=== PATIENT | female | born 1955 | race Caucasian/White ===

== ENCOUNTER 2020-07-22 13:29 | Inpatient (IN) | payer MEDICARE, OTHER ==
[2020-07-22] MEDS ORDERED: DEXTROSE 5% IN WATER 100 ML with AMIODARONE 150 MG IV ONE (13:40)
[2020-07-22] MEDS ORDERED: AMIODARONE 360 MG in DEXTROSE 5% IN WATER 200 ML IV ONE ×2 (14:00)
[2020-07-22] MEDS: HEPARIN SOD,PORK IN 0.45% NACL 25,000 UNIT in 0.45% NACL 1 250ML.BAG IV SCH (14:08)
[2020-07-22] MEDS: SODIUM CHLORIDE 0.9% 1,000 ML IV ONE ×2 (14:19→18:30)
--- NOTE | 2020-07-22 14:22 | ED ---
General Adult HPI - General Chief complaint: Arrhythmia/Palpitations Stated complaint: V-tac Time Seen by Provider: 07/22/20 13:40 Source: patient, EMS, RN notes reviewed, old records reviewed Mode of arrival: EMS Limitations: no limitations - History of Present Illness Initial comments: This is a 65-year-old female who presents to the emergency department from [facility]. Patient arrived to [facility] morning after she was spray some chest discomfort. Patient states on arrival she was chest pain-free however shortly thereafter the physician there reported the patient went into V. tach. Patient was given adenosine. The physician then called me and I recommended amiodarone if the patient was truly V. tach and she gave a bolus 150 and put the patient on a drip and started the patient on heparin. At that point time the patient transferred to our facility and she remained chest pain-free however on arrival to our facility the patient converted back into a V. tach but remained asymptomatic. - Related Data Home Medications Medication Instructions Recorded Confirmed FLUoxetine HCL [PROzac] 20 mg PO DAILY 02/26/14 07/18/16 Folic Acid 1 mg PO DAILY 02/26/14 07/18/16 Montelukast [Singulair] 10 mg PO HS 02/26/14 07/18/16 Potassium Chloride [Klor-Con 10] 10 meq PO TID 02/26/14 07/18/16 Budesonide [Pulmicort] 1 mg INHALATION RT-DAILY 05/26/16 07/18/16 Aspirin EC [Ecotrin Low Dose] 81 mg PO DAILY 07/02/16 07/18/16 Nitroglycerin Sl Tabs [Nitrostat] 0.4 mg PO Q5M PRN 07/02/16 07/18/16 Atorvastatin [Lipitor] 10 mg PO DAILY 07/18/16 07/18/16 Fluticasone/Vilanterol [Breo 1 puff INHALATION RT-DAILY 07/18/16 07/18/16 Ellipta 100-25 Mcg Inhaler] Magnesium Hydroxide [Milk of 30 ml PO DAILY PRN 07/18/16 07/18/16 Magnesia] bisacodyL [Dulcolax] 10 mg PO Q72H PRN 07/18/16 07/18/16 Previous Rx's Medication Instructions Recorded guaiFENesin SYRUP 100MG/5ML 200 mg PO Q6H PRN #14 cup 06/26/16 [Robitussin] Furosemide [Lasix] 40 mg PO BID@0900,1600 tab 07/08/16 Enoxaparin [Lovenox] 30 mg SQ DAILY 14 Days syringe 07/20/16 HYDROcodone/APAP 7.5-325MG [[place] 1 each PO Q6HR PRN #90 tab 07/20/16 7.5-325] Melatonin 3 mg PO HS tablet 07/20/16 Pantoprazole [Protonix] 40 mg PO AC-BRKFST tablet. 07/20/16 Sennosides-Docusate Sodium 2 each PO HS PRN #0 tab 07/20/16 [Senokot-S] ALPRAZolam [Xanax] 0.25 mg PO TID PRN #20 tab 07/22/16 Formoterol Fumarate [Perforomist] 20 mcg INHALATION RT-BID nebu 07/22/16 Ipratropium-Albuterol Nebulize 3 ml INHALATION RT-QID ampul.neb 07/22/16 [Duoneb 0.5 mg-3 mg/3 ml Soln] Allergies Allergy/AdvReac Type Severity Reaction Status Date / Time No Known Allergies Allergy Verified 07/02/16 15:46 Review of Systems ROS Statement: Those systems with pertinent positive or pertinent negative responses have been documented in the HPI. ROS Other: All systems not noted in ROS Statement are negative. Past Medical History Past Medical History: Coronary Artery Disease (CAD), Heart Failure, COPD, Hyperlipidemia, Hypertension, Respiratory Disorder Additional Past Medical History / Comment(s): Pt had recent admit to [facility] 05/26/16 with possible syncopal episode. Other HX: Chronic respiratory failure- uses 4-5L liters NC as needed, chronic CHF, cardiomyopathy, past vitamin D deficiency but ok now. recent right ankle fracture History of Any Multi-Drug Resistant Organisms: None Reported Past Surgical History: AICD, Breast Surgery, Heart Catheterization, Hysterectomy, Orthopedic Surgery Additional Past Surgical History / Comment(s): 2004 AICD, 2013 cardiac cath - treated medically, Benign R breast biopsy, colonoscopy-normal, broken R. ankle Past Anesthesia/Blood Transfusion Reactions: No Reported Reaction Type of Cardiac Device: AICD Device Placement Date:: unknown Past Psychological History: No Psychological Hx Reported Smoking Status: Former smoker Past Alcohol Use History: None Reported Past Drug Use History: None Reported - Past Family History Mother Additional Family Medical History / Comment(s): heart problems. Mother at the age of 65 or 67 of DVT "that traveled." Father Family Medical History: Myocardial Infarction ([place]) Additional Family Medical History / Comment(s): heart problems. Father of a [place] at the age of 65 yrs. General Exam - General Exam Comments Initial Comments: GENERAL: Patient is well-developed and well-nourished. Patient is nontoxic and well- hydrated and is in no acute distress. ENT: Neck is soft and supple. No significant lymphadenopathy is noted. Oropharynx is clear. Moist mucous membranes. Neck has full range of motion without eliciting any pain. EYES: The sclera were anicteric and conjunctiva were pink and moist. Extraocular movements were intact and pupils were equal round and reactive to light. Eyelid s were unremarkable. PULMONARY: Unlabored respirations. Good breath sounds bilaterally. No audible rales rhonchi or wheezing was noted. CARDIOVASCULAR: Patient was tachycardic at 180 bpm ABDOMEN: Soft and nontender with normal bowel sounds. SKIN: Skin is clear with no lesions or rashes and otherwise unremarkable. NEUROLOGIC: Patient is alert and oriented x3. Cranial nerves II through XII are grossly intact. Motor and sensory are also intact. Normal speech, volume and content. Symmetrical smile. MUSCULOSKELETAL: Normal extremities with adequate strength and full range of motion. LYMPHATICS: No significant lymphadenopathy is noted PSYCHIATRIC: Normal psychiatric evaluation. Limitations: no limitations Course Vital Signs 07/22/20 07/22/20 13:39 14:33 Temperature 97.4 F L Pulse Rate 70 71 Respiratory 18 16 Rate Blood Pressure 65/40 95/65 O2 Sat by Pulse 100 98 Oximetry Medical Decision Making - Medical Decision Making Initial EKG shows V. tach at 180 beats a minute QRS is 174 Q-T intervals 296 QTC is 512. A repeat EKG was done after the patient was given another bolus of 150 amiodarone and converted to a normal sinus rhythm. Second EKG showed normal sinus rhythm at 77 bpm LA interval 186 QRS is 120 QT interval 350 QTC is 396. Patient's EKG shows minimal ST segment elevation in V1 and V2. A third EKG was done shortly thereafter and it showed normal sinus rhythm at 70 bpm LA interval 170 [place] is 102 QT interval 44 QTC is 436. Patient's EKG again shows some ST segment elevation in leads V2. At this point time Dr. Hu was consulted he came down and saw the patient wanted the patient continued on amiodarone drip and heparin and did not want anything to increase the patient's blood pressure aside from fluids Dr. Hu did not want the patient placed on any pressors Patient's blood pressure was responding to fluid and was systolic about 100 consistently. Patient's glucose was 637 acetone was negative. Patient's troponin was mildly elevated 0.063. I spoke with because she agreed to admit the patient admitted the patient wrote admitting orders. - Lab Data Result diagrams: 07/22/20 14:07/22/20 14: Lab Results 07/22/20 07/22/20 07/22/20 Range/Units 14:01 14:01 14:01 WBC 9.1 (3.8-10.6) k/uL RBC 4.45 (3.80-5.40) m/uL Hgb 13.6 (11.4-16.0) gm/dL Hct 44.5 (34.0-46.0) % MCV 100.1 H (80.0-100.0) fL MCH 30.7 (25.0-35.0) pg MCHC 30.6 L (31.0-37.0) g/dL RDW 13.1 (11.5-15.5) % Plt Count 144 L (150-450) k/uL Neutrophils % 79 % Lymphocytes % 15 % Monocytes % 4 % Eosinophils % 2 % Basophils % 0 % Neutrophils # 7.2 (1.3-7.7) k/uL Lymphocytes # 1.4 (1.0-4.8) k/uL Monocytes # 0.4 (0-1.0) k/uL Eosinophils # 0.1 (0-0.7) k/uL Basophils # 0.0 (0-0.2) k/uL Sodium 121 L (137-145) mmol/L Potassium 3.7 (3.5-5.1) mmol/L Chloride 87 L (98-107) mmol/L Carbon Dioxide 26 (22-30) mmol/L Anion Gap 8 mmol/L BUN 15 (7-17) mg/dL Creatinine 1.09 H (0.52-1.04) mg/dL Est GFR (CKD-EPI)AfAm 61 (>60 ml/min/1.73 sqM) Est GFR (CKD-EPI)NonAf 53 (>60 ml/min/1.73 sqM) Glucose 637 H* (74-99) mg/dL Calcium 7.6 L (8.4-10.2) mg/dL Magnesium 1.9 (1.6-2.3) mg/dL Total Bilirubin 1.2 (0.2-1.3) mg/dL AST 50 H (14-36) U/L ALT 36 H (4-34) U/L Alkaline Phosphatase 102 (38-126) U/L Troponin I 0.063 H* (0.000-0.034) ng/mL Total Protein 5.7 L (6.3-8.2) g/dL Albumin 3.0 L (3.5-5.0) g/dL Acetone, Qual (Negative) 07/22/20 Range/Units 14:01 WBC (3.8-10.6) k/uL RBC (3.80-5.40) m/uL Hgb (11.4-16.0) gm/dL Hct (34.0-46.0) % MCV (80.0-100.0) fL MCH (25.0-35.0) pg MCHC (31.0-37.0) g/dL RDW (11.5-15.5) % Plt Count (150-450) k/uL Neutrophils % % Lymphocytes % % Monocytes % % Eosinophils % % Basophils % % Neutrophils # (1.3-7.7) k/uL Lymphocytes # (1.0-4.8) k/uL Monocytes # (0-1.0) k/uL Eosinophils # (0-0.7) k/uL Basophils # (0-0.2) k/uL Sodium (137-145) mmol/L Potassium (3.5-5.1) mmol/L Chloride (98-107) mmol/L Carbon Dioxide (22-30) mmol/L Anion Gap mmol/L BUN (7-17) mg/dL Creatinine (0.52-1.04) mg/dL Est GFR (CKD-EPI)AfAm (>60 ml/min/1.73 sqM) Est GFR (CKD-EPI)NonAf (>60 ml/min/1.73 sqM) Glucose (74-99) mg/dL Calcium (8.4-10.2) mg/dL Magnesium (1.6-2.3) mg/dL Total Bilirubin (0.2-1.3) mg/dL AST (14-36) U/L ALT (4-34) U/L Alkaline Phosphatase (38-126) U/L Troponin I (0.000-0.034) ng/mL Total Protein (6.3-8.2) g/dL Albumin (3.5-5.0) g/dL Acetone, Qual Negative (Negative) Critical Care Time Critical Care Time: Yes Total Critical Care Time: 40 Disposition Clinical Impression: Ventricular tachycardia, Hyponatremia, Hyperglycemia, Elevated troponin Disposition: ADMITTED IP TO THIS [facility] Referrals: Enzo Paula MD [STAFF PHYSICIAN] - 1-2 days Time of Disposition: 14:50
[2020-07-22 14:24] LABS: Basophils % (A) 0 %; Eosinophils # (A) 0.1 k/uL (0-0.7); Eosinophils % (A) 2 %; HCT 44.5 % (34.0-46.0); HGB 13.6 gm/dL (11.4-16.0); Lymphocytes # (A) 1.4 k/uL (1.0-4.8); Lymphocytes % (A) 15 %; MCH 30.7 pg (25.0-35.0); MCHC 30.6 g/dL (31.0-37.0); MCV 100.1 fL (80.0-100.0); Mean Platelet Volume 7.5; Monocytes # (A) 0.4 k/uL (0-1.0); Monocytes % (A) 4 %; Neutrophils # (A) 7.2 k/uL (1.3-7.7); Neutrophils % (A) 79 %; Platelet Count 144 k/uL (150-450); RBC 4.45 m/uL (3.80-5.40); RDW 13.1 % (11.5-15.5); WBC 9.1 k/uL (3.8-10.6)
[2020-07-22 14:25] LABS: Calcium 7.6 mg/dL (8.4-10.2); Magnesium 1.9 mg/dL (1.6-2.3); Potassium 3.7 mmol/L (3.5-5.1); Total Bilirubin 1.2 mg/dL (0.2-1.3); Total Protein 5.7 g/dL (6.3-8.2)
[2020-07-22 14:30] LABS: INR 1.3 (<1.2); Prothrombin Time 12.8 sec (9.0-12.0)
--- NOTE | 2020-07-22 14:35 | P.EPCON ---
Electrophysiology Consult - EP Consult Electrophysiology Consult: This is Dr. Hu dictating a consult on this patient The patient was interviewed and examined IMPRESSION / ASSESSMENT: Scar related ventricular tachycardia, left bundle branch block like, upright in the inferior leads upright in the high lateral leads QRS pattern in V1 and V2 consistent with anterior wall of the RVOT away from the septum Known cardiac myopathy Status post ICD implant Status post lead fracture and implantation of a new ICD lead in 2014 by me Symptomatic VT this time with hypotension Nonischemic cardiomyopathy with abnormal ECG at baseline with ST elevation in V1 and V2 PLAN: IV amiodarone. Hold Coreg and NICOLE inhibitor as for now. Her blood pressure is low line avoid norepinephrine or dopamine infusion. Patient is asymptomatic with a low blood pressure in sinus rhythm TSH level HPI Patient was transferred from [facility] with dizziness and weakness. She had a mild discomfort in her blood pressure was low when she arrived and she was in a wide complex tachycardia as she arrived in the ER. Prior to that she had had wide complex tachycardia that was treated with IV amiodarone She converted with IV amiodarone In sinus rhythm, blood pressures 80s but she is completely symptomatic and is in no chest discomfort She has a past history of cardiac myopathy and a [employer] ICD ROS: No fever chills or rigors, no cough, phlegm or expectoration, no nausea, vomiting or diarrhea, no hematuria, dysuria, no musculoskeletal complaints, no strokes or seizures, no skin lesions. EXAMINATION: 116/57 mmHg afebrile 97.7F pulse rate in the 70s Breath sounds are clear no rhonchi no crackles Heart sounds S1 and S2 are normal no murmurs or gallops or rub Abdomen soft nontender Resting comfortably in bed no respiratory distress no chest pain REVIEW OF LABS, ECG & MEDICAL DATA Sodium 139 potassium 3.7 chloride 98 BUN 17 creatinine 1.3 AST 51 ALT 37 Magnesium 1.4 Troponin 0.0 to Hemoglobin 12.6 Current catheterization was performed in 2013 for chest pain and ST elevation in V2 and V1 Left main was normal at that time mild disease in the LAD normal RCA and left circumflex At that time ejection fraction was 30 heparin 35% and right ventricle was of normal size History of lead fracture in 2014 and implantation of new ICD lead at that time Original ICD implanted in 2004. History of ventricular tachycardia
[2020-07-22 14:59] LABS: Partial Thromboplastin Time 88.2 sec (22.0-30.0)
--- NOTE | 2020-07-22 15:15 | XR ---
EXAMINATION TYPE: XR chest 2V DATE OF EXAM: 07/22/2020 COMPARISON: 07/18/2016 INDICATION: Chest pain, heart palpitations TECHNIQUE: Frontal and lateral views of the chest are obtained. FINDINGS: The heart size is borderline in size. The pulmonary vasculature is normal. The lungs are clear. Pacemaker overlies left chest IMPRESSION: 1. Borderline cardiac size, stable from comparison
[2020-07-22 15:17] LABS: Amorphous Sediment,Urine Rare /hpf; Appearance,Urine Cloudy (Clear); Bacteria,Urine Rare /hpf; Bilirubin,Urine Negative (Negative); Blood,Urine Small (Negative); Color,Urine Yellow; Glucose,Urine (UA) Negative (Negative); Ketones,Urine Negative (Negative); Leukocyte Esterase,Urine Large (Negative); Mucus,Urine Rare /hpf; Nitrite,Urine Negative (Negative); PH, Urine 6.5 (5.0-8.0); Protein,Urine Trace (Negative); RBC,Urine 18 /hpf (0-5); Squamous Epithelial Cell,Urine 14 /hpf (0-4); WBC,Urine 44 /hpf (0-5)
[2020-07-22 15:19] LABS: Specific Gravity,Urine >1.050 (1.001-1.035)
[2020-07-22 15:31] LABS: Glucose,Whole Blood 107 mg/dL (75-99)
[2020-07-22] MEDS: MAGNESIUM SULFATE-D5W PMX 1 GM in DEXTROSE/WATER 1 100ML.BAG IVPB SCH ×2 (15:31→16:42)
[2020-07-22] MEDS ORDERED: NITROGLYCERIN SL TABS 0.4 MG TAB SUBLINGUAL PRN (15:31)
[2020-07-22] MEDS: SODIUM CHLORIDE 0.9% 1,000 ML IV SCH (15:40)
[2020-07-22] MEDS: SODIUM CHLORIDE 0.9% 250 ML IV SCH ×5 (16:21→19:54)
[2020-07-22] MEDS ORDERED: SODIUM CHLORIDE 0.9% 250 ML IV SCH (16:30)
[2020-07-22] MEDS ORDERED: carvediloL 3.125 MG TAB PO SCH (17:30)
[2020-07-22 18:28] LABS: Glucose,Whole Blood 122 mg/dL (75-99)
[2020-07-22] MEDS: IPRATROPIUM-ALBUTEROL 3 ML NEB INHALATION SCH ×2 (18:52→19:14)
[2020-07-22] MEDS: INSULIN ASPART (NovoLOG) 100 UNIT/ML VIAL SQ SCH ×2 (19:06→21:03)
[2020-07-22] MEDS: BUDESONIDE 0.5 MG/2 ML NEBU INHALATION SCH (19:36)
--- NOTE | 2020-07-22 19:38 | P.HPIM ---
History of Present Illness H&P Date: 07/22/20 Chief Complaint: Chest pain History of presenting complaint: This is a pleasant 65-year-old patient, follows with Dr. Ramirez. Chronic stable medical conditions include congestive heart failure, COPD, hypertension, hyperlipidemia, chronic hypoxic respiratory failure on home oxygen 2 L AICD. Patient lives alone. Patient woke up this morning with pressure across the chest. Broke out in sweat short of breath and dizzy. Called her b operator. Chest pain was difficult 45 minutes. Taken down to local [facility]. Patient has been subsided. Initial troponin was 0.02. Subsequently the patient developed medical tachycardia and before any truck and could be administered AICD went off. Subsequently patient was transferred down here to [facility] in [place] on ER. She had a episode of ventricular tachycardia here for about 5-7 minutes. One 50 mg of IV amiodarone was given. Patient went back into sinus rhythm. Patient seen by Dr. Samuel Hu mangle tender soil conservation teacher in the ER. Blood pressure running on the low side. About 80 systolic. On IV heparin. Patient at baseline does use a walker. Review of systems: GEN.: Tired EYES: None HEENT: None NECK: None RESPIRATORY: As above CARDIOVASCULAR: As above GASTROINTESTINAL: None GENITOURINARY: None MUSCULOSKELETAL: Joint pains LYMPHATICS: None HEMATOLOGICAL: None PSYCHIATRY: Slightly anxious NEUROLOGICAL: Uses a walker Past medical history to include: Coronary artery disease, CHF, COPD, hyperlipidemia, hypertension, home oxygen, cardiomyopathy, AICD. Social history: Lives alone. Has a private duty [employer]. Comes 3 times a week. Patient smoked for about 37 years, 1 pack a day stopped about 20 years ago. No alcohol. Physical examination: VITAL SIGNS: 97.4, 67, 20, 82/50, 97% on 2 L GENERAL: BMI 35.9, sitting up, a bit tired. EYES: Pupils equal. Conjunctiva normal. HEENT: External appearance of nose and ears normal, oral cavity grossly normal. NECK: JVD not raised; masses not palpable. HEART: First and second heart sounds are normal; no edema. LUNGS: Respiratory rate increased; decreased breath sounds. ABDOMEN: Soft, nontender, liver spleen not palpable, no masses palpable. PSYCH: Alert and oriented x3; mood and affect. Anxiousl. MUSCULAR skeletal: Evidence of OA NEUROLOGICAL: Cranial nerves grossly intact; no facial asymmetry, power and sensation grossly intact. LYMPHATICS: No lymph nodes palpable in the axilla and neck INVESTIGATIONS, reviewed in the clinical context: White count 9.1 hemoglobin 13.6 platelets 144 sodium 121 potassium 3.7 bun 15 creatinine 1.09 glucose 637 AST 50 ALT 36 troponin 0.063 TSH 1.6 UA positive for leukoesterase, WBC Serum acetone negative EKG tracing personally reviewed by me-ST segment changes on the EKG sinus rhythm Chest x-ray film personally reviewed by me-cardiomegaly. No obvious venous prominence Previous testing: Troponin 0.02 at [facility] Computed tomography scan of the chest negative for PE ProBNP 670 Assessment: -Possible acute non- ST elevation myocardial infarction, POA -2 episodes of sustained ventricular tachycardia-with AICD going off. -Coronary artery disease -Nonketotic hyperosmolar hyperglycemia -Obesity BMI 35.9 -COPD in an ex-smoker -Hyperlipidemia -Chronic hypoxic respiratory failure on home oxygen 2 L -AICD -Chronic gait dysfunction uses a walker -Hypotension likely from acute AR -Severe hyponatremia. -Acute UTI with cystitis Plan: We'll saw the patient on normal saline 100 mL an hour. Had to be careful given history of cardiomyopathy. Patient also IV heparin. Add bronchodilators and intravenous steroids. Check serum osmolality. Restrict water intake to 1500 mL a day. Follow Accu-Cheks closely. Home medications to continue. Increase Lipitor to 40 mg daily at bedtime. Dose of Coreg will be cut back to 1.563 mg twice a day to be held for systolic blood pressure less than 90. Care was discussed with the patient. Questions were answered. Start the patient on IV ceftriaxone. On IV amiodarone. Past Medical History Past Medical History: Coronary Artery Disease (CAD), Heart Failure, COPD, Hyperlipidemia, Hypertension, Respiratory Disorder Additional Past Medical History / Comment(s): Pt had recent admit to [facility] 05/26/16 with possible syncopal episode. Other HX: Chronic respiratory failure- uses 4-5L liters NC as needed, chronic CHF, cardiomyopathy, past vitamin D deficiency but ok now. recent right ankle fracture History of Any Multi-Drug Resistant Organisms: None Reported Past Surgical History: AICD, Breast Surgery, Heart Catheterization, Hysterectomy, Orthopedic Surgery Additional Past Surgical History / Comment(s): 2004 AICD, 2013 cardiac cath - treated medically, Benign R breast biopsy, colonoscopy-normal, broken R. ankle Past Anesthesia/Blood Transfusion Reactions: No Reported Reaction Type of Cardiac Device: AICD Device Placement Date:: unknown Past Psychological History: No Psychological Hx Reported Additional Psychological History / Comment(s): Pt resides alone. She has home O2 and a nebulizer. Pt has a private duty [employer]ER that comes to help the pt three times a week. She does not drive. Her sister or a friend takes her to [facility]. Smoking Status: Former smoker Past Alcohol Use History: None Reported Additional Past Alcohol Use History / Comment(s): started smoking at age 18. stopped smoking jun 22, 2016 Past Drug Use History: None Reported - Past Family History Mother Additional Family Medical History / Comment(s): heart problems. Mother at the age of 65 or 67 of DVT "that traveled." Father Family Medical History: Myocardial Infarction ([place]) Additional Family Medical History / Comment(s): heart problems. Father of a [place] at the age of 65 yrs. Medications and Allergies Home Medications Medication Instructions Recorded Confirmed Type FLUoxetine HCL [PROzac] 20 mg PO DAILY 02/26/14 07/22/20 History Folic Acid 1 mg PO DAILY 02/26/14 07/22/20 History Montelukast [Singulair] 10 mg PO HS 02/26/14 07/22/20 History Potassium Chloride [Klor-Con 10] 10 meq PO TID 02/26/14 07/22/20 History Aspirin EC [Ecotrin Low Dose] 81 mg PO DAILY 07/02/16 07/22/20 History Nitroglycerin Sl Tabs [Nitrostat] 0.4 mg PO Q5M PRN 07/02/16 07/22/20 History Atorvastatin [Lipitor] 10 mg PO DAILY 07/18/16 07/22/20 History Fluticasone/Vilanterol [Breo 1 puff INHALATION RT-DAILY 07/18/16 07/22/20 Histo ry Ellipta 100-25 Mcg Inhaler] Furosemide [Lasix] 20 mg PO DAILY 07/22/20 07/22/20 History Omeprazole 20 mg PO HS 07/22/20 07/22/20 History carvediloL [Coreg] 3.125 mg PO BID 07/22/20 07/22/20 History lisinopriL [Zestril] 2.5 mg PO DAILY 07/22/20 07/22/20 History Allergies Allergy/AdvReac Type Severity Reaction Status Date / Time No Known Allergies Allergy Verified 07/22/20 14:58 Physical Exam Vitals: Vital Signs Temp Pulse Pulse Resp BP BP Pulse Ox 07/22/20 19:22 97 07/22/20 19:14 69 07/22/20 18:39 77 75/49 07/22/20 16:53 62 16 89/55 98 07/22/20 16:45 63 16 79/54 96 07/22/20 16:30 65 18 85/60 98 07/22/20 16:15 98.1 F 63 62 18 80/50 70/46 100 07/22/20 16:13 62 18 80/50 07/22/20 16:00 63 20 76/54 98 07/22/20 15:45 65 16 84/54 97 07/22/20 15:41 65 18 94/62 97 07/22/20 15:30 64 15 87/65 98 07/22/20 15:15 67 20 82/50 97 07/22/20 15:00 65 20 92/45 97 07/22/20 14:33 71 16 95/65 98 07/22/20 13:39 97.4 F L 70 18 65/40 100 Intake and Output 07/22/20 07/22/20 07/22/20 06:59 14:59 22:59 Intake Total 16.167 Balance 16.167 Intake: Intake, IV Titration 16.167 Amount Heparin Sod,Pork in 0.45% 16.167 NaCl 25,000 unit In 0.45 % NaCl 1 250ml.bag @ 11. 603 UNITS/KG/HR 10 mls/hr IV .Q24H [facility] Rx#: [id number] Other: Weight 86.183 kg 86.183 kg Results CBC & Chem 7: 07/22/20 14:01 07/22/20 14:01 Labs: Abnormal Lab Results - Last 24 Hours (Table) 07/22/20 07/22/20 07/22/20 Range/Units 14:01 14:01 14:01 MCV 100.1 H (80.0-100.0) fL MCHC 30.6 L (31.0-37.0) g/dL Plt Count 144 L (150-450) k/uL PT 12.8 H (9.0-12.0) sec INR 1.3 H (<1.2) APTT 88.2 H (22.0-30.0) sec Sodium 121 L (137-145) mmol/L Chloride 87 L (98-107) mmol/L Creatinine 1.09 H (0.52-1.04) mg/dL Glucose 637 H* (74-99) mg/dL POC Glucose (mg/dL) (75-99) mg/dL Calcium 7.6 L (8.4-10.2) mg/dL AST 50 H (14-36) U/L ALT 36 H (4-34) U/L Troponin I (0.000-0.034) ng/mL Total Protein 5.7 L (6.3-8.2) g/dL Albumin 3.0 L (3.5-5.0) g/dL Urine Appearance (Clear) Ur Specific [place] (1.001-1.035) Urine Protein (Negative) Urine Blood (Negative) Ur Leukocyte Esterase (Negative) Urine RBC (0-5) /hpf Urine WBC (0-5) /hpf Ur Squamous Epith Cells (0-4) /hpf Amorphous Sediment (None) /hpf Urine Bacteria (None) /hpf Urine Mucus (None) /hpf 07/22/20 07/22/20 07/22/20 Range/Units 14:01 14:27 15:29 MCV (80.0-100.0) fL MCHC (31.0-37.0) g/dL Plt Count (150-450) k/uL PT (9.0-12.0) sec INR (<1.2) APTT (22.0-30.0) sec Sodium (137-145) mmol/L Chloride (98-107) mmol/L Creatinine (0.52-1.04) mg/dL Glucose (74-99) mg/dL POC Glucose (mg/dL) 107 H (75-99) mg/dL Calcium (8.4-10.2) mg/dL AST (14-36) U/L ALT (4-34) U/L Troponin I 0.063 H* (0.000-0.034) ng/mL Total Protein (6.3-8.2) g/dL Albumin (3.5-5.0) g/dL Urine Appearance Cloudy H (Clear) Ur Specific [place] >1.050 H (1.001-1.035) Urine Protein Trace H (Negative) Urine Blood Small H (Negative) Ur Leukocyte Esterase Large H (Negative) Urine RBC 18 H (0-5) /hpf Urine WBC 44 H (0-5) /hpf Ur Squamous Epith Cells 14 H (0-4) /hpf Amorphous Sediment Rare H (None) /hpf Urine Bacteria Rare H (None) /hpf Urine Mucus Rare H (None) /hpf 07/22/20 Range/Units 18:27 MCV (80.0-100.0) fL MCHC (31.0-37.0) g/dL Plt Count (150-450) k/uL PT (9.0-12.0) sec INR (<1.2) APTT (22.0-30.0) sec Sodium (137-145) mmol/L Chloride (98-107) mmol/L Creatinine (0.52-1.04) mg/dL Glucose (74-99) mg/dL POC Glucose (mg/dL) 122 H (75-99) mg/dL Calcium (8.4-10.2) mg/dL AST (14-36) U/L ALT (4-34) U/L Troponin I (0.000-0.034) ng/mL Total Protein (6.3-8.2) g/dL Albumin (3.5-5.0) g/dL Urine Appearance (Clear) Ur Specific [place] (1.001-1.035) Urine Protein (Negative) Urine Blood (Negative) Ur Leukocyte Esterase (Negative) Urine RBC (0-5) /hpf Urine WBC (0-5) /hpf Ur Squamous Epith Cells (0-4) /hpf Amorphous Sediment (None) /hpf Urine Bacteria (None) /hpf Urine Mucus (None) /hpf Thrombosis Risk Factor Assmnt - Choose All That Apply Each Factor Represents 1 point: Obesity (BMI >25) Each Risk Factor Represents 2 Points: Age 61-74 years Thrombosis Risk Factor Assessment Total Risk Factor Score: 3 Thrombosis Risk Factor Assessment Level: Moderate Risk
[2020-07-22 20:48] LABS: Glucose,Whole Blood 119 mg/dL (75-99)
[2020-07-22] MEDS: PANTOPRAZOLE 40 MG TABLET PO SCH (21:03)
[2020-07-22] MEDS: MONTELUKAST 10 MG TAB PO SCH (21:03)
[2020-07-22] MEDS: ATORVASTATIN 40 MG TAB PO SCH (21:03)
[2020-07-22] MEDS: AMIODARONE 360 MG in DEXTROSE 5% IN WATER 200 ML IV ONE ×2 (21:41)
[2020-07-23] MEDS: AMIODARONE 360 MG in DEXTROSE 5% IN WATER 200 ML IV ONE ×2 (01:21)
[2020-07-23] MEDS: SODIUM CHLORIDE 0.9% 250 ML IV SCH ×2 (04:07→04:08)
[2020-07-23 06:02] LABS: Calcium 8.2 mg/dL (8.4-10.2)
[2020-07-23] MEDS: SODIUM CHLORIDE 0.9% 1,000 ML IV SCH (06:18)
[2020-07-23 06:23] LABS: Glucose,Whole Blood 126 mg/dL (75-99)
[2020-07-23] MEDS: INSULIN ASPART (NovoLOG) 100 UNIT/ML VIAL SQ SCH ×4 (06:32→21:21)
[2020-07-23] MEDS ORDERED: AMIODARONE 360 MG in DEXTROSE 5% IN WATER 200 ML IV ONE ×2 (07:30)
[2020-07-23] MEDS: IPRATROPIUM-ALBUTEROL 3 ML NEB INHALATION SCH ×4 (07:43→20:35)
[2020-07-23] MEDS: BUDESONIDE 0.5 MG/2 ML NEBU INHALATION SCH ×2 (07:44→20:35)
[2020-07-23] MEDS: ASPIRIN 81 MG PO SCH (08:16)
[2020-07-23] MEDS: FLUoxetine HCL 20 MG CAP PO SCH (08:17)
[2020-07-23] MEDS: FOLIC ACID 1 MG TAB PO SCH (08:17)
[2020-07-23 11:47] LABS: Glucose,Whole Blood 117 mg/dL (75-99)
--- NOTE | 2020-07-23 12:38 | P.PN ---
Subjective Patient was resting comfortably in bed. She denies any symptoms such as chest discomfort dizziness lightheadedness or any undue shortness of breath. There is no orthopnea I interrogated and reprogrammed her ICD Blood pressure 85/57 mmHg afebrile 98.1F, pulse rate in the 60s and 70s Breath sounds are clear no rhonchi no crackles Heart sounds S1-S2 are soft no murmurs or gallops no rub No JVD No lower symmetry edema Impression Severe cardio myopathy with congestive heart failure status post ICD in the past She is a dual-chamber Medtronic ICD She's had a RV lead fracture and implanted a new RV lead 5 years back She presented with sustained ventricular tachycardia that made her feel funny dizzy and lightheaded but no true loss of consciousness She terminated with IV amiodarone She had antitachycardia pacing performed by the ICD successfully on multiple occasions Currently she is on IV amiodarone I will switch to by mouth amiodarone tomorrow Currently lisinopril and beta blockers are on hold on account for low blood pressure White count 9.1 thousand, hemoglobin 13.6, sodium 134 potassium 4.0 BUN 17 creatinine 1.2 TSH 1.66 Borderline troponins protocol multiple ICD therapies and recurrent ventricular tachycardia Plan Tomorrow we should switch amiodarone 400 mg by mouth twice a day for 2 weeks, then 200 mg by mouth twice a day for 2 weeks and then subsequently 200 mg by mouth daily I would stop carvedilol then switched to metoprolol 12.5 mg twice daily tomorrow Objective - Vital Signs Vital signs: Vital Signs Temp 98.1 F 07/23/20 11:53 Pulse 70 07/23/20 11:53 Resp 20 07/23/20 11:53 BP 85/57 07/23/20 11:53 Pulse Ox 98 07/23/20 11:53 Intake & Output 07/22/20 07/23/20 07/23/20 19:59 06:59 18:59 Intake Total 128.081 Output Total Balance 128.081 Weight Intake: Intake, IV Titration 8.081 Amount Amiodarone 360 mg In Dextrose 5% in Water 200 ml @ 1 MG/MIN 33.333 mls/ hr IV .Q6H [facility] Rx#: [id number] Heparin Sod,Pork in 0.45% 8.081 NaCl 25,000 unit In 0.45 % NaCl 1 250ml.bag @ 11. 603 UNITS/KG/HR 10 mls/hr IV .Q24H [facility] Rx#: [id number] Oral 120 Output: Urine Other: Voiding Method Indwelling Catheter - Labs CBC & Chem 7: 07/22/20 14:07/23/20 05:36 Labs: Abnormal Lab Results - Last 24 Hours (Table) 07/22/20 07/22/20 07/22/20 Range/Units 14:01 14: 14:01 MCV 100.1 H (80.0-100.0) fL MCHC 30.6 L (31.0-37.0) g/dL Plt Count 144 L (150-450) k/uL PT 12.8 H (9.0-12.0) sec INR 1.3 H (<1.2) APTT 88.2 H (22.0-30.0) sec Sodium 121 L (137-145) mmol/L Chloride 87 L (98-107) mmol/L Creatinine 1.09 H (0.52-1.04) mg/dL Glucose 637 H* (74-99) mg/dL POC Glucose (mg/dL) (75-99) mg/dL Calcium 7.6 L (8.4-10.2) mg/dL AST 50 H (14-36) U/L ALT 36 H (4-34) U/L Troponin I (0.000-0.034) ng/mL Total Protein 5.7 L (6.3-8.2) g/dL Albumin 3.0 L (3.5-5.0) g/dL Urine Appearance (Clear) Ur Specific [place] (1.001-1.035) Urine Protein (Negative) Urine Blood (Negative) Ur Leukocyte Esterase (Negative) Urine RBC (0-5) /hpf Urine WBC (0-5) /hpf Ur Squamous Epith Cells (0-4) /hpf Amorphous Sediment (None) /hpf Urine Bacteria (None) /hpf Urine Mucus (None) /hpf 07/22/20 07/22/20 07/22/20 Range/Units 14:01 14:27 15:29 MCV (80.0-100.0) fL MCHC (31.0-37.0) g/dL Plt Count (150-450) k/uL PT (9.0-12.0) sec INR (<1.2) APTT (22.0-30.0) sec Sodium (137-145) mmol/L Chloride (98-107) mmol/L Creatinine (0.52-1.04) mg/dL Glucose (74-99) mg/dL POC Glucose (mg/dL) 107 H (75-99) mg/dL Calcium (8.4-10.2) mg/dL AST (14-36) U/L ALT (4-34) U/L Troponin I 0.063 H* (0.000-0.034) ng/mL Total Protein (6.3-8.2) g/dL Albumin (3.5-5.0) g/dL Urine Appearance Cloudy H (Clear) Ur Specific [place] >1.050 H (1.001-1.035) Urine Protein Trace H (Negative) Urine Blood Small H (Negative) Ur Leukocyte Esterase Large H (Negative) Urine RBC 18 H (0-5) /hpf Urine WBC 44 H (0-5) /hpf Ur Squamous Epith Cells 14 H (0-4) /hpf Amorphous Sediment Rare H (None) /hpf Urine Bacteria Rare H (None) /hpf Urine Mucus Rare H (None) /hpf 07/22/20 07/22/20 07/22/20 Range/Units 18:27 20:45 21:53 MCV (80.0-100.0) fL MCHC (31.0-37.0) g/dL Plt Count (150-450) k/uL PT (9.0-12.0) sec INR (<1.2) APTT (22.0-30.0) sec Sodium (137-145) mmol/L Chloride (98-107) mmol/L Creatinine (0.52-1.04) mg/dL Glucose (74-99) mg/dL POC Glucose (mg/dL) 122 H 119 H (75-99) mg/dL Calcium (8.4-10.2) mg/dL AST (14-36) U/L ALT (4-34) U/L Troponin I 0.069 H* (0.000-0.034) ng/mL Total Protein (6.3-8.2) g/dL Albumin (3.5-5.0) g/dL Urine Appearance (Clear) Ur Specific [place] (1.001-1.035) Urine Protein (Negative) Urine Blood (Negative) Ur Leukocyte Esterase (Negative) Urine RBC (0-5) /hpf Urine WBC (0-5) /hpf Ur Squamous Epith Cells (0-4) /hpf Amorphous Sediment (None) /hpf Urine Bacteria (None) /hpf Urine Mucus (None) /hpf 07/22/20 07/23/20 07/23/20 Range/Units 21:53 05:36 05:36 MCV (80.0-100.0) fL MCHC (31.0-37.0) g/dL Plt Count (150-450) k/uL PT (9.0-12.0) sec INR (<1.2) APTT 67.3 H 46.2 H (22.0-30.0) sec Sodium 134 L (137-145) mmol/L Chloride (98-107) mmol/L Creatinine 1.20 H (0.52-1.04) mg/dL Glucose 124 H (74-99) mg/dL POC Glucose (mg/dL) (75-99) mg/dL Calcium 8.2 L (8.4-10.2) mg/dL AST (14-36) U/L ALT (4-34) U/L Troponin I (0.000-0.034) ng/mL Total Protein (6.3-8.2) g/dL Albumin (3.5-5.0) g/dL Urine Appearance (Clear) Ur Specific [place] (1.001-1.035) Urine Protein (Negative) Urine Blood (Negative) Ur Leukocyte Esterase (Negative) Urine RBC (0-5) /hpf Urine WBC (0-5) /hpf Ur Squamous Epith Cells (0-4) /hpf Amorphous Sediment (None) /hpf Urine Bacteria (None) /hpf Urine Mucus (None) /hpf 07/23/20 07/23/20 Range/Units 06:20 11:45 MCV (80.0-100.0) fL MCHC (31.0-37.0) g/dL Plt Count (150-450) k/uL PT (9.0-12.0) sec INR (<1.2) APTT (22.0-30.0) sec Sodium (137-145) mmol/L Chloride (98-107) mmol/L Creatinine (0.52-1.04) mg/dL Glucose (74-99) mg/dL POC Glucose (mg/dL) 126 H 117 H (75-99) mg/dL Calcium (8.4-10.2) mg/dL AST (14-36) U/L ALT (4-34) U/L Troponin I (0.000-0.034) ng/mL Total Protein (6.3-8.2) g/dL Albumin (3.5-5.0) g/dL Urine Appearance (Clear) Ur Specific [place] (1.001-1.035) Urine Protein (Negative) Urine Blood (Negative) Ur Leukocyte Esterase (Negative) Urine RBC (0-5) /hpf Urine WBC (0-5) /hpf Ur Squamous Epith Cells (0-4) /hpf Amorphous Sediment (None) /hpf Urine Bacteria (None) /hpf Urine Mucus (None) /hpf Microbiology - Last 24 Hours (Table) 07/22/20 14:27 Urine Culture - Preliminary Urine,Voided
[2020-07-23 12:39] LABS: Hemoglobin A1C 5.5 % (4.0-6.0)
--- NOTE | 2020-07-23 13:22 | P.EPPROC ---
- EP Procedure Note Electrophysiology Procedure Note: Medtronic dual-chamber ICD protector XT aVR, D314V Serial number [id number] R waves greater than 20 mV, RV pacing impedance 608 ohms, stable RV defib 59 ohms Pacing threshold 0.75 V at 0.4 ms Multiple episodes of ventricular tachycardia treated with antitachycardia pacing The device was then reprogrammed as she is on amiodarone VT detection zone 167 beats a minute VT detection intervals increased to 40 beats a minute First cardioversion and defibrillation both at maximum output Appropriate antitachycardia pacing conversion defibrillations Antitachycardia pacing pulses of 15 each with each burst Plan Continue IV amiodarone per day and switch to by mouth amiodarone tomorrow Stop carvedilol and switch to metoprolol tomorrow since her blood pressure is low
--- NOTE | 2020-07-23 15:24 | P.PN ---
Progress Note - Text Progress Note Date: 07/23/20 Chief Complaint: Chest pain History of presenting complaint: This is a pleasant 65-year-old patient, follows with Dr. Ramirez. Chronic stable medical conditions include congestive heart failure, COPD, hypertension, hyperlipidemia, chronic hypoxic respiratory failure on home oxygen 2 L AICD. Patient lives alone. Patient woke up this morning with pressure across the chest. Broke out in sweat short of breath and dizzy. Called her partition setter. Chest pain was difficult 45 minutes. Taken down to local [facility]. Patient has been subsided. Initial troponin was 0.02. Subsequently the patient developed medical tachycardia and before any truck and could be administered AICD went off. Subsequently patient was transferred down here to [place] in [place] on ER. She had a episode of ventricular tachycardia here for about 5-7 minutes. One 50 mg of IV amiodarone was given. Patient went back into sinus rhythm. Patient seen by Dr. Samuel Hu power operator authorization manager in the ER. Blood pressure running on the low side. About 80 systolic. On IV heparin. Patient at baseline does use a walker. Admitted with-acute [place], hypertension, nonketotic hyperosmolar hyperglycemia, UTI. Started on IV fluids, IV heparin. IV amiodarone. IV ceftriaxone. Today-laying in bed. Slightly short of breath. No fevers a bit better. Did tolerate some diet. Remains on IV heparin and IV amiodarone. No chest pain. AICD was reprogrammed with Dr. Samuel Hu today. Review of systems: Was done for constitutional, cardiovascular, GI, pulmonary. relevant finding as above Active Medications Albuterol/Ipratropium (Ipratropium-Albuterol 3 Ml Neb) 3 ml INHALATION RT-QID [facility] Last Admin: 07/23/20 11:18 Dose: 3 ml Documented by: Aspirin (Aspirin 81 Mg) 81 mg PO DAILY [facility] Last Admin: 07/23/20 08:16 Dose: 81 mg Documented by: Atorvastatin Calcium (Atorvastatin 40 Mg Tab) 40 mg PO HS [facility] Last Admin: 07/22/20 21:03 Dose: 40 mg Documented by: Budesonide (Budesonide 0.5 Mg/2 Ml Nebu) 0.5 mg INHALATION RT-BID [facility] Last Admin: 07/23/20 07:44 Dose: 0.5 mg Documented by: Carvedilol (Carvedilol 1.563 Mg Tab) 1.563 mg PO BID-W/MEALS [facility] Last Admin: 07/23/20 06:32 Dose: Not Given Documented by: Fluoxetine HCl (Fluoxetine Hcl 20 Mg Cap) 20 mg PO DAILY [facility] Last Admin: 07/23/20 08:17 Dose: 20 mg Documented by: Folic Acid (Folic Acid 1 Mg Tab) 1 mg PO DAILY [facility] Last Admin: 07/23/20 08:17 Dose: 1 mg Documented by: Heparin Sodium/Sodium Chloride (25,000 unit/ Sodium Chloride) 250 mls @ 10 mls/hr IV .Q24H [facility]; Protocol Last Titration: 07/23/20 07:33 Dose: 7.603 units/kg/hr, 6.552 mls/hr Documented by: Ceftriaxone Sodium 1 gm/ (Sodium Chloride) 50 mls @ 100 mls/hr IVPB Q24HR [facility] Last Admin: 07/23/20 08:17 Dose: 100 mls/hr Documented by: Amiodarone HCl 360 mg/ (Dextrose/Water) 200 mls @ 33.333 mls/hr IV .Q6H [facility]; Protocol Insulin Aspart (Insulin Aspart (Novolog) 100 Unit/Ml Vial) 0 unit SQ ACHS [facility]; Protocol Last Admin: 07/23/20 13:59 Dose: Not Given Documented by: Montelukast Sodium (Montelukast 10 Mg Tab) 10 mg PO [facility] Last Admin: 07/22/20 21:03 Dose: 10 mg Documented by: Nitroglycerin (Nitroglycerin Sl Tabs 0.4 Mg Tab) 0.4 mg SUBLINGUAL Q5M PRN PRN Reason: Chest Pain Pantoprazole Sodium (Pantoprazole 40 Mg Tablet) 40 mg PO [facility] Last Admin: 07/22/20 21:03 Dose: 40 mg Documented by: Physical examination: VITAL SIGNS: 98.1, 70, 20, 85/57, 98% on 3 L GENERAL: Laying in bed, tired EYES: Pupils equal. Conjunctiva normal. NECK: JVD not raised; masses not palpable. HEART: First and second heart sounds are normal; no edema. LUNGS: Respiratory rate increased; decreased breath sounds. ABDOMEN: Soft, nontender, liver spleen not palpable, no masses palpable. PSYCH: Alert and oriented x3; mood and affect. Anxiousl. INVESTIGATIONS, reviewed in the clinical context: Potassium 4 creatinine 1.2 glucose 126 Admission testing White count 9.1 hemoglobin 13.6 platelets 144 sodium 121 potassium 3.7 bun 15 creatinine 1.09 glucose 637 AST 50 ALT 36 troponin 0.063 TSH 1.6 UA positive for leukoesterase, WBC Serum acetone negative EKG tracing personally reviewed by me-ST segment changes on the EKG sinus rhythm Chest x-ray film personally reviewed by me-cardiomegaly. No obvious venous prominence Previous testing: Troponin 0.02 at [facility] Computed tomography scan of the chest negative for PE ProBNP 670 Assessment: -Possible acute non- ST elevation myocardial infarction, POA -2 episodes of sustained ventricular tachycardia-with AICD going off.-On IV amiodarone -Coronary artery disease -Nonketotic hyperosmolar hyperglycemia-corrected -Obesity BMI 35.9 -COPD in an ex-smoker -Hyperlipidemia -Chronic hypoxic respiratory failure on home oxygen 2 L -AICD -Chronic gait dysfunction uses a walker -Hypotension likely from acute [place]-slow to respond -Severe hyponatremia.-Improved -Acute UTI with cystitis -IV heparin monitoring Plan: Patient continued to on IV amiodarone, DuoNeb, IV heparin, IV ceftriaxone. Urine culture pending. AICD was reprogrammed by Dr. Samuel Hu today. Pending 2-D echocardiogram
[2020-07-23] MEDS: AMIODARONE 360 MG in DEXTROSE 5% IN WATER 200 ML IV SCH ×4 (15:30→21:21)
[2020-07-23] MEDS: HEPARIN SOD,PORK IN 0.45% NACL 25,000 UNIT in 0.45% NACL 1 250ML.BAG IV SCH (15:44)
[2020-07-23 16:49] LABS: Glucose,Whole Blood 100 mg/dL (75-99)
[2020-07-23 20:46] LABS: Glucose,Whole Blood 114 mg/dL (75-99)
[2020-07-23] MEDS: MONTELUKAST 10 MG TAB PO SCH (21:21)
[2020-07-23] MEDS: ATORVASTATIN 40 MG TAB PO SCH (21:21)
[2020-07-23] MEDS: PANTOPRAZOLE 40 MG TABLET PO SCH (21:21)
[2020-07-24] MEDS: AMIODARONE 360 MG in DEXTROSE 5% IN WATER 200 ML IV SCH ×4 (03:25→18:37)
[2020-07-24 06:12] LABS: Glucose,Whole Blood 103 mg/dL (75-99)
[2020-07-24] MEDS: INSULIN ASPART (NovoLOG) 100 UNIT/ML VIAL SQ SCH ×3 (06:37→21:26)
[2020-07-24] MEDS: IPRATROPIUM-ALBUTEROL 3 ML NEB INHALATION SCH ×4 (07:49→20:10)
[2020-07-24] MEDS: BUDESONIDE 0.5 MG/2 ML NEBU INHALATION SCH ×2 (07:49→20:10)
[2020-07-24] MEDS: FOLIC ACID 1 MG TAB PO SCH (09:08)
[2020-07-24] MEDS: ASPIRIN 81 MG PO SCH (09:08)
[2020-07-24] MEDS: FLUoxetine HCL 20 MG CAP PO SCH (09:08)
[2020-07-24] MEDS: AMIODARONE 200 MG TAB PO SCH ×2 (09:12→21:25)
[2020-07-24 11:53] LABS: Glucose,Whole Blood 122 mg/dL (75-99)
--- NOTE | 2020-07-24 11:55 | P.PN ---
Subjective Progress Note Date: 07/24/20 HISTORY OF PRESENT ILLNESS: Patient examined this morning bedside. She denies chest pain or pressure. Denies shortness of breath. She had her device reprogrammed yesterday by Dr. Hu. No further episodes of Vtach. PHYSICAL EXAM: VITAL SIGNS: Reviewed. GENERAL: Well-developed in no acute distress. NECK: Supple. No JVD or thyromegaly LUNGS: Respirations even and unlabored. Lungs essentially clear to auscultation bilaterally. HEART: Regular rate and rhythm. S1 and S2 heard. EXTREMITIES: Normal range of motion. No clubbing or cyanosis. Peripheral pulses intact. No lower extremity edema ASSESSMENT: Symptomatic ventricular tachycardia, s/p reprogramming of ICD Nonischemic cardiomyopathy, EF 30-35%, with previous ICD PLAN: Discontinue IV heparin Discontinue IV amio Begin amio PO 400mg PO BID Discontinue Coreg. Begin Metoprolol 12.5mg BID Monitor blood pressure and heart rate Nurse practitioner note has been reviewed by physician. Signing provider agrees with the documented findings, assessment, and plan of care. Objective - Vital Signs Vital signs: Vital Signs Temp 98.7 F 07/23/20 20:00 Pulse 80 07/24/20 11:08 Resp 18 07/24/20 08:00 BP 91/59 07/24/20 08:00 Pulse Ox 95 07/24/20 08:00 Intake & Output 07/23/20 07/24/20 07/24/20 18:59 06:59 18:59 Intake Total 1081.698 394.998 240 Output Total 1750 Balance 1081.698 -1355.002 240 Weight 92 kg Intake: Intake, IV Titration 61.698 394.998 Amount Amiodarone 360 mg In 394.998 Dextrose 5% in Water 200 ml @ 1 MG/MIN 33.333 mls/ hr IV .Q6H [facility] Rx#: [id number] Heparin Sod,Pork in 0.45% 61.698 NaCl 25,000 unit In 0.45 % NaCl 1 250ml.bag @ 11. 603 UNITS/KG/HR 10 mls/hr IV .Q24H [facility] Rx#: [id number] Oral 1020 240 Output: Urine 1750 Other: Voiding Method Indwelling Catheter Indwelling Catheter Indwelling Catheter # Voids 1 1 # Bowel Movements 1 - Labs CBC & Chem 7: 10/31/20 14:01 07/23/20 05:36 Labs: Abnormal Lab Results - Last 24 Hours (Table) 07/23/20 07/23/20 07/23/20 Range/Units 11:45 16:47 20:34 APTT (22.0-30.0) sec POC Glucose (mg/dL) 117 H 100 H 114 H (75-99) mg/dL 07/24/20 07/24/20 Range/Units 06:01 07:19 APTT 36.7 H (22.0-30.0) sec POC Glucose (mg/dL) 103 H (75-99) mg/dL Microbiology - Last 24 Hours (Table) 07/22/20 14:27 Urine Culture - Preliminary Urine,Voided Gram Neg Bacilli
[2020-07-24] MEDS ORDERED: HEPARIN SODIUM,PORCINE 5,000 UNIT/ML 1 ML VIAL SQ SCH (16:00)
[2020-07-24 17:00] LABS: Glucose,Whole Blood 112 mg/dL (75-99)
--- NOTE | 2020-07-24 19:14 | P.PN ---
Progress Note - Text Progress Note Date: 07/24/20 Chief Complaint: Chest pain History of presenting complaint: This is a pleasant 65-year-old patient, follows with Dr. Ramirez. Chronic stable medical conditions include congestive heart failure, COPD, hypertension, hyperlipidemia, chronic hypoxic respiratory failure on home oxygen 2 L AICD. Patient lives alone. Patient woke up this morning with pressure across the chest. Broke out in sweat short of breath and dizzy. Called her burner operator. Chest pain was difficult 45 minutes. Taken down to local [facility]. Patient has been subsided. Initial troponin was 0.02. Subsequently the patient developed medical tachycardia and before any truck and could be administered AICD went off. Subsequently patient was transferred down here to [place] in [place] on ER. She had a episode of ventricular tachycardia here for about 5-7 minutes. One 50 mg of IV amiodarone was given. Patient went back into sinus rhythm. Patient seen by Dr. Samuel Hu insurance professional radon inspector in the ER. Blood pressure running on the low side. About 80 systolic. On IV heparin. Patient at baseline does use a walker. Admitted with-acute [place], hypertension, nonketotic hyperosmolar hyperglycemia, UTI. Started on IV fluids, IV heparin. IV amiodarone. IV ceftriaxone. AICD reprogrammed by Dr. Hu Today-laying in bed. Tolerating diet. A bit tired. Breathing stable. Review of systems: Was done for constitutional, cardiovascular, GI, pulmonary. relevant finding as above Active Medications Albuterol/Ipratropium (Ipratropium-Albuterol 3 Ml Neb) 3 ml INHALATION RT-QID [facility] Last Admin: 07/24/20 15:23 Dose: 3 ml Documented by: Amiodarone HCl (Amiodarone 200 Mg Tab) 400 mg PO BID [facility] Last Admin: 07/24/20 09:12 Dose: 400 mg Documented by: Aspirin (Aspirin 81 Mg) 81 mg PO DAILY [facility] Last Admin: 07/24/20 09:08 Dose: 81 mg Documented by: Atorvastatin Calcium (Atorvastatin 40 Mg Tab) 40 mg PO HS [facility] Last Admin: 07/23/20 21:21 Dose: 40 mg Documented by: Budesonide (Budesonide 0.5 Mg/2 Ml Nebu) 0.5 mg INHALATION RT-BID [facility] Last Admin: 07/24/20 07:49 Dose: 0.5 mg Documented by: Fluoxetine HCl (Fluoxetine Hcl 20 Mg Cap) 20 mg PO DAILY [facility] Last Admin: 07/24/20 09:08 Dose: 20 mg Documented by: Folic Acid (Folic Acid 1 Mg Tab) 1 mg PO DAILY [facility] Last Admin: 07/24/20 09:08 Dose: 1 mg Documented by: Heparin Sodium (Porcine) (Heparin Sodium,Porcine 5,000 Unit/Ml 1 Ml Vial) 5,000 unit SQ Q12HR [facility] Ceftriaxone Sodium 1 gm/ (Sodium Chloride) 50 mls @ 100 mls/hr IVPB Q24HR [facility] Last Admin: 07/24/20 09:08 Dose: 100 mls/hr Documented by: Insulin Aspart (Insulin Aspart (Novolog) 100 Unit/Ml Vial) 0 unit SQ ACHS [facility]; Protocol Last Admin: 07/24/20 16:59 Dose: Not Given Documented by: Metoprolol Tartrate (Metoprolol Tartrate 12.5 Mg Tab) 12.5 mg PO BID [facility] Montelukast Sodium (Montelukast 10 Mg Tab) 10 mg PO [facility] Last Admin: 07/23/20 21:21 Dose: 10 mg Documented by: Nitroglycerin (Nitroglycerin Sl Tabs 0.4 Mg Tab) 0.4 mg SUBLINGUAL Q5M PRN PRN Reason: Chest Pain Pantoprazole Sodium (Pantoprazole 40 Mg Tablet) 40 mg PO [facility] Last Admin: 07/23/20 21:21 Dose: 40 mg Documented by: Physical examination: VITAL SIGNS: Afebrile, 75, 18, 91/59, 95% to 3 L GENERAL: Laying in bed, awake EYES: Pupils equal. Conjunctiva normal. NECK: JVD not raised; masses not palpable. HEART: First and second heart sounds are normal; no edema. LUNGS: Respiratory rate increased; decreased breath sounds. ABDOMEN: Soft, nontender, liver spleen not palpable, no masses palpable. PSYCH: Alert and oriented x3; mood and affect. Normal INVESTIGATIONS, reviewed in the clinical context: Potassium 4 creatinine 1.2 glucose 126 Admission testing White count 9.1 hemoglobin 13.6 platelets 144 sodium 121 potassium 3.7 bun 15 creatinine 1.09 glucose 637 AST 50 ALT 36 troponin 0.063 TSH 1.6 UA positive for leukoesterase, WBC Serum acetone negative EKG tracing personally reviewed by me-ST segment changes on the EKG sinus rhythm Chest x-ray film personally reviewed by me-cardiomegaly. No obvious venous prominence Previous testing: Troponin 0.02 at [facility] Computed tomography scan of the chest negative for PE ProBNP 670 Assessment: -Possible acute non- ST elevation myocardial infarction, POA -2 episodes of sustained ventricular tachycardia-with AICD going off.-On IV amiodarone -Coronary artery disease -Nonketotic hyperosmolar hyperglycemia-corrected -Obesity BMI 35.9 -COPD in an ex-smoker -Hyperlipidemia -Chronic hypoxic respiratory failure on home oxygen 2 L -AICD-reprogrammed -Chronic gait dysfunction uses a walker -Hypotension likely from acute [place]-slow to respond -Severe hyponatremia.-Improved -Acute UTI with cystitis, from gram-negative orgasm -IV heparin monitoring-discontinued Plan: IV heparin IV amiodarone discontinued. Started on oral amiodarone. Coreg was discontinued started on metoprolol. Discussed with patient. Encouraged to sit up in a chair.
[2020-07-24 20:52] LABS: Glucose,Whole Blood 101 mg/dL (75-99)
[2020-07-24] MEDS: ATORVASTATIN 40 MG TAB PO SCH (21:25)
[2020-07-24] MEDS: METOPROLOL TARTRATE 12.5 MG TAB PO SCH (21:25)
[2020-07-24] MEDS: HEPARIN SODIUM,PORCINE 5,000 UNIT/ML 1 ML VIAL SQ SCH (21:26)
[2020-07-24] MEDS: MONTELUKAST 10 MG TAB PO SCH (21:26)
[2020-07-24] MEDS: PANTOPRAZOLE 40 MG TABLET PO SCH (21:26)
[2020-07-25 06:05] LABS: Glucose,Whole Blood 90 mg/dL (75-99)
[2020-07-25] MEDS: INSULIN ASPART (NovoLOG) 100 UNIT/ML VIAL SQ SCH ×4 (06:30→22:06)
[2020-07-25] MEDS: IPRATROPIUM-ALBUTEROL 3 ML NEB INHALATION SCH ×4 (08:09→20:23)
[2020-07-25] MEDS: BUDESONIDE 0.5 MG/2 ML NEBU INHALATION SCH ×2 (08:09→20:24)
[2020-07-25] MEDS: HEPARIN SODIUM,PORCINE 5,000 UNIT/ML 1 ML VIAL SQ SCH ×2 (08:37→21:47)
[2020-07-25] MEDS: METOPROLOL TARTRATE 12.5 MG TAB PO SCH ×2 (08:38→21:46)
[2020-07-25] MEDS: ASPIRIN 81 MG PO SCH (08:38)
[2020-07-25] MEDS: AMIODARONE 200 MG TAB PO SCH ×2 (08:39→21:46)
[2020-07-25] MEDS: FLUoxetine HCL 20 MG CAP PO SCH (08:39)
[2020-07-25] MEDS: FOLIC ACID 1 MG TAB PO SCH (08:39)
[2020-07-25] MEDS: SODIUM CHLORIDE 0.9% 250 ML IV SCH ×2 (09:28→09:29)
[2020-07-25 09:50] LABS: Magnesium 1.5 mg/dL (1.6-2.3)
--- NOTE | 2020-07-25 10:15 | P.PN ---
Subjective Progress Note Date: 07/25/20 's is a 65-year-old female who has a history of nonischemic cardiomyopathy with prior Medtronic AICD, COPD, nicotine dependence,history of lead fracture with implantation of new ICD in 2015 who was initially transferred here from [facility] after presenting with symptoms of dizziness and w eakness. Patient was found on ICD interrogation to have runs of ventricular tachycardiawith appropriate antitachycardia pacing conversion defibrillation. She had been seen in consultation by Dr. Hu, her device was reprogrammed, and she was initiated on IV amiodarone, subsequently switched over to by mouth amiodarone which she is on at this time. The patient was seen and examined this morning, has a harsh nonproductive wheezy cough.she is currently in a normal sinus rhythm this morning, on review of her rhythm strips in the past 24 hours, patient did have a run of 16 nonsustained ventricular tachycardia around 11:30 PM last night.she denies any palpitations, breathing is similar to her usual, no chest discomfort, no dizziness or lightheadedness. Her blood pressure this morning 104/56 with a heart rate in the 70s, 95% on 2 L of oxygen. Magnesium level this morning 1.5. Objective - Vital Signs Vital signs: Vital Signs Temp 98.3 F 07/25/20 04:00 Pulse 76 07/25/20 08:26 Resp 18 07/25/20 04:00 BP 104/56 07/25/20 04:00 Pulse Ox 95 07/25/20 04:00 Intake & Output 07/24/20 07/25/20 07/25/20 18:59 06:59 18:59 Intake Total 562 200 120 Output Total 600 1500 Balance -38 -1300 120 Weight 71.5 kg Intake: Intake, IV Titration 0 Amount cefTRIAXone 1 gm In 0 Sodium Chloride 0.9% 50 ml @ 100 mls/hr IVPB Q24HR [facility] Rx#:[id number] Oral 562 200 120 Output: Urine 600 1500 Other: Voiding Method Indwelling Catheter Indwelling Catheter - Exam PHYSICAL EXAMINATION: GENERAL:65-year-old female in no acute distress at the time of my examination HEENT: Head is atraumatic, normocephalic. Pupils equal, round. Sclera anicteric. Conjunctiva are clear. Mucous membranes of the mouth are moist. Neck is supple. There is no elevated jugular venous pressure.No carotid bruit is heard. HEART EXAMINATION: [Heart S1, S2 normal. No murmur or gallop heard.] CHEST EXAMINATION:[ Lungs reveal scattered coarse wheezing throughout with decreased air exchange] ABDOMEN: [ Soft, nontender. Bowel sounds are heard. No organomegaly noted]. EXTREMITIES:[ 2+ peripheral pulses with no evidence of peripheral edema chronic bilateral venous stasis. NEUROLOGIC [patient is awake, alert and oriented 3 . - Labs CBC & Chem 7: 07/22/20 14:01 07/25/20 08:54 Labs: Abnormal Lab Results - Last 24 Hours (Table) 07/24/20 07/24/20 07/24/20 Range/Units 11:50 16:55 20:38 POC Glucose (mg/dL) 122 H 112 H 101 H (75-99) mg/dL Magnesium (1.6-2.3) mg/dL 07/25/20 Range/Units 08:54 POC Glucose (mg/dL) (75-99) mg/dL Magnesium 1.5 L (1.6-2.3) mg/dL Microbiology - Last 24 Hours (Table) 07/22/20 14:27 Urine Culture - Final Urine,Voided Escherichia coli Assessment and Plan Plan: Assessment and plan #1 sustained ventricular tachycardia, status post anterior tachycardia pacing, patient did have reprogramming of her device #2nonischemic cardiomyopathy with prior AICD implantation #3 hypertension #4 COPD #5 nicotine dependence #6 hypomagnesemia Plan We will continue the amiodarone as directed by Dr. Hu, replace the magnesium today. Continue to monitor for subsequent runs of ventricular tachycardia. DNP note has been reviewed, I agree with a documented findings and plan of care. Patient was seen and examined.
[2020-07-25] MEDS: MAGNESIUM SULFATE-D5W PMX 1 GM in DEXTROSE/WATER 1 100ML.BAG IVPB SCH ×2 (11:37→14:03)
[2020-07-25 11:52] LABS: Glucose,Whole Blood 87 mg/dL (75-99)
--- NOTE | 2020-07-25 13:55 | CDI ---
Documentation Clarification Form Date: 07/25/2020 01:39:51 PM From: Estefania Doan RN CCDS Admit Date: 07/22/2020 03:01:00 PM Patient Name: Gladys Powell Visit Number: [id number] Discharge Date: ATTENTION: The Clinical Documentation Specialists (CDI) and [facility] Coding Staff appreciate your assistance in clarifying documentation. Please respond to the clarification below the line at the bottom and electronically sign. The CDI & [facility] Coding staff will review the response and follow-up if needed. Please note: Queries are made part of the Legal Health Record. If you have any questions, please contact the author of this message via ITS. Dr. Jonel Saldaña The patient presented to ED from [facility] for V-tach and chest pain. History/Risk Factors: 65-year-old female presents to the ED with medical history of chronic respiratory failure, COPD, HTN and nonischemic cardiomyopathy with prior AICD implantation. Patient admitted with Acute [place] Tobacco use: former Home oxygen: 2L Clinical Indicators: 07/22 Vital signs: B/P 65/40; HR 70; Temp 97.4 F Oral; RR 18; SpO2 100% Non- Rebreather 15L 07/22 ED Lung/Breathing assessment: Unlabored respirations. Good breath sounds bilaterally. 07/22 H&P Lung assessment: Respiratory rate increased, decreased breath sounds. No audible rales, rhonchi or wheezing was noted. Treatment: Breathing tx: 07/12 Duoneb; Pulmicort; Singulair 07/22 - 15L nonrebreather In your professional opinion, can you please clarify if these findings signify one of the following conditions? Acute Respiratory Failure Acute on Chronic Respiratory Failure Chronic Respiratory Failure Acute Respiratory Distress Acute Respiratory Insufficiency Other Diagnosis, please specify Unable to determine Specificity: If known, further specify (if known): With hypercapnia? (pCO2 >50 and pH <7.35) With hypoxia? (pO2 <60 mm Hg or SpO2 <91% on room air) (Last Query Form Revision: May 2019) See discharge summary. No change documentation change required MTDD
[2020-07-25 16:44] LABS: Glucose,Whole Blood 89 mg/dL (75-99)
[2020-07-25 20:30] LABS: Glucose,Whole Blood 104 mg/dL (75-99)
[2020-07-25] MEDS: ATORVASTATIN 40 MG TAB PO SCH (21:46)
[2020-07-25] MEDS: PANTOPRAZOLE 40 MG TABLET PO SCH (21:46)
[2020-07-25] MEDS: MONTELUKAST 10 MG TAB PO SCH (21:47)
[2020-07-25 22:50] LABS: Calcium 9.4 mg/dL (8.4-10.2); Magnesium 2.1 mg/dL (1.6-2.3)
--- NOTE | 2020-07-25 23:43 | P.PN ---
Progress Note - Text Progress Note Date: 07/25/20 Chief Complaint: Chest pain History of presenting complaint: This is a pleasant 65-year-old patient, follows with Dr. Ramirez. Chronic stable medical conditions include congestive heart failure, COPD, hypertension, hyperlipidemia, chronic hypoxic respiratory failure on home oxygen 2 L AICD. Patient lives alone. Patient woke up this morning with pressure across the chest. Broke out in sweat short of breath and dizzy. Called her spanisher. Chest pain was difficult 45 minutes. Taken down to local [facility]. Patient has been subsided. Initial troponin was 0.02. Subsequently the patient developed medical tachycardia and before any truck and could be administered AICD went off. Subsequently patient was transferred down here to [place] in [place] on ER. She had a episode of ventricular tachycardia here for about 5-7 minutes. One 50 mg of IV amiodarone was given. Patient went back into sinus rhythm. Patient seen by Dr. Samuel Hu bulk mail clerk consumer sales representative in the ER. Blood pressure running on the low side. About 80 systolic. On IV heparin. Patient at baseline does use a walker. Admitted with-acute [place], hypertension, nonketotic hyperosmolar hyperglycemia, UTI. Started on IV fluids, IV heparin. IV amiodarone. IV ceftriaxone. AICD reprogrammed by Dr. Hu Today-had a 16 beat run of nonsustained V. tach last night. Magnesia being supplemented. Baseline mild shortness of breath. No chest pain. Review of systems: Was done for constitutional, cardiovascular, GI, pulmonary. relevant finding as above Active Medications Albuterol/Ipratropium (Ipratropium-Albuterol 3 Ml Neb) 3 ml INHALATION RT-QID [facility] Last Admin: 07/25/20 20:23 Dose: 3 ml Documented by: Amiodarone HCl (Amiodarone 200 Mg Tab) 400 mg PO BID [facility] Last Admin: 07/25/20 21:46 Dose: 400 mg Documented by: Aspirin (Aspirin 81 Mg) 81 mg PO DAILY [facility] Last Admin: 07/25/20 08:38 Dose: 81 mg Documented by: Atorvastatin Calcium (Atorvastatin 40 Mg Tab) 40 mg PO HS [facility] Last Admin: 07/25/20 21:46 Dose: 40 mg Documented by: Budesonide (Budesonide 0.5 Mg/2 Ml Nebu) 0.5 mg INHALATION RT-BID [facility] Last Admin: 07/25/20 20:24 Dose: 0.5 mg Documented by: Fluoxetine HCl (Fluoxetine Hcl 20 Mg Cap) 20 mg PO DAILY [facility] Last Admin: 07/25/20 08:39 Dose: 20 mg Documented by: Folic Acid (Folic Acid 1 Mg Tab) 1 mg PO DAILY [facility] Last Admin: 07/25/20 08:39 Dose: 1 mg Documented by: Heparin Sodium (Porcine) (Heparin Sodium,Porcine 5,000 Unit/Ml 1 Ml Vial) 5,000 unit SQ Q12HR [facility] Last Admin: 07/25/20 21:47 Dose: 5,000 unit Documented by: Ceftriaxone Sodium 1 gm/ (Sodium Chloride) 50 mls @ 100 mls/hr IVPB Q24HR [facility] Last Admin: 07/25/20 08:38 Dose: 100 mls/hr Documented by: Insulin Aspart (Insulin Aspart (Novolog) 100 Unit/Ml Vial) 0 unit SQ ACHS [facility]; Protocol Last Admin: 07/25/20 22:06 Dose: Not Given Documented by: Metoprolol Tartrate (Metoprolol Tartrate 12.5 Mg Tab) 12.5 mg PO BID [facility] Last Admin: 07/25/20 21:46 Dose: 12.5 mg Documented by: Montelukast Sodium (Montelukast 10 Mg Tab) [address] [facility] Last Admin: 07/25/20 21:47 Dose: 10 mg Documented by: Nitroglycerin (Nitroglycerin Sl Tabs 0.4 Mg Tab) 0.4 mg SUBLINGUAL Q5M PRN PRN Reason: Chest Pain Pantoprazole Sodium (Pantoprazole 40 Mg Tablet) [address] [facility] Last Admin: 07/25/20 21:46 Dose: 40 mg Documented by: Physical examination: VITAL SIGNS: 98.2, 16, 17, 105/74, 95% on 3 L GENERAL: Laying in bed, awake EYES: Pupils equal. Conjunctiva normal. NECK: JVD not raised; masses not palpable. HEART: First and second heart sounds are normal; no edema. LUNGS: Respiratory rate increased; decreased breath sounds. ABDOMEN: Soft, nontender, liver spleen not palpable, no masses palpable. PSYCH: Alert and oriented x3; mood and affect. Normal INVESTIGATIONS, reviewed in the clinical context: Potassium 4 creatinine 1.06 Admission testing White count 9.1 hemoglobin 13.6 platelets 144 sodium 121 potassium 3.7 bun 15 creatinine 1.09 glucose 637 AST 50 ALT 36 troponin 0.063 TSH 1.6 UA positive for leukoesterase, WBC Serum acetone negative EKG tracing personally reviewed by me-ST segment changes on the EKG sinus rhythm Chest x-ray film personally reviewed by me-cardiomegaly. No obvious venous prominence Previous testing: Troponin 0.02 at [facility] Computed tomography scan of the chest negative for PE ProBNP 670 Assessment: -Possible acute non- ST elevation myocardial infarction, POA -2 episodes of sustained ventricular tachycardia-with AICD going off.-On IV amiodarone -Coronary artery disease -Nonketotic hyperosmolar hyperglycemia-corrected -Obesity BMI 35.9 -COPD in an ex-smoker -Hyperlipidemia -Chronic hypoxic respiratory failure on home oxygen 2 L -AICD-reprogrammed -Chronic gait dysfunction uses a walker -Hypotension likely from acute [place]-slow to respond -Severe hyponatremia.-Improved -Acute UTI with cystitis, from gram-negative orgasm -IV heparin monitoring-discontinued -16 beat run of nonsustained V. tach today. Plan: On oral amiodarone and beta matilda. Magnesia being supplemented. Encouraged to be up in a chair. Hopefully discharge tomorrow.
[2020-07-26 06:13] LABS: Glucose,Whole Blood 96 mg/dL (75-99)
[2020-07-26] MEDS: INSULIN ASPART (NovoLOG) 100 UNIT/ML VIAL SQ SCH ×4 (06:40→20:56)
[2020-07-26] MEDS: BUDESONIDE 0.5 MG/2 ML NEBU INHALATION SCH ×2 (08:07→22:28)
[2020-07-26] MEDS: IPRATROPIUM-ALBUTEROL 3 ML NEB INHALATION SCH ×4 (08:07→22:29)
[2020-07-26] MEDS: ASPIRIN 81 MG PO SCH (10:27)
[2020-07-26] MEDS: AMIODARONE 200 MG TAB PO SCH ×2 (10:27→20:14)
[2020-07-26] MEDS: HEPARIN SODIUM,PORCINE 5,000 UNIT/ML 1 ML VIAL SQ SCH ×2 (10:31→20:16)
[2020-07-26] MEDS: FLUoxetine HCL 20 MG CAP PO SCH (10:31)
[2020-07-26] MEDS: FOLIC ACID 1 MG TAB PO SCH (10:31)
[2020-07-26] MEDS: METOPROLOL TARTRATE 12.5 MG TAB PO SCH ×2 (10:31→20:16)
[2020-07-26 11:41] LABS: Glucose,Whole Blood 100 mg/dL (75-99)
--- NOTE | 2020-07-26 11:47 | P.PN ---
Subjective Progress Note Date: 07/26/20 's is a 65-year-old female who has a history of nonischemic cardiomyopathy with prior [employer]tronic AICD, COPD, nicotine dependence,history of lead fracture with implantation of new ICD in 2015 who was initially transferred here from [facility] after presenting with symptoms of dizziness and w eakness. Patient was found on ICD interrogation to have runs of ventricular tachycardiawith appropriate antitachycardia pacing conversion defibrillation. She had been seen in consultation by Dr. Hu, her device was reprogrammed, and she was initiated on IV amiodarone, subsequently switched over to by mouth amiodarone which she is on at this time. The patient was seen and examined this morning, has a harsh nonproductive wheezy cough.she is currently in a normal sinus rhythm this morning, on review of her rhythm strips in the past 24 hours, patient did have a run of 16 nonsustained ventricular tachycardia around 11:30 PM last night.she denies any palpitations, breathing is similar to her usual, no chest discomfort, no dizziness or lightheadedness. Her blood pressure this morning 104/56 with a heart rate in the 70s, 95% on 2 L of oxygen. Magnesium level this morning 1.5. 07/26/2020 Patient was seen and examined this morning, overall she does state that she's feeling better today, she continues to have frequent long runs of nonsustained ventricular tachycardia in spite of being on amiodarone. Her potassium level today is 4 magnesium is 2.1. We will add mexiletine current medication regime today. Blood pressure 122/60 with a heart rate of 60. Objective - Vital Signs Vital signs: Vital Signs Temp 98.6 F 07/26/20 07:54 Pulse 72 07/26/20 11:33 Resp 22 07/26/20 08:28 BP 123/60 07/26/20 10:13 Pulse Ox 95 07/26/20 07:54 Intake & Output 07/25/20 07/26/20 07/26/20 18:59 06:59 18:59 Intake Total 540 240 Balance 540 240 Weight 91.9 kg Intake: Oral 540 240 Other: Voiding Method Indwelling Catheter Toilet Toilet # Voids 1 1 2 # Bowel Movements 1 - Exam PHYSICAL EXAMINATION: GENERAL:65-year-old female in no acute distress at the time of my examination HEENT: Head is atraumatic, normocephalic. Pupils equal, round. Sclera anicteric. Conjunctiva are clear. Mucous membranes of the mouth are moist. Neck is supple. There is no elevated jugular venous pressure.No carotid bruit is heard. HEART EXAMINATION: [Heart S1, S2 normal. No murmur or gallop heard.] CHEST EXAMINATION:[ Lungs reveal scattered coarse wheezing throughout with decreased air exchange] ABDOMEN: [ Soft, nontender. Bowel sounds are heard. No organomegaly noted]. EXTREMITIES:[ 2+ peripheral pulses with no evidence of peripheral edema chronic bilateral venous stasis. NEUROLOGIC [patient is awake, alert and oriented 3 . - Labs CBC & Chem 7: 07/22/20 14:01 07/25/20 21:57 Labs: Abnormal Lab Results - Last 24 Hours (Table) 07/25/20 07/25/20 07/26/20 Range/Units 20:29 21:57 11:38 Sodium 134 L (137-145) mmol/L Creatinine 1.06 H (0.52-1.04) mg/dL Glucose 117 H (74-99) mg/dL POC Glucose (mg/dL) 104 H 100 H (75-99) mg/dL Assessment and Plan Plan: Assessment and plan #1 sustained ventricular tachycardia, status post anterior tachycardia pacing, patient did have reprogramming of her device #2nonischemic cardiomyopathy with prior AICD implantation #3 hypertension #4 COPD #5 nicotine dependence #6 hypomagnesemia Plan We will continue the amiodarone , start the patient on mexiletine today. Continue to monitor. DNP note has been reviewed, I agree with a documented findings and plan of care. Patient was seen and examined.
[2020-07-26] MEDS: MEXILETINE 150 MG CAP PO SCH ×2 (12:32→20:16)
[2020-07-26 16:40] LABS: Glucose,Whole Blood 113 mg/dL (75-99)
[2020-07-26] MEDS: PANTOPRAZOLE 40 MG TABLET PO SCH (20:14)
[2020-07-26] MEDS: ATORVASTATIN 40 MG TAB PO SCH (20:16)
[2020-07-26] MEDS: MONTELUKAST 10 MG TAB PO SCH (20:16)
[2020-07-26 20:24] LABS: Glucose,Whole Blood 134 mg/dL (75-99)
[2020-07-26 20:29] VITALS: RESP 18
--- NOTE | 2020-07-26 23:00 | P.PN ---
Progress Note - Text Progress Note Date: 07/26/20 Chief Complaint: Chest pain History of presenting complaint: This is a pleasant 65-year-old patient, follows with Dr. Ramirez. Chronic stable medical conditions include congestive heart failure, COPD, hypertension, hyperlipidemia, chronic hypoxic respiratory failure on home oxygen 2 L AICD. Patient lives alone. Patient woke up this morning with pressure across the chest. Broke out in sweat short of breath and dizzy. Called her tool and die maker apprentice. Chest pain was difficult 45 minutes. Taken down to local [facility]. Patient has been subsided. Initial troponin was 0.02. Subsequently the patient developed medical tachycardia and before any truck and could be administered AICD went off. Subsequently patient was transferred down here to [facility] in [place] on ER. She had a episode of ventricular tachycardia here for about 5-7 minutes. One 50 mg of IV amiodarone was given. Patient went back into sinus rhythm. Patient seen by Dr. Samuel Hu turfgrass technician reinforcing iron and rebar workers in the ER. Blood pressure running on the low side. About 80 systolic. On IV heparin. Patient at baseline does use a walker. Admitted with-acute [place], hypertension, nonketotic hyperosmolar hyperglycemia, UTI. Started on IV fluids, IV heparin. IV amiodarone. IV ceftriaxone. AICD reprogrammed by Dr. Hu. Had a 16 beat run of nonsustained V. tach. Mexiletine added. Today-breathing stable. No chest pain. Mexiletine added by cardiology. Eating well. Review of systems: Was done for constitutional, cardiovascular, GI, pulmonary. relevant finding as above Active Medications Albuterol/Ipratropium (Ipratropium-Albuterol 3 Ml Neb) 3 ml INHALATION RT-QID [facility] Last Admin: 07/26/20 22:29 Dose: Not Given Documented by: Amiodarone HCl (Amiodarone 200 Mg Tab) 400 mg PO BID [facility] Last Admin: 07/26/20 20:14 Dose: 400 mg Documented by: Aspirin (Aspirin 81 Mg) 81 mg PO DAILY [facility] Last Admin: 07/26/20 10:27 Dose: 81 mg Documented by: Atorvastatin Calcium (Atorvastatin 40 Mg Tab) 40 mg PO HS [facility] Last Admin: 07/26/20 20:16 Dose: 40 mg Documented by: Budesonide (Budesonide 0.5 Mg/2 Ml Nebu) 0.5 mg INHALATION RT-BID [facility] Last Admin: 07/26/20 22:28 Dose: Not Given Documented by: Fluoxetine HCl (Fluoxetine Hcl 20 Mg Cap) 20 mg PO DAILY [facility] Last Admin: 07/26/20 10:31 Dose: 20 mg Documented by: Folic Acid (Folic Acid 1 Mg Tab) 1 mg PO DAILY [facility] Last Admin: 07/26/20 10:31 Dose: 1 mg Documented by: Heparin Sodium (Porcine) (Heparin Sodium,Porcine 5,000 Unit/Ml 1 Ml Vial) 5,000 unit SQ Q12HR [facility] Last Admin: 07/26/20 20:16 Dose: 5,000 unit Documented by: Ceftriaxone Sodium 1 gm/ (Sodium Chloride) 50 mls @ 100 mls/hr IVPB Q24HR [facility] Last Admin: 07/26/20 10:32 Dose: 100 mls/hr Documented by: Insulin Aspart (Insulin Aspart (Novolog) 100 Unit/Ml Vial) 0 unit SQ ACHS [facility]; Protocol Last Admin: 07/26/20 20:56 Dose: 1 unit Documented by: Metoprolol Tartrate (Metoprolol Tartrate 12.5 Mg Tab) 12.5 mg PO BID [facility] Last Admin: 07/26/20 20:16 Dose: 12.5 mg Documented by: Mexiletine HCl (Mexiletine 150 Mg Cap) 150 mg PO Q8H [facility] Last Admin: 07/26/20 20:16 Dose: 150 mg Documented by: Montelukast Sodium (Montelukast 10 Mg Tab) 10 mg PO [facility] Last Admin: 07/26/20 20:16 Dose: 10 mg Documented by: Nitroglycerin (Nitroglycerin Sl Tabs 0.4 Mg Tab) 0.4 mg SUBLINGUAL Q5M PRN PRN Reason: Chest Pain Pantoprazole Sodium (Pantoprazole 40 Mg Tablet) 40 mg PO [facility] Last Admin: 07/26/20 20:14 Dose: 40 mg Documented by: Physical examination: VITAL SIGNS: 98.1, 70, 19, 125-76, 93% on 2 L GENERAL: Sitting up, eating EYES: Pupils equal. Conjunctiva normal. NECK: JVD not raised; masses not palpable. HEART: First and second heart sounds are normal; no edema. LUNGS: Respiratory rate increased; decreased breath sounds. ABDOMEN: Soft, nontender, liver spleen not palpable, no masses palpable. PSYCH: Alert and oriented x3; mood and affect. Normal INVESTIGATIONS, reviewed in the clinical context: Potassium 4 creatinine 1.06 Admission testing White count 9.1 hemoglobin 13.6 platelets 144 sodium 121 potassium 3.7 bun 15 creatinine 1.09 glucose 637 AST 50 ALT 36 troponin 0.063 TSH 1.6 UA positive for leukoesterase, WBC Serum acetone negative EKG tracing personally reviewed by me-ST segment changes on the EKG sinus rhythm Chest x-ray film personally reviewed by me-cardiomegaly. No obvious venous prominence Previous testing: Troponin 0.02 at [facility] Computed tomography scan of the chest negative for PE ProBNP 670 Assessment: -Possible acute non- ST elevation myocardial infarction, POA -2 episodes of sustained ventricular tachycardia-with AICD going off.- amioda kendra -Coronary artery disease -Nonketotic hyperosmolar hyperglycemia-corrected -Obesity BMI 35.9 -COPD in an ex-smoker -Hyperlipidemia -Chronic hypoxic respiratory failure on home oxygen 2 L -AICD-reprogrammed -Chronic gait dysfunction uses a walker -Hypotension likely from acute [place]-slow to respond -Severe hyponatremia.-Improved -Acute UTI with cystitis, from gram-negative orgasm -IV heparin monitoring-discontinued -16 beat run of nonsustained V. tach today. Plan: Mexiletine was added by: Cardiology. Other medications to continue. Watch for another 24 hours. Check labs in the morning.
[2020-07-27] MEDS: MEXILETINE 150 MG CAP PO SCH ×2 (04:01→11:35)
[2020-07-27 06:26] LABS: Glucose,Whole Blood 101 mg/dL (75-99)
[2020-07-27] MEDS: INSULIN ASPART (NovoLOG) 100 UNIT/ML VIAL SQ SCH ×2 (06:43→11:35)
[2020-07-27] MEDS: IPRATROPIUM-ALBUTEROL 3 ML NEB INHALATION SCH ×2 (09:11→12:45)
[2020-07-27] MEDS: BUDESONIDE 0.5 MG/2 ML NEBU INHALATION SCH (09:11)
[2020-07-27 09:16] LABS: Calcium 9.1 mg/dL (8.4-10.2); Potassium 4.3 mmol/L (3.5-5.1)
[2020-07-27] MEDS: ASPIRIN 81 MG PO SCH (09:31)
[2020-07-27] MEDS: HEPARIN SODIUM,PORCINE 5,000 UNIT/ML 1 ML VIAL SQ SCH (09:31)
[2020-07-27] MEDS: FOLIC ACID 1 MG TAB PO SCH (09:32)
[2020-07-27] MEDS: METOPROLOL TARTRATE 12.5 MG TAB PO SCH (09:32)
[2020-07-27] MEDS: FLUoxetine HCL 20 MG CAP PO SCH (09:32)
[2020-07-27] MEDS: AMIODARONE 200 MG TAB PO SCH (09:32)
[2020-07-27 11:30] LABS: Glucose,Whole Blood 110 mg/dL (75-99)
--- NOTE | 2020-07-27 11:42 | P.PN ---
Subjective Progress Note Date: 07/27/20 's is a 65-year-old female who has a history of nonischemic cardiomyopathy with prior [employer] AICD, COPD, nicotine dependence,history of lead fracture with implantation of new ICD in 2015 who was initially transferred here from [facility] after presenting with symptoms of dizziness and w eakness. Patient was found on ICD interrogation to have runs of ventricular tachycardiawith appropriate antitachycardia pacing conversion defibrillation. She had been seen in consultation by Dr. Hu, her device was reprogrammed, and she was initiated on IV amiodarone, subsequently switched over to by mouth amiodarone which she is on at this time. The patient was seen and examined this morning, has a harsh nonproductive wheezy cough.she is currently in a normal sinus rhythm this morning, on review of her rhythm strips in the past 24 hours, patient did have a run of 16 nonsustained ventricular tachycardia around 11:30 PM last night.she denies any palpitations, breathing is similar to her usual, no chest discomfort, no dizziness or lightheadedness. Her blood pressure this morning 104/56 with a heart rate in the 70s, 95% on 2 L of oxygen. Magnesium level this morning 1.5. 07/26/2020 Patient was seen and examined this morning, overall she does state that she's feeling better today, she continues to have frequent long runs of nonsustained ventricular tachycardia in spite of being on amiodarone. Her potassium level today is 4 magnesium is 2.1. We will add mexiletine current medication regime today. Blood pressure 122/60 with a heart rate of 60. 07/27/2020 Patient was seen and examined this morning, feeling better today overall. We started the patient on mexiletine yesterday, it does appear that she is having less runs of ventricular tachycardia. Blood pressure 110/70 with a heart rate in the 60s, 96% on 4 L of oxygen. Sodium 136, potassium 4.3, BUN 14, creatinine 1.0. Objective - Vital Signs Vital signs: Vital Signs Temp 97.9 F 07/27/20 08:00 Pulse 66 07/27/20 09:30 Resp 18 07/27/20 08:00 BP 110/75 07/27/20 08:00 Pulse Ox 96 07/27/20 08:00 Intake & Output 07/26/20 07/27/20 07/27/20 18:59 06:59 18:59 Intake Total 720 360 Balance 720 360 Intake: Oral 720 360 Other: Voiding Method Toilet # Voids 2 1 - Exam PHYSICAL EXAMINATION: GENERAL:65-year-old female in no acute distress at the time of my examination HEENT: Head is atraumatic, normocephalic. Pupils equal, round. Sclera an icteric. Conjunctiva are clear. Mucous membranes of the mouth are moist. Neck is supple. There is no elevated jugular venous pressure.No carotid bruit is heard. HEART EXAMINATION: [Heart S1, S2 normal. No murmur or gallop heard.] CHEST EXAMINATION:[ Lungs reveal scattered coarse wheezing throughout with decreased air exchange] ABDOMEN: [ Soft, nontender. Bowel sounds are heard. No organomegaly noted]. EXTREMITIES:[ 2+ peripheral pulses with no evidence of peripheral edema chronic bilateral venous stasis. NEUROLOGIC [patient is awake, alert and oriented 3 . - Labs CBC & Chem 7: 07/22/20 14:01 07/27/20 07:39 Labs: Abnormal Lab Results - Last 24 Hours (Table) 07/26/20 07/26/20 07/26/20 Range/Units 11:38 16:38 20:21 Sodium (137-145) mmol/L Creatinine (0.52-1.04) mg/dL Glucose (74-99) mg/dL POC Glucose (mg/dL) 100 H 113 H 134 H (75-99) mg/dL 07/27/20 07/27/20 07/27/20 Range/Units 06:25 07:39 11:29 Sodium 136 L (137-145) mmol/L Creatinine 1.09 H (0.52-1.04) mg/dL Glucose 101 H (74-99) mg/dL POC Glucose (mg/dL) 101 H 110 H (75-99) mg/dL Assessment and Plan Plan: Assessment and plan #1 sustained ventricular tachycardia, status post anterior tachycardia pacing, patient did have reprogramming of her device #2nonischemic cardiomyopathy with prior AICD implantation #3 hypertension #4 COPD #5 nicotine dependence #6 hypomagnesemia Plan From cardiology's perspective, patient may be able to be discharged home today. She's been advised to follow-up with her bruise trimmer within one week on discharge. DNP note has been reviewed, I agree with a documented findings and plan of care. Patient was seen and examined.
[2020-07-27 12:33] VITALS: BP 102/56; TEMP 97.8
[2020-07-27 12:55] VITALS: PULSE 66
--- NOTE | 2020-07-28 00:24 | P.DS ---
Providers Date of admission: 07/22/20 15:01 Expected date of discharge: 07/27/20 Attending physician: Jonel Saldaña Consults: 07/22/20 15:01 Consult Physician Urgent Consulting Provider: Samuel Hu Consult Reason/Comments: Ventricular tachycardia Do you want consulting provider notified?: Already Contacted Primary care physician: [facility] Course: Chief Complaint: Chest pain History of presenting complaint: This is a pleasant 65-year-old patient, follows with Dr. Ramirez. Chronic stable medical conditions include congestive heart failure, COPD, hypertension, hyperlipidemia, chronic hypoxic respiratory failure on home oxygen 2 L AICD. Patient lives alone. Patient woke up this morning with pressure across the chest. Broke out in sweat short of breath and dizzy. Called her administration vice president. Chest pain was difficult 45 minutes. Taken down to local [facility]. Patient has been subsided. Initial troponin was 0.02. Subsequently the patient developed medical tachycardia and before any truck and could be administered AICD went off. Subsequently patient was transferred down here to [facility] in [place] on ER. She had a episode of ventricular tachycardia here for about 5-7 minutes. One 50 mg of IV amiodarone was given. Patient went back into sinus rhythm. Patient seen by Dr. Samuel Hu chain link fence installer mill controller in the ER. Blood pressure running on the low side. About 80 systolic. On IV heparin. Patient at baseline does use a walker. Admitted with-acute CA, hypertension, nonketotic hyperosmolar hyperglycemia, UTI . Started on IV fluids, IV heparin. IV amiodarone. IV ceftriaxone. AICD reprogrammed by Dr. Hu. Had a 16 beat run of nonsustained V. tach. Mexiletine added. Today-stable. No chest pain. Breathing doing well. Cleared by currently to go home. Discussed with the patient. Consultation: Cardiology associates Physical examination: VITAL SIGNS: 97.8, 55, 18, 102/56, 96% on 4 L GENERAL: Sitting up, comfortable EYES: Pupils equal. Conjunctiva normal. NECK: JVD not raised; masses not palpable. HEART: First and second heart sounds are normal; no edema. LUNGS: Respiratory rate increased; decreased breath sounds. ABDOMEN: Soft, nontender, liver spleen not palpable, no masses palpable. PSYCH: Alert and oriented x3; mood and affect. Normal INVESTIGATIONS, reviewed in the clinical context: Potassium 4.3 creatinine 1.09 Admission testing White count 9.1 hemoglobin 13.6 platelets 144 sodium 121 potassium 3.7 bun 15 creatinine 1.09 glucose 637 AST 50 ALT 36 troponin 0.063 TSH 1.6 UA positive for leukoesterase, WBC Serum acetone negative EKG tracing personally reviewed by me-ST segment changes on the EKG sinus rhythm Chest x-ray film personally reviewed by me-cardiomegaly. No obvious venous prominence Previous testing: Troponin 0.02 at [facility] Computed tomography scan of the chest negative for PE ProBNP 670 Assessment: -Possible acute non- ST elevation myocardial infarction, POA -2 episodes of sustained ventricular tachycardia-with AICD going off.- amiodarone and mexiletine added -Coronary artery disease -Nonketotic hyperosmolar hyperglycemia-corrected -Obesity BMI 35.9 -COPD in an ex-smoker -Hyperlipidemia -Chronic hypoxic respiratory failure on home oxygen 2 L -AICD-reprogrammed -Chronic gait dysfunction uses a walker -Hypotension likely from acute CA-slow to respond -Severe hyponatremia.-Improved -Acute UTI with cystitis, from E. coli. Completed course of antibiotic -IV heparin monitoring-discontinued Disposition: Home Patient Condition at Discharge: Stable Plan - Discharge Summary Discharge Rx Participant: No New Discharge Prescriptions: New Amiodarone [Cordarone] 400 mg PO DIRECTED #30 tab Ipratropium-Albuterol Nebulize [Duoneb 0.5 mg-3 mg/3 ml Soln] 3 ml INHALATION TID #90 ml Atorvastatin [Lipitor] 40 mg PO HS #30 tab Metoprolol Tartrate [Lopressor] 12.5 mg PO BID #60 tab Mexiletine [Mexitil] 150 mg PO Q8H #90 cap Continue Folic Acid 1 mg PO DAILY FLUoxetine HCL [PROzac] 20 mg PO DAILY Montelukast [Singulair] 10 mg PO HS Nitroglycerin Sl Tabs [Nitrostat] 0.4 mg PO Q5M PRN PRN Reason: Chest Pain Aspirin EC [Ecotrin Low Dose] 81 mg PO DAILY Fluticasone/Vilanterol [Breo Ellipta 100-25 Mcg Inhaler] 1 puff INHALATION RT-DAILY Omeprazole 20 mg PO HS Discontinued Potassium Chloride [Klor-Con 10] 10 meq PO TID Atorvastatin [Lipitor] 10 mg PO DAILY carvediloL [Coreg] 3.125 mg PO BID Furosemide [Lasix] 20 mg PO DAILY lisinopriL [Zestril] 2.5 mg PO DAILY Discharge Medication List FLUoxetine HCL [PROzac] 20 mg PO DAILY 02/26/14 [History] Folic Acid 1 mg PO DAILY 02/26/14 [History] Montelukast [Singulair] 10 mg PO HS 02/26/14 [History] Aspirin EC [Ecotrin Low Dose] 81 mg PO DAILY 07/02/16 [History] Nitroglycerin Sl Tabs [Nitrostat] 0.4 mg PO Q5M PRN 07/02/16 [History] Fluticasone/Vilanterol [Breo Ellipta 100-25 Mcg Inhaler] 1 puff INHALATION RT- DAILY 07/18/16 [History] Omeprazole 20 mg PO HS 07/22/20 [History] Amiodarone [Cordarone] 400 mg PO DIRECTED #30 tab 07/27/20 [Rx] Atorvastatin [Lipitor] 40 mg PO HS #30 tab 07/27/20 [Rx] Ipratropium-Albuterol Nebulize [Duoneb 0.5 mg-3 mg/3 ml Soln] 3 ml INHALATION TID #90 ml 07/27/20 [Rx] Metoprolol Tartrate [Lopressor] 12.5 mg PO BID #60 tab 07/27/20 [Rx] Mexiletine [Mexitil] 150 mg PO Q8H #90 cap 07/27/20 [Rx] Follow up Appointment(s)/Referral(s): cardiology, [Other] - 1 Week Simone Ramirez MD [Primary Care Provider] - 08/02/20 1:00 pm (This appointment will be with Joanne Hoffman NP.) Sushant Guerrero MD [STAFF PHYSICIAN] - 08/03/20 2:00 pm Activity/Diet/Wound Care/Special Instructions: cbc/bmp - 7 days Discharge Disposition: HOME SELF-CARE
== END 2020-07-27 14:53 | disposition home or self-care (01) | DRG 281 ==
LOC: EC 13:29 → 3SCARD 15:01 → 2SICU 16:12 → 3SCARD 16:13
PROVIDERS: ADMIT Hospitalist; ATTEND Hospitalist
PROC: 4B02XTZ Measurement of Cardiac Defibrillator, External Approach (ICD-10-PCS; principal; 2020-07-23)
DX: I21.4 Non-ST elevation (NSTEMI) myocardial infarction (principal); E87.1 Hypo-osmolality and hyponatremia; I42.8 Other cardiomyopathies; I47.2 Ventricular tachycardia; J96.11 Chronic respiratory failure with hypoxia; N30.00 Acute cystitis without hematuria; I47.1 Supraventricular tachycardia; E66.9 Obesity, unspecified; E78.5 Hyperlipidemia, unspecified; E83.42 Hypomagnesemia; F17.210 Nicotine dependence, cigarettes, uncomplicated; I11.0 Hypertensive heart disease with heart failure; I25.10 Atherosclerotic heart disease of native coronary artery without angina pectoris; I50.9 Heart failure, unspecified; Z82.49 Family history of ischemic heart disease and other diseases of the circulatory system; J44.9 Chronic obstructive pulmonary disease, unspecified; B96.20 Unspecified Escherichia coli [E. coli] as the cause of diseases classified elsewhere; Z68.35 Body mass index [BMI] 35.0-35.9, adult; Z79.51 Long term (current) use of inhaled steroids; Z79.82 Long term (current) use of aspirin; Z79.899 Other long term (current) drug therapy; I95.9 Hypotension, unspecified; Z90.710 Acquired absence of both cervix and uterus; Z45.02 Encounter for adjustment and management of automatic implantable cardiac defibrillator; Z66 Do not resuscitate; Z99.81 Dependence on supplemental oxygen; Z60.2 Problems related to living alone; Z83.2 Family history of diseases of the blood and blood-forming organs and certain disorders involving the immune mechanism; R26.9 Unspecified abnormalities of gait and mobility
CPT/HCPCS: 36415; 51701; 71046; 80048; 80053; 81001; 82009; 83036; 83735; 83930; 84132; 84443; 84484; 85025; 85610; 85730; 87077; 87086; 87186; 93005; 94640; 94760; 96365; 96366; 99291

== ENCOUNTER 2020-09-20 10:48 | Inpatient (IN) | payer MEDICARE, OTHER ==
--- NOTE | 2020-09-20 11:09 | ED ---
General Adult HPI - General Chief complaint: Chest Pain Stated complaint: CHEST PAIN Time Seen by Provider: 09/20/20 10:52 Source: patient, EMS Mode of arrival: EMS Limitations: no limitations - History of Present Illness Initial comments: Dictation was produced using [employer] dictation software. please excuse any grammatical, word or spelling errors. This patient was cared for during a federal and state declared state of emergency secondary to Covid 19 Chief Complaint: 65-year-old female transferred from [facility] emergency room for unstable angina History of Present Illness: Is 65-year-old female she presents to the emergency department from home. Patient is asked medical history of cardiac disease. She has a history of defibrillator. Patient had chest pain upon waking up this morning. She states it was sharp pressure-like sensation to her left anterior chest. She do not feel an associated nausea, vomiting or diaphoresis. Patient did report that her symptoms radiate down her left upper extremity. According to transfer documentation she allegedly had a short run of ventricular tachycardia. Patient states she doesn't have any chest pain at this time. The ROS documented in this emergency department record has been reviewed and confirmed by me. Those systems with pertinent positive or negative responses have been documented in the HPI. All other systems are other negative and/or noncontributory. PHYSICAL EXAM: General Impression: Alert and oriented x3, not in acute distress HEENT: Normocephalic atraumatic, extra-ocular movements intact, pupils equal and reactive to light bilaterally, mucous membranes moist. Cardiovascular: Heart regular rate and rhythm Chest: Able to complete full sentences, no retractions, no tachypnea Abdomen: abdomen soft, non-tender, non-distended, no organomegaly Musculoskeletal: Pulses present and equal in all extremities, no peripheral edema Motor: no focal deficits noted Neurological: CN II-XII grossly intact, no focal motor or sensory deficits noted Skin: Intact with no visualized rashes Psych: Normal affect and mood ED course: 65-year-old female transferred from [facility] for chest pain and short run of ventricular tachycardia. Transfer documentation was reviewed. Patient's troponin is 0.013. Patient be admitted to observation. Case discussed with Dr. Tapia is willing to accept patient care. EKG interpretation: Ventricular rate 63, normal sinus rhythm,. 170, QRS 114, QTc 466. No HI prolongation, no QTC prolongation, no ST or T-wave changes noted. EKG compared to 07/22/2020 showing no changes. Overall, this EKG is unremarkable - Related Data Home Medications Medication Instructions Recorded Confirmed FLUoxetine HCL [PROzac] 20 mg PO DAILY 02/26/14 07/22/20 Folic Acid 1 mg PO DAILY 02/26/14 07/22/20 Montelukast [Singulair] 10 mg PO HS 02/26/14 07/22/20 Aspirin EC [Ecotrin Low Dose] 81 mg PO DAILY 07/02/16 07/22/20 Nitroglycerin Sl Tabs [Nitrostat] 0.4 mg PO Q5M PRN 07/02/16 07/22/20 Fluticasone/Vilanterol [Breo 1 puff INHALATION RT-DAILY 07/18/16 07/22/20 Ellipta 100-25 Mcg Inhaler] Omeprazole 20 mg PO HS 07/22/20 07/22/20 Previous Rx's Medication Instructions Recorded Amiodarone [Cordarone] 400 mg PO DIRECTED #30 tab 07/27/20 Atorvastatin [Lipitor] 40 mg PO HS #30 tab 07/27/20 Ipratropium-Albuterol Nebulize 3 ml INHALATION TID #90 ml 07/27/20 [Duoneb 0.5 mg-3 mg/3 ml Soln] Metoprolol Tartrate [Lopressor] 12.5 mg PO BID #60 tab 07/27/20 Mexiletine [Mexitil] 150 mg PO Q8H #90 cap 07/27/20 Allergies Allergy/AdvReac Type Severity Reaction Status Date / Time No Known Allergies Allergy Verified 07/22/20 14:58 Review of Systems ROS Statement: Those systems with pertinent positive or pertinent negative responses have been documented in the HPI. ROS Other: All systems not noted in ROS Statement are negative. Past Medical History Past Medical History: Coronary Artery Disease (CAD), Heart Failure, COPD, Hyperlipidemia, Hypertension, Respiratory Disorder Additional Past Medical History / Comment(s): Pt had recent admit to [facility] 05/26/16 with possible syncopal episode. Other HX: Chronic respiratory failure- uses 4-5L liters NC as needed, chronic CHF, cardiomyopathy, past vitamin D deficiency but ok now. recent right ankle fracture History of Any Multi-Drug Resistant Organisms: None Reported Past Surgical History: AICD, Breast Surgery, Heart Catheterization, Hysterectomy, Orthopedic Surgery Additional Past Surgical History / Comment(s): 2005 AICD, 2014 cardiac cath - treated medically, Benign R breast biopsy, colonoscopy-normal, broken R. ankle Past Anesthesia/Blood Transfusion Reactions: No Reported Reaction Type of Cardiac Device: AICD Device Placement Date:: unknown Past Psychological History: No Psychological Hx Reported Smoking Status: Former smoker Past Alcohol Use History: None Reported Past Drug Use History: None Reported - Past Family History Mother Additional Family Medical History / Comment(s): heart problems. Mother at the age of 65 or 67 of DVT "that traveled." Father Family Medical History: Myocardial Infarction (AK) Additional Family Medical History / Comment(s): heart problems. Father of a AK at the age of 65 yrs. 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
[2020-09-20] MEDS ORDERED: NITROGLYCERIN SL TABS 0.4 MG TAB SUBLINGUAL PRN (11:11)
[2020-09-20] MEDS ORDERED: MELATONIN 3 MG TABLET PO PRN (14:36)
[2020-09-20] MEDS ORDERED: ALPRAZolam 0.25 MG TAB PO PRN (14:37)
[2020-09-20] MEDS ORDERED: HYDROcodone/APAP 5-325MG 1 EACH TAB PO PRN (14:37)
[2020-09-20] MEDS ORDERED: ACETAMINOPHEN TAB 500 MG TAB PO PRN (14:37)
[2020-09-20] MEDS ORDERED: PANTOPRAZOLE 40 MG TABLET PO SCH (15:00)
--- NOTE | 2020-09-20 15:32 | HP ---
HISTORY AND PHYSICAL DATE OF SERVICE: 09/20/2020 CHIEF COMPLAINT: Chest pain. HISTORY OF PRESENT ILLNESS: This 65-year-old woman with a past medical history of CAD, COPD, hypertension, hyperlipidemia, history of AICD, breast surgery, history of cardiac catheterization, being followed by Dr. Shashank Hector in the outpatient setting, was complaining of chest pain felt across the chest which was mild to moderate in intensity; chest pressure-like sensation without any radiation, without any associated nausea, vomiting or diaphoresis. The patient went to [facility] and subsequently was referred to [facility] and was admitted for further evaluation and treatment. The initial EKG showed some possible incomplete right bundle branch block and heart rate of 62, ST-T changes also. There is no history of any fever, rigor or chills. No history of headache, loss of consciousness, seizures. PAST MEDICAL HISTORY: CAD, COPD, hypertension, hyperlipidemia, history of syncope, history of COPD with chronic respiratory failure, history of CHF, AICD. HOME MEDICATIONS: Omeprazole, Nitrostat, Singulair, Mexitil, Lopressor, melatonin, DuoNeb, folic acid, Prozac, Monodox, Lipitor, Ecotrin, Cordarone. ALLERGIES: NONE. FAMILY HISTORY: History of myocardial infarction in the family. SOCIAL HISTORY: Previous history of smoking. No history of alcohol intake. REVIEW OF SYSTEMS: ENT: No diminished hearing. No diminished vision. CARDIOVASCULAR SYSTEM: As mentioned earlier. RESPIRATORY SYSTEM: As mentioned earlier. GI: No nausea, vomiting. : No dysuria or retention. NERVOUS SYSTEM: No numbness, weakness. ALLERGY/IMMUNOLOGY: No asthma, hayfever. MUSCULOSKELETAL: As mentioned earlier. HEMATOLOGY/ONCOLOGY: No history of anemia. ENDOCRINE: No history of diabetes, hypothyroidism. CONSTITUTIONAL: As mentioned earlier. DERMATOLOGY: Negative. RHEUMATOLOGY: Negative. PSYCHIATRY: As mentioned earlier. PHYSICAL EXAMINATION: Patient alert and oriented x3. Pulse 65, blood pressure 136/62, respiration 18, temperature 96.7, pulse ox 98% on 2 L. HEENT: Conjunctivae normal. NECK: No jugular venous distention. CARDIOVASCULAR SYSTEM: S1, S2 muffled. RESPIRATORY SYSTEM: Breath sounds diminished at the bases. A few scattered rhonchi. ABDOMEN: Soft, obese, non-tender. No mass palpable. LEGS: No edema. No swelling. NERVOUS SYSTEM: Higher functions as mentioned earlier. Moves all 4 limbs. No focal motor or sensory deficit. LYMPHATICS: No lymph node palpable in neck, axillae or groin. SKIN: No ulcer, rash, bleeding. JOINTS: No active deforming arthropathy. LABS: Labs are awaited. ASSESSMENT: 1. Chest pain, possible unstable angina. 2. Diffuse ST-T changes in the EKG. 3. History of coronary artery disease. 4. History of congestive heart failure; ejection fraction unknown. 5. History of chronic obstructive pulmonary disease. 6. Hypertension. 7. Hyperlipidemia. 8. History of chronic respiratory failure, on 4 to 5 liters. 9. History of cardiomyopathy. 10.History of vitamin D deficiency. 11.History of automated implantable cardioverter defibrillator. 12.History of cardiac catheterization. 13.Remote history of nicotine dependence. 14.Obesity with body mass index of 34.8. 15.Chronic hypoxic respiratory failure, on home oxygen at 2 liters. RECOMMENDATIONS AND DISCUSSION: In this 65-year-old woman who presented with multiple complex medical issues, we will monitor the patient closely. Acute coronary syndrome protocol. Will rule out myocardial infarction. Cardiology consultation. Possible stress test. The prognosis is extremely guarded because of multiple complex medical issues. Further recommendations to follow. A copy of this dictation is being forwarded to Dr. Shashank Hector, who is the primary physician. MMODL / IJN: [id number] /
[2020-09-20] MEDS: SODIUM CHLORIDE 0.9% 1,000 ML IV SCH (15:44)
[2020-09-20] MEDS: METOPROLOL TARTRATE 12.5 MG TAB PO SCH (17:53)
[2020-09-20] MEDS: MEXILETINE 150 MG CAP PO SCH ×2 (18:39→23:18)
[2020-09-20] MEDS: ATORVASTATIN 40 MG TAB PO SCH (20:20)
[2020-09-20] MEDS: PANTOPRAZOLE 40 MG TABLET PO SCH (20:20)
[2020-09-20] MEDS: MONTELUKAST 10 MG TAB PO SCH (20:20)
[2020-09-20] MEDS: IPRATROPIUM-ALBUTEROL 3 ML NEB INHALATION SCH (21:25)
[2020-09-21] MEDS: METOPROLOL TARTRATE 12.5 MG TAB PO SCH ×2 (06:13→16:34)
[2020-09-21] MEDS: SODIUM CHLORIDE 0.9% 1,000 ML IV SCH (06:13)
[2020-09-21 08:03] LABS: Basophils % (A) 1 %; Eosinophils # (A) 0.2 k/uL (0-0.7); Eosinophils % (A) 4 %; HCT 38.5 % (34.0-46.0); HGB 12.5 gm/dL (11.4-16.0); Lymphocytes # (A) 1.4 k/uL (1.0-4.8); Lymphocytes % (A) 30 %; MCH 32.3 pg (25.0-35.0); MCHC 32.4 g/dL (31.0-37.0); MCV 99.7 fL (80.0-100.0); Mean Platelet Volume 7.5; Monocytes # (A) 0.3 k/uL (0-1.0); Monocytes % (A) 6 %; Neutrophils # (A) 2.7 k/uL (1.3-7.7); Neutrophils % (A) 59 %; Platelet Count 100 k/uL (150-450); RBC 3.86 m/uL (3.80-5.40); RDW 13.5 % (11.5-15.5); WBC 4.6 k/uL (3.8-10.6)
[2020-09-21] MEDS: FLUoxetine HCL 20 MG CAP PO SCH (08:19)
[2020-09-21] MEDS: ASPIRIN 81 MG PO SCH (08:19)
[2020-09-21] MEDS: FOLIC ACID 1 MG TAB PO SCH (08:19)
[2020-09-21] MEDS: MEXILETINE 150 MG CAP PO SCH ×3 (08:19→22:53)
[2020-09-21] MEDS: AMIODARONE 200 MG TAB PO SCH (08:19)
[2020-09-21] MEDS: IPRATROPIUM-ALBUTEROL 3 ML NEB INHALATION SCH ×3 (08:20→22:23)
[2020-09-21 08:26] LABS: Calcium 8.4 mg/dL (8.4-10.2); Magnesium 1.4 mg/dL (1.6-2.3)
[2020-09-21] MEDS ORDERED: ASPIRIN 325 MG TAB PO SCH (09:00)
--- NOTE | 2020-09-21 09:10 | P.CRDCN ---
History of Present Illness Consult date: 09/21/20 Chief complaint: Chest pain History of present illness: This is a pleasant 65-year-old female patient who sees Dr. 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 The patient somewhat is a poor historian. She stated that she was at home sitting in the hair recliner when she started experiencing discomfort over the left side of the chest. She describes the discomfort as a dull with some radiation to the left arm. No associated symptoms of sweating or shortness of breath or dizziness or lightheadedness or any feeling of heart racing or fluttering or syncope. She presented to the hospital with the EKG showed sinus rhythm without any significant ST or T-wave abnormalities. The d-dimer came in to be elevated and the patient currently is in process of having a computed tomography scan of the chest to rule out a PE. The rest of her blood work overall came in to be unremarkable. The chest x-ray showed no acute abnormalities. Past Medical History Past Medical History: Coronary Artery Disease (CAD), Heart Failure, COPD, Hyperlipidemia, Hypertension, Respiratory Disorder Additional Past Medical History / Comment(s): Pt had recent admit to [facility] 05/26/16 with possible syncopal episode. Other HX: Chronic respiratory failure- uses 4-5L liters NC as needed, chronic CHF, cardiomyopathy, past vitamin D deficiency but ok now. recent right ankle fracture History of Any Multi-Drug Resistant Organisms: None Reported Past Surgical History: AICD, Breast Surgery, Heart Catheterization, Hysterectomy, Orthopedic Surgery Additional Past Surgical History / Comment(s): 2004 AICD, 2013 cardiac cath - treated medically, Benign R breast biopsy, colonoscopy-normal, broken R. ankle Past Anesthesia/Blood Transfusion Reactions: No Reported Reaction Type of Cardiac Device: AICD Device Placement Date:: unknown Past Psychological History: No Psychological Hx Reported Smoking Status: Former smoker Past Alcohol Use History: None Reported Past Drug Use History: None Reported - Past Family History Mother Additional Family Medical History / Comment(s): heart problems. Mother at the age of 65 or 67 of DVT "that traveled." Father Family Medical History: Myocardial Infarction (NC) Additional Family Medical History / Comment(s): heart problems. Father of a NC at the age of 65 yrs. Medications and Allergies Home Medications Medication Instructions Recorded Confirmed Type FLUoxetine HCL [PROzac] 20 mg PO DAILY 02/26/14 09/20/20 History Folic Acid 1 mg PO DAILY 02/26/14 09/20/20 History Montelukast [Singulair] 10 mg PO HS 02/26/14 09/20/20 History Aspirin EC [Ecotrin Low Dose] 81 mg PO DAILY 07/02/16 09/20/20 History Nitroglycerin Sl Tabs [Nitrostat] 0.4 mg PO Q5M PRN 07/02/16 09/20/20 History Omeprazole 20 mg PO HS 07/22/20 09/20/20 History Atorvastatin [Lipitor] 40 mg PO HS #30 tab 07/27/20 09/20/20 Rx Ipratropium-Albuterol Nebulize 3 ml INHALATION TID #90 ml 07/27/20 09/20/20 Rx [Duoneb 0.5 mg-3 mg/3 ml Soln] Mexiletine [Mexitil] 150 mg PO Q8H #90 cap 07/27/20 09/20/20 Rx Amiodarone [Cordarone] 400 mg PO DAILY 09/20/20 09/20/20 History Doxycycline Monohydrate [Monodox] 100 mg PO BID 09/20/20 09/20/20 History Melatonin 3 mg PO HS PRN 09/20/20 09/20/20 History Metoprolol Tartrate [Lopressor] 12.5 mg PO AC-BID 09/20/20 09/20/20 History Allergies Allergy/AdvReac Type Severity Reaction Status Date / Time No Known Allergies Allergy Verified 09/20/20 12:04 Physical Exam Vitals: Vital Signs Temp Pulse Pulse Resp BP BP Pulse Ox 09/21/20 08:33 60 09/21/20 08:21 60 09/21/20 03:00 97.8 F 60 19 114/63 95 09/21/20 00:54 98.4 F 61 18 90/49 96 09/20/20 21:36 90 18 09/20/20 21:25 88 18 09/20/20 20:23 98.7 F 56 L 17 96/57 99 09/20/20 17:00 97.9 F 60 16 104/57 99 09/20/20 11:32 96.7 F L 65 18 136/62 98 09/20/20 11:05 64 09/20/20 11:00 98.3 F 63 16 119/56 100 Intake and Output 09/20/20 09/21/20 09/21/20 22:59 06:59 14:59 Intake Total 390 600 Balance 390 600 Intake: Intake, IV Titration 150 600 Amount Sodium Chloride 0.9% 1, 150 600 000 ml @ 75 mls/hr IV . [id number] GERALD Rx#:[id number] Oral 240 Other: # Voids 1 1 Weight 88.6 kg - Constitutional General appearance: no acute distress - Respiratory Respiratory: bilateral: CTA - Cardiovascular Rhythm: regular Heart sounds: normal: S1, S2 Results 09/21/20 07:44 09/21/20 07:44 Cardiac Enzymes 09/20/20 09/20/20 Range/Units 14:13 17:15 Troponin I 0.051 H* 0.043 H* (0.000-0.034) ng/mL Lipids 09/21/20 Range/Units 07:44 Triglycerides 65 (<150) mg/dL Cholesterol 113 (<200) mg/dL HDL Cholesterol 48 (40-60) mg/dL CBC 09/21/20 Range/Units 07:44 WBC 4.6 (3.8-10.6) k/uL RBC 3.86 (3.80-5.40) m/uL Hgb 12.5 (11.4-16.0) gm/dL Hct 38.5 (34.0-46.0) % Plt Count 100 L (150-450) k/uL Comprehensive Metabolic Panel 09/21/20 Range/Units 07:44 Sodium 138 (137-145) mmol/L Potassium 4.0 (3.5-5.1) mmol/L Chloride 104 (98-107) mmol/L Carbon Dioxide 33 H (22-30) mmol/L BUN 18 H (7-17) mg/dL Creatinine 1.15 H (0.52-1.04) mg/dL Glucose 91 (74-99) mg/dL Calcium 8.4 (8.4-10.2) mg/dL Current Medications Generic Name Dose Route Start Last Admin Trade Name Freq PRN Reason Stop Dose Admin Acetaminophen 500 mg 09/20/20 14:37 Acetaminophen Tab 500 Mg Tab PO Q6HR PRN Fever and/ or Pain Hydrocodone Bitart/Acetaminophen 1 each 09/20/20 14:37 Hydrocodone/Apap 5-325mg 1 Each Tab PO Q6HR PRN Pain Albuterol/Ipratropium 3 ml 09/20/20 20:00 09/21/20 08:20 Ipratropium-Albuterol 3 Ml Neb INHALATION 3 ml RT-TID GERALD Administration Alprazolam 0.25 mg 09/20/20 14:37 Alprazolam 0.25 Mg Tab PO TID PRN Anxiety Amiodarone HCl 400 mg 09/21/20 09:00 09/21/20 08:19 Amiodarone 200 Mg Tab PO 400 mg DAILY GERALD Administration Aspirin 81 mg 09/21/20 09:00 09/21/20 08:19 Aspirin 81 Mg PO 81 mg DAILY GERALD Administration Atorvastatin Calcium 40 mg 09/20/20 21:00 09/20/20 20:20 Atorvastatin 40 Mg Tab PO 40 mg HS GERALD Administration Fluoxetine HCl 20 mg 09/21/20 09:00 09/21/20 08:19 Fluoxetine Hcl 20 Mg Cap PO 20 mg DAILY GERALD Administration Folic Acid 1 mg 09/21/20 09:00 09/21/20 08:19 Folic Acid 1 Mg Tab PO 1 mg DAILY GERALD Administration Sodium Chloride 1,000 mls @ 75 mls/hr 09/20/20 15:45 09/21/20 06:13 Saline 0.9% IV 75 mls/hr .[id number] GERALD Administration Melatonin 3 mg 09/20/20 14:36 Melatonin 3 Mg Tablet PO HS PRN Insomnia Metoprolol Tartrate 12.5 mg 09/20/20 17:30 09/21/20 06:13 Metoprolol Tartrate 12.5 Mg Tab PO 12.5 mg AC-BID GERALD Administration Mexiletine HCl 150 mg 09/20/20 16:00 09/21/20 08:19 Mexiletine 150 Mg Cap PO 150 mg Q8HR GERALD Administration Montelukast Sodium 10 mg 09/20/20 21:00 09/20/20 20:20 Montelukast 10 Mg Tab PO 10 mg HS GERALD Administration Nitroglycerin 0.4 mg 09/20/20 11:11 Nitroglycerin Sl Tabs 0.4 Mg Tab SUBLINGUAL Q5M PRN Chest Pain Pantoprazole Sodium 40 mg 09/20/20 21:00 09/20/20 20:20 Pantoprazole 40 Mg Tablet PO 40 mg HS GERALD Administration Intake and Output 09/20/20 09/21/20 09/21/20 22:59 06:59 14:59 Intake Total 390 600 Balance 390 600 Intake: Intake, IV Titration 150 600 Amount Sodium Chloride 0.9% 1, 150 600 000 ml @ 75 mls/hr IV . [id number] GERALD Rx#:[id number] Oral 240 Other: # Voids 1 1 Weight 88.6 kg 09/21/20 07:44 09/21/20 07:44 Assessment and Plan Assessment: Assessment #1 atypical chest discomfort #2 abnormal d-dimer #3 history of nonischemic cardiomyopathy #4 [id number] coronary artery disease #5 multiple comorbid conditions Plan #1 rule out a PE. She is in process of getting a computed tomography scan #2 rule out progression in the severity of CAD #3 obtain an echocardiogram was Doppler #4 follow-up with the patient
--- NOTE | 2020-09-21 12:41 | CT ---
EXAMINATION TYPE: CT angio chest DATE OF EXAM: 09/21/2020 COMPARISON: Outside radiograph 09/20/2020 HISTORY: 65-year-old female elevated d-dimer, shortness of breath, rule out PE. TECHNIQUE: Contiguous axial scanning of the chest performed with IV Contrast, patient injected with 8 0 mL of Isovue 370. Delayed images through the kidneys were obtained. Coronal/sagittal reconstruction s performed. CT DLP: 454.5 mGycm Automated exposure control for dose reduction was used. FINDINGS: Left anterior chest wall ICD generator with 2 right ventricular leads. Heart is enlarged without pericardial effusion. Aorta normal caliber with conventional arch vessel branching anatomy. Satisfactory opacification of the pulmonary arterial system with breathing motion in the lower lungs. No definite pulmonary embolus. Some calcified mediastinal lymph nodes compatible with prior granulomatous disease. There is generalized hazy densities throughout the lungs and greater degree of patchy atelectasis at the bilateral lung bases. Mild diffuse bronchial wall thickening is present. Mild emphysema in the up per lungs. Numerous calcified granulomas in the spleen. Cholecystectomy clips. Bones: Multiple endplate deformities mid and lower thoracic spine. There is also T3 vertebral nely jessica collapse demonstrated. These were present back on the 07/22/2020 CT. IMPRESSION: 1. NO EVIDENCE FOR PULMONARY EMBOLUS. 2. CARDIOMEGALY. 3. GENERALIZED HAZY DENSITIES THROUGHOUT THE LUNGS AND PROMINENT STRANDY ATELECTASIS AT THE LUNG BASE S. CONSIDER GENERALIZED ATELECTATIC CHANGE DUE TO LARGE PATIENT BODY HABITUS. 4. THERE IS SUPERIMPOSED COPD WITH MILD EMPHYSEMA. PRIOR GRANULOMATOUS DISEASE. 5. MULTIPLE ENDPLATE DEFORMITIES THROUGHOUT THE THORACIC SPINE, UNCHANGED FROM 07/22/2020.
[2020-09-21] MEDS ORDERED: Magnesium Replacement Protocol 1 EACH MISC MISCELLANE PRN (13:19)
[2020-09-21] MEDS: MAGNESIUM SULFATE-D5W PMX 1 GM in DEXTROSE/WATER 1 100ML.BAG IVPB SCH ×3 (14:40→16:36)
--- NOTE | 2020-09-21 16:14 | XR ---
EXAMINATION TYPE: XR chest 1V portable DATE OF EXAM: 09/21/2020 Comparison: 07/22/2020 Clinical History: 65-year-old female CHF Findings: Left anterior chest wall ICD generator with 2 right ventricular leads. Heart mildly enlarged. Bands o f atelectasis at the left base. Mild interstitial prominence but no lorraine consolidation or pleural ef fusion. Impression: Mild cardiomegaly. Interstitial prominence may in part be chronic. Correlate to exclude mild pulmonar y vascular congestion. Left basilar atelectasis. No lorraine consolidation or pleural effusion.
--- NOTE | 2020-09-21 16:56 | PN ---
PROGRESS NOTE DATE OF SERVICE: 09/21/2020 This 65-year-old woman who was admitted with chest pain had diffuse ST-T changes in the EKG. The troponin was found to be indeterminate, around 0.043. The creatinine was found to be 1.15 and the patient has been transferred to [facility]. The D-dimer is 0.[address] angio of the chest showed no evidence of any pulmonary embolism; cardiomegaly and generalized hazy densities throughout the lungs with atelectasis, superimposed COPD. Endplate deformity is also noted. The CT angio was personally reviewed by me, and I concur with the radiology report as well. I would also recommend a BNP estimation as well and a follow-up chest x-ray. Past medical history reviewed. REVIEW OF SYSTEMS: CARDIOVASCULAR SYSTEM: No angina, palpitations. RESPIRATORY SYSTEM: As mentioned earlier. GI: As mentioned earlier. : No dysuria or retention. NERVOUS SYSTEM: No numbness, weakness. CURRENT MEDICATIONS: Reviewed. They include Tylenol, [place], DuoNeb, Cordarone, aspirin, Lipitor, Prozac, magnesium, Lopressor, Singulair, Nitrostat, Protonix. PHYSICAL EXAMINATION: Patient is alert, oriented x3. Pulse 58, blood pressure 102/50, respiration 18, temperature 97.7, pulse ox 94% on 3 L. HEENT: Conjunctivae normal. NECK: No jugular venous distention. CARDIOVASCULAR SYSTEM: S1, S2 muffled. RESPIRATORY SYSTEM: Breath sounds diminished at the bases. A few scattered rhonchi. ABDOMEN: Soft, non-tender. LEGS: No edema. No swelling. NERVOUS SYSTEM: No focal deficit. LABS: WBC 4.6 and platelets 100. Sodium 13, potassium 4. Troponin 0.043. ASSESSMENT: 1. Chest pain, possible unstable angina. 2. Rule out acute nml-UZ-zbzoego-elevation myocardial infarction with troponin 0.043. 3. Diffuse ST-T changes in the EKG. 4. D-dimer 0.67 without any evidence of acute pulmonary embolism. 5. Acute bilateral interstitial lesions. Rule out pneumonia or CHF. 6. Increased creatinine with acute renal failure. 7. Thrombocytopenia. 8. Hypomagnesemia. 9. History of coronary artery disease. 10.History of congestive heart failure; ejection fraction unknown. 11.History of hypertension. 12.History of chronic obstructive pulmonary disease. 13.Hyperlipidemia. 14.History of chronic hypoxic respiratory failure, on 4 to 5 L oxygen. 15.History of cardiomyopathy. 16.History of vitamin D deficiency. 17.History of automated implantable cardioverter defibrillator. 18.History of cardiac catheterization. 19.Remote history of nicotine dependence. 20.Obesity with body mass index of 34.8. 21.FULL CODE. RECOMMENDATIONS AND DISCUSSION: In this 65-year-old woman who presented with multiple complex medical issues, we will monitor the patient closely, continue the current medications, continue symptomatic treatment. I would order a BNP. A 2D echo was done in 2016, which is the last 2D echo available in the chart. It showed global hypokinesia, ejection fraction about 30% to 35%. I would recommend a repeat 2D echo and monitor fluid/electrolyte balance closely. Chest x-ray. Guarded prognosis because of multiple complex medical issues. Further recommendations to follow. RAFAT / MALLORY: [id number] / MTDD
--- NOTE | 2020-09-21 18:02 | ECHOF ---
Referral Reason:chest pain MEASUREMENTS -------- HEIGHT: 157.5 cm WEIGHT: 88.5 kg BP: 114/63 IVSd: 1.4 cm (0.6 - 1.1) LVIDd: 4.5 cm (3.9 - 5.3) LVPWd: 1.4 cm (0.6 - 1.1) IVSs: 1.9 cm LVIDs: 3.1 cm LVPWs: 1.8 cm LA Diam: 4.2 cm (2.7 - 3.8) RVIDd: 2.9 cm (< 3.3) LAESV Index (A-L): 33.81 ml/m Ao Diam: 3.3 cm (2.0 - 3.7) AV Cusp: 1.8 cm (1.5 - 2.6) EPSS: 1.2 cm MV E Mendel: 1.12 m/s MV DecT: 121 ms MV A Mendel: 1.06 m/s MV E/A Ratio: 1.06 RAP: 5.00 mmHg RVSP: 49.07 mmHg MV EF SLOPE: 43.26 mm/s (70 - 150) MV EXCURSION: 9.41 mm (> 18.000) FINDINGS -------- Paced rhythm. This was a technically difficult study with suboptimal views. The left ventricular size is normal. There is moderate concentric left ventricular hypertrophy. O verall left ventricular systolic function is moderate-severely impaired with, an EF between 30 - 35 % . Apical anterior LV wall motion is hypokinetic. Apical lateral LV wall motion is hypokinetic. Apical inferior LV wall motion is akinetic. Apical septum LV wall motion is hypokinetic. The right ventricle is normal in size. LA is moderately dilated 34-39 ml/m2 The right atrium is normal in size. Lumason used Aortic valve is trileaflet and is mildly thickened. The mitral valve leaflets are mildly thickened. Mild mitral annular calcification present. Mild m itral regurgitation is present. Mild tricuspid regurgitation present. There is moderate pulmonary hypertension. The right ventric ular systolic pressure, as measured by Doppler, is 49.07mmHg. Moderate pulmonic regurgitation. The aortic root size is normal. IVC Not well visulized. There is no pericardial effusion. CONCLUSIONS -------- 1. The left ventricular size is normal. 2. There is moderate concentric left ventricular hypertrophy. 3. Overall left ventricular systolic function is moderate-severely impaired with, an EF between 30 - 35 %. 4. Apical anterior LV wall motion is hypokinetic. 5. Apical lateral LV wall motion is hypokinetic. 6. Apical inferior LV wall motion is akinetic. 7. Apical septum LV wall motion is hypokinetic. 8. LA is moderately dilated 34-39 ml/m2 9. Lumason used 10. Aortic valve is trileaflet and is mildly thickened. 11. The mitral valve leaflets are mildly thickened. 12. Mild mitral annular calcification present. 13. Mild mitral regurgitation is present. 14. Mild tricuspid regurgitation present. 15. There is moderate pulmonary hypertension. 16. The right ventricular systolic pressure, as measured by Doppler, is 49.07mmHg. 17. Moderate pulmonic regurgitation. 18. There is no pericardial effusion. [employer]: Bindu Jean RDCS
[2020-09-21] MEDS: PANTOPRAZOLE 40 MG TABLET PO SCH (19:58)
[2020-09-21] MEDS: ATORVASTATIN 40 MG TAB PO SCH (19:59)
[2020-09-21] MEDS: MONTELUKAST 10 MG TAB PO SCH (19:59)
[2020-09-22] MEDS: SODIUM CHLORIDE 0.9% 1,000 ML IV SCH ×3 (00:36→23:12)
[2020-09-22 01:03] LABS: Magnesium 2.4 mg/dL (1.6-2.3); Potassium 4.2 mmol/L (3.5-5.1)
[2020-09-22] MEDS: METOPROLOL TARTRATE 12.5 MG TAB PO SCH ×2 (06:29→17:39)
[2020-09-22] MEDS: IPRATROPIUM-ALBUTEROL 3 ML NEB INHALATION SCH ×3 (08:08→20:29)
[2020-09-22 08:16] LABS: Calcium 8.2 mg/dL (8.4-10.2); Magnesium 2.2 mg/dL (1.6-2.3); Potassium 4.2 mmol/L (3.5-5.1)
--- NOTE | 2020-09-22 08:30 | P.PN ---
Subjective Progress Note Date: 09/22/20 Principal diagnosis: Chest discomfort This is a pleasant 65-year-old female patient who sees Dr. 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 The patient somewhat is a poor historian. She stated that she was at home sitting in the hair recliner when she started experiencing discomfort over the left side of the chest. She describes the discomfort as a dull with some radiation to the left arm. No associated symptoms of sweating or shortness of breath or dizziness or lightheadedness or any feeling of heart racing or fluttering or syncope. She presented to the hospital with the EKG showed sinus rhythm without any significant ST or T-wave abnormalities. The d-dimer came in to be elevated and subsequently the patient underwent a CTA of the chest which came in to be unremarkable for PE. The patient was [place] this [place] she is chest pain-free. She is feeling overall better. He echo revealed severe cardiomyopathy with EF around 35% with evidence of wall motion abnormalities concerning for severe underlying coronary artery disease. Also I am going to a small dose of lisinopril to the current medical regimen giving her cardiomyopathy. I advised monitor the patient for additional 24 hours. Objective - Vital Signs Vital signs: Vital Signs Temp 98.2 F 09/22/20 03:00 Pulse 60 09/22/20 08:20 Resp 17 09/22/20 03:00 BP 102/64 09/22/20 03:00 Pulse Ox 98 09/22/20 03:00 Intake & Output 09/21/20 09/22/20 09/22/20 18:59 06:59 18:59 Intake Total 720 825 Balance 720 825 Weight 91.9 kg Intake: Intake, IV Titration 825 Amount Magnesium Sulfate-D5w Pmx 300 1 gm In Dextrose/Water 1 100ml.bag @ 100 mls/hr IVPB Q1H GERALD Rx#: [id number] Sodium Chloride 0.9% 1, 525 000 ml @ 75 mls/hr IV . [id number] GERALD Rx#:[id number] Oral 720 Other: # Voids 2 2 # Bowel Movements 1 - Constitutional General appearance: Present: no acute distress - Respiratory Respiratory: bilateral: CTA - Cardiovascular Rhythm: regular Heart sounds: normal: S1, S2 - Labs CBC & Chem 7: 09/21/20 07:44 09/22/20 07:38 Labs: Abnormal Lab Results - Last 24 Hours (Table) 09/22/20 09/22/20 Range/Units 00:43 07:38 BUN 19 H (7-17) mg/dL Creatinine 1.28 H (0.52-1.04) mg/dL Calcium 8.2 L (8.4-10.2) mg/dL Magnesium 2.4 H (1.6-2.3) mg/dL Assessment and Plan Assessment: Assessment #1 atypical chest discomfort #2 abnormal d-dimer #3 history of nonischemic cardiomyopathy #4 [id number] coronary artery disease Plan #1 PE was ruled out #2 rule out severe underlying coronary artery disease #3 add small dose of lisinopril to the current medical regimen #4 follow-up with the patient
[2020-09-22] MEDS: FLUoxetine HCL 20 MG CAP PO SCH (09:46)
[2020-09-22] MEDS: AMIODARONE 200 MG TAB PO SCH (09:47)
[2020-09-22] MEDS: MEXILETINE 150 MG CAP PO SCH ×3 (09:47→23:10)
[2020-09-22] MEDS: ASPIRIN 81 MG PO SCH (09:47)
[2020-09-22] MEDS ORDERED: ALPRAZolam 0.25 MG TAB PO PRN (12:44)
[2020-09-22] MEDS ORDERED: ALPRAZolam 0.5 MG TAB PO PRN (12:44)
[2020-09-22] MEDS ORDERED: SODIUM CHLORIDE 0.9% 1,000 ML in EMPTY BAG 1 BAG IV ONE (12:44)
[2020-09-22] MEDS ORDERED: HEPARIN SOD,PORK IN 0.45% NACL 25,000 UNIT in 0.45% NACL 1 250ML.BAG IV SCH (13:00)
[2020-09-22] MEDS: FOLIC ACID 1 MG TAB PO SCH (13:23)
--- NOTE | 2020-09-22 18:27 | PN ---
PROGRESS NOTE DATE OF SERVICE: 09/22/2020 This 61-year-old woman who was admitted with chest pain, also had elevated troponin. The Covid-19 was negative. Creatinine is 1.28. The patient underwent a CT angio yesterday which showed no evidence of pulmonary embolism. Generalized hazy densities throughout the lungs were noted. Superimposed COPD was noted with some endplate deformities. A chest x-ray done today, which I reviewed personally, showed some bilateral increased lung markings. Dr. Wilkerson has seen the patient today recommended lisinopril to the current regimen and continued followup also. Patient has history of nonischemic cardiomyopathy. PAST MEDICAL HISTORY: Reviewed. REVIEW OF SYSTEMS: CARDIOVASCULAR SYSTEM: No angina. Respiration as mentioned earlier. GI mentioned earlier. : No dysuria. NERVOUS SYSTEM: No focal deficits. CURRENT MEDICATIONS: Reviewed and include Tylenol. [place]. DuoNeb. Xanax. Cordarone. Lipitor, Prozac, folic acid, heparin. Doses are reviewed. PHYSICAL EXAMINATION: Alert and oriented times three. Pulse 67, blood pressure 113/60, respiration 19, temp 98.4, pulse ox 94% on 6 L. HEENT: Conjunctivae normal. NECK: No JVD. CARDIOVASCULAR: S1, S2 muffled. RESPIRATION: Breath sounds diminished in the bases. A few scattered rhonchi and crackles. ABDOMEN: Soft. Nontender. LEGS: No edema. No swelling. Nervous system: Higher functions as mentioned earlier. Moves all 4 limbs. No focal deficits. LYMPHATICS: No lymph nodes palpable in the neck, axilla or groin. SKIN: No ulcer. No rash and no bleeding. JOINTS: No active deforming arthropathy. LABS: CT scan reviewed. Chest x-ray reviewed. Other labs are: Creatinine as mentioned earlier 1.28. ASSESSMENT: 1. Chest pain, possible acute ylc-ZS-mpjegin-elevation myocardial infarction with troponin 0.043. 2. Diffuse STT changes in the EKG. 3. D-dimer 0.67 without any evidence of acute pulmonary embolism. 4. Bilateral interstitial lesions. 5. Increased creatinine with acute renal failure. 6. Thrombocytopenia. 7. Hypomagnesemia. 8. History of coronary artery disease. 9. History of congestive heart failure, ejection fraction unknown. 10.Hypertension. 11.History of chronic obstructive pulmonary disease. 12.Hyperlipidemia. 13.History of chronic hypoxic respiratory failure on 4 to 5 L of oxygen. 14.History of cardiomyopathy. 15.History of vitamin D deficiency. 16.History of AICD. 17.History of cardiac catheterization. 18.Remote history of nicotine dependence. 19.Obesity with body mass index of 34.8. 20.FULL CODE. RECOMMENDATIONS AND DISCUSSION: Recommend to continue current management and continue with symptomatic treatment. Continue with medical treatment. Repeat troponins are negative. Covid 19 was negative also. I would recommend closely follow with Cardiology. The patient is on IV heparin. Chest x-ray was reviewed. The BNP was elevated up to 2330. Guarded prognosis because of multiple complex medical issues. Further recommendations to follow. MMODL / IJN: [id number] /
[2020-09-22] MEDS: MONTELUKAST 10 MG TAB PO SCH (20:01)
[2020-09-22] MEDS: ATORVASTATIN 40 MG TAB PO SCH (20:01)
[2020-09-22] MEDS: PANTOPRAZOLE 40 MG TABLET PO SCH (20:01)
[2020-09-23] MEDS ORDERED: ASPIRIN 325 MG TAB PO STA (04:00)
[2020-09-23] MEDS ORDERED: ATORVASTATIN 80 MG TAB PO STA (04:01)
[2020-09-23] MEDS: ASPIRIN 81 MG PO SCH (05:39)
[2020-09-23] MEDS: METOPROLOL TARTRATE 12.5 MG TAB PO SCH ×2 (05:39→17:00)
[2020-09-23] MEDS: FLUoxetine HCL 20 MG CAP PO SCH (05:39)
[2020-09-23] MEDS: AMIODARONE 200 MG TAB PO SCH (05:39)
[2020-09-23] MEDS: FOLIC ACID 1 MG TAB PO SCH (05:39)
[2020-09-23] MEDS: IPRATROPIUM-ALBUTEROL 3 ML NEB INHALATION SCH ×4 (07:52→20:11)
[2020-09-23] MEDS: MEXILETINE 150 MG CAP PO SCH ×3 (08:35→23:04)
--- NOTE | 2020-09-23 09:48 | P.PN ---
Subjective Progress Note Date: 09/23/20 Principal diagnosis: Chest discomfort This is a pleasant 65-year-old female patient who sees Dr. 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 The patient somewhat is a poor historian. She stated that she was at home sitting in the hair recliner when she started experiencing discomfort over the left side of the chest. She describes the discomfort as a dull with some radiation to the left arm. No associated symptoms of sweating or shortness of breath or dizziness or lightheadedness or any feeling of heart racing or fluttering or syncope. She presented to the hospital with the EKG showed sinus rhythm without any significant ST or T-wave abnormalities. The d-dimer came in to be elevated and subsequently the patient underwent a CTA of the chest which came in to be unremarkable for PE. The patient was seen today September 232020. She remains asymptomatic. Yesterday she did have an episode of wide complex rhythm to me it is consistent was ventricular tachycardia. I am going to interrogate the AICD. Electrolytes are within normal limits. She is on maximize medical treatment including mexiletine. Also she is on amiodarone. We will interrogate the device and possibly consult Dr. Hu if the interrogation revealed ventricular tachycardia. Patient also possibly to undergo coronary angiogram to rule out s evere underlying coronary artery disease. In 2013 she underwent a heart cath and that revealed idhz-sp-fthsavsg CAD. Objective - Vital Signs Vital signs: Vital Signs Temp 98.2 F 09/23/20 08:33 Pulse 70 09/23/20 08:33 Resp 18 09/23/20 08:33 BP 112/80 09/23/20 08:33 Pulse Ox 97 09/23/20 08:33 Intake & Output 09/22/20 09/23/20 09/23/20 18:59 06:59 18:59 Intake Total 465 Output Total 500 Balance -35 Weight 89.5 kg Intake: Intake, IV Titration 225 Amount Sodium Chloride 0.9% 1, 225 000 ml @ 75 mls/hr IV . [id number] [facility] Rx#:[id number] Oral 240 Output: Urine 500 Other: Voiding Method Toilet Toilet # Voids 1 1 - Constitutional General appearance: Present: no acute distress - Respiratory Respiratory: bilateral: diminished - Cardiovascular Rhythm: regular Heart sounds: normal: S1, S2 - Labs CBC & Chem 7: 09/21/20 07:44 09/22/20 07:38 Labs: Abnormal Lab Results - Last 24 Hours (Table) 09/22/20 Range/Units 18:55 APTT 54.6 H (22.0-30.0) sec Assessment and Plan Assessment: Assessment #1 atypical chest discomfort #2 wide-complex rhythm likely represent V. tach #3 history of nonischemic cardiomyopathy #4 fatm-eu-xedfgufx coronary artery disease Plan #1 electrolytes are within normal limits #2 interrogated the ICD #3 severe CAD to be ruled out #4 continue the current medical regimen #5 follow-up with the patient
[2020-09-23] MEDS ORDERED: IV FLUID CONTINUATION 800 ML IV ONE (10:30)
[2020-09-23 10:35] LABS: Basophils % (A) 1 %; Eosinophils # (A) 0.1 k/uL (0-0.7); Eosinophils % (A) 3 %; HCT 37.8 % (34.0-46.0); HGB 12.4 gm/dL (11.4-16.0); Lymphocytes # (A) 1.1 k/uL (1.0-4.8); Lymphocytes % (A) 23 %; MCH 32.9 pg (25.0-35.0); MCHC 32.7 g/dL (31.0-37.0); MCV 100.4 fL (80.0-100.0); Mean Platelet Volume 7.8; Monocytes # (A) 0.3 k/uL (0-1.0); Monocytes % (A) 7 %; Neutrophils # (A) 3.1 k/uL (1.3-7.7); Neutrophils % (A) 66 %; RBC 3.77 m/uL (3.80-5.40); RDW 13.4 % (11.5-15.5); WBC 4.8 k/uL (3.8-10.6)
[2020-09-23] MEDS ORDERED: LIDOCAINE 1% INJ 10MG/ML (20 ML MDV) ONE (10:39)
[2020-09-23] MEDS ORDERED: VERAPAMIL 2.5 MG/ML 2 ML AMP ONE (10:39)
[2020-09-23 10:42] LABS: Calcium 8.4 mg/dL (8.4-10.2); Potassium 4.2 mmol/L (3.5-5.1)
[2020-09-23] MEDS ORDERED: MIDAZOLAM 2 MG/2 ML VIAL IV ONE (10:58)
[2020-09-23 10:59] LABS: Platelet Count 93 k/uL (150-450)
[2020-09-23] MEDS ORDERED: LIDOCAINE 1% INJ 10MG/ML (20 ML MDV) SQ ONE (10:59)
[2020-09-23] MEDS ORDERED: HEPARIN SODIUM 1,000 UN/ML (10ML VL) ONE (11:01)
[2020-09-23] MEDS ORDERED: VERAPAMIL SYRINGE (5 MG/10 ML) INTRAARTER ONE (11:05)
[2020-09-23] MEDS ORDERED: IOPAMIDOL-370 125ML BTL INJ ONE (11:19)
[2020-09-23] MEDS ORDERED: RX INFO: IV CONTRAST WAS GIVEN 1 EACH MISC MISCELLANE PRN (11:25)
[2020-09-23] MEDS ORDERED: SODIUM CHLORIDE 0.9% 1,000 ML IV SCH (11:30)
[2020-09-23] MEDS: SODIUM CHLORIDE 0.9% 1,000 ML IV SCH (12:45)
[2020-09-23] MEDS ORDERED: IPRATROPIUM-ALBUTEROL 3 ML NEB INHALATION PRN (13:20)
[2020-09-23] MEDS: methylPREDNISolone SOD SUCCI 125 MG/2 ML VIAL IV SCH ×3 (13:45→23:04)
--- NOTE | 2020-09-23 14:28 | PN ---
PROGRESS NOTE DATE OF SERVICE: 09/23/2020. HISTORY OF PRESENT ILLNESS: This 65-year-old woman was admitted with multiple medical issues, including chest pain, elevated troponin, had features of acute gna-VP-ogpahlt-elevation myocardial infarction. The patient also had suspected run of wide-complex QRS tachycardia. Last night the patient underwent a cardiac catheterization. Initial reports shows normal coronary arteries. Detailed report is pending at this time. Patient still has some significant shortness of breath and cough and sputum also. PAST MEDICAL HISTORY: Reviewed. REVIEW OF SYSTEMS: CARDIOVASCULAR SYSTEM: As mentioned earlier. RESPIRATORY: As mentioned earlier. GI no nausea or vomiting. no dysuria. NERVOUS SYSTEM: No numbness or weakness. CURRENT MEDICATIONS: Reviewed and include: 1. Tylenol. 2. [place]. 3. DuoNeb. 4. Xanax. 5. Lipitor. 6. Lopressor. 7. Doses reviewed. PHYSICAL EXAM: Patient is alert, oriented x3. The pulse is 63. Blood pressure is 89/50, respiration 16, temperature is normal. Pulse ox 98% on 3 L. HEENT: Conjunctivae normal. NECK: No JVD RESPIRATORY SYSTEM: Breath sounds diminished at the bases. A few scattered rhonchi and crackles. Expiratory wheezing also present. ABDOMEN: Soft. Nontender. LEGS: No edema. NERVOUS SYSTEM: Higher functions as mentioned earlier. Moves all four limbs. LYMPHATICS: No lymph nodes palpable in neck, axilla and groin. SIGN: No ulcer, rash or bleeding. JOINTS: No active deforming arthropathy. LABS: WBC 4.8, hemoglobin 12.4. The chest x-ray which was reviewed personally by me showed cardiomegaly and interstitial prominence, mild pulmonary vascular congestion. CT scan of the chest was also personally reviewed by me. ASSESSMENT: 1. Chest pain, possible acute ydu-FS-hhmcoks-elevation myocardial infarction with troponin 0.043 status post cardiac catheterization with normal coronary arteries. 2. Diffuse ST-T changes in the EKG. 3. D-dimer 0.67 without any evidence of acute pulmonary embolism. 4. Bilateral interstitial lesions. 5. Chronic obstructive pulmonary disease acute exacerbation with acute purulent tracheobronchitis. 6. Increased creatinine with acute renal failure. 7. Thrombocytopenia. 8. Hypomagnesemia. 9. History of coronary artery disease. 10.History of congestive heart failure, ejection fraction unknown. 11.Hypertension. 12.History of chronic obstructive pulmonary disease. 13.Hyperlipidemia. 14.History of chronic hypoxic respiratory failure on 4 to 5 L oxygen. 15.History of cardiomyopathy. 16.History of vitamin D deficiency. 17.History of AICD. 18.History of cardiac catheterization. 19.Remote history of nicotine dependence. 20.Obesity with body mass index of 34.8. 21.FULL CODE. RECOMMENDATIONS AND DISCUSSION: I recommend to continue current medications, management and symptomatic treatment. Otherwise, I would also recommend intensive bronchodilator treatment as well as a course of steroids and empiric antibiotics also. Otherwise, guarded prognosis because of multiple complex medical issues. See orders for details. Further recommendations to follow. MMODL / IJN: [id number] /
[2020-09-23 16:42] LABS: Glucose,Whole Blood 99 mg/dL (75-99)
[2020-09-23] MEDS: INSULIN ASPART (NovoLOG) 100 UNIT/ML VIAL SQ SCH ×2 (17:01→21:11)
--- NOTE | 2020-09-23 17:22 | CC ---
CARDIAC CATHETERIZATION REPORT DATE OF SERVICE: 09/23/2020 PERFORMING PHYSICIAN: Alexi Wilkerson MD. PROCEDURE PERFORMED: Selective right and left coronary angiogram. INDICATION: This is a 65-year-old female patient who sees Dr. Guerrero in the office on a regular basis with coronary artery disease and nonischemic cardiomyopathy and status post AICD, who presented to the hospital with chest discomfort and abnormal cardiac enzymes. Initially the patient was treated medically, but she did have an episode of wide- complex tachycardia concerning for ventricular tachycardia. APPROACH: Right radial artery. COMPLICATION: None. LEVEL OF SEDATION: Moderate with sedation length of 22 minutes. PROCEDURE DESCRIPTION: After obtaining informed consent, the patient was brought to the cardiac laboratory coordinator. The right radial artery was cannulated using micropuncture technique and a micropuncture wire passed easily. Then I placed a 6-Turkmen sheath at the right radial artery. After that I gave the patient 2 mg of verapamil IA. Selective right and left coronary angiogram performed using JR3.5 and JL3.5 catheters. Left heart catheterization was not performed. The procedure was completed without any complication. SELECTIVE CORONARY ANGIOGRAM: 1. The right coronary artery is a large caliber vessel. It is a dominant vessel. The ostial right has disease that appeared to be in the range of 40-50 percent only. The mid and distal right appeared to be angiographically normal. The right distally bifurcates into PDA and PLV branches and both appeared to be angiographically normal. 2. The left main has mild disease only. It bifurcates into LCX and LAD. 3. The LCX is a large caliber vessel, it is a nondominant vessel and appeared to be angiographically normal. 4. The LAD is a large caliber vessel. The mid LAD has mild disease only by the bifurcation of the first diagonal branch which appeared to be angiographically normal. CONCLUSION: Mild to moderate nonobstructive coronary artery disease as described above. POSTPROCEDURE MANAGEMENT: Medical treatment and follow up with the patient. MMODL / IJN: [id number] /
[2020-09-23 20:25] LABS: Glucose,Whole Blood 179 mg/dL (75-99)
[2020-09-23] MEDS: MONTELUKAST 10 MG TAB PO SCH (21:11)
[2020-09-23] MEDS: ATORVASTATIN 40 MG TAB PO SCH (21:11)
[2020-09-23] MEDS: PANTOPRAZOLE 40 MG TABLET PO SCH (21:11)
[2020-09-24 06:10] LABS: Glucose,Whole Blood 156 mg/dL (75-99)
[2020-09-24] MEDS: methylPREDNISolone SOD SUCCI 125 MG/2 ML VIAL IV SCH ×4 (06:37→22:48)
[2020-09-24] MEDS: METOPROLOL TARTRATE 12.5 MG TAB PO SCH ×2 (06:37→17:15)
[2020-09-24] MEDS: INSULIN ASPART (NovoLOG) 100 UNIT/ML VIAL SQ SCH ×4 (06:38→21:36)
[2020-09-24] MEDS: IPRATROPIUM-ALBUTEROL 3 ML NEB INHALATION SCH ×4 (08:18→20:38)
[2020-09-24] MEDS: MEXILETINE 150 MG CAP PO SCH ×3 (08:58→22:48)
[2020-09-24] MEDS: ASPIRIN 81 MG PO SCH (08:58)
[2020-09-24] MEDS: AMIODARONE 200 MG TAB PO SCH (08:58)
[2020-09-24] MEDS: FLUoxetine HCL 20 MG CAP PO SCH (08:58)
[2020-09-24] MEDS: FOLIC ACID 1 MG TAB PO SCH (08:58)
[2020-09-24] MEDS: SODIUM CHLORIDE 0.9% 1,000 ML IV SCH ×2 (09:03→12:26)
--- NOTE | 2020-09-24 10:05 | P.PN ---
Subjective Progress Note Date: 09/24/20 Principal diagnosis: Chest discomfort This is a pleasant 65-year-old female patient who sees Dr. 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 The patient somewhat is a poor historian. She stated that she was at home sitting in the hair recliner when she started experiencing discomfort over the left side of the chest. She describes the discomfort as a dull with some radiation to the left arm. No associated symptoms of sweating or shortness of breath or dizziness or lightheadedness or any feeling of heart racing or fluttering or syncope. She presented to the hospital with the EKG showed sinus rhythm without any significant ST or T-wave abnormalities. The d-dimer came in to be elevated and subsequently the patient underwent a CTA of the chest which came in to be unremarkable for PE. Subsequently the patient underwent a heart catheterization which revealed mild to moderate nonobstructive coronary artery disease. She was seen today 09/24/2020. Yesterday she did have an episode of wide complex rhythm initially we thought is ventricular tachycardia but the AICD interrogation did not reveal any evidence of VT or V. fib. She did not have any more episode of wide complex tachycardia and she has been maintaining normal sinus mechanism beach she is on amiodarone as well as mexiletine. She does have bilateral expiratory wheezing and she does have COPD. Currently she has been treated for COPD using Solo Medrol and that has been managed by the primary care team. Objective - Vital Signs Vital signs: Vital Signs Temp 98.1 F 09/24/20 09:00 Pulse 76 09/24/20 09:00 Resp 19 09/24/20 09:00 BP 124/64 09/24/20 09:00 Pulse Ox 93 L 09/24/20 09:00 Intake & Output 09/23/20 09/24/20 09/24/20 18:59 06:59 18:59 Intake Total 435 240 Output Total 280 Balance 435 -280 240 Weight 93.1 kg Intake: IV 195 Heparin Sod,Pork in 0.45% 20 NaCl 25,000 unit In 0.45 % NaCl 1 250ml.bag @ 10. 881 UNITS/KG/HR 10 mls/hr IV .Q24H [facility] Rx#: [id number] Sodium Chloride 0.9% 1, 75 000 ml @ 75 mls/hr IV . [id number] [facility] Rx#:[id number] cefTRIAXone 1 gm In 50 Sodium Chloride 0.9% 50 ml @ 100 mls/hr IVPB Q24HR [facility] Rx#:[id number] Oral 240 240 Output: Urine 280 Other: Voiding Method Toilet Toilet # Voids 1 1 - Constitutional General appearance: Present: no acute distress - Respiratory Respiratory: bilateral: wheezing - Cardiovascular Rhythm: regular Heart sounds: normal: S1, S2 - Labs CBC & Chem 7: 09/23/20 09:32 09/23/20 09:32 Labs: Abnormal Lab Results - Last 24 Hours (Table) 09/23/20 09/23/20 09/23/20 Range/Units 09:32 09:32 09:32 RBC 3.77 L (3.80-5.40) m/uL MCV 100.4 H (80.0-100.0) fL Plt Count 93 L (150-450) k/uL APTT 92.4 H (22.0-30.0) sec Creatinine 1.06 H (0.52-1.04) mg/dL Glucose 100 H (74-99) mg/dL POC Glucose (mg/dL) (75-99) mg/dL 09/23/20 09/24/20 Range/Units 20:24 06:08 RBC (3.80-5.40) m/uL MCV (80.0-100.0) fL Plt Count (150-450) k/uL APTT (22.0-30.0) sec Creatinine (0.52-1.04) mg/dL Glucose (74-99) mg/dL POC Glucose (mg/dL) 179 H 156 H (75-99) mg/dL Assessment and Plan Assessment: Assessment #1 atypical chest discomfort #2 wide-complex rhythm which has improved #3 history of nonischemic cardiomyopathy #4 mnun-um-whgsulxj coronary artery disease Plan #1 continue the current medical regimen #2 possible discharge in the next 24 hours
[2020-09-24 11:15] LABS: Glucose,Whole Blood 148 mg/dL (75-99)
[2020-09-24 16:56] LABS: Glucose,Whole Blood 166 mg/dL (75-99)
--- NOTE | 2020-09-24 17:49 | PN ---
PROGRESS NOTE DATE OF SERVICE: 09/24/2020 This 65-year-old woman with a past medical history of multiple medical problems was admitted with chest pain but the cardiac catheterization was normal. The patient also had COPD acute exacerbation treated with steroids as well as antibiotics. No chest pain. No palpitations. No fever. PHYSICAL EXAMINATION: Alert and oriented x3. Pulse 79, blood pressure 147/62, respiration 18, temperature 98.2, pulse ox 94% on 3 L. HEENT: Conjunctivae normal. Oral mucosa moist. NECK: No jugular venous distention. No lymph node enlargement. CARDIOVASCULAR: S1, S2, muffled. No S3, no S4, RESPIRATORY: Diminished breath sounds at the bases. Bilateral scattered rhonchi and crackles. ABDOMEN: Soft, nontender. NERVOUS SYSTEM: No focal motor or sensory deficits. LABS: Glucose noted. ASSESSMENT: 1. Chest pain, possible acute vwe-DM-jkgfqka-elevation myocardial infarction with troponin 0.43, status post cardiac catheterization with normal coronary arteries. 2. Chronic obstructive pulmonary disease acute exacerbation with acute purulent tracheobronchitis. 3. Diffuse ST-T changes in the EKG. 4. D-dimer 0.67 without any evidence of acute pulmonary embolism. 5. Bilateral interstitial lesions. 6. Increased creatinine with acute renal failure, prerenal factors as mentioned earlier. 7. Thrombocytopenia. 8. Hypomagnesemia. 9. History of coronary artery disease. 10.History of congestive heart failure, ejection fraction unknown. 11.Hypertension. 12.History of chronic obstructive pulmonary disease. 13.Hyperlipidemia. 14.History of chronic hypoxic respiratory failure, 4-5 L nasal cannula. 15.History of cardiomyopathy. 16.History of vitamin D deficiency. 17.History AICD. 18.History of cardiac catheterization. 19.History of remote nicotine dependence. 20.Obesity with body mass index of 34.6. 21.FULL CODE. RECOMMENDATIONS AND DISCUSSION: Recommend to continue current management, continue symptomatic treatment, continue the antibiotics, continue steroids, continue the rest of medications. Prognosis guarded because of multiple complex medical issues. Increase ambulation. Further recommendations to follow. MMODL / IJN: [id number] /
[2020-09-24 21:05] LABS: Glucose,Whole Blood 187 mg/dL (75-99)
[2020-09-24] MEDS: MONTELUKAST 10 MG TAB PO SCH (21:35)
[2020-09-24] MEDS: ATORVASTATIN 40 MG TAB PO SCH (21:36)
[2020-09-24] MEDS: PANTOPRAZOLE 40 MG TABLET PO SCH (21:36)
[2020-09-25 06:11] LABS: Glucose,Whole Blood 141 mg/dL (75-99)
[2020-09-25] MEDS: INSULIN ASPART (NovoLOG) 100 UNIT/ML VIAL SQ SCH ×4 (06:12→21:10)
[2020-09-25] MEDS: methylPREDNISolone SOD SUCCI 125 MG/2 ML VIAL IV SCH ×2 (06:37→12:28)
[2020-09-25] MEDS: METOPROLOL TARTRATE 12.5 MG TAB PO SCH ×2 (06:37→17:44)
[2020-09-25] MEDS: IPRATROPIUM-ALBUTEROL 3 ML NEB INHALATION SCH ×4 (07:32→19:50)
[2020-09-25] MEDS: AMIODARONE 200 MG TAB PO SCH (09:10)
[2020-09-25] MEDS: ASPIRIN 81 MG PO SCH (09:10)
[2020-09-25] MEDS: FLUoxetine HCL 20 MG CAP PO SCH (09:11)
[2020-09-25] MEDS: MEXILETINE 150 MG CAP PO SCH ×3 (09:11→23:09)
[2020-09-25] MEDS: FOLIC ACID 1 MG TAB PO SCH (09:11)
[2020-09-25 11:59] LABS: Glucose,Whole Blood 135 mg/dL (75-99)
[2020-09-25] MEDS: SODIUM CHLORIDE 0.9% 1,000 ML IV SCH (12:16)
--- NOTE | 2020-09-25 13:53 | P.PN ---
Subjective This is a pleasant 65-year-old female patient who sees Dr. 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 The patient somewhat is a poor historian. She stated that she was at home sitting in the hair recliner when she started experiencing discomfort over the left side of the chest. She describes the discomfort as a dull with some radiation to the left arm. No associated symptoms of sweating or shortness of breath or dizziness or lightheadedness or any feeling of heart racing or fluttering or syncope. She presented to the hospital with the EKG showed sinus rhythm without any significant ST or T-wave abnormalities. The d-dimer came in to be elevated and subsequently the patient underwent a CTA of the chest which came in to be unremarkable for PE. Subsequently the patient underwent a heart catheterization which revealed mild to moderate nonobstructive coronary artery disease. She is seen and examined sitting up in the recliner in no acute distress. She denies chest pain, worsening shortness of breath, dizziness or palpitations. Blood pressure 137/56 heart rate 78 afebrile maintaining oxygen saturation on nasal cannula. Currently maintained on amiodarone 400 mg daily, aspirin 81 mg daily, atorvastatin 40 mg daily, metoprolol 12.5 mg twice a day and mexiletine 150 mg 3 times a day GENERAL: Well-appearing, well-nourished and in no acute distress. Morbidly obese. NECK: Supple without JVD or thyromegaly. LUNGS: Breath sounds clear to auscultation bilaterally. Respiration equal and unlabored. No wheezes, rales or rhonchi. Diminished bilaterally. HEART: Regular rate and rhythm without murmurs, rubs or gallops. S1 and S2 heard. EXTREMITIES: Normal range of motion, no edema. No clubbing or cyanosis. Peripheral pulses intact. Right lower extremity dusky with non-healing ulcer to lateral aspect. ASSESSMENT Chest pain, atypical. Chronic systolic heart failure, clinically euvolemic Nonischemic cardiomyopathy status post AICD Nonobstructive coronary artery disease Acute exacerbation of COPD on home oxygen Hypertension Dyslipidemia Obesity, BMI 36 PLAN Stable from a cardiac perspective. Follow up with Dr. Guerrero upon discharge. Consider decreasing amiodarone to 200 mg daily, this can be addressed in the office. Nurse Practitioner note has been reviewed, I agree with a documented findings and plan of care. Patient was seen and examined. Objective - Vital Signs Vital signs: Vital Signs Temp 98.4 F 09/25/20 12:00 Pulse 78 09/25/20 12:00 Resp 16 09/25/20 12:00 BP 137/56 09/25/20 12:00 Pulse Ox 93 L 09/25/20 12:00 Intake & Output 09/24/20 09/25/20 09/25/20 18:59 06:59 18:59 Intake Total 1010 390 Balance 1010 390 Weight 90.3 kg Intake: IV 150 Sodium Chloride 0.9% 1, 150 000 ml @ 75 mls/hr IV . [id number] [facility] Rx#:[id number] Intake, IV Titration 50 Amount cefTRIAXone 1 gm In 50 Sodium Chloride 0.9% 50 ml @ 100 mls/hr IVPB Q24HR [facility] Rx#:[id number] Oral 960 240 Other: Voiding Method Toilet Toilet Toilet # Voids 4 1 1 # Bowel Movements 1 1 - Labs CBC & Chem 7: 09/23/20 09:32 09/23/20 09:32 Labs: Abnormal Lab Results - Last 24 Hours (Table) 09/24/20 09/24/20 09/25/20 Range/Units 16:54 21:02 06:08 POC Glucose (mg/dL) 166 H 187 H 141 H (75-99) mg/dL 09/25/20 Range/Units 11:58 POC Glucose (mg/dL) 135 H (75-99) mg/dL
--- NOTE | 2020-09-25 15:43 | PN ---
PROGRESS NOTE DATE OF SERVICE: 09/25/2020 This 65-year-old woman who was admitted with multiple medical problems and chest pain also had COPD acute exacerbation. The patient is receiving IV steroids as well as empiric antibiotics. No chest pain or palpitation. No fever. PHYSICAL EXAMINATION: On exam, alert and oriented x3. Pulse 78, blood pressure 137/56, respiration 16, temperature 98.4, pulse ox 93% on 3 L. HEENT: Conjunctivae normal. NECK: No jugular venous distention. CARDIOVASCULAR: S1, S2 muffled. RESPIRATORY: Breath sounds diminished at the bases. A few scattered rhonchi and crackles. ABDOMEN: Soft. NERVOUS SYSTEM: No focal deficits. LABS: Creatinine 1.06. ASSESSMENT: 1. Chest pain possible acute tzx-OU-aryjybw-elevation myocardial infarction with troponin 0.43, status post cardiac catheterization and normal coronary arteries. 2. Chronic obstructive pulmonary disease acute exacerbation with acute purulent tracheobronchitis. 3. Diffuse ST-T changes on the EKG. 4. D-dimer 0.67 without any evidence of acute pulmonary embolism. 5. Bilateral interstitial lesions. 6. Increased creatinine with acute renal failure, prerenal factors as mentioned earlier. 7. Thrombocytopenia. 8. Hypomagnesemia. 9. History of coronary artery disease. 10.History of congestive heart failure, ejection fraction unknown. 11.Hypertension. 12.History of chronic obstructive pulmonary disease. 13.Hyperlipidemia. 14.History of chronic hypoxic respiratory failure 4 to 5 L nasal cannula. 15.History of cardiomyopathy. 16.History of vitamin D deficiency. 17.History AICD. 18.History of cardiac catheterization. 19.History of remote nicotine dependence. 20.Obesity with body mass index of 34.6 .. 21.FULL CODE. RECOMMENDATIONS AND DISCUSSION: Recommend to continue current medications, continue symptomatic treatment. Otherwise continue with steroids. We will taper the steroids further and continue with empiric antibiotics. Guarded prognosis because of multiple complex medical issues. Further recommendations to follow. Will increase ambulation. MMODL / IJN: [id number] /
[2020-09-25] MEDS: methylPREDNISolone SOD SUCCI 40 MG/ML 1 ML VIAL IV SCH ×2 (16:12→23:08)
[2020-09-25 16:56] LABS: Glucose,Whole Blood 158 mg/dL (75-99)
[2020-09-25 20:39] LABS: Glucose,Whole Blood 127 mg/dL (75-99)
[2020-09-25] MEDS: MONTELUKAST 10 MG TAB PO SCH (21:11)
[2020-09-25] MEDS: ATORVASTATIN 40 MG TAB PO SCH (21:11)
[2020-09-25] MEDS: PANTOPRAZOLE 40 MG TABLET PO SCH (21:11)
[2020-09-26 06:01] LABS: Glucose,Whole Blood 135 mg/dL (75-99)
[2020-09-26] MEDS: METOPROLOL TARTRATE 12.5 MG TAB PO SCH ×2 (06:25→09:27)
[2020-09-26] MEDS: INSULIN ASPART (NovoLOG) 100 UNIT/ML VIAL SQ SCH ×2 (06:25→12:58)
[2020-09-26] MEDS: IPRATROPIUM-ALBUTEROL 3 ML NEB INHALATION SCH ×3 (07:46→15:20)
[2020-09-26] MEDS: methylPREDNISolone SOD SUCCI 40 MG/ML 1 ML VIAL IV SCH (09:26)
[2020-09-26] MEDS: ASPIRIN 81 MG PO SCH (09:26)
[2020-09-26] MEDS: MEXILETINE 150 MG CAP PO SCH (09:27)
[2020-09-26] MEDS: FOLIC ACID 1 MG TAB PO SCH (09:27)
[2020-09-26] MEDS: AMIODARONE 200 MG TAB PO SCH (09:27)
--- NOTE | 2020-09-26 09:27 | PN ---
PROGRESS NOTE Mrs. Powell is a 65-year-old female with known history of severe nonischemic cardiomyopathy who was admitted to the hospital on the 20 of September with dyspnea and chest discomfort. She had an episode of wide-complex tachycardia but no evidence of ventricular tachycardia with the interrogation of the device, underwent cardiac catheterization, was found to have mild to moderate disease with no progression of disease. She is doing well this morning. Her breathing is stable. She denies any dizziness or palpitation. She denies any nausea. She continues to be on amiodarone 400 mg daily, aspirin once a day, Lipitor 40 mg daily, metoprolol tartrate 12.5 mg twice a day, mexiletine 150 mg q.8 hours. PHYSICAL EXAMINATION: Blood pressure 142/70 with the heart rate in the 70s. LUNGS: Decreased air exchange. No wheezes. HEART: Regular rate and rhythm. S1, S2. No S3. No rub. ABDOMEN: Soft, obese, nontender. EXTREMITIES: 1+ edema. IMPRESSION: 1. Symptoms of progressive dyspnea with a possible exacerbation of chronic obstructive pulmonary disease. 2. Nonischemic cardiomyopathy with no significant evidence of congestive heart failure at this time. 3. Status post ICD implant. 4. Mild to moderate coronary artery disease with no progression. 5. History of morbid obesity. 6. Hypertension. 7. Hyperlipidemia. RECOMMENDATION: I will increase the dose of her beta matilda to 25 mg twice a day. Otherwise from the cardiac standpoint, she should be able to be discharged home today and followed as an outpatient with Dr. Guerrero. MMLIZZETH / MALLORY: [id number] /
[2020-09-26] MEDS: FLUoxetine HCL 20 MG CAP PO SCH (09:28)
[2020-09-26 09:58] VITALS: BP 128/60; RESP 18; TEMP 98.2
[2020-09-26 11:11] VITALS: PULSE 80
[2020-09-26 12:05] LABS: Glucose,Whole Blood 137 mg/dL (75-99)
[2020-09-26] MEDS ORDERED: METOPROLOL TARTRATE 25 MG TAB PO SCH (17:30)
--- NOTE | 2020-09-27 14:06 | P.DS ---
Providers Date of admission: 09/23/20 08:33 Expected date of discharge: 09/26/20 Attending physician: Abhay Tapia Consults: 09/20/20 11:11 Consult Physician Urgent Consulting Provider: Sushant Guerrero Consult Reason/Comments: chest pain Do you want consulting provider notified?: Yes Primary care physician: Shashank [place] [facility] Course: Final diagnosis Chest pain possible acute non-ST segment elevation myocardial infarction with troponin 0.43, status post cardiac catheterization and normal coronary arteries Chronic obstructive pulmonary disease acute exacerbation with acute purulent tracheobronchitis Diffuse ST changes on the EKG D-dimer 0.67 without any evidence of pulmonary embolism Bilateral interstitial lesions Increased creatinine with acute renal failure, prerenal factors Thrombocytopenia Hypomagnesemia History of coronary artery disease history of congestive heart failure, ejection fraction unknown Hypertension History of chronic obstructive pulmonary disease Hyperlipidemia history of chronic hypoxic respiratory failure 4-5 L nasal cannula History of cardiomyopathy History of vitamin D deficiency History of AICD History of cardiac catheterization History of remote nicotine dependence Obesity with body mass index of 34.6 Full code Discharge disposition Patient is being discharged in a stable condition with guarded prognosis to home. She will continue with home care in the outpatient setting. Patient will follow-up with Dr. Christy in the outpatient setting upon discharge. Patient is to continue with oral antibiotics in the form of Ceftin 500 mg twice daily for the next 5 days to complete the course. She will continue with the prednisone taper as well. Patient also instructed to follow-up with cardiology Dr. Guerrero in the outpatient setting. Total time taken is greater than 35 minutes. Hospital course This is a 65-year-old female who was recently admitted with chest pain also chronic obstructive pulmonary disease acute exacerbation and was being closely monitored. Patient was seen and evaluated by cardiology. Patient underwent cardiac catheterization showing mild to moderate nonobstructive coronary artery disease. She will follow up with cardiology in the outpatient setting. Patient will continue on oral antibiotics in the form of Ceftin 500 mg twice daily for the next 5 days along with a prednisone taper. Continue with home care in the outpatient setting and will be following up with Dr. Christy upon discharge. Currently no reports of chest pain, worsening shortness of breath, or palpitations. She continues to have a cough which is chronic she states. Patient is afebrile. No reports of nausea or vomiting and patient is tolerating diet. Patient will be discharged home today. Guarded prognosis. On exam vital signs are stable. Temp is 98.2F, pulse is 80, respirations are 18, blood pressure is 120/60, oxygen saturation is 93% on 3 L via nasal cannula. She does use oxygen in the outpatient setting. Cardio S1, S2 are muffled. Respiratory system shows diminished breath sounds at the bases with mild expiratory wheezing and rhonchi noted. Abdomen is soft and nontender. Nervous system shows no focal deficits. Please refer to medication reconciliation sheet for a list of medications. Patient Condition at Discharge: Fair Plan - Discharge Summary Discharge Rx Participant: No New Discharge Prescriptions: New Cefuroxime Axetil [Ceftin] 500 mg PO BID 5 Days #10 tab Ipratropium-Albuterol Nebulize [Duoneb 0.5 mg-3 mg/3 ml Soln] 3 ml INHALATION RT-QID 30 Days #120 ml Ipratropium-Albuterol Nebulize [Duoneb 0.5 mg-3 mg/3 ml Soln] 3 ml INHALATION RT-QID PRN ml PRN Reason: Shortness Of Breath Or Wheezing Metoprolol Tartrate [Lopressor] 25 mg PO AC-BID 30 Days #60 tab predniSONE 10 mg PO DIRECTED #30 tab Budesonide/Formoterol Fumarate [Symbicort 160-4.5 Mcg Inhaler] 1 puff IH BID 30 Days #1 hfa.aer.ad Continue Folic Acid 1 mg PO DAILY FLUoxetine HCL [PROzac] 20 mg PO DAILY Montelukast [Singulair] 10 mg PO HS Nitroglycerin Sl Tabs [Nitrostat] 0.4 mg PO Q5M PRN PRN Reason: Chest Pain Aspirin EC [Ecotrin Low Dose] 81 mg PO DAILY Omeprazole 20 mg PO HS Atorvastatin [Lipitor] 40 mg PO HS #30 tab Mexiletine [Mexitil] 150 mg PO Q8H #90 cap Melatonin 3 mg PO HS PRN PRN Reason: Insomnia Amiodarone [Cordarone] 400 mg PO DAILY Discontinued Ipratropium-Albuterol Nebulize [Duoneb 0.5 mg-3 mg/3 ml Soln] 3 ml INHALATION TID #90 ml Metoprolol Tartrate [Lopressor] 12.5 mg PO AC-BID Doxycycline Monohydrate [Monodox] 100 mg PO BID Discharge Medication List FLUoxetine HCL [PROzac] 20 mg PO DAILY 02/26/14 [History] Folic Acid 1 mg PO DAILY 02/26/14 [History] Montelukast [Singulair] 10 mg PO HS 02/26/14 [History] Aspirin EC [Ecotrin Low Dose] 81 mg PO DAILY 07/02/16 [History] Nitroglycerin Sl Tabs [Nitrostat] 0.4 mg PO Q5M PRN 07/02/16 [History] Omeprazole 20 mg PO HS 07/22/20 [History] Atorvastatin [Lipitor] 40 mg PO HS #30 tab 07/27/20 [Rx] Mexiletine [Mexitil] 150 mg PO Q8H #90 cap 07/27/20 [Rx] Amiodarone [Cordarone] 400 mg PO DAILY 09/20/20 [History] Melatonin 3 mg PO HS PRN 09/20/20 [History] Budesonide/Formoterol Fumarate [Symbicort 160-4.5 Mcg Inhaler] 1 puff IH BID 30 Days #1 hfa.aer.ad 09/26/20 [Rx] Cefuroxime Axetil [Ceftin] 500 mg PO BID 5 Days #10 tab 09/26/20 [Rx] Ipratropium-Albuterol Nebulize [Duoneb 0.5 mg-3 mg/3 ml Soln] 3 ml INHALATION RT-QID 30 Days #120 ml 09/26/20 [Rx] Ipratropium-Albuterol Nebulize [Duoneb 0.5 mg-3 mg/3 ml Soln] 3 ml INHALATION RT-QID PRN ml 09/26/20 [Rx] Metoprolol Tartrate [Lopressor] 25 mg PO AC-BID 30 Days #60 tab 09/26/20 [Rx] predniSONE 10 mg PO DIRECTED #30 tab 09/26/20 [Rx] Follow up Appointment(s)/Referral(s): [facility] [NON-STAFF] - 1 Week Caitlin Christy CRNP [Family Provider] - 09/29/20 8:30 am ([place] office.) Sushant Guerrero MD [STAFF PHYSICIAN] - 10/03/20 3:00 pm () Patient Instructions/Handouts: Heart Attack (DC), COPD (Chronic Obstructive Pulmonary Disease) (DC) Activity/Diet/Wound Care/Special Instructions: Activity Limited until follow-up Continue current diet Continue prednisone taper Continue with antibiotics until finished Follow-up with cardiology in the outpatient setting Follow-up with primary care provider upon discharge Discharge Disposition: HOME SELF-CARE
== END 2020-09-26 15:52 | disposition home health service (06) | DRG 281 ==
LOC: EC 10:48 → 1SOBS 11:11 → 3SCARD 16:02 → OBSVTOIN 09-23 08:33 → UNDODISIN 09-26 15:32
PROVIDERS: ADMIT Hospitalist; ATTEND Hospitalist
PROC: 4A023N7 Measurement of Cardiac Sampling and Pressure, Left Heart, Percutaneous Approach (ICD-10-PCS; principal; 2020-09-23 10:27)
PROC: B2111ZZ Fluoroscopy of Multiple Coronary Arteries using Low Osmolar Contrast (ICD-10-PCS; principal; 2020-09-23 10:27)
DX: I21.4 Non-ST elevation (NSTEMI) myocardial infarction (principal); I42.8 Other cardiomyopathies; J44.1 Chronic obstructive pulmonary disease with (acute) exacerbation; N17.9 Acute kidney failure, unspecified; I50.22 Chronic systolic (congestive) heart failure; J96.11 Chronic respiratory failure with hypoxia; J44.0 Chronic obstructive pulmonary disease with (acute) lower respiratory infection; D69.6 Thrombocytopenia, unspecified; J20.9 Acute bronchitis, unspecified; E66.01 Morbid (severe) obesity due to excess calories; E78.5 Hyperlipidemia, unspecified; E83.42 Hypomagnesemia; I11.0 Hypertensive heart disease with heart failure; Z20.822 Contact with and (suspected) exposure to COVID-19; I49.8 Other specified cardiac arrhythmias; I25.10 Atherosclerotic heart disease of native coronary artery without angina pectoris; E55.9 Vitamin D deficiency, unspecified; Z68.36 Body mass index [BMI] 36.0-36.9, adult; Z79.899 Other long term (current) drug therapy; Z79.82 Long term (current) use of aspirin; Z86.79 Personal history of other diseases of the circulatory system; Z82.49 Family history of ischemic heart disease and other diseases of the circulatory system; Z99.81 Dependence on supplemental oxygen; Z95.810 Presence of automatic (implantable) cardiac defibrillator; Z90.710 Acquired absence of both cervix and uterus; Z87.891 Personal history of nicotine dependence
CPT/HCPCS: 71045; 71275; 80048; 80061; 83735; 83880; 84132; 84484; 85025; 85379; 85730; 93005; 93306; 93458; 94640; 99285

== ENCOUNTER 2021-03-16 10:37 | Inpatient (IN) | payer MEDICARE, OTHER ==
[2021-03-16] MEDS ORDERED: SODIUM CHLORIDE 0.9% 1,000 ML IV STA (11:00)
--- NOTE | 2021-03-16 11:05 | ED ---
General Adult HPI - General Chief complaint: Chest Pain Stated complaint: Chest Pain Time Seen by Provider: 03/16/21 10:37 Source: patient, EMS, RN notes reviewed, old records reviewed Mode of arrival: EMS Limitations: no limitations - History of Present Illness Initial comments: This is a 66-year-old female comes to us from [facility] because she had chest pain in the middle the night and she came to the emergency department and they noted her to have a wide complex sinus tachycardia they try to convert or 3 times and placed on amiodarone and she continued to have a wide complex tachycardia. Patient states she is completely asymptomatic at this point she has no chest pain no palpitations feeling and denies any shortness of breath. Patient is a no code but she did allow them to cardiovert her on 3 different attempts but she now refuses. Patient states she is completely asymptomatic at this time. - Related Data Home Medications Medication Instructions Recorded Confirmed FLUoxetine HCL [PROzac] 20 mg PO DAILY 02/26/14 03/16/21 Folic Acid 1 mg PO DAILY 02/26/14 03/16/21 Montelukast [Singulair] 10 mg PO HS 02/26/14 03/16/21 Aspirin EC [Ecotrin Low Dose] 81 mg PO DAILY 07/02/16 03/16/21 Omeprazole 20 mg PO HS 07/22/20 03/16/21 Budesonide/Formoterol Fumarate 2 puff INHALATION RT-BID 03/16/21 03/16/21 [Symbicort 160-4.5 Mcg Inhaler] Carvedilol [Coreg] 3.125 mg PO BID 03/16/21 03/16/21 Furosemide [Lasix] 20 mg PO DAILY 03/16/21 03/16/21 Potassium Chloride ER [K-Dur 10] 10 meq PO TID 03/16/21 03/16/21 lisinopriL [Zestril] 2.5 mg PO DAILY 03/16/21 03/16/21 Previous Rx's Medication Instructions Recorded Atorvastatin [Lipitor] 40 mg PO HS #30 tab 07/27/20 Ipratropium-Albuterol Nebulize 3 ml INHALATION RT-QID PRN ml 09/26/20 [Duoneb 0.5 mg-3 mg/3 ml Soln] Allergies Allergy/AdvReac Type Severity Reaction Status Date / Time No Known Allergies Allergy Verified 03/16/21 11:11 Review of Systems ROS Statement: Those systems with pertinent positive or pertinent negative responses have been documented in the HPI. ROS Other: All systems not noted in ROS Statement are negative. Past Medical History Past Medical History: Coronary Artery Disease (CAD), Heart Failure, COPD, Hyperlipidemia, Hypertension, Respiratory Disorder Additional Past Medical History / Comment(s): Pt had recent admit to [facility] 05/26/16 with possible syncopal episode. Other HX: Chronic respiratory failure- uses 4-5L liters NC as needed, chronic CHF, cardiomyopathy, past vitamin D deficiency but ok now. recent right ankle fracture History of Any Multi-Drug Resistant Organisms: None Reported Past Surgical History: AICD, Breast Surgery, Heart Catheterization, Hysterectomy, Orthopedic Surgery Additional Past Surgical History / Comment(s): 2004 AICD, 2013 cardiac cath - treated medically, Benign R breast biopsy, colonoscopy-normal, broken R. ankle Past Anesthesia/Blood Transfusion Reactions: No Reported Reaction Type of Cardiac Device: AICD Device Placement Date:: unknown Past Psychological History: No Psychological Hx Reported Smoking Status: Former smoker Past Alcohol Use History: None Reported Past Drug Use History: None Reported - Past Family History Mother Additional Family Medical History / Comment(s): heart problems. Mother at the age of 65 or 67 of DVT "that traveled." Father Family Medical History: Myocardial Infarction ([place]) Additional Family Medical History / Comment(s): heart problems. Father of a AR at the age of 65 yrs. General Exam - General Exam Comments Initial Comments: GENERAL: Patient is well-developed and well-nourished. Patient is nontoxic and well- hydrated and is in mild distress. ENT: Neck is soft and supple. No significant lymphadenopathy is noted. Oropharynx is clear. Moist mucous membranes. Neck has full range of motion without eliciting any pain. EYES: The sclera were anicteric and conjunctiva were pink and moist. Extraocular movements were intact and pupils were equal round and reactive to light. Eyelids were unremarkable. PULMONARY: Unlabored respirations. Good breath sounds bilaterally. No audible rales rhonchi or wheezing was noted. CARDIOVASCULAR: Patient is tachycardic at about 140 beats a minute ABDOMEN: Soft and nontender with normal bowel sounds. SKIN: Skin is clear with no lesions or rashes and otherwise unremarkable. NEUROLOGIC: Patient is alert and oriented x3. Cranial nerves II through XII are grossly intact. Motor and sensory are also intact. Normal speech, volume and content. Symmetrical smile. MUSCULOSKELETAL: Normal extremities with adequate strength and full range of motion. No lower extremity swelling or edema. No calf tenderness. LYMPHATICS: No significant lymphadenopathy is noted PSYCHIATRIC: Normal psychiatric evaluation. Limitations: no limitations Course Vital Signs 03/16/21 03/16/21 03/16/21 10:38 10:51 11:02 Temperature 98.4 F Pulse Rate 138 H 134 H 135 H Respiratory 16 16 16 Rate Blood Pressure 107/58 73/53 107/76 O2 Sat by Pulse 92 L 100 100 Oximetry 03/16/21 03/16/21 03/16/21 11:25 11:43 11:58 Temperature Pulse Rate 138 H 140 H 138 H Respiratory 18 18 18 Rate Blood Pressure 95/53 69/55 76/42 O2 Sat by Pulse 100 100 100 Oximetry 03/16/21 03/16/21 13:00 13:27 Temperature Pulse Rate 137 H Respiratory 16 18 Rate Blood Pressure 90/63 100/64 O2 Sat by Pulse 100 100 Oximetry Procedures - Procedural Sedation Procedural Sedation Start Time: 13:49 Procedural Sedation Stop Time: 14:10 ASA Class: II Mallampati Airway Score: 2 Preparation: conveyor monitor applied, pulse oximeter, supplemental O2 applied IV Propofol Dose (mgs): 75 Complications: none Patient Tolerated Procedure: well Medical Decision Making - Medical Decision Making EKG shows a wide QRS tachycardia at 137 bpm QRS is 190 QT intervals 412 QTC is 622. I spoke with Dr. Louie came down and wanted to cardiovert the patient she initially did not want to but eventually agreed with the car to ordered her with 100 J of synchronized cardioversion. Patient converted to a normal sinus rhythm. EKG was done shows normal sinus rhythm at 71 bpm SC interval is 176 QRS is 112 QTC intervals 426 QTC is 462. EKG shows no ST segment elevation or depression. Patient got a liter and half of fluids for her low blood pressure and was on amiodarone drip couple times she was in the emergency department. I spoke with Dr. Saldaña agreed to admit the patient admitted the patient I spoke to the critical care doctor and he agreed to accept the patient in the ICU - Lab Data Result diagrams: 03/16/21 13:11 Lab Results 03/16/21 Range/Units 13:11 Potassium 4.4 (3.5-5.1) mmol/L Magnesium 2.2 (1.6-2.3) mg/dL Critical Care Time Critical Care Time: Yes Total Critical Care Time: 35 Disposition Clinical Impression: Ventricular tachycardia Disposition: ADMITTED IP TO THIS HOSP Referrals: Simone Ramirez MD [Primary Care Provider] - 1-2 days Time of Disposition: 13:57
[2021-03-16] MEDS ORDERED: AMIODARONE 360 MG in DEXTROSE 5% IN WATER 200 ML IV ONE ×2 (11:15)
[2021-03-16] MEDS ORDERED: SODIUM CHLORIDE 0.9% 500 ML 500 ML IV ONE (11:43)
[2021-03-16] MEDS ORDERED: DEXTROSE 5% IN WATER 100 ML with AMIODARONE 150 MG IV ONE ×4 (13:00)
[2021-03-16 13:31] LABS: Magnesium 2.2 mg/dL (1.6-2.3); Potassium 4.4 mmol/L (3.5-5.1)
[2021-03-16] MEDS ORDERED: PROPOFOL 10 MG/ML 20 ML VIAL IV ONE ×2 (13:33→14:04)
[2021-03-16] MEDS ORDERED: NALOXONE 0.4 MG/ML 1 ML VIAL IV PRN (13:59)
[2021-03-16] MEDS ORDERED: SODIUM CHLORIDE 0.9% 1,000 ML IV ONE ×2 (14:13→22:20)
[2021-03-16] MEDS: SODIUM CHLORIDE 0.9% 1,000 ML IV SCH (15:21)
[2021-03-16 15:48] LABS: Glucose,Whole Blood 103 mg/dL (75-99)
[2021-03-16] MEDS ORDERED: IPRATROPIUM-ALBUTEROL 3 ML NEB INHALATION PRN (16:39)
--- NOTE | 2021-03-16 16:40 | P.HPIM ---
History of Present Illness H&P Date: 03/16/21 Chief Complaint: Chest pain History of presenting complaint: This is a pleasant 66-year-old patient, follows with Dr. Ramirez. [employer] Dr. Noemi Elliott. Chronic stable medical conditions include congestive heart failure, COPD, hypertension, hyperlipidemia, chronic hypoxic respiratory failure on home oxygen 2 L AICD. Patient lives alone. Has home health. Does have a walker. Today started off with left-sided chest pressure. Going on the left arm. No dizziness nor lightheadedness. No perspiration. Presented to [facility]. Patient is found to be in V. tach. Patient was cardioverted 3. Then transferred down here. Patient went back into V. tach care. Was cardioverted again. Received bolus of amiodarone at [place] and also in our ER. Currently at 1 mg an hour. In the ICU. In sinus rhythm. Currently no chest pain or shortness of breath Review of systems: GEN.: Tired EYES: None HEENT: None NECK: None RESPIRATORY: None CARDIOVASCULAR: As above GASTROINTESTINAL: None GENITOURINARY: None MUSCULOSKELETAL: Joint pains LYMPHATICS: None HEMATOLOGICAL: None PSYCHIATRY: Slightly anxious NEUROLOGICAL: Uses a walker Past medical history to include: Coronary artery disease, CHF, COPD, hyperlipidemia, hypertension, home oxygen, cardiomyopathy, AICD. Social history: Lives alone. 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 Comes 3 times a week. Patient smoked for about 37 years, 1 pack a day stopped about 20 years ago. No alcohol. Physical examination: VITAL SIGNS: Afebrile, 68, 18, 100/50, 98% on 2 L GENERAL: BMI 37.7, laying in bed, awake EYES: Pupils equal. Conjunctiva normal. HEENT: External appearance of nose and ears normal, oral cavity grossly normal. NECK: JVD not raised; masses not palpable. HEART: First and second heart sounds are normal; no edema. LUNGS: Respiratory rate increased; decreased breath sounds. ABDOMEN: Soft, nontender, liver spleen not palpable, no masses palpable. PSYCH: Alert and oriented x3; mood and affect. Anxiousl. MUSCULAR skeletal: Evidence of OA NEUROLOGICAL: Cranial nerves grossly intact; no facial asymmetry, power and sensation grossly intact. LYMPHATICS: No lymph nodes palpable in the axilla and neck INVESTIGATIONS, reviewed in the clinical context: Potassium 4.4 Telemetry tracing personally reviewed by me: Sinus rhythm Troponin I 0.066 Coronavirus [PCR] not detected Assessment and plan: -Possible acute non- ST elevation myocardial infarction, POA - 4 episodes of sustained ventricular tachycardia-with AICD DC cardioverted 3 today. Currently on IV amiodarone following bolus -Coronary artery disease On Coreg, Lipitor, aspirin -Obesity BMI 37.7 -COPD in an ex-smoker Continue DuoNeb, Symbicort -Hyperlipidemia Lipitor -Chronic hypoxic respiratory failure on home oxygen 2 L, from underlying COPD Supplemental oxygen -AICD -Chronic gait dysfunction uses a walker Patient be admitted to the ICU. IV amiodarone drip. Cardiology consulted. Also Dr. Samuel Hu from electrophysiology. Home medications resumed. Care was discussed with the patient. Questions answered.Given the complexity and severity of patient's condition expect the patient to be in the hospital at least for 2 overnights Past Medical History Past Medical History: Coronary Artery Disease (CAD), Heart Failure, COPD, Hyperlipidemia, Hypertension, Respiratory Disorder Additional Past Medical History / Comment(s): Pt had recent admit to [facility] 05/26/16 with possible syncopal episode. Other HX: Chronic respiratory failure- uses 4-5L liters NC as needed, chronic CHF, cardiomyopathy, past vitamin D deficiency but ok now. recent right ankle fracture History of Any Multi-Drug Resistant Organisms: None Reported Past Surgical History: AICD, Breast Surgery, Heart Catheterization, Hyste rectomy, Orthopedic Surgery Additional Past Surgical History / Comment(s): 2004 AICD, 2013 cardiac cath - treated medically, Benign R breast biopsy, colonoscopy-normal, broken R. ankle Past Anesthesia/Blood Transfusion Reactions: No Reported Reaction Type of Cardiac Device: AICD Device Placement Date:: unknown Past Psychological History: No Psychological Hx Reported Smoking Status: Former smoker Past Alcohol Use History: None Reported Past Drug Use History: None Reported - Past Family History Mother Additional Family Medical History / Comment(s): heart problems. Mother at the age of 65 or 67 of DVT "that traveled." Father Family Medical History: Myocardial Infarction ([place]) Additional Family Medical History / Comment(s): heart problems. Father of a IN at the age of 65 yrs. Medications and Allergies Home Medications Medication Instructions Recorded Confirmed Type FLUoxetine HCL [PROzac] 20 mg PO DAILY 02/26/14 03/16/21 History Folic Acid 1 mg PO DAILY 02/26/14 03/16/21 History Montelukast [Singulair] 10 mg PO HS 02/26/14 03/16/21 History Aspirin EC [Ecotrin Low Dose] 81 mg PO DAILY 07/02/16 03/16/21 History Omeprazole 20 mg PO HS 07/22/20 03/16/21 History Atorvastatin [Lipitor] 40 mg PO HS #30 tab 07/27/20 03/16/21 Rx Ipratropium-Albuterol Nebulize 3 ml INHALATION RT-QID PRN ml 09/26/20 03/16/21 Rx [Duoneb 0.5 mg-3 mg/3 ml Soln] Budesonide/Formoterol Fumarate 2 puff INHALATION RT-BID 03/16/21 03/16/21 History [Symbicort 160-4.5 Mcg Inhaler] Carvedilol [Coreg] 3.125 mg PO BID 03/16/21 03/16/21 History Furosemide [Lasix] 20 mg PO DAILY 03/16/21 03/16/21 History Potassium Chloride ER [K-Dur 10] 10 meq PO TID 03/16/21 03/16/21 History lisinopriL [Zestril] 2.5 mg PO DAILY 03/16/21 03/16/21 History Allergies Allergy/AdvReac Type Severity Reaction Status Date / Time No Known Allergies Allergy Verified 03/16/21 11:11 Physical Exam Vitals: Vital Signs Temp Pulse Resp BP Pulse Ox 03/16/21 15:40 68 18 100/50 98 03/16/21 15:00 68 18 96/46 97 03/16/21 14:28 64 18 90/42 95 03/16/21 13:55 67 18 70/43 100 03/16/21 13:54 140 H 16 95/63 97 03/16/21 13:50 140 H 18 108/79 100 03/16/21 13:27 18 100/64 100 03/16/21 13:00 137 H 16 90/63 100 03/16/21 11:58 138 H 18 76/42 100 03/16/21 11:43 140 H 18 69/55 100 03/16/21 11:25 138 H 18 95/53 100 03/16/21 11:02 135 H 16 107/76 100 03/16/21 10:51 134 H 16 73/53 100 03/16/21 10:38 98.4 F 138 H 16 107/58 92 L Intake and Output 03/16/21 03/16/21 03/16/21 06:59 14:59 22:59 Intake Total 10 Balance 10 Intake: Intake, IV Titration 10 Amount Amiodarone 360 mg In 10 Dextrose 5% in Water 200 ml @ 1 MG/MIN 33.333 mls/ hr IV .Q6H ONE Rx#: [id number] Other: Weight 87.543 kg Results CBC & Chem 7: 03/16/21 13:11 Labs: Abnormal Lab Results - Last 24 Hours (Table) 03/16/21 03/16/21 Range/Units 13:32 15:46 POC Glucose (mg/dL) 103 H (75-99) mg/dL Troponin I 0.066 H* (0.000-0.034) ng/mL
--- NOTE | 2021-03-16 17:25 | CONS ---
CONSULTATION HISTORY: Mrs. Gladys Powell is a patient with a nonischemic cardiomyopathy, ventricular tachycardia with ICD, sees Dr. Guerrero in the outpatient setting. This lady was transferred from [facility] because of wide QRS tachycardia. Apparently, she received 3 shocks at [place] did not convert to sinus rhythm and came in. She did not wish to have any cardioversion according to emergency room physician Dr. Calderon. However, I went in and spoke to her and explained to her that wide QRS tachycardia is significant and she is symptomatic with hypotension. I therefore gave her IV amiodarone additional bolus of 150 mg and after obtaining a consent from her, requested Dr. Calderon to perform electrical cardioversion under ultra short-acting intravenous anesthetic agent. With 75 mg of propofol, she was sedated and received 1 single 100 joule shock with anterior and posterior patches and she converted to sinus rhythm, remained hemodynamically stable. This lady on reviewing the history appears to have nonischemic cardiomyopathy with ICD and had a similar episode of wide QRS tachycardia sometime in late June of 2020, and also hospitalizations subsequently. She also had a cardiac cath around July also and at that time, she was found to have mild nonobstructive coronary artery disease. She was seen by Dr. uH at that time. She has had symptomatic VT requiring amiodarone and she converted with amiodarone itself. The patient is a very poor historian, gives me a very limited history. However, following the cardioversion she is in sinus rhythm and seems to be doing much better. Coronary angiography was performed actually in September of this year by Dr. Wilkerson, which revealed a dominant right coronary artery with a 40% to narrowing and also a large circumflex and LAD without significant disease. PAST MEDICAL HISTORY: 1. Nonischemic cardiomyopathy. 2. Previous episodes of wide QRS tachycardia requiring IV amiodarone. 3. Status post ICD. 4. History of bronchial asthma and COPD. She is status post breast surgery and has had hysterectomy and orthopedic surgery. MEDICATIONS: Medications at home include atorvastatin 40 mg daily. She takes albuterol inhaler, potassium supplements, Lasix 20 mg daily, carvedilol 3.125 mg b.i.d., lisinopril 2.5 mg daily. She takes aspirin 81 mg daily, Prozac 20 mg daily. PHYSICAL EXAMINATION: On examination, blood pressure was 90/60, pulse rate was about 140 beats per minute, wide QRS tachycardia. EKG suggests wide QRS tachycardia, possibly ventricular tachycardia. HEENT: Limited exam is unremarkable. Neck: Supple there is JVD of 1 cm. Heart exam reveals S1, S2 with tachycardia. distant heart sounds. No significant murmurs. Lungs reveal diminished air entry. Abdomen is distended, nontender. Lower extremities reveal diminished pulses. Central nervous system grossly no focal deficits. IMPRESSION: 1. Wide QRS tachycardia in a patient known to have this condition. 2. Nonischemic cardiomyopathy. 3. Status post ICD. 4. Bronchial asthma/COPD. RECOMMENDATIONS: I recommended electrical cardioversion that was performed. Her magnesium was low. This has been supplemented. We will follow her closely. She is currently on amiodarone IV bolus and drip, which we will continue with and then place her on oral amiodarone and continue to monitor her closely. Prognosis remains guarded. MMODL / IJN: [id number] /
[2021-03-16] MEDS: carvediloL 3.125 MG TAB PO SCH (18:11)
[2021-03-16] MEDS: ENOXAPARIN 40 MG/0.4 ML SYRINGE SQ SCH (18:11)
[2021-03-16] MEDS: PANTOPRAZOLE 40 MG TABLET PO SCH (20:07)
[2021-03-16] MEDS: MONTELUKAST 10 MG TAB PO SCH (20:07)
[2021-03-16] MEDS: SYMBICORT 160-4.5 MCG INHALER INHALATION SCH (20:08)
[2021-03-16] MEDS ORDERED: MONTELUKAST 10 MG TAB PO SCH (21:00)
[2021-03-16] MEDS: AMIODARONE 450 MG in DEXTROSE 5% IN WATER 250 ML IV SCH ×2 (21:31)
[2021-03-17 06:15] LABS: Calcium 8.5 mg/dL (8.4-10.2); Magnesium 1.8 mg/dL (1.6-2.3); Potassium 4.3 mmol/L (3.5-5.1)
[2021-03-17] MEDS ORDERED: Magnesium Replacement Protocol 1 EACH MISC MISCELLANE PRN (07:04)
[2021-03-17] MEDS: SYMBICORT 160-4.5 MCG INHALER INHALATION SCH ×2 (08:03→19:57)
[2021-03-17 08:04] LABS: Basophils # (A) 0.1 k/uL (0-0.2); Basophils % (A) 1 %; Eosinophils # (A) 0.1 k/uL (0-0.7); Eosinophils % (A) 3 %; HCT 35.2 % (34.0-46.0); Lymphocytes # (A) 1.4 k/uL (1.0-4.8); Lymphocytes % (A) 32 %; MCH 30.6 pg (25.0-35.0); MCHC 31.1 g/dL (31.0-37.0); MCV 98.2 fL (80.0-100.0); Mean Platelet Volume 8.3; Monocytes # (A) 0.3 k/uL (0-1.0); Monocytes % (A) 7 %; Neutrophils # (A) 2.5 k/uL (1.3-7.7); Neutrophils % (A) 56 %; Platelet Count 101 k/uL (150-450); RBC 3.59 m/uL (3.80-5.40); RDW 13.8 % (11.5-15.5); WBC 4.4 k/uL (3.8-10.6)
[2021-03-17] MEDS: carvediloL 3.125 MG TAB PO SCH ×2 (08:08→17:51)
[2021-03-17] MEDS: MAGNESIUM SULFATE-D5W PMX 1 GM in DEXTROSE/WATER 1 100ML.BAG IVPB SCH ×2 (08:26→09:40)
[2021-03-17] MEDS: ENOXAPARIN 40 MG/0.4 ML SYRINGE SQ SCH (08:26)
[2021-03-17] MEDS: ATORVASTATIN 40 MG TAB PO SCH (08:27)
[2021-03-17] MEDS: FOLIC ACID 1 MG TAB PO SCH (08:27)
[2021-03-17] MEDS: FLUoxetine HCL 20 MG CAP PO SCH (08:27)
[2021-03-17] MEDS: ASPIRIN 81 MG PO SCH (08:27)
[2021-03-17] MEDS ORDERED: FUROSEMIDE 10 MG/ML 2 ML VIAL IV ONE (08:51)
[2021-03-17] MEDS ORDERED: ASPIRIN 81 MG PO SCH (09:00)
--- NOTE | 2021-03-17 09:23 | XR ---
EXAMINATION TYPE: XR chest 1V portable DATE OF EXAM: 03/17/2021 HISTORY: Shortness of breath. COMPARISON: 09/21/2020 TECHNIQUE: Single view of the chest is submitted. FINDINGS: Demonstrated are scattered senescent parenchymal change. There is no evidence for focal infiltrate. The heart is stable. IACD is in place. Hilar and mediastinal structures are within normal limits. Degenerative changes are seen of the dorsal spine. IMPRESSION: 1. Chronic changes without evidence for acute pulmonary disease.
[2021-03-17] MEDS: AMIODARONE 200 MG TAB PO SCH ×3 (12:03→23:01)
[2021-03-17] MEDS: AMIODARONE 450 MG in DEXTROSE 5% IN WATER 250 ML IV SCH ×2 (12:13)
[2021-03-17] MEDS: SODIUM CHLORIDE 0.9% 1,000 ML IV SCH (12:30)
--- NOTE | 2021-03-17 12:58 | P.CNPUL ---
History of Present Illness Consult date: 03/17/21 Requesting physician: Jonel Saldaña Reason for consult: other (Ventricular tachycardia, IC management) Chief complaint: Cardiac arrhythmia and chest pain History of present illness: This is a 66-year-old female with history of nonischemic cardiomyopathy, previous ventricular tachycardia, history of ICD placement, normally sees Dr. Elliott in [place]. Patient presented [facility] in [place] complaining of tachycardia, and heaviness in the chest. Patient was found to have wide complex QRS tachycardia, she received 3 shocks at [facility] but did not convert to sinus rhythm. Patient continued to have wide complex tachycardia until she arrived to our emergency room, and she was seen by cardiology on consultation. Patient was initially reluctant to undergo cardioversion but since she was hypotensive and symptomatic with her tachycardia, patient was given IV amiodarone, a bolus was given and a drip was started. She underwent cardioversion with 75 mg of propofol given for sedation. And she received 1 single 100 J shock. Patient went into sinus rhythm, and she remains in sinus rhythm. Admitted to the ICU, and I was asked to see her on consultation. Patient is also known to have history of mild nonobstructive coronary artery disease, was seen by Dr. Mcknight in the past, and she had symptomatic ventricular tachycardia requiring amiodarone. At any rate considering the patient was admitted to the ICU, I was asked to see her on consultation. During my evaluation, patient was asymptomatic. She had no shortness of breath no cough no wheezing no chest pain. She was on amiodarone drip, and she was relatively asymptomatic Review of Systems Constitutional: Denies fever chills weight loss. HEENT: Negative. Cardiac: As noted in HPI. Pulmonary: No cough no wheezing no shortness of breath. GI: Negative. Genitourinary: Negative. Musculoskeletal: Negative. Hematologic: Negative. Endocrine: Negative. Neurologic: Negative. Psychiatric: Negative. Skin: Negative. Past Medical History Past Medical History: Coronary Artery Disease (CAD), Heart Failure, COPD, Hyperlipidemia, Hypertension, Respiratory Disorder Additional Past Medical History / Comment(s): Pt had recent admit to [facility] 05/26/16 with possible syncopal episode. Other HX: Chronic respiratory failure- uses 4-5L liters NC as needed, chronic CHF, cardiomyopathy, past vitamin D deficiency but ok now. recent right ankle fracture History of Any Multi-Drug Resistant Organisms: None Reported Past Surgical History: AICD, Breast Surgery, Heart Catheterization, Hy sterectomy, Orthopedic Surgery Additional Past Surgical History / Comment(s): 2004 AICD, 2013 cardiac cath - treated medically, Benign R breast biopsy, colonoscopy-normal, broken R. ankle Past Anesthesia/Blood Transfusion Reactions: No Reported Reaction Type of Cardiac Device: AICD Device Placement Date:: unknown Past Psychological History: No Psychological Hx Reported Smoking Status: Former smoker Past Alcohol Use History: None Reported Past Drug Use History: None Reported - Past Family History Mother Additional Family Medical History / Comment(s): heart problems. Mother at the age of 65 or 67 of DVT "that traveled." Father Family Medical History: Myocardial Infarction (AL) Additional Family Medical History / Comment(s): heart problems. Father of a AL at the age of 65 yrs. Medications and Allergies Home Medications Medication Instructions Recorded Confirmed Type FLUoxetine HCL [PROzac] 20 mg PO DAILY 02/26/14 03/16/21 History Folic Acid 1 mg PO DAILY 02/26/14 03/16/21 History Montelukast [Singulair] 10 mg PO HS 02/26/14 03/16/21 History Aspirin EC [Ecotrin Low Dose] 81 mg PO DAILY 07/02/16 03/16/21 History Omeprazole 20 mg PO HS 07/22/20 03/16/21 History Atorvastatin [Lipitor] 40 mg PO HS #30 tab 07/27/20 03/16/21 Rx Ipratropium-Albuterol Nebulize 3 ml INHALATION RT-QID PRN ml 09/26/20 03/16/21 Rx [Duoneb 0.5 mg-3 mg/3 ml Soln] Budesonide/Formoterol Fumarate 2 puff INHALATION RT-BID 03/16/21 03/16/21 History [Symbicort 160-4.5 Mcg Inhaler] Carvedilol [Coreg] 3.125 mg PO BID 03/16/21 03/16/21 History Furosemide [Lasix] 20 mg PO DAILY 03/16/21 03/16/21 History Potassium Chloride ER [K-Dur 10] 10 meq PO TID 03/16/21 03/16/21 History lisinopriL [Zestril] 2.5 mg PO DAILY 03/16/21 03/16/21 History Allergies Allergy/AdvReac Type Severity Reaction Status Date / Time No Known Allergies Allergy Verified 03/16/21 11:11 Physical Exam Vitals: Vital Signs Temp Pulse Resp BP Pulse Ox 03/17/21 12:00 97.7 F 62 18 107/49 97 03/17/21 11:00 60 18 87/69 96 03/17/21 10:00 61 21 90/54 95 03/17/21 09:00 63 19 94/31 95 03/17/21 08:00 97.7 F 62 18 97/85 95 03/17/21 07:00 60 17 97/37 96 03/17/21 06:00 61 18 95/45 98 03/17/21 05:00 59 L 15 90/38 98 03/17/21 04:00 98.0 F 60 17 85/41 96 03/17/21 03:00 61 17 92/45 94 L 03/17/21 02:00 61 16 93/32 96 03/17/21 01:00 63 20 85/40 97 03/17/21 00:00 98.1 F 64 16 89/39 97 03/16/21 23:00 62 17 87/42 97 03/16/21 22:00 64 20 85/66 94 L 03/16/21 21:00 58 L 14 92/56 98 03/16/21 20:00 97.7 F 57 L 18 83/43 97 03/16/21 19:00 59 L 19 81/42 98 03/16/21 18:00 61 17 113/55 99 03/16/21 17:28 98.0 F 64 20 103/50 99 03/16/21 16:00 17 03/16/21 15:40 68 18 100/50 98 03/16/21 15:00 64 18 123/56 97 03/16/21 14:28 64 18 90/42 95 03/16/21 14:00 67 69/37 98 03/16/21 13:55 67 18 70/43 100 03/16/21 13:54 140 H 16 95/63 97 03/16/21 13:50 140 H 18 108/79 100 03/16/21 13:27 18 100/64 100 03/16/21 13:00 140 H 16 113/79 99 Intake and Output 03/16/21 03/17/21 03/17/21 22:59 06:59 14:59 Intake Total 267 1288 601.005 Output Total 240 224 755 Balance 27 1064 -153.995 Intake: IV 217 1288 156 0.9 135 160 140 Amiodarone 360 mg In 66 Dextrose 5% in Water 200 ml @ 1 MG/MIN 33.333 mls/ hr IV .Q6H ONE Rx#: [id number] Amiodarone 450 mg In 16 128 16 Dextrose 5% in Water 250 ml @ 0.5 MG/MIN 16.667 mls/hr IV .Q15H [facility] Rx#: [id number] Sodium Chloride 0.9% 1, 1000 000 ml @ 999 mls/hr IV . Q1H1M [facility] Rx#:[id number] Intake, IV Titration 445.005 Amount Amiodarone 450 mg In 245.005 Dextrose 5% in Water 250 ml @ 0.5 MG/MIN 16.667 mls/hr IV .Q15H [facility] Rx#: [id number] Magnesium Sulfate-D5w Pmx 200 1 gm In Dextrose/Water 1 100ml.bag @ 100 mls/hr IVPB Q1H [facility] Rx#: [id number] Oral 50 Output: Urine 240 224 755 Other: Voiding Method Indwelling Catheter Indwelling Catheter Indwelling Catheter Weight 87.543 kg 88.5 kg Physical Exam: Revealed a 66-year-old female in no distress. Head: Atraumatic, normocephalic. HEENT:[Neck is supple.] [No neck masses.] [No thyromegaly.] [No JVD.] PERRLA, EOMI, nonicteric, moist mucous membranes. Chest: [Symmetrical chest expansion, diminished breath sound bilaterally no crackles or rhonchi or wheezes. Cardiac Exam: [Normal S1 and S2, no S3 gallop, no murmur.] Abdomen: [Soft, nontender, no megaly, no rebound, no guarding, normal bowel sounds.] Extremities: [No clubbing, no edema, no cyanosis.] Good pulses bilaterally Neurological Exam: [No focal neurologic deficit.] Alert oriented 3. Psychiatric: Normal mood, affect and normal mental status examination. Skin: No rashes. Musculoskeletal: No deformities and no limitation in range of motion Results - Laboratory Findings CBC and BMP: 03/17/21 05:28 03/17/21 05:28 Abnormal lab findings: Abnormal Labs 03/16/21 03/16/21 03/17/21 13:32 15:46 05:28 RBC Hgb Plt Count Chloride 110 H BUN 24 H Creatinine 1.27 H POC Glucose (mg/dL) 103 H Troponin I 0.066 H* 03/17/21 05:28 RBC 3.59 L Hgb 11.0 L Plt Count 101 L Chloride BUN Creatinine POC Glucose (mg/dL) Troponin I - Diagnostic Findings Chest x-ray: image reviewed (Chest x-ray showed no evidence of acute pulmonary process.) Assessment and Plan Assessment: Impression: Recurrent and sustained ventricular tachycardia with previous history of AICD placement. Nonischemic cardiomyopathy and minimal coronary obstructive lung disease. History of COPD presently inactive, patient is ex-smoker. History of ICD placement. Benign essential hypertension. Dyslipidemia. Recommendation: Agree with the present treatment plan. Continue amiodarone. Resume home meds and bronchodilators. Patient is on DuoNeb, which is also on Symbicort. And she is also on Singulair Consider transfer out of the ICU today or in the next 24 hours once cleared by cardiology to go to monitor bed on the cardiology floor. We will continue to follow while in the ICU Continue GI and DVT prophylaxis. Time with Patient: Greater than 30
--- NOTE | 2021-03-17 19:40 | PN ---
PROGRESS NOTE DATE OF SERVICE: 03/17/2021. HISTORY: Mrs. Powell is in sinus rhythm resting comfortably. She underwent elective cardioversion yesterday in the ER. I am recommending that we resume most of her medications including beta blockers. Device was interrogated. I have advised antitachycardia therapy to be given up to a heart rate of 140, as opposed to 180 that was scheduled, that was a program. These are each adjustments that were made. We will increase activity and hopefully move her to telemetry. We will obtain a CBC, BMP in the morning increase activity. PHYSICAL EXAM: Vitals are stable. No JVD. S1-S2 are normally. Short systolic murmur noted. Heart sounds are distant. Lungs revealed decent air entry. Abdomen is soft. Lower extremities reveal diminished pulses. Central nervous system grossly no focal deficits. MMODL / IJN: [id number] /
--- NOTE | 2021-03-17 20:00 | P.PN ---
Progress Note - Text Progress Note Date: 03/17/21 Chief Complaint: Chest pain History of presenting complaint: This is a pleasant 66-year-old patient, follows with Dr. Ramirez. [employer] Dr. Noemi Elliott. Chronic stable medical conditions include congestive heart failure, COPD, hypertension, hyperlipidemia, chronic hypoxic respiratory failure on home oxygen 2 L AICD. Patient lives alone. Has home health. Does have a walker. Today started off with left-sided chest pressure. Going on the left arm. No dizziness nor lightheadedness. No perspiration. Presented to [facility]. Patient is found to be in V. tach. Patient was cardioverted 3. Then transferred down here. Patient went back into V. tach care. Was cardioverted again. Received bolus of amiodarone at [facility] and also in our ER. Sinus rhythm Today: ICU : Patient is remained in sinus rhythm. Will be completing IV amiodarone loading. No chest pain or breathing stable. Oral intake fair. AICD interrogated Review of systems: Was done for constitutional, cardiovascular, GI, pulmonary. relevant finding as above Active Medications Albuterol/Ipratropium (Ipratropium-Albuterol 3 Ml Neb) 3 ml INHALATION RT-QID PRN PRN Reason: Shortness Of Breath Or Wheezing Amiodarone HCl (Amiodarone 200 Mg Tab) 200 mg PO TID [facility] Last Admin: 03/17/21 15:53 Dose: Not Given Documented by: Aspirin (Aspirin 81 Mg) 81 mg PO DAILY [facility] Last Admin: 03/17/21 08:27 Dose: 81 mg Documented by: Atorvastatin Calcium (Atorvastatin 40 Mg Tab) 40 mg PO DAILY [facility] Last Admin: 03/17/21 08:27 Dose: 40 mg Documented by: Budesonide/Formoterol Fumarate (Symbicort 160-4.5 Mcg Inhaler) 2 puff INHALATION RT-BID [facility] Last Admin: 03/17/21 08:03 Dose: 2 puff Documented by: Carvedilol (Carvedilol 3.125 Mg Tab) 3.125 mg PO BID-W/MEALS [facility] Last Admin: 03/17/21 17:51 Dose: Not Given Documented by: Enoxaparin Sodium (Enoxaparin 40 Mg/0.4 Ml Syringe) 40 mg SQ DAILY [facility] Last Admin: 06/26/21 08:26 Dose: 40 mg Documented by: Fluoxetine HCl (Fluoxetine Hcl 20 Mg Cap) 20 mg PO DAILY [facility] Last Admin: 03/17/21 08:27 Dose: 20 mg Documented by: Folic Acid (Folic Acid 1 Mg Tab) 1 mg PO DAILY [facility] Last Admin: 03/17/21 08:27 Dose: 1 mg Documented by: Sodium Chloride (Saline 0.9%) 1,000 mls @ 50 mls/hr IV .Q20H [facility] Last Admin: 03/17/21 12:30 Dose: Not Given Documented by: Lisinopril (Lisinopril 2.5 Mg Tab) 2.5 mg PO DAILY [facility] Last Admin: 03/17/21 09:39 Dose: Not Given Documented by: Miscellaneous Information (Magnesium Replacement Protocol 1 Each Misc) 1 each MISCELLANE DAILY PRN; Protocol PRN Reason: Per Protocol Montelukast Sodium (Montelukast 10 Mg Tab) 10 mg PO HS [facility] Last Admin: 03/16/21 20:07 Dose: 10 mg Documented by: Naloxone HCl (Naloxone 0.4 Mg/Ml 1 Ml Vial) 0.2 mg IV Q2M PRN PRN Reason: Opioid Reversal Pantoprazole Sodium (Pantoprazole 40 Mg Tablet) 40 mg PO HS [facility] Last Admin: 03/16/21 20:07 Dose: 40 mg Documented by: Past medical history to include: Coronary artery disease, CHF, COPD, hyperlipidemia, hypertension, home oxygen, cardiomyopathy, AICD. Social history: Lives alone. 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 Comes 3 times a week. Patient smoked for about 37 years, 1 pack a day stopped about 20 years ago. No alcohol. Physical examination: VITAL SIGNS: 97.9, 63, 18, 10 3 x 50, 86% on 2 L GENERAL: Laying in bed, awake EYES: Pupils equal. Conjunctiva normal. NECK: JVD not raised; masses not palpable. HEART: First and second heart sounds are normal; no edema. LUNGS: Respiratory rate increased; decreased breath sounds. ABDOMEN: Soft, nontender, liver spleen not palpable, no masses palpable. PSYCH: Alert and oriented x3; mood and affect. Anxiousl. MUSCULAR skeletal: Evidence of OA INVESTIGATIONS, reviewed in the clinical context: March 17: WBC 4.4 hemoglobin 11 platelets 101 potassium 4.3 creatinine 1.27 Potassium 4.4 Telemetry tracing personally reviewed by me: Sinus rhythm Troponin I 0.066 Coronavirus [PCR] not detected Assessment and plan: -Possible acute non- ST elevation myocardial infarction, POA On aspirin, Lipitor, Coreg - 4 episodes of sustained ventricular tachycardia-with AICD DC cardioverted 3 t. Currently on IV amiodarone . On Coreg. AICD interrogated -Coronary artery disease On Coreg, Lipitor, aspirin -Obesity BMI 37.7 -COPD in an ex-smoker Continue DuoNeb, Symbicort -Hyperlipidemia Lipitor -Chronic hypoxic respiratory failure on home oxygen 2 L, from underlying COPD Supplemental oxygen -AICD -Chronic gait dysfunction uses a walker We will be later changed from IV amiodarone to by mouth. Did see 20 mg of IV Lasix earlier. AICD interrogated.
[2021-03-17] MEDS: PANTOPRAZOLE 40 MG TABLET PO SCH (20:40)
[2021-03-17] MEDS: MONTELUKAST 10 MG TAB PO SCH (20:40)
[2021-03-18 04:09] LABS: Calcium 8.8 mg/dL (8.4-10.2); Magnesium 1.8 mg/dL (1.6-2.3); Potassium 4.1 mmol/L (3.5-5.1)
[2021-03-18 04:41] LABS: Basophils % (A) 1 %; Eosinophils # (A) 0.1 k/uL (0-0.7); Eosinophils % (A) 2 %; HCT 33.8 % (34.0-46.0); HGB 10.9 gm/dL (11.4-16.0); Lymphocytes # (A) 1.3 k/uL (1.0-4.8); Lymphocytes % (A) 28 %; MCH 31.4 pg (25.0-35.0); MCHC 32.2 g/dL (31.0-37.0); MCV 97.7 fL (80.0-100.0); Mean Platelet Volume 7.7; Monocytes # (A) 0.3 k/uL (0-1.0); Monocytes % (A) 7 %; Neutrophils % (A) 62 %; RBC 3.46 m/uL (3.80-5.40); RDW 13.6 % (11.5-15.5); WBC 4.8 k/uL (3.8-10.6)
[2021-03-18 05:21] LABS: Platelet Count 91 k/uL (150-450)
[2021-03-18] MEDS: SODIUM CHLORIDE 0.9% 1,000 ML IV SCH (05:31)
[2021-03-18] MEDS: MAGNESIUM SULFATE-D5W PMX 1 GM in DEXTROSE/WATER 1 100ML.BAG IVPB SCH ×2 (05:31→06:38)
[2021-03-18] MEDS: carvediloL 3.125 MG TAB PO SCH (07:21)
[2021-03-18] MEDS: ASPIRIN 81 MG PO SCH (07:51)
[2021-03-18] MEDS: ATORVASTATIN 40 MG TAB PO SCH (07:51)
[2021-03-18] MEDS: FLUoxetine HCL 20 MG CAP PO SCH (07:52)
[2021-03-18] MEDS: AMIODARONE 200 MG TAB PO SCH ×3 (07:52→22:07)
[2021-03-18] MEDS: FOLIC ACID 1 MG TAB PO SCH (07:52)
[2021-03-18] MEDS: SYMBICORT 160-4.5 MCG INHALER INHALATION SCH ×2 (07:57→21:02)
--- NOTE | 2021-03-18 08:22 | XR ---
EXAMINATION TYPE: XR chest 1V portable DATE OF EXAM: 03/18/2021 HISTORY: Shortness of breath. COMPARISON: 03/17/2021 TECHNIQUE: Single view of the chest is submitted. FINDINGS: Demonstrated are scattered senescent parenchymal change. There is no evidence for focal infiltrate. The heart is stable. Hilar and mediastinal structures are within normal limits. Degenerative changes are seen of the dorsal spine. IMPRESSION: 1. Chronic changes without evidence for acute pulmonary disease.
[2021-03-18] MEDS: METOPROLOL TARTRATE 25 MG TAB PO SCH ×3 (08:55→22:06)
[2021-03-18] MEDS: FUROSEMIDE 40 MG TAB PO SCH (08:55)
[2021-03-18] MEDS: ENOXAPARIN 40 MG/0.4 ML SYRINGE SQ SCH (08:56)
--- NOTE | 2021-03-18 11:44 | PN ---
PROGRESS NOTE Mrs. Gladys Powell had short runs of nonsustained wide QRS tachycardia. She is now in sinus rhythm, doing well. I have reviewed her medications and reviewed her rhythm strips. I am recommending that we discontinue Coreg, place her on 25 mg t.i.d. of Lopressor, continue amiodarone. We will increase activity and hopefully move her to telemetry. EXAMINATION: Vitals are stable no JVD S1-S2 heard normally. Distant heart sounds. No significant murmurs. Lungs reveal diminished air entry. Abdomen is soft. Lower extremities reveal diminished pulses. Central nervous system, grossly no focal deficits. MMODL / IJN: [id number] /
--- NOTE | 2021-03-18 13:19 | P.PN ---
Subjective Progress Note Date: 03/18/21 Principal diagnosis: Ventricular tachycardia This is a 66-year-old female with history of nonischemic cardiomyopathy, previous ventricular tachycardia, history of ICD placement, normally sees Dr. Elliott in [place]. Patient presented [facility] in [place] complaining of tachycardia, and heaviness in the chest. Patient was found to have wide complex QRS tachycardia, she received 3 shocks at [facility] but did not convert to sinus rhythm. Patient continued to have wide complex tachycardia until she arrived to our emergency room, and she was seen by cardiology on consultation. Patient was initially reluctant to undergo cardioversion but since she was hypotensive and symptomatic with her tachycardia, patient was given IV amiodarone, a bolus was given and a drip was started. She underwent cardioversion with 75 mg of propofol given for sedation. And she received 1 single 100 J shock. Patient went into sinus rhythm, and she remains in sinus rhythm. Admitted to the ICU, and I was asked to see her on consultation. Patient is also known to have history of mild nonobstructive coronary artery disease, was seen by Dr. Mcknight in the past, and she had symptomatic ventricular tachycardia requiring amiodarone. At any rate considering the patient was admitted to the ICU, I was asked to see her on consultation. During my evaluation, patient was asymptomatic. She had no shortness of breath no cough no wheezing no chest pain. She was on amiodarone drip, and she was relatively asymptomatic Patient was reevaluated today on 03/18/2021, patient had been minutes of ventricular tachycardia yesterday with a rate in the 130 range. She had short runs of nonsustained wide QRS tachycardia, converted to sinus rhythm on her own. Patient was seen by cardiology, placed on Lopressor, kept her on amiodarone, and advised increase activity. During my evaluation, patient seems to be in no distress, she is in sinus rhythm, relatively asymptomatic. She is now on Lasix orally she is also on metoprolol 25 3 times a day. And her potassium and magnesium were addressed accordingly. CBC today is relatively normal electrocerebral normal renal profile showed slight worsening of his creatinine 1.30 was 1.27 yesterday. Chest x-ray this morning showed no evidence of active disease no evidence of pulmonary edema. Objective - Vital Signs Vital signs: Vital Signs Temp 98.3 F 03/18/21 12:00 Pulse 59 L 03/18/21 12:00 Resp 16 03/18/21 12:00 BP 110/46 03/18/21 12:00 Pulse Ox 97 03/18/21 12:00 Intake & Output 03/17/21 03/18/21 03/18/21 18:59 06:59 18:59 Intake Total 721.005 469.0 202 Output Total 7411 478 2264 Balance -678.995 -209.0 -1182 Weight 89.4 kg Intake: IV 276 469.0 202 0.9 260 202 102 Amiodarone 450 mg In 16 167.0 Dextrose 5% in Water 250 ml @ 0.5 MG/MIN 16.667 mls/hr IV .Q15H [facility] Rx#: [id number] Magnesium Sulfate-D5w Pmx 100 100 1 gm In Dextrose/Water 1 100ml.bag @ 100 mls/hr IVPB Q1H [facility] Rx#: [id number] Intake, IV Titration 445.005 Amount Amiodarone 450 mg In 245.005 Dextrose 5% in Water 250 ml @ 0.5 MG/MIN 16.667 mls/hr IV .Q15H [facility] Rx#: [id number] Magnesium Sulfate-D5w Pmx 200 1 gm In Dextrose/Water 1 100ml.bag @ 100 mls/hr IVPB Q1H [facility] Rx#: [id number] Output: Urine 4971 481 2391 Other: Voiding Method Indwelling Catheter Indwelling Catheter Indwelling Catheter - Exam Physical Exam: Revealed a 66-year-old female in no distress. On 2 L nasal cannula. Head: Atraumatic, normocephalic. HEENT:[Neck is supple.] [No neck masses.] [No thyromegaly.] [No JVD.] PERRLA, EOMI, nonicteric, moist mucous membranes. Chest: [Symmetrical chest expansion, diminished breath sound bilaterally no crackles or rhonchi or wheezes. Cardiac Exam: [Normal S1 and S2, no S3 gallop, no murmur.] Abdomen: [Soft, nontender, no megaly, no rebound, no guarding, normal bowel sounds.] Extremities: [No clubbing, no edema, no cyanosis.] Good pulses bilaterally Neurological Exam: [No focal neurologic deficit.] Alert oriented 3. Psychiatric: Normal mood, affect and normal mental status examination. Skin: No rashes. Musculoskeletal: No deformities and no limitation in range of motion - Labs CBC & Chem 7: 03/18/21 03:29 03/18/21 10:55 Labs: Abnormal Lab Results - Last 24 Hours (Table) 03/18/21 03/18/21 03/18/21 Range/Units 03:29 03:29 10:50 RBC 3.46 L (3.80-5.40) m/uL Hgb 10.9 L (11.4-16.0) gm/dL Hct 33.8 L (34.0-46.0) % Plt Count 91 L (150-450) k/uL Carbon Dioxide 31 H (22-30) mmol/L BUN 22 H (7-17) mg/dL Creatinine 1.30 H (0.52-1.04) mg/dL Glucose 103 H (74-99) mg/dL Magnesium 2.6 H (1.6-2.3) mg/dL Assessment and Plan Assessment: Impression: Recurrent and sustained ventricular tachycardia with previous history of AICD placement. Nonischemic cardiomyopathy and minimal coronary obstructive lung disease. History of COPD presently inactive, patient is ex-smoker. History of ICD placement. Benign essential hypertension. Dyslipidemia. Recommendation: Continue amiodarone. 200 mg by mouth 3 times a day. Continue metoprolol. 25 mg by mouth 3 times a day. Continue bronchodilators. Patient is on DuoNeb, which is also on Symbicort. And she is also on Singulair Continue to monitor in the ICU for the next 24 hours. Continue Lasix orally. We'll continue to follow. Continue GI and DVT prophylaxis. Time with Patient: Less than 30
--- NOTE | 2021-03-18 13:37 | P.PN ---
Progress Note - Text Progress Note Date: 03/18/21 Chief Complaint: Chest pain History of presenting complaint: This is a pleasant 66-year-old patient, follows with Dr. Ramirez. Tube Drawer Dr. Noemi Elliott. Chronic stable medical conditions include congestive heart failure, COPD, hypertension, hyperlipidemia, chronic hypoxic respiratory failure on home oxygen 2 L AICD. Patient lives alone. Has home health. Does have a walker. Today started off with left-sided chest pressure. Going on the left arm. No dizziness nor lightheadedness. No perspiration. Presented to [facility]. Patient is found to be in V. tach. Patient was cardioverted 3. Then transferred down here. Patient went back into V. tach care. Was cardioverted again. Received bolus of amiodarone at [place] and also in our ER. Sinus rhythm Today: ICU : Patient did have an episode of V. tach today. Dose beta matilda adjusted by cardiology. Patient asymptomatic. Breathing stable. Eating well. Sitting up in bed. Review of systems: Was done for constitutional, cardiovascular, GI, pulmonary. relevant finding as above Active Medications Albuterol/Ipratropium (Ipratropium-Albuterol 3 Ml Neb) 3 ml INHALATION RT-QID PRN PRN Reason: Shortness Of Breath Or Wheezing Amiodarone HCl (Amiodarone 200 Mg Tab) 200 mg PO TID [facility] Last Admin: 03/18/21 07:52 Dose: 200 mg Documented by: Aspirin (Aspirin 81 Mg) 81 mg PO DAILY [facility] Last Admin: 03/18/21 07:51 Dose: 81 mg Documented by: Atorvastatin Calcium (Atorvastatin 40 Mg Tab) 40 mg PO DAILY [facility] Last Admin: 03/18/21 07:51 Dose: 40 mg Documented by: Budesonide/Formoterol Fumarate (Symbicort 160-4.5 Mcg Inhaler) 2 puff INHALATION RT-BID [facility] Last Admin: 03/18/21 07:57 Dose: 2 puff Documented by: Enoxaparin Sodium (Enoxaparin 40 Mg/0.4 Ml Syringe) 40 mg SQ DAILY [facility] Last Admin: 03/18/21 08:56 Dose: 40 mg Documented by: Fluoxetine HCl (Fluoxetine Hcl 20 Mg Cap) 20 mg PO DAILY [facility] Last Admin: 03/18/21 07:52 Dose: 20 mg Documented by: Folic Acid (Folic Acid 1 Mg Tab) 1 mg PO DAILY [facility] Last Admin: 03/18/21 07:52 Dose: 1 mg Documented by: Furosemide (Furosemide 40 Mg Tab) 40 mg PO DAILY [facility] Last Admin: 03/18/21 08:55 Dose: 40 mg Documented by: Sodium Chloride (Saline 0.9%) 1,000 mls @ 50 mls/hr IV .Q20H [facility] Last Admin: 03/18/21 05:31 Dose: 50 mls/hr Documented by: Lisinopril (Lisinopril 2.5 Mg Tab) 2.5 mg PO DAILY [facility] Last Admin: 03/18/21 08:47 Dose: Not Given Documented by: Metoprolol Tartrate (Metoprolol Tartrate 25 Mg Tab) 25 mg PO TID [facility] Last Admin: 03/18/21 08:55 Dose: 25 mg Documented by: Miscellaneous Information (Magnesium Replacement Protocol 1 Each Misc) 1 each MISCELLANE DAILY PRN; Protocol PRN Reason: Per Protocol Montelukast Sodium (Montelukast 10 Mg Tab) 10 mg PO HS [facility] Last Admin: 03/17/21 20:40 Dose: 10 mg Documented by: Naloxone HCl (Naloxone 0.4 Mg/Ml 1 Ml Vial) 0.2 mg IV Q2M PRN PRN Reason: Opioid Reversal Pantoprazole Sodium (Pantoprazole 40 Mg Tablet) 40 mg PO HS [facility] Last Admin: 03/17/21 20:40 Dose: 40 mg Documented by: Past medical history to include: Coronary artery disease, CHF, COPD, hyperlipidemia, hypertension, home oxygen, cardiomyopathy, AICD. Social history: Lives alone. Has a private duty GATEKEEPER. Comes 3 times a week. Patient smoked for about 37 years, 1 pack a day stopped about 20 years ago. No alcohol. Physical examination: VITAL SIGNS: 98.3, 59, 16, 110/46, 87% on 2 L GENERAL: Sitting up in bed, eating EYES: Pupils equal. Conjunctiva normal. NECK: JVD not raised; masses not palpable. HEART: First and second heart sounds are normal; no edema. LUNGS: Respiratory rate normal; decreased breath sounds. ABDOMEN: Soft, nontender, liver spleen not palpable, no masses palpable. PSYCH: Alert and oriented x3; mood and affect. Anxiousl. MUSCULAR skeletal: Evidence of OA INVESTIGATIONS, reviewed in the clinical context: 127: WBC 4.8 and globin 10.9 potassium 4.1 creatinine 1.3 magnesium 2.6 March 17: WBC 4.4 hemoglobin 11 platelets 101 potassium 4.3 creatinine 1.27 Potassium 4.4 Telemetry tracing personally reviewed by me: Sinus rhythm Troponin I 0.066 Coronavirus [PCR] not detected Assessment and plan: -Possible acute non- ST elevation myocardial infarction, POA On aspirin, Lipitor, Coreg - 4 episodes of sustained ventricular tachycardia-with AICD DC cardioverted 3 t. Currently on IV amiodarone . Coreg changed to Lopressor 25 mg 3 times a day AICD interrogated -Coronary artery disease On Coreg-changed to Lopressor, Lipitor, aspirin -Obesity BMI 37.7 -COPD in an ex-smoker Continue DuoNeb, Symbicort -Hyperlipidemia Lipitor -Chronic hypoxic respiratory failure on home oxygen 2 L, from underlying COPD Supplemental oxygen -AICD -Chronic gait dysfunction uses a walker Patient was changed to Lopressor. Telemetry. Other medications to continue. Though clinically patient looks better.
[2021-03-18] MEDS: PANTOPRAZOLE 40 MG TABLET PO SCH (20:42)
[2021-03-18] MEDS: MONTELUKAST 10 MG TAB PO SCH (20:42)
[2021-03-19 04:25] LABS: Calcium 9.2 mg/dL (8.4-10.2); Magnesium 1.7 mg/dL (1.6-2.3); Potassium 3.5 mmol/L (3.5-5.1)
[2021-03-19] MEDS ORDERED: Potassium Replacement Protocol 1 EACH MISC MISCELLANE PRN ×2 (04:41→04:52)
[2021-03-19] MEDS: MAGNESIUM SULFATE-D5W PMX 1 GM in DEXTROSE/WATER 1 100ML.BAG IVPB SCH ×2 (04:55→05:43)
[2021-03-19 04:58] LABS: Basophils % (A) 1 %; Eosinophils # (A) 0.1 k/uL (0-0.7); Eosinophils % (A) 2 %; HCT 32.3 % (34.0-46.0); HGB 10.7 gm/dL (11.4-16.0); Lymphocytes # (A) 1.5 k/uL (1.0-4.8); Lymphocytes % (A) 28 %; MCH 31.4 pg (25.0-35.0); MCV 95.4 fL (80.0-100.0); Mean Platelet Volume 7.8; Monocytes # (A) 0.4 k/uL (0-1.0); Monocytes % (A) 7 %; Neutrophils # (A) 3.4 k/uL (1.3-7.7); Neutrophils % (A) 61 %; Platelet Count 103 k/uL (150-450); RBC 3.39 m/uL (3.80-5.40); RDW 13.6 % (11.5-15.5); WBC 5.5 k/uL (3.8-10.6)
[2021-03-19] MEDS ORDERED: POTASSIUM CHLORIDE 10 MEQ in WATER FOR INJECTION 1 100ML.BAG IVPB SCH (05:00)
[2021-03-19] MEDS: SODIUM CHLORIDE 0.9% 1,000 ML IV SCH (08:17)
[2021-03-19] MEDS: ASPIRIN 81 MG PO SCH (08:17)
[2021-03-19] MEDS: METOPROLOL TARTRATE 25 MG TAB PO SCH (08:17)
[2021-03-19] MEDS: FOLIC ACID 1 MG TAB PO SCH (08:18)
[2021-03-19] MEDS: ENOXAPARIN 40 MG/0.4 ML SYRINGE SQ SCH (08:18)
[2021-03-19] MEDS: FLUoxetine HCL 20 MG CAP PO SCH (08:18)
[2021-03-19] MEDS: AMIODARONE 200 MG TAB PO SCH ×3 (08:18→21:33)
[2021-03-19] MEDS: POTASSIUM CHLORIDE ER 20 MEQ TAB.ER PO SCH ×2 (08:18→10:54)
[2021-03-19] MEDS: FUROSEMIDE 40 MG TAB PO SCH (08:18)
[2021-03-19] MEDS: ATORVASTATIN 40 MG TAB PO SCH (08:18)
--- NOTE | 2021-03-19 10:24 | P.PN ---
Subjective Progress Note Date: 03/19/21 Principal diagnosis: Sustained V. tach This is a 66-year-old female with history of nonischemic cardiomyopathy, previous ventricular tachycardia, history of ICD placement, normally sees Dr. Elliott in [place]. Patient presented [facility] in [place] complaining of tachycardia, and heaviness in the chest. Patient was found to have wide complex QRS tachycardia, she received 3 shocks at [facility] but did not convert to sinus rhythm. Patient continued to have wide complex tachycardia until she arrived to our emergency room, and she was seen by cardiology on co nsultation. Patient was initially reluctant to undergo cardioversion but since she was hypotensive and symptomatic with her tachycardia, patient was given IV amiodarone, a bolus was given and a drip was started. She underwent cardioversion with 75 mg of propofol given for sedation. And she received 1 single 100 J shock. Patient went into sinus rhythm, and she remains in sinus rhythm. Admitted to the ICU, and I was asked to see her on consultation. Patient is also known to have history of mild nonobstructive coronary artery disease, was seen by Dr. Mcknight in the past, and she had symptomatic ventricular tachycardia requiring amiodarone. At any rate considering the patient was admitted to the ICU, I was asked to see her on consultation. During my evaluation, patient was asymptomatic. She had no shortness of breath no cough no wheezing no chest pain. She was on amiodarone drip, and she was relatively asymptomatic Patient was reevaluated today on 03/18/2021, patient had been minutes of ventricular tachycardia yesterday with a rate in the 130 range. She had short runs of nonsustained wide QRS tachycardia, converted to sinus rhythm on her own. Patient was seen by cardiology, placed on Lopressor, kept her on amiodarone, and advised increase activity. During my evaluation, patient seems to be in no distress, she is in sinus rhythm, relatively asymptomatic. She is now on Lasix orally she is also on metoprolol 25 3 times a day. And her potassium and magnesium were addressed accordingly. CBC today is relatively normal electrocerebral normal renal profile showed slight worsening of his creatinine 1.30 was 1.27 yesterday. Chest x-ray this morning showed no evidence of active disease no evidence of pulmonary edema. On 03/11/2001 patient seen in follow-up in the intensive care unit, she is resting comfortably in bed, currently on 4 L of oxygen, with a pulse ox of 92- 94%, vital signs are stable, she is on 0.9 normal seen. A 10 mL per hour, no other drips. Patient is currently in sinus bradycardia with a rate of 56 BPM, did have short little bursts of arrhythmia last night, possibly V. tach, currently in sinus mechanism. Amiodarone 200 mg 3 times a day has been ordered by cardiology, metoprolol 25 mg 3 times a day. Patient has an AICD in place, and were told by the nursing staff that necessary adjustments to the settings have been made. No cognitive shortness of breath, no complaint of chest pain. She is breathing quite comfortably, patient remains on oral Lasix 40 mg daily, last chest x-ray was done yesterday on 03/18/2021 showing chronic changes without evidence of acute pulmonary disease. Today's labs have been reviewed. Patient's last catheterization was done on 09/23/[address] Wilkerson showing mild to moderate nonobstructive coronary artery disease, and medical management was recommended Objective - Vital Signs Vital signs: Vital Signs Temp 98.0 F 03/19/21 08:00 Pulse 57 L 03/19/21 09:00 Resp 21 03/19/21 09:00 BP 100/40 03/19/21 09:00 Pulse Ox 92 L 03/19/21 09:00 Intake & Output 03/18/21 03/19/21 03/19/21 18:59 06:59 18:59 Intake Total 262 220 210 Output Total 2384 579 30 Balance -2 -359 180 Weight 87.7 kg Intake: IV 262 220 210 0.9 162 120 10 Magnesium Sulfate-D5w Pmx 100 1 gm In Dextrose/Water 1 100ml.bag @ 100 mls/hr IVPB Q1H [facility] Rx#: [id number] Magnesium replacement 100 100 Potassium Replacement 100 Output: Urine 2384 579 30 Other: Voiding Method Indwelling Catheter Indwelling Catheter Indwelling Catheter - Exam GENERAL EXAM: Alert, very pleasant, 58-year-old white female on 4 L of oxygen the pulse ox of 94% comfortable in no apparent distress. HEAD: Normocephalic/atraumatic. EYES: Normal reaction of pupils, equal size. Conjunctiva pink, sclera white. NOSE: Clear with pink turbinates. THROAT: No erythema or exudates. NECK: No masses, no JVD, no thyroid enlargement, no adenopathy. CHEST: No chest wall deformity. Symmetrical expansion. LUNGS: Equal air entry with no crackles, wheeze, rhonchi or dullness. CVS: Regular rate and rhythm, normal S1 and S2, no gallops, no murmurs, no rubs ABDOMEN: Soft, nontender. No hepatosplenomegaly, normal bowel sounds, no guarding or rigidity. EXTREMITIES: No clubbing, no edema, no cyanosis, 2+ pulses and upper and lower extremities. MUSCULOSKELETAL: Muscle strength and tone normal. SPINE: No scoliosis or deformity SKIN: No rashes CENTRAL NERVOUS SYSTEM: Alert and oriented -3. No focal deficits, tone is normal in all 4 extremities. PSYCHIATRIC: Alert and oriented -3. Appropriate affect. Intact judgment and insight. - Labs CBC & Chem 7: 03/19/21 03:49 03/19/21 03:49 Labs: Abnormal Lab Results - Last 24 Hours (Table) 03/18/21 03/19/21 03/19/21 Range/Units 10:50 03:49 03:49 RBC 3.39 L (3.80-5.40) m/uL Hgb 10.7 L (11.4-16.0) gm/dL Hct 32.3 L (34.0-46.0) % Plt Count 103 L (150-450) k/uL Carbon Dioxide 33 H (22-30) mmol/L BUN 22 H (7-17) mg/dL Creatinine 1.24 H (0.52-1.04) mg/dL Magnesium 2.6 H (1.6-2.3) mg/dL Assessment and Plan Plan: Assessment: #1. Recurrent and sustained ventricular tachycardia, with previous history of AICD placement. Currently on oral amiodarone 200 mg 3 times a day, metoprolol 25 mg 3 times a day. #2. History of nonischemic cardiomyopathy #3. History of COPD #4. Hypertension #5. Hyperlipidemia #6. Chronic hypoxic respiratory failure on home oxygen at 2 L #7. Chronic congestive heart failure with systolic dysfunction Plan: Continue current medical treatment Currently in sinus mechanism We'll defer to cardiology for antiarrhythmics Yesterday's chest x-ray showed no acute cardiopulmonary process Breathing comfortably, no complaints of chest pain We'll switch the Symbicort to Flovent 220 mics inhaler twice daily Continue DuoNeb GI and DVT prophylaxis We'll continue to follow I performed a history & physical examination of the patient and discussed their management with my nurse practitioner, Kirsten Cohen. I reviewed the nurse practitioner's note and agree with the documented findings and plan of care. Lung sounds are positive for diminished breath sounds. The findings and the i mpression was discussed with the patient. I attest to the documentation by the nurse practitioner. Time with Patient: Less than 30
--- NOTE | 2021-03-19 12:28 | P.PN ---
Subjective Progress Note Date: 03/19/21 HISTORY OF PRESENT ILLNESS: This is a 66-year-old female with a past medical history significant for nonischemic cardiomyopathy and previous AICD implantation. Patient also the office with Dr. Hu (She used to follow with Dr Guerrero). Patient is admitted to the hospital secondary to ventricular tachycardia requiring defibrillation. Patient is currently maintaining sinus mechanism. She remains on metoprolol and amiodarone. Potassium 3.7. Magnesium 1.7. Blood pressure 106/39. Echocardiogram completed in 2019 revealing ejection fraction 30-35%, mild mitral regurgitation, mild tricuspid regurgitation and moderate pulmonary hypertension Cardiac catheterization performed in September 2020 revealed mild to moderate nonobstructive coronary artery disease PHYSICAL EXAM: VITAL SIGNS: Reviewed. GENERAL: Well-developed in no acute distress. NECK: Supple. No JVD or thyromegaly LUNGS: Respirations even and unlabored. Lungs essentially clear to auscultation bilaterally. HEART: Regular rate and rhythm. S1 and S2 heard. EXTREMITIES: Normal range of motion. No clubbing or cyanosis. Peripheral pulses intact. No lower extremity edema ASSESSMENT: Sustained ventricular tachycardia, requiring defibrillation Nonischemic cardiomyopathy with previous AICD implantation Chronic systolic heart failure Hypertension Hyperlipidemia COPD PLAN: Continue telemetry monitoring Continue amiodarone 200 mg 3 times a day Discontinue metoprolol tartrate. Begin metoprolol succinate 50 mg daily Continue to monitor electrolytes and replace as needed Further recommendations pending patient's course Nurse practitioner note has been reviewed by physician. Signing provider agrees with the documented findings, assessment, and plan of care. Objective - Vital Signs Vital signs: Vital Signs Temp 98.0 F 03/19/21 08:00 Pulse 56 L 03/19/21 10:00 Resp 22 03/19/21 10:00 BP 106/39 03/19/21 10:00 Pulse Ox 92 L 03/19/21 09:00 Intake & Output 03/18/21 03/19/21 03/19/21 18:59 06:59 18:59 Intake Total 262 220 250 Output Total 3534 579 205 Balance -[id number] 45 Weight 87.7 kg Intake: IV 262 220 250 0.9 162 120 50 Magnesium Sulfate-D5w Pmx 100 1 gm In Dextrose/Water 1 100ml.bag @ 100 mls/hr IVPB Q1H [facility] Rx#: [id number] Magnesium replacement 100 100 Potassium Replacement 100 Output: Urine 5921 579 205 Other: Voiding Method Indwelling Catheter Indwelling Catheter Indwelling Catheter - Labs CBC & Chem 7: 03/19/21 03:49 03/19/21 03:49 Labs: Abnormal Lab Results - Last 24 Hours (Table) 03/19/21 03/19/21 03/19/21 Range/Units 03:49 03:49 10:46 RBC 3.39 L (3.80-5.40) m/uL Hgb 10.7 L (11.4-16.0) gm/dL Hct 32.3 L (34.0-46.0) % Plt Count 103 L (150-450) k/uL Carbon Dioxide 33 H (22-30) mmol/L BUN 22 H (7-17) mg/dL Creatinine 1.24 H (0.52-1.04) mg/dL Magnesium 2.4 H (1.6-2.3) mg/dL
--- NOTE | 2021-03-19 16:26 | P.PN ---
Subjective Progress Note Date: 03/19/21 This is a pleasant 66-year-old patient, follows with Dr. Ramirez. Sales Executive Dr. Noemi Elliott. Chronic stable medical conditions include congestive heart failure, COPD, hypertension, hyperlipidemia, chronic hypoxic respiratory failure on home oxygen 2 L AICD. Patient lives alone. Has home health. Does have a walker. Today started off with left-sided chest pressure. Going on the left arm. No dizziness nor lightheadedness. No perspiration. Presented to [facility]. Patient is found to be in V. tach. Patient was cardioverted 3. Then transferred down here. Patient went back into V. tach here. Was cardioverted again. Received bolus of amiodarone at [place] and also in our ER. Sinus rhythm Today: ICU : Patient did have an episode of V. tach today. Dose beta matilda adjusted by cardiology. Patient asymptomatic. Breathing stable. Eating well. Sitting up in bed. 03/19/2021 Patient is seen and evaluated in the ICU continues to be closely monitored. Patient is being closely followed by cardiology and continued on oral amiodarone, aspirin, Lipitor, subcutaneous Lovenox, by mouth Lasix, lisinopril, metoprolol succinate and adjustments have been made to metoprolol as she was p reviously on metoprolol tartrate. Patient's heart rate being maintained in the 50s to low 60s and blood pressures on the lower side in being closely monitored. Kidneys on 4 L of oxygen via nasal cannula and denies any shortness of breath. Patient states she does wear oxygen in the outpatient setting. Hemoglobin is stable at 10.7, white blood count is 5.5, sodium is 137, potassium is 3.5 and be ing replaced per protocol, creatinine is 1.24 and magnesium was replaced into 0.4 currently. Will have PT/OT evaluate the patient Review of systems: Constitutional: No reports of fatigue, fever, or chills Cardiovascular: No reports of chest pain or palpitations Respiratory: No reports of shortness of breath or cough GI: No reports of nausea, vomiting, or diarrhea : No reports of dysuria or retention Neurovascular: Reports generalized weakness All medications have been reviewed Active Medications Albuterol/Ipratropium (Ipratropium-Albuterol 3 Ml Neb) 3 ml INHALATION RT-QID PRN PRN Reason: Shortness Of Breath Or Wheezing Amiodarone HCl (Amiodarone 200 Mg Tab) 200 mg PO TID [facility] Last Admin: 03/19/21 08:18 Dose: 200 mg Documented by: Aspirin (Aspirin 81 Mg) 81 mg PO DAILY [facility] Last Admin: 03/19/21 08:17 Dose: 81 mg Documented by: Atorvastatin Calcium (Atorvastatin 40 Mg Tab) 40 mg PO DAILY [facility] Last Admin: 03/19/21 08:18 Dose: 40 mg Documented by: Enoxaparin Sodium (Enoxaparin 40 Mg/0.4 Ml Syringe) 40 mg SQ DAILY [facility] Last Admin: 03/19/21 08:18 Dose: 40 mg Documented by: Fluoxetine HCl (Fluoxetine Hcl 20 Mg Cap) 20 mg PO DAILY [facility] Last Admin: 03/19/21 08:18 Dose: 20 mg Documented by: Fluticasone Propionate (Fluticasone 220 Mcg Inhaler) 2 puff INHALATION RT-BID [facility] Folic Acid (Folic Acid 1 Mg Tab) 1 mg PO DAILY [facility] Last Admin: 03/19/21 08:18 Dose: 1 mg Documented by: Furosemide (Furosemide 40 Mg Tab) 40 mg PO DAILY [facility] Last Admin: 03/19/21 08:18 Dose: 40 mg Documented by: Sodium Chloride (Saline 0.9%) 1,000 mls @ 10 mls/hr IV .Q24H [facility] Last Admin: 03/19/21 08:17 Dose: Not Given Documented by: Lisinopril (Lisinopril 2.5 Mg Tab) 2.5 mg PO DAILY [facility] Last Admin: 03/19/21 08:17 Dose: 2.5 mg Documented by: Metoprolol Succinate (Metoprolol Succinate (Er) 50 Mg Tab.Er.24h) 50 mg PO DAILY [facility] Miscellaneous Information (Magnesium Replacement Protocol 1 Each Misc) 1 each MISCELLANE DAILY PRN; Protocol PRN Reason: Per Protocol Miscellaneous Information (Potassium Replacement Protocol 1 Each Misc) 1 each MISCELLANE DAILY PRN; Protocol PRN Reason: Per Protocol Montelukast Sodium (Montelukast 10 Mg Tab) 10 mg PO HS [facility] Last Admin: 03/18/21 20:42 Dose: 10 mg Documented by: Naloxone HCl (Naloxone 0.4 Mg/Ml 1 Ml Vial) 0.2 mg IV Q2M PRN PRN Reason: Opioid Reversal Pantoprazole Sodium (Pantoprazole 40 Mg Tablet) 40 mg PO [facility] Last Admin: 03/18/21 20:42 Dose: 40 mg Documented by: Objective - Vital Signs Vital signs: Vital Signs Temp 98.2 F 03/19/21 12:00 Pulse 54 L 03/19/21 13:00 Resp 18 03/19/21 13:00 BP 98/35 03/19/21 13:00 Pulse Ox 99 03/19/21 13:00 Intake & Output 03/18/21 03/19/21 03/19/21 18:59 06:59 18:59 Intake Total 262 220 510 Output Total 2384 579 380 Balance -2 -359 130 Weight 87.7 kg Intake: IV 262 220 270 0.9 162 120 70 Magnesium Sulfate-D5w Pmx 100 1 gm In Dextrose/Water 1 100ml.bag @ 100 mls/hr IVPB Q1H [facility] Rx#: [id number] Magnesium replacement 100 100 Potassium Replacement 100 Oral 240 Output: Urine 2384 579 380 Other: Voiding Method Indwelling Catheter Indwelling Catheter Indwelling Catheter - Exam Gen: This is a 66-year-old email awake, alert and oriented 3, well-developed, well-nourished, obese. Temp is 98.2F, pulse is 61, respirations are 20, blood pressure is 96/40, oxygen saturation is 92% on 4 L via nasal cannula. HEENT: Head is atraumatic, normocephalic. Pupils equal, round. Sclerae is anicteric. NECK: Supple. No JVD. No lymphadenopathy. No thyromegaly. LUNGS: Diminished breath sounds bilaterally with some scattered rhonchi noted. No intercostal retractions. HEART: S1, S2 are muffled ABDOMEN: Soft. Obese. Bowel sounds are present. No masses. No tenderness. EXTREMITIES: No pedal edema. No calf tenderness. NEUROLOGICAL: Patient is awake, alert and oriented x3. Cranial nerves 2 through 12 are grossly intact. - Labs CBC & Chem 7: 03/19/21 03:49 03/19/21 03:49 Labs: Abnormal Lab Results - Last 24 Hours (Table) 03/19/21 03/19/21 03/19/21 Range/Units 03:49 03:49 10:46 RBC 3.39 L (3.80-5.40) m/uL Hgb 10.7 L (11.4-16.0) gm/dL Hct 32.3 L (34.0-46.0) % Plt Count 103 L (150-450) k/uL Carbon Dioxide 33 H (22-30) mmol/L BUN 22 H (7-17) mg/dL Creatinine 1.24 H (0.52-1.04) mg/dL Magnesium 2.4 H (1.6-2.3) mg/dL Assessment and Plan Assessment: Possible acute non-ST elevation myocardial infarction, present on arrival Recurrent and sustained ventricular tachycardia with AICD Status post cardioversion 3 Coronary artery disease Obesity with a body mass index of 37.8 COPD Remote history of nicotine dependence Hyperlipidemia Chronic hypoxic respiratory failure on home oxygen 2 L secondary to underlying COPD AICD history Chronic gait dysfunction No code Recommendations and discussion: Recommend continue with current medications and current management. Continue to closely monitor and continue with telemetry with cardiology following closely. Patient continued on oral amiodarone along with metoprolol and will continue to monitor closely. Adjustments to pacemaker have been made per nursing staff. Due to multiple Complex medical issues, prognosis is guarded. Will repeat a.m. labs and continue to monitor closely.
[2021-03-19] MEDS: SYMBICORT 160-4.5 MCG INHALER INHALATION SCH (19:51)
[2021-03-19] MEDS: FLUTICASONE 220 MCG INHALER INHALATION SCH (21:12)
[2021-03-19] MEDS: MONTELUKAST 10 MG TAB PO SCH (21:32)
[2021-03-19] MEDS: PANTOPRAZOLE 40 MG TABLET PO SCH (21:33)
[2021-03-20 04:19] LABS: Calcium 9.6 mg/dL (8.4-10.2); Potassium 3.9 mmol/L (3.5-5.1); Total Bilirubin 0.8 mg/dL (0.2-1.3); Total Protein 5.2 g/dL (6.3-8.2)
[2021-03-20 05:11] LABS: Basophils % (A) 1 %; Eosinophils # (A) 0.1 k/uL (0-0.7); Eosinophils % (A) 2 %; HCT 35.5 % (34.0-46.0); HGB 11.5 gm/dL (11.4-16.0); Lymphocytes # (A) 1.7 k/uL (1.0-4.8); Lymphocytes % (A) 29 %; MCH 31.2 pg (25.0-35.0); MCHC 32.5 g/dL (31.0-37.0); MCV 95.9 fL (80.0-100.0); Mean Platelet Volume 7.9; Monocytes # (A) 0.4 k/uL (0-1.0); Monocytes % (A) 7 %; Neutrophils # (A) 3.6 k/uL (1.3-7.7); Neutrophils % (A) 60 %; Platelet Count 110 k/uL (150-450); RDW 13.5 % (11.5-15.5)
[2021-03-20] MEDS ORDERED: POTASSIUM CHLORIDE ER 20 MEQ TAB.ER PO STA (05:57)
[2021-03-20] MEDS: SODIUM CHLORIDE 0.9% 1,000 ML IV SCH (06:45)
--- NOTE | 2021-03-20 07:37 | XR ---
EXAMINATION TYPE: XR chest 1V DATE OF EXAM: 03/20/2021 HISTORY: Shortness of breath. COMPARISON: 03/18/2021 TECHNIQUE: Single view of the chest is submitted. FINDINGS: Demonstrated are scattered senescent parenchymal change. There is no evidence for focal infiltrate. The heart is stable. Hilar and mediastinal structures are within normal limits. Degenerative changes are seen of the dorsal spine. IMPRESSION: 1. Chronic changes without evidence for acute pulmonary disease.
--- NOTE | 2021-03-20 07:38 | P.PN ---
Subjective Progress Note Date: 03/20/21 Principal diagnosis: Sustained V. tach This is a 66-year-old female with history of nonischemic cardiomyopathy, previous ventricular tachycardia, history of ICD placement, normally sees Dr. Elliott in [place]. Patient presented [facility] in [place] complaining of tachycardia, and heaviness in the chest. Patient was found to have wide complex QRS tachycardia, she received 3 shocks at [facility] but did not convert to sinus rhythm. Patient continued to have wide complex tachycardia until she arrived to our emergency room, and she was seen by cardiology on co nsultation. Patient was initially reluctant to undergo cardioversion but since she was hypotensive and symptomatic with her tachycardia, patient was given IV amiodarone, a bolus was given and a drip was started. She underwent cardioversion with 75 mg of propofol given for sedation. And she received 1 single 100 J shock. Patient went into sinus rhythm, and she remains in sinus rhythm. Admitted to the ICU, and I was asked to see her on consultation. Patient is also known to have history of mild nonobstructive coronary artery disease, was seen by Dr. Mcknight in the past, and she had symptomatic ventricular tachycardia requiring amiodarone. At any rate considering the patient was admitted to the ICU, I was asked to see her on consultation. During my evaluation, patient was asymptomatic. She had no shortness of breath no cough no wheezing no chest pain. She was on amiodarone drip, and she was relatively asymptomatic Patient was reevaluated today on 03/18/2021, patient had been minutes of ventricular tachycardia yesterday with a rate in the 130 range. She had short runs of nonsustained wide QRS tachycardia, converted to sinus rhythm on her own. Patient was seen by cardiology, placed on Lopressor, kept her on amiodarone, and advised increase activity. During my evaluation, patient seems to be in no distress, she is in sinus rhythm, relatively asymptomatic. She is now on Lasix orally she is also on metoprolol 25 3 times a day. And her potassium and magnesium were addressed accordingly. CBC today is relatively normal electrocerebral normal renal profile showed slight worsening of his creatinine 1.30 was 1.27 yesterday. Chest x-ray this morning showed no evidence of active disease no evidence of pulmonary edema. On 03/19/2001 patient seen in follow-up in the intensive care unit, she is resting comfortably in bed, currently on 4 L of oxygen, with a pulse ox of 92- 94%, vital signs are stable, she is on 0.9 normal seen. A 10 mL per hour, no other drips. Patient is currently in sinus bradycardia with a rate of 56 BPM, did have short little bursts of arrhythmia last night, possibly V. tach, currently in sinus mechanism. Amiodarone 200 mg 3 times a day has been ordered by cardiology, metoprolol 25 mg 3 times a day. Patient has an AICD in place, and were told by the nursing staff that necessary adjustments to the settings have been made. No cognitive shortness of breath, no complaint of chest pain. She is breathing quite comfortably, patient remains on oral Lasix 40 mg daily, last chest x-ray was done yesterday on 03/18/2021 showing chronic changes without evidence of acute pulmonary disease. Today's labs have been reviewed. Patient's last catheterization was done on 09/23/[address] Wilkerson showing mild to moderate nonobstructive coronary artery disease, and medical management was recommended On 03/20/2021 patient seen in follow-up in the intensive care unit, she is awake and alert, oriented 3, in no acute distress, resting comfortably in bed, she is currently on 4 L of oxygen with a pulse ox of 97%, hemodynamically she is stable, she is in sinus mechanism, with a rate of 56 BPM, she's had no further episodes of V. tach overnight. Denies any difficulty breathing, no complaints of chest pain. This morning's chest x-ray has been taken and the report is pending. We're unable to look at the film at the moment due to Internet con nection issues. Patient has point tenderness and infusing and rated 10 ML per hour, today's labs have been reviewed, white blood cell count is 6.0, hemoglobin is 11.5, electrolytes are within normal limits except for CO2 which is at 33, BUN is 23, creatinine is 1.32. Patient is currently on Toprol-XL 50 mg daily, and amiodarone 200 mg 3 times daily. No nausea or vomiting, she is tolerating oral intake. Objective - Vital Signs Vital signs: Vital Signs Temp 97.8 F 03/20/21 00:00 Pulse 56 L 03/20/21 07:00 Resp 17 03/20/21 07:00 BP 105/50 03/20/21 07:00 Pulse Ox 97 03/20/21 07:00 Intake & Output 03/19/21 03/20/21 03/20/21 18:59 06:59 18:59 Intake Total 1160 120 10 Output Total 705 766 50 Balance 455 -646 -40 Intake: IV 320 120 10 0.9 120 120 10 Magnesium replacement 100 Potassium Replacement 100 Oral 840 Output: Urine 705 765 50 Urine/Stool Mix 1 Other: Voiding Method Indwelling Catheter Indwelling Catheter - Exam GENERAL EXAM: Alert, very pleasant, 58-year-old white female on 4 L of oxygen the pulse ox of 94% comfortable in no apparent distress. HEAD: Normocephalic/atraumatic. EYES: Normal reaction of pupils, equal size. Conjunctiva pink, sclera white. NOSE: Clear with pink turbinates. THROAT: No erythema or exudates. NECK: No masses, no JVD, no thyroid enlargement, no adenopathy. CHEST: No chest wall deformity. Symmetrical expansion. LUNGS: Equal air entry with no crackles, wheeze, rhonchi or dullness. CVS: Regular rate and rhythm, normal S1 and S2, no gallops, no murmurs, no rubs ABDOMEN: Soft, nontender. No hepatosplenomegaly, normal bowel sounds, no guarding or rigidity. EXTREMITIES: No clubbing, no edema, no cyanosis, 2+ pulses and upper and lower extremities. MUSCULOSKELETAL: Muscle strength and tone normal. SPINE: No scoliosis or deformity SKIN: No rashes CENTRAL NERVOUS SYSTEM: Alert and oriented -3. No focal deficits, tone is normal in all 4 extremities. PSYCHIATRIC: Alert and oriented -3. Appropriate affect. Intact judgment and insight. - Labs CBC & Chem 7: 03/20/21 03:25 03/20/21 03:25 Labs: Abnormal Lab Results - Last 24 Hours (Table) 03/19/21 03/20/21 03/20/21 Range/Units 10:46 03:25 03:25 RBC 3.70 L (3.80-5.40) m/uL Plt Count 110 L (150-450) k/uL Carbon Dioxide 33 H (22-30) mmol/L BUN 23 H (7-17) mg/dL Creatinine 1.32 H (0.52-1.04) mg/dL Glucose 100 H (74-99) mg/dL Magnesium 2.4 H (1.6-2.3) mg/dL Total Protein 5.2 L (6.3-8.2) g/dL Albumin 3.0 L (3.5-5.0) g/dL Assessment and Plan Plan: Assessment: #1. Recurrent and sustained ventricular tachycardia, with previous history of AICD placement. Currently on oral amiodarone 200 mg 3 times a day, Toprol-XL 50 mg daily #2. History of nonischemic cardiomyopathy #3. History of COPD #4. Hypertension #5. Hyperlipidemia #6. Chronic hypoxic respiratory failure on home oxygen at 2 L #7. Chronic congestive heart failure with systolic dysfunction Plan: No episodes of V. tach last night Remains in sinus mechanism Breathing comfortably, no complaints of chest pain Continue Flovent Continue DuoNeb GI and DVT prophylaxis Possible discharge home today pending clearance from cardiology and medicine I performed a history & physical examination of the patient and discussed their management with my nurse practitioner, Kirsten Cohen. I reviewed the nurse practitioner's note and agree with the documented findings and plan of care. Lung sounds are positive for diminished breath sounds. The findings and the impression was discussed with the patient. I attest to the documentation by the nurse practitioner. Time with Patient: Less than 30
[2021-03-20] MEDS: FLUTICASONE 220 MCG INHALER INHALATION SCH (08:09)
[2021-03-20] MEDS: ATORVASTATIN 40 MG TAB PO SCH (08:34)
[2021-03-20] MEDS: AMIODARONE 200 MG TAB PO SCH ×2 (08:35→16:16)
[2021-03-20] MEDS: FOLIC ACID 1 MG TAB PO SCH (08:35)
[2021-03-20] MEDS: ASPIRIN 81 MG PO SCH (08:35)
[2021-03-20] MEDS: FLUoxetine HCL 20 MG CAP PO SCH (08:35)
[2021-03-20] MEDS: ENOXAPARIN 40 MG/0.4 ML SYRINGE SQ SCH (08:35)
[2021-03-20] MEDS: FUROSEMIDE 40 MG TAB PO SCH (08:35)
[2021-03-20] MEDS ORDERED: METOPROLOL SUCCINATE (ER) 50 MG TAB.ER.24H PO SCH (09:00)
--- NOTE | 2021-03-20 12:18 | P.PN ---
Subjective Progress Note Date: 03/20/21 HISTORY OF PRESENT ILLNESS: This is a 66-year-old female with a past medical history significant for nonischemic cardiomyopathy and previous AICD implantation. Patient also the office with Dr. Hu (She used to follow with Dr Guerrero). Patient is admitted to the hospital secondary to ventricular tachycardia requiring defibrillation. Patient is currently maintaining sinus mechanism. She remains on metoprolol and amiodarone. Potassium 3.7. Magnesium 1.7. Blood pressure 106/39. Echocardiogram completed in 2019 revealing ejection fraction 30-35%, mild mitral regurgitation, mild tricuspid regurgitation and moderate pulmonary hypertension Cardiac catheterization performed in September 2020 revealed mild to moderate nonobstructive coronary artery disease 03/20/2021 Patient examined at the bedside. Patient denies chest pain or pressure. She denies shortness of breath. Patient remains in sinus mechanism. She is hoping to discharged home today. PHYSICAL EXAM: VITAL SIGNS: Reviewed. GENERAL: Well-developed in no acute distress. NECK: Supple. No JVD or thyromegaly LUNGS: Respirations even and unlabored. Lungs essentially clear to auscultation bilaterally. HEART: Regular rate and rhythm. S1 and S2 heard. EXTREMITIES: Normal range of motion. No clubbing or cyanosis. Peripheral pulses intact. No lower extremity edema ASSESSMENT: Sustained ventricular tachycardia, requiring defibrillation Nonischemic cardiomyopathy with previous AICD implantation Chronic systolic heart failure Hypertension Hyperlipidemia COPD PLAN: Continue current dose of metoprolol succinate Continue amiodarone. Patient to continue 200 mg 3 times a day for 2 weeks, then decrease to 200 mg twice a day 2 weeks, then decrease to 200 mg daily She may be discharged home today from a cardiac standpoint Nurse practitioner note has been reviewed by physician. Signing provider agrees with the documented findings, assessment, and plan of care. Objective - Vital Signs Vital signs: Vital Signs Temp 97.8 F 03/20/21 00:00 Pulse 56 L 03/20/21 11:00 Resp 20 03/20/21 11:00 BP 124/49 03/20/21 09:00 Pulse Ox 97 03/20/21 08:10 Intake & Output 03/19/21 03/20/21 03/20/21 18:59 06:59 18:59 Intake Total 1160 120 20 Output Total 705 766 170 Balance 455 646 -150 Intake: IV 320 120 20 0.9 120 120 20 Magnesium replacement 100 Potassium Replacement 100 Oral 840 Output: Urine 705 765 170 Urine/Stool Mix 1 Other: Voiding Method Indwelling Catheter Indwelling Catheter Indwelling Catheter - Labs CBC & Chem 7: 03/20/21 03:25 03/20/21 03:25 Labs: Abnormal Lab Results - Last 24 Hours (Table) 03/20/21 03/20/21 Range/Units 03:25 03:25 RBC 3.70 L (3.80-5.40) m/uL Plt Count 110 L (150-450) k/uL Carbon Dioxide 33 H (22-30) mmol/L BUN 23 H (7-17) mg/dL Creatinine 1.32 H (0.52-1.04) mg/dL Glucose 100 H (74-99) mg/dL Total Protein 5.2 L (6.3-8.2) g/dL Albumin 3.0 L (3.5-5.0) g/dL
[2021-03-20 12:47] VITALS: BP 97/46; TEMP 98.2
[2021-03-20 14:46] VITALS: PULSE 55; RESP 15
--- NOTE | 2021-03-21 13:41 | P.DS ---
Providers Date of admission: 03/16/21 14:01 Expected date of discharge: 03/20/21 Attending physician: Jonel Saldaña Consults: 03/16/21 13:59 Consult Physician Routine Consulting Provider: Enzo Paula Consult Reason/Comments: Critical care management Do you want consulting provider notified?: Yes 03/16/21 14:00 Consult Physician Stat Consulting Provider: Tobi Louie Consult Reason/Comments: Ventricular tachycardia Do you want consulting provider notified?: Already Contacted Primary care physician: Simone James [facility] Course: Final diagnosis Possible acute non-ST elevation myocardial infarction, present on arrival Recurrent and sustained ventricular tachycardia with AICD Status post cardioversion 3 Coronary artery disease Obesity with a body mass index of 37.8 COPD Remote history of nicotine dependence Hyperlipidemia Chronic hypoxic respiratory failure on home oxygen 2 L secondary to underlying COPD AICD history Chronic gait dysfunction No code Discharge disposition Patient is being discharged in a stable condition with guarded prognosis to home. Patient will follow-up with Dr. Ramirez in the outpatient setting upon discharge. Patient will continue with [facility] in the outpatient setting. Patient is to follow-up with cardiology Dr. Hu in the outpatient setting in 1 week. Total time taken is greater than 35 minutes. Hospital course This is a pleasant 66-year-old patient, follows with Dr. Ramirez. Water Treatment Operator Dr. Noemi Elliott. Chronic stable medical conditions include congestive heart failure, COPD, hypertension, hyperlipidemia, chronic hypoxic respiratory failure on home oxygen 2 L AICD. Patient lives alone. Has home health. Does have a walker. Today started off with left-sided chest pressure. Going on the left arm. No di zziness nor lightheadedness. No perspiration. Presented to [facility]. Patient is found to be in V. tach. Patient was cardioverted 3. Then transferred down here. Patient went back into V. tach here. Was cardioverted again. Received bolus of amiodarone at [place] and also in our ER. Sinus rhythm Today: ICU : Patient did have an episode of V. tach today. Dose beta matilda adjusted by cardiology. Patient asymptomatic. Breathing stable. Eating well. Sitting up in bed. 03/19/2021 Patient is seen and evaluated in the ICU continues to be closely monitored. Patient is being closely followed by cardiology and continued on oral amiodarone, aspirin, Lipitor, subcutaneous Lovenox, by mouth Lasix, lisinopril, metoprolol succinate and adjustments have been made to metoprolol as she was previously on metoprolol tartrate. Patient's heart rate being maintained in the 50s to low 60s and blood pressures on the lower side in being closely monitored. Kidneys on 4 L of oxygen via nasal cannula and denies any shortness of breath. Patient states she does wear oxygen in the outpatient setting. Hemoglobin is stable at 10.7, white blood count is 5.5, sodium is 137, potassium is 3.5 and being replaced per protocol, creatinine is 1.24 and magnesium was replaced into 0.4 currently. Will have PT/OT evaluate the patient 03/20/2021 Patient is seen in follow-up continues to be in the ICU and was awaiting downgrade with cardiology following closely. Medication adjustments have been made and continuing with medical management and will follow-up closely outpatient with cardiology as discussed. Patient also instructed to follow-up with primary care provider Dr. Ramirez upon discharge. Patient will continue with [facility] upon discharge. Currently no reports of chest pain, shortness of breath, or palpitations. Patient is afebrile. No reports of nausea or vomiting and patient is tolerating diet. Patient will be discharged home today. On exam vital signs are stable. Cardio S1, S2 are muffled. Respiratory system shows diminished breath sounds at the bases with no wheezing or rhonchi noted. Abdomen is soft and obese, and nontender. Nervous system shows no focal deficits. Please refer to medication reconciliation sheet for a list of medications. Patient Condition at Discharge: Stable Plan - Discharge Summary New Discharge Prescriptions: New Metoprolol Succinate (ER) [Toprol XL] 50 mg PO DAILY #90 tab.er.24h Amiodarone [Cordarone] 200 mg PO TID #200 tab Fluticasone Propionate 220 Mcg [Flovent 220 Mcg Inhaler (Mhu)] 2 puff INHALATION RT-BID 30 Days #1 puff Continue Folic Acid 1 mg PO DAILY FLUoxetine HCL [PROzac] 20 mg PO DAILY Montelukast [Singulair] 10 mg PO HS Aspirin EC [Ecotrin Low Dose] 81 mg PO DAILY Omeprazole 20 mg PO HS Atorvastatin [Lipitor] 40 mg PO HS #30 tab Ipratropium-Albuterol Nebulize [Duoneb 0.5 mg-3 mg/3 ml Soln] 3 ml INHALATION RT-QID PRN ml PRN Reason: Shortness Of Breath Or Wheezing lisinopriL [Zestril] 2.5 mg PO DAILY Budesonide/Formoterol Fumarate [Symbicort 160-4.5 Mcg Inhaler] 2 puff INHALATION RT-BID Potassium Chloride ER [K-Dur 10] 10 meq PO TID Changed Furosemide [Lasix] 40 mg PO DAILY #0 Discontinued Carvedilol [Coreg] 3.125 mg PO BID Discharge Medication List FLUoxetine HCL [PROzac] 20 mg PO DAILY 02/26/14 [History] Folic Acid 1 mg PO DAILY 02/26/14 [History] Montelukast [Singulair] 10 mg PO HS 02/26/14 [History] Aspirin EC [Ecotrin Low Dose] 81 mg PO DAILY 07/02/16 [History] Omeprazole 20 mg PO HS 07/22/20 [History] Atorvastatin [Lipitor] 40 mg PO HS #30 tab 07/27/20 [Rx] Ipratropium-Albuterol Nebulize [Duoneb 0.5 mg-3 mg/3 ml Soln] 3 ml INHALATION RT-QID PRN ml 09/26/20 [Rx] Budesonide/Formoterol Fumarate [Symbicort 160-4.5 Mcg Inhaler] 2 puff INHALATION RT-BID 03/16/21 [History] Potassium Chloride ER [K-Dur 10] 10 meq PO TID 03/16/21 [History] lisinopriL [Zestril] 2.5 mg PO DAILY 03/16/21 [History] Amiodarone [Cordarone] 200 mg PO TID #200 tab 03/20/21 [Rx] Fluticasone Propionate 220 Mcg [Flovent 220 Mcg Inhaler (Mhu)] 2 puff INHALATION RT-BID 30 Days #1 puff 03/20/21 [Rx] Furosemide [Lasix] 40 mg PO DAILY #0 03/20/21 [Rx] Metoprolol Succinate (ER) [Toprol XL] 50 mg PO DAILY #90 tab.er.24h 03/20/21 [Rx] Follow up Appointment(s)/Referral(s): Samuel Hu MD [STAFF PHYSICIAN] - 1 Week Simone Ramirez MD [Primary Care Provider] - 1-2 days [facility], [NON-STAFF] - 1-2 Days Ambulatory/Diagnostic Orders: Basic Metabolic Panel [LAB.AMB] Time Frame: 3 Days, Location: None Selected Patient Instructions/Handouts: Heart Failure (DC), Heart Healthy Diet (GEN) Activity/Diet/Wound Care/Special Instructions: Prescription for outpatient repeat labs sent to ICU printer Activity Limited until follow-up Follow up with primary care provider upon discharge follow up with cardiology outpatient follow up with repeat labs of BMP to monitor kidney functions and electrolytes when he follow-up with primary care provider Continue current diet continue current medications as prescribed Continue with amiodarone 200 mg 3 times a day for 2 weeks, then decrease to 200 mg twice a day for 2 weeks, then decrease to 200 mg daily and follow-up cardiology outpatient Continue with home care Discharge Disposition: HOME WITH HOME HEALTH SERVICES
== END 2021-03-20 17:30 | disposition home health service (06) | DRG 281 ==
LOC: EC 10:37 → 2SICU 14:01
PROVIDERS: ADMIT Hospitalist; ATTEND Hospitalist
PROC: 5A2204Z Restoration of Cardiac Rhythm, Single (ICD-10-PCS; principal; 2021-03-16)
PROC: 4B02XTZ Measurement of Cardiac Defibrillator, External Approach (ICD-10-PCS; 2021-03-17)
DX: I21.4 Non-ST elevation (NSTEMI) myocardial infarction (principal); I47.2 Ventricular tachycardia; J96.11 Chronic respiratory failure with hypoxia; I42.8 Other cardiomyopathies; I50.22 Chronic systolic (congestive) heart failure; I27.20 Pulmonary hypertension, unspecified; I95.9 Hypotension, unspecified; I11.0 Hypertensive heart disease with heart failure; J44.9 Chronic obstructive pulmonary disease, unspecified; Z66 Do not resuscitate; Z20.822 Contact with and (suspected) exposure to COVID-19; E55.9 Vitamin D deficiency, unspecified; E78.5 Hyperlipidemia, unspecified; R00.1 Bradycardia, unspecified; I08.1 Rheumatic disorders of both mitral and tricuspid valves; I25.10 Atherosclerotic heart disease of native coronary artery without angina pectoris; R26.9 Unspecified abnormalities of gait and mobility; E66.9 Obesity, unspecified; Z68.37 Body mass index [BMI] 37.0-37.9, adult; Z99.81 Dependence on supplemental oxygen; Z79.82 Long term (current) use of aspirin; Z79.51 Long term (current) use of inhaled steroids; Z79.899 Other long term (current) drug therapy; Z60.2 Problems related to living alone; Z95.810 Presence of automatic (implantable) cardiac defibrillator; Z87.891 Personal history of nicotine dependence; Z87.81 Personal history of (healed) traumatic fracture; Z90.710 Acquired absence of both cervix and uterus; Z87.42 Personal history of other diseases of the female genital tract; Z87.2 Personal history of diseases of the skin and subcutaneous tissue; Z98.890 Other specified postprocedural states; Z82.49 Family history of ischemic heart disease and other diseases of the circulatory system
CPT/HCPCS: 36415; 71045; 80048; 80053; 83735; 84132; 84484; 85025; 87635; 93005; 94640; 96361; 96365; 99152; 99291

== ENCOUNTER 2021-04-08 15:42 | Inpatient (IN) | payer MEDICARE, OTHER ==
[2021-04-08 16:32] LABS: Basophils % (A) 1 %; Eosinophils # (A) 0.2 k/uL (0-0.7); Eosinophils % (A) 3 %; HCT 35.9 % (34.0-46.0); HGB 12.3 gm/dL (11.4-16.0); Lymphocytes # (A) 1.4 k/uL (1.0-4.8); Lymphocytes % (A) 24 %; MCH 32.7 pg (25.0-35.0); MCHC 34.4 g/dL (31.0-37.0); Mean Platelet Volume 8.1; Monocytes # (A) 0.4 k/uL (0-1.0); Monocytes % (A) 7 %; Neutrophils # (A) 3.7 k/uL (1.3-7.7); Neutrophils % (A) 65 %; Platelet Count 104 k/uL (150-450); RBC 3.78 m/uL (3.80-5.40); RDW 13.5 % (11.5-15.5); WBC 5.8 k/uL (3.8-10.6)
[2021-04-08 16:48] LABS: INR 0.9 (<1.2); Prothrombin Time 10.1 sec (9.0-12.0)
[2021-04-08 17:03] LABS: Albumin 3.4 g/dL (3.5-5.0); Calcium 8.9 mg/dL (8.4-10.2); Potassium 4.1 mmol/L (3.5-5.1); Total Bilirubin 0.7 mg/dL (0.2-1.3); Total Protein 5.8 g/dL (6.3-8.2)
[2021-04-08] MEDS ORDERED: ACETAMINOPHEN TAB 325 MG TAB PO PRN (17:04)
[2021-04-08] MEDS ORDERED: NALOXONE 0.4 MG/ML 1 ML VIAL IV PRN (17:04)
[2021-04-08 17:08] LABS: Partial Thromboplastin Time 20.1 sec (22.0-30.0)
--- NOTE | 2021-04-08 17:31 | ED ---
General Adult HPI - General Chief complaint: Recheck/Abnormal Lab/Rx Stated complaint: chest pain Time Seen by Provider: 04/08/21 16:05 Source: patient, EMS, RN notes reviewed, old records reviewed Mode of arrival: EMS Limitations: no limitations - History of Present Illness Initial comments: 58-year-old female transferred from [facility] for evaluation of chest pain, possible internal defibrillator discharge. Patient had an episode of chest pain lasting a proximally 5 minutes, this was left-sided chest. No associated nausea or diaphoresis. She has a nonischemic cardiomyopathy. She was noted to have a magnesium of 1.2 was given IV replacement and was transferred to this institution for cardiology evaluation and pacemaker interrogation. - Related Data Home Medications Medication Instructions Recorded Confirmed FLUoxetine HCL [PROzac] 20 mg PO DAILY 02/26/14 03/16/21 Folic Acid 1 mg PO DAILY 02/26/14 03/16/21 Montelukast [Singulair] 10 mg PO HS 02/26/14 03/16/21 Aspirin EC [Ecotrin Low Dose] 81 mg PO DAILY 07/02/16 03/16/21 Omeprazole 20 mg PO HS 07/22/20 03/16/21 Budesonide/Formoterol Fumarate 2 puff INHALATION RT-BID 03/16/21 03/16/21 [Symbicort 160-4.5 Mcg Inhaler] Potassium Chloride ER [K-Dur 10] 10 meq PO TID 03/16/21 03/16/21 lisinopriL [Zestril] 2.5 mg PO DAILY 03/16/21 03/16/21 Previous Rx's Medication Instructions Recorded Atorvastatin [Lipitor] 40 mg PO HS #30 tab 07/27/20 Ipratropium-Albuterol Nebulize 3 ml INHALATION RT-QID PRN ml 09/26/20 [Duoneb 0.5 mg-3 mg/3 ml Soln] Amiodarone [Cordarone] 200 mg PO TID #200 tab 03/20/21 Fluticasone Propionate 220 Mcg 2 puff INHALATION RT-BID 30 Days 03/20/21 [Flovent 220 Mcg Inhaler (Mhu)] #1 puff Furosemide [Lasix] 40 mg PO DAILY #0 03/20/21 Metoprolol Succinate (ER) [Toprol 50 mg PO DAILY #90 tab.er.24h 03/20/21 XL] Allergies Allergy/AdvReac Type Severity Reaction Status Date / Time No Known Allergies Allergy Verified 04/08/21 15:51 Review of Systems ROS Statement: Those systems with pertinent positive or pertinent negative responses have been documented in the HPI. ROS Other: All systems not noted in ROS Statement are negative. Past Medical History Past Medical History: Coronary Artery Disease (CAD), Heart Failure, COPD, Hyperlipidemia, Hypertension, Respiratory Disorder Additional Past Medical History / Comment(s): Pt had recent admit to [facility] 05/26/16 with possible syncopal episode. Other HX: Chronic respiratory failure- uses 4-5L liters NC as needed, chronic CHF, cardiomyopathy, past vitamin D deficiency but ok now. recent right ankle fracture History of Any Multi-Drug Resistant Organisms: None Reported Past Surgical History: AICD, Breast Surgery, Heart Catheterization, Hysterectomy, Orthopedic Surgery Additional Past Surgical History / Comment(s): 2004 AICD, 2013 cardiac cath - treated medically, Benign R breast biopsy, colonoscopy-normal, broken R. ankle Past Anesthesia/Blood Transfusion Reactions: No Reported Reaction Type of Cardiac Device: AICD Device Placement Date:: unknown Past Psychological History: No Psychological Hx Reported Smoking Status: Former smoker Past Alcohol Use History: None Reported Past Drug Use History: None Reported - Past Family History Mother Additional Family Medical History / Comment(s): heart problems. Mother at the age of 65 or 67 of DVT "that traveled." Father Family Medical History: Myocardial Infarction ([place]) Additional Family Medical History / Comment(s): heart problems. Father of a [place] at the age of 65 yrs. General Exam Limitations: no limitations General appearance: alert, in no apparent distress Head exam: Present: atraumatic, normocephalic Eye exam: Present: normal appearance, PERRL ENT exam: Present: mucous membranes dry Neck exam: Present: normal inspection. Absent: tenderness, meningismus Respiratory exam: Present: normal lung sounds bilaterally, respiratory distress Cardiovascular Exam: Present: regular rate, normal rhythm GI/Abdominal exam: Present: soft. Absent: distended, tenderness, guarding Extremities exam: Present: normal capillary refill. Absent: pedal edema Neurological exam: Present: alert, oriented X3, CN II-XII intact. Absent: motor sensory deficit Psychiatric exam: Present: normal affect, normal mood Skin exam: Present: warm, dry, intact. Absent: cyanosis, diaphoretic Course Vital Signs 04/08/21 04/08/21 15:43 17:05 Temperature 98 F Pulse Rate 62 Respiratory 19 Rate Blood Pressure 85/43 95/59 O2 Sat by Pulse 100 Oximetry EKG Findings - EKG Comments: EKG Findings:: EKG: Sinus rhythm, nonspecific interventricular block, rate of 59 QRS duration 126, QTC 4:[address] segment elevation. Medical Decision Making - Medical Decision Making 58-year-old female with chest pain, transferred for cardiology evaluation and pacemaker interrogation. Pacemaker defibrillator interrogation is pending. Labs are repeated, results pending. She will be placed in observation on telemetry with cardiology on consultation. Her repeat magnesium is normal at 2.0. Case discussed with Dr. Saldaña who will admit. - Lab Data Result diagrams: 04/08/21 16:21 04/08/21 16:21 Lab Results 04/08/21 04/08/21 04/08/21 Range/Units 16:21 16:21 16:21 WBC 5.8 (3.8-10.6) k/uL RBC 3.78 L (3.80-5.40) m/uL Hgb 12.3 (11.4-16.0) gm/dL Hct 35.9 (34.0-46.0) % MCV 95.0 (80.0-100.0) fL MCH 32.7 (25.0-35.0) pg MCHC 34.4 (31.0-37.0) g/dL RDW 13.5 (11.5-15.5) % Plt Count 104 L (150-450) k/uL MPV 8.1 Neutrophils % 65 % Lymphocytes % 24 % Monocytes % 7 % Eosinophils % 3 % Basophils % 1 % Neutrophils # 3.7 (1.3-7.7) k/uL Lymphocytes # 1.4 (1.0-4.8) k/uL Monocytes # 0.4 (0-1.0) k/uL Eosinophils # 0.2 (0-0.7) k/uL Basophils # 0.0 (0-0.2) k/uL PT 10.1 (9.0-12.0) sec INR 0.9 (<1.2) APTT 20.1 L (22.0-30.0) sec Sodium 141 (137-145) mmol/L Potassium 4.1 (3.5-5.1) mmol/L Chloride 106 (98-107) mmol/L Carbon Dioxide 30 (22-30) mmol/L Anion Gap 5 mmol/L BUN 28 H (7-17) mg/dL Creatinine 1.57 H (0.52-1.04) mg/dL Est GFR (CKD-EPI)AfAm 39 (>60 ml/min/1.73 sqM) Est GFR (CKD-EPI)NonAf 34 (>60 ml/min/1.73 sqM) Glucose 138 H (74-99) mg/dL Calcium 8.9 (8.4-10.2) mg/dL Magnesium 2.0 (1.6-2.3) mg/dL Total Bilirubin 0.7 (0.2-1.3) mg/dL AST 32 (14-36) U/L ALT 24 (4-34) U/L Alkaline Phosphatase 74 (38-126) U/L Troponin I (0.000-0.034) ng/mL Total Protein 5.8 L (6.3-8.2) g/dL Albumin 3.4 L (3.5-5.0) g/dL 04/08/21 Range/Units 16:21 WBC (3.8-10.6) k/uL RBC (3.80-5.40) m/uL Hgb (11.4-16.0) gm/dL Hct (34.0-46.0) % MCV (80.0-100.0) fL MCH (25.0-35.0) pg MCHC (31.0-37.0) g/dL RDW (11.5-15.5) % Plt Count (150-450) k/uL MPV Neutrophils % % Lymphocytes % % Monocytes % % Eosinophils % % Basophils % % Neutrophils # (1.3-7.7) k/uL Lymphocytes # (1.0-4.8) k/uL Monocytes # (0-1.0) k/uL Eosinophils # (0-0.7) k/uL Basophils # (0-0.2) k/uL PT (9.0-12.0) sec INR (<1.2) APTT (22.0-30.0) sec Sodium (137-145) mmol/L Potassium (3.5-5.1) mmol/L Chloride (98-107) mmol/L Carbon Dioxide (22-30) mmol/L Anion Gap mmol/L BUN (7-17) mg/dL Creatinine (0.52-1.04) mg/dL Est GFR (CKD-EPI)AfAm (>60 ml/min/1.73 sqM) Est GFR (CKD-EPI)NonAf (>60 ml/min/1.73 sqM) Glucose (74-99) mg/dL Calcium (8.4-10.2) mg/dL Magnesium (1.6-2.3) mg/dL Total Bilirubin (0.2-1.3) mg/dL AST (14-36) U/L ALT (4-34) U/L Alkaline Phosphatase (38-126) U/L Troponin I <0.012 (0.000-0.034) ng/mL Total Protein (6.3-8.2) g/dL Albumin (3.5-5.0) g/dL Disposition Clinical Impression: NICM (nonischemic cardiomyopathy), AICD (automatic cardioverter/defibrillator) present, Chest pain Disposition: ADMITTED IP TO THIS [facility] Condition: Stable Is patient prescribed a controlled substance at d/c from ED?: No Referrals: Simone Ramirez MD [Primary Care Provider] - 1-2 days Decision to Admit Reason: Admit from EC Decision Date: 04/08/21 Decision Time: 17:31
[2021-04-08] MEDS ORDERED: MONTELUKAST 10 MG TAB PO SCH (21:00)
[2021-04-08] MEDS ORDERED: IPRATROPIUM-ALBUTEROL 3 ML NEB INHALATION PRN (21:11)
[2021-04-08] MEDS ORDERED: MAGNESIUM HYDROXIDE 2,400 MG/10 ML CUP PO PRN (21:12)
[2021-04-08] MEDS ORDERED: MELATONIN 3 MG TABLET PO PRN (21:12)
[2021-04-08] MEDS ORDERED: LACTULOSE 20 GM/30 ML CUP PO PRN (21:12)
[2021-04-08] MEDS ORDERED: CALCIUM CARBONATE 500 MG CHEWABLE PO PRN (21:12)
[2021-04-08] MEDS ORDERED: MAG HYDROX/AL HYDROX/SIMETH 30 ML CUP PO PRN (21:12)
[2021-04-08] MEDS ORDERED: LORazepam 0.5 MG TAB PO PRN (21:12)
[2021-04-08] MEDS ORDERED: ONDANSETRON 4 MG/2 ML VIAL IVP PRN (21:12)
[2021-04-08] MEDS ORDERED: PANTOPRAZOLE 40 MG TABLET PO SCH (21:15)
[2021-04-08] MEDS ORDERED: ATORVASTATIN 20 MG TAB PO SCH (21:15)
[2021-04-08] MEDS: POTASSIUM CHLORIDE ER 10 MEQ TAB.ER.PRT PO SCH (21:54)
[2021-04-08] MEDS: SYMBICORT 160-4.5 MCG INHALER INHALATION SCH (22:42)
[2021-04-09 07:44] LABS: Calcium 9.2 mg/dL (8.4-10.2); Potassium 4.6 mmol/L (3.5-5.1)
[2021-04-09] MEDS: SYMBICORT 160-4.5 MCG INHALER INHALATION SCH (08:17)
[2021-04-09] MEDS: POTASSIUM CHLORIDE ER 10 MEQ TAB.ER.PRT PO SCH (08:28)
[2021-04-09] MEDS ORDERED: METOPROLOL SUCCINATE (ER) 50 MG TAB.ER.24H PO SCH (09:00)
[2021-04-09] MEDS ORDERED: AMIODARONE 200 MG TAB PO SCH (09:00)
[2021-04-09] MEDS ORDERED: FOLIC ACID 1 MG TAB PO SCH (09:00)
[2021-04-09] MEDS ORDERED: ASPIRIN 81 MG PO SCH (09:00)
[2021-04-09] MEDS ORDERED: FLUoxetine HCL 20 MG CAP PO SCH (09:00)
--- NOTE | 2021-04-09 10:28 | P.CRDCN ---
History of Present Illness Consult date: 04/09/21 History of present illness: HISTORY OF PRESENT ILLNESS: This is a 66-year-old female with a past medical history significant for nonischemic cardiomyopathy, ventricular tachycardia, previous AICD implantation, and COPD. Patient follows in the office with Dr. Guerrero. We have been asked to see the patient in consultation for possible defibrillator discharge. Patient examined at the bedside. Patient states she was sleeping yesterday when she was awoken around 6 AM. She believes that she was shocked by her different relator. She states afterwards she felt a little bit lightheaded and had some mild chest pain. She went to [facility] and was transferred to [facility] for further evaluation. It is noted that the patient was admitted at the end of February 2021 after being evaluated at [facility] for wide QRS tachycardia. Patient was shocked 3 times at [facility]. Patient was transferred to [facility] for further evaluation. Patient was started on IV amiodarone and underwent cardioversion in the emergency room. EKG reveals sinus mechanism with no signs of acute ischemia Laboratory data: WBC 5.8. Hemoglobin 12.3. Platelet count 104. Sodium 142. Potassium 4.6. BUN 28. Creatinine 1.42. Magnesium 2.0. Troponin negative 3. Current home cardiac medications include lisinopril 2.5 mg daily, metoprolol succinate 50 mg daily, Lasix 40 mg daily, Lipitor 20mg daily, aspirin 81 mg daily, and amiodarone 200 mg daily Most recent echocardiogram obtained in August 2020 revealed ejection fraction 30-35%. Mild mitral regurgitation. Mild tricuspid regurgitation. Moderate pulmonary hypertension. Cardiac catheterization history: September [address] Wilkerson revealing [id number] nonobstructive coronary artery disease REVIEW OF SYSTEMS: At the time of my exam: CONSTITUTIONAL: Denies fever or chills. HEENT: Denies blurred vision, vision changes, or eye pain. Denies hemoptysis CARDIOVASCULAR: Denies chest pain. Denies orthopnea. Denies PND. Denies palpitations RESPIRATORY: Denies shortness of breath. GASTROINTESTINAL: Denies abdominal pain. Denies nausea or vomiting. HEMATOLOGIC: Denies bleeding disorders. GENITOURINARY: Denies any blood in urine. SKIN: Denies pruitis. Denies rash. PHYSICAL EXAM: VITAL SIGNS: Reviewed. GENERAL: Well-developed in no acute distress. HEENT: Head is normocephalic. Pupils are equal, round. Sclerae anicteric. Mucous membranes of the mouth are moist. Neck supple. No JVD or thyromegaly LUNGS: Respirations even and unlabored. Lungs essentially clear to auscultation bilaterally. HEART: Regular rate and rhythm. S1 and S2 heard. ABDOMEN: Soft. Nondistended. Nontender. EXTREMITIES: Normal range of motion. No clubbing or cyanosis. Peripheral pulses intact. No lower extremity edema NEUROLOGIC: Awake and alert. Oriented x 3. ASSESSMENT: AICD discharge, ruled out per interrogation Nonischemic cardiomyopathy History of AICD implantation [id number] nonobstructive coronary artery disease History of recent cardioversion COPD PLAN: Continue current cardiac medications Continue telemetry monitoring Patient may be discharged home this afternoon from a cardiac standpoint Nurse practitioner note has been reviewed by physician. Signing provider agrees with the documented findings, assessment, and plan of care. Past Medical History Past Medical History: Coronary Artery Disease (CAD), Heart Failure, COPD, Hypertension, Respiratory Disorder Additional Past Medical History / Comment(s): Pt had recent admit to [facility] 05/26/16 with possible syncopal episode. Other HX: Chronic respiratory failure- uses 4-5L liters NC as needed, chronic CHF, cardiomyopathy, past vitamin D deficiency but ok now. recent right ankle fracture History of Any Multi-Drug Resistant Organisms: None Reported Past Surgical History: AICD, Breast Surgery, Heart Catheterization, Hysterectomy, Orthopedic Surgery Additional Past Surgical History / Comment(s): 2004 AICD, 2013 cardiac cath - treated medically, Benign R breast biopsy, colonoscopy-normal, broken R. ankle Past Anesthesia/Blood Transfusion Reactions: No Reported Reaction Type of Cardiac Device: AICD Device Placement Date:: unknown Past Psychological History: No Psychological Hx Reported Additional Psychological History / Comment(s): Pt resides alone. She has home O2 and a nebulizer. Pt has a private duty [employer] that comes to help the pt three times a week. She does not drive. Her sister or a friend takes her to [employer]. Smoking Status: Former smoker Past Alcohol Use History: None Reported Additional Past Alcohol Use History / Comment(s): started smoking at age 18. stopped smoking jun 22, 2016 Past Drug Use History: None Reported - Past Family History Mother Additional Family Medical History / Comment(s): heart problems. Mother at the age of 65 or 67 of DVT "that traveled." Father Family Medical History: Myocardial Infarction ([place]) Additional Family Medical History / Comment(s): heart problems. Father of a [place] at the age of 65 yrs. Medications and Allergies Home Medications Medication Instructions Recorded Confirmed Type FLUoxetine HCL [PROzac] 20 mg PO DAILY 02/26/14 04/08/21 History Folic Acid 1 mg PO DAILY 02/26/14 04/08/21 History Montelukast [Singulair] 10 mg PO HS 02/26/14 04/08/21 History Aspirin EC [Ecotrin Low Dose] 81 mg PO DAILY 07/02/16 04/08/21 History Omeprazole 20 mg PO HS 07/22/20 04/08/21 History Ipratropium-Albuterol Nebulize 3 ml INHALATION RT-QID PRN ml 09/26/20 04/08/21 Rx [Duoneb 0.5 mg-3 mg/3 ml Soln] Budesonide/Formoterol Fumarate 2 puff INHALATION RT-BID 03/16/21 04/08/21 History [Symbicort 160-4.5 Mcg Inhaler] Potassium Chloride ER [K-Dur 10] 10 meq PO TID 03/16/21 04/08/21 History lisinopriL [Zestril] 2.5 mg PO DAILY 03/16/21 04/08/21 History Furosemide [Lasix] 40 mg PO DAILY #0 03/20/21 04/08/21 Rx Metoprolol Succinate (ER) [Toprol 50 mg PO DAILY #90 tab.er.24h 03/20/21 04/08/21 Rx XL] Amiodarone [Cordarone] 200 mg PO DAILY 04/08/21 04/08/21 History Atorvastatin [Lipitor] 20 mg PO HS 04/08/21 04/08/21 History Fluticasone Propionate [Flovent 1 puff INHALATION RT-BID 04/08/21 04/08/21 History Hfa 220 mcg] Allergies Allergy/AdvReac Type Severity Reaction Status Date / Time No Known Allergies Allergy Verified 04/08/21 17:51 Physical Exam Vitals: Vital Signs Temp Pulse Pulse Resp BP BP Pulse Ox 04/09/21 07:48 54 L 19 04/09/21 07:46 98.4 F 54 L 19 96/43 94 L 04/09/21 04:00 98.0 F 62 19 96/50 100 04/09/21 02:00 66 19 04/09/21 00:00 98.1 F 66 19 95/56 97 04/08/21 20:00 98.0 F 68 18 96/55 98 04/08/21 18:25 97.4 F L 60 18 88/54 100 04/08/21 17:42 57 L 18 97/42 100 04/08/21 17:05 95/59 04/08/21 15:43 98 F 62 19 85/43 100 Intake and Output 04/08/21 04/09/21 04/09/21 22:59 06:59 14:59 Other: Voiding Method Toilet Toilet Toilet # Voids 1 1 Weight 83.461 kg 83.6 kg Results 04/08/21 16:21 04/09/21 06:59 Cardiac Enzymes 04/08/21 04/08/21 04/08/21 Range/Units 16:21 16:21 20:46 AST 32 (14-36) U/L Troponin I <0.012 <0.012 (0.000-0.034) ng/mL 04/08/21 Range/Units 23:07 AST (14-36) U/L Troponin I <0.012 (0.000-0.034) ng/mL Coagulation 04/08/21 Range/Units 16:21 PT 10.1 (9.0-12.0) sec APTT 20.1 L (22.0-30.0) sec CBC 04/08/21 Range/Units 16:21 WBC 5.8 (3.8-10.6) k/uL RBC 3.78 L (3.80-5.40) m/uL Hgb 12.3 (11.4-16.0) gm/dL Hct 35.9 (34.0-46.0) % Plt Count 104 L (150-450) k/uL Comprehensive Metabolic Panel 04/08/21 04/09/21 Range/Units 16:21 06:59 Sodium 141 142 (137-145) mmol/L Potassium 4.1 4.6 (3.5-5.1) mmol/L Chloride 106 108 H (98-107) mmol/L Carbon Dioxide 30 33 H (22-30) mmol/L BUN 28 H 28 H (7-17) mg/dL Creatinine 1.57 H 1.42 H (0.52-1.04) mg/dL Glucose 138 H 104 H (74-99) mg/dL Calcium 8.9 9.2 (8.4-10.2) mg/dL AST 32 (14-36) U/L ALT 24 (4-34) U/L Alkaline Phosphatase 74 (38-126) U/L Total Protein 5.8 L (6.3-8.2) g/dL Albumin 3.4 L (3.5-5.0) g/dL Current Medications Generic Name Dose Route Start Last Admin Trade Name Freq PRN Reason Stop Dose Admin Acetaminophen 650 mg 04/08/21 17:04 Acetaminophen Tab 325 Mg Tab PO Q6HR PRN Mild Pain or Fever > 100.5 Al Hydroxide/Mg Hydroxide 15 ml 04/08/21 21:12 Mag Hydrox/Al Hydrox/Simeth 30 Ml Cup PO Q6HR PRN Indigestion Albuterol/Ipratropium 3 ml 04/08/21 21:11 Ipratropium-Albuterol 3 Ml Neb INHALATION RT-QID PRN Shortness Of Breath Or Wheezing Amiodarone HCl 200 mg 04/09/21 09:00 04/09/21 08:28 Amiodarone 200 Mg Tab PO 200 mg DAILY GERALD Administration Aspirin 81 mg 04/09/21 09:00 04/09/21 08:28 Aspirin 81 Mg PO 81 mg DAILY GERALD Administration Atorvastatin Calcium 20 mg 04/08/21 21:15 04/08/21 21:54 Atorvastatin 20 Mg Tab PO 20 mg HS GERALD Administration Budesonide/Formoterol Fumarate 2 puff 04/08/21 21:11 04/09/21 08:17 Symbicort 160-4.5 Mcg Inhaler INHALATION 2 puff RT-BID GERALD Administration Calcium Carbonate/Glycine 1,000 mg 04/08/21 21:12 Calcium Carbonate 500 Mg Chewable PO Q4HR PRN Dyspepsia Fluoxetine HCl 20 mg 04/09/21 09:00 04/09/21 08:28 Fluoxetine Hcl 20 Mg Cap PO 20 mg DAILY GERALD Administration Folic Acid 1 mg 04/09/21 09:00 04/09/21 08:28 Folic Acid 1 Mg Tab PO 1 mg DAILY GERALD Administration Lactulose 20 gm 04/08/21 21:12 Lactulose 20 Gm/30 Ml Cup PO DAILY PRN Constipation Lisinopril 2.5 mg 04/09/21 09:00 Lisinopril 2.5 Mg Tab PO DAILY GERALD Lorazepam 0.5 mg 04/08/21 21:12 Lorazepam 0.5 Mg Tab PO Q6HR PRN Anxiety Magnesium Hydroxide 2,400 mg 04/08/21 21:12 Magnesium Hydroxide 2,400 Mg/10 Ml Cup PO DAILY PRN Constipation Melatonin 3 mg 04/08/21 21:12 Melatonin 3 Mg Tablet PO HS PRN Insomnia Metoprolol Succinate 50 mg 04/09/21 09:00 04/09/21 08:28 Metoprolol Succinate (Er) 50 Mg Tab.Er.24h PO 50 mg DAILY GERALD Administration Montelukast Sodium 10 mg 04/08/21 21:00 04/08/21 21:54 Montelukast 10 Mg Tab PO 10 mg HS GERALD Administration Naloxone HCl 0.2 mg 04/08/21 17:04 Naloxone 0.4 Mg/Ml 1 Ml Vial IV Q2M PRN Opioid Reversal Ondansetron HCl 4 mg 04/08/21 21:12 Ondansetron 4 Mg/2 Ml Vial IVP Q8HR PRN Nausea And Vomiting Pantoprazole Sodium 40 mg 04/08/21 21:15 04/08/21 21:54 Pantoprazole 40 Mg Tablet PO 40 mg HS GERALD Administration Potassium Chloride 10 meq 04/08/21 22:00 04/09/21 08:28 Potassium Chloride Er 10 Meq Tab.Er.Prt PO 10 meq TID GERALD Administration Intake and Output 04/08/21 04/09/21 04/09/21 22:59 06:59 14:59 Other: Voiding Method Toilet Toilet Toilet # Voids 1 1 Weight 83.461 kg 83.6 kg 04/08/21 16:21 04/09/21 06:59
[2021-04-09 11:41] VITALS: BP 89/54; PULSE 55; RESP 18; TEMP 98.3
--- NOTE | 2021-04-09 15:18 | P.HPIM ---
History of Present Illness H&P Date: 04/09/21 Chief Complaint: AICD firing History of presenting complaint: This is a pleasant 66-year-old patient, follows with Dr. Ramirez. Supervisor Data Processing Dr. Noemi Elliott. Chronic stable medical conditions include congestive heart failure, COPD, hypertension, hyperlipidemia, chronic hypoxic respiratory failure on home oxygen 2 L AICD. Patient lives alone. Has home health. Does have a walker. Patient is in the hospital about a month ago, with repeated episodes of V. tach. Was cardioverted. Medication adjusted. Was discharged to follow with cardiology. Patient now presents with episode of AICD firing. 1. It feels like a sharp pain. Otherwise no chest pain or shortness of breath. No change edema. Patient came to get it checked out. No fever no chills. Review of systems: GEN.: None EYES: None HEENT: None NECK: None RESPIRATORY: None CARDIOVASCULAR: As above GASTROINTESTINAL: None GENITOURINARY: None MUSCULOSKELETAL: Joint pains LYMPHATICS: None HEMATOLOGICAL: None PSYCHIATRY: Slightly anxious NEUROLOGICAL: Uses a walker Past medical history to include: Coronary artery disease, CHF, COPD, hyperlipidemia, hypertension, home oxygen, cardiomyopathy, AICD. Social history: Lives alone. 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 Comes 3 times a week. Patient smoked for about 37 years, 1 pack a day stopped about 20 years ago. No alcohol. Physical examination: VITAL SIGNS: 98, 62, 19, 95 x 59, 100% on 2 L GENERAL: BMI 34.8, laying and recliner, awake, but tired EYES: Pupils equal. Conjunctiva normal. HEENT: External appearance of nose and ears normal, oral cavity grossly normal. NECK: JVD not raised; masses not palpable. HEART: First and second heart sounds are normal; no edema. LUNGS: Respiratory rate increased; decreased breath sounds. ABDOMEN: Soft, nontender, liver spleen not palpable, no masses palpable. PSYCH: Alert and oriented x3; mood and affect. Anxiousl. MUSCULAR skeletal: Evidence of OA NEUROLOGICAL: Cranial nerves grossly intact; no facial asymmetry, power and sensation grossly intact. LYMPHATICS: No lymph nodes palpable in the axilla and neck INVESTIGATIONS, reviewed in the clinical context: WBC 5.8 hemoglobin 12.3 platelets 104 potassium 4.1 BUN 28 creatinine 1.57 Troponin I 3 negative EKG tracing personally reviewed by me-sinus rhythm. Assessment and plan: -AICD firing 1 On telemetry. Cardiology consulted. Continue amiodarone, Toprol-XL -Coronary artery disease On Coreg, Lipitor, aspirin -Obesity BMI 37.7 -COPD in an ex-smoker Continue DuoNeb, Symbicort -Hyperlipidemia Lipitor -Chronic hypoxic respiratory failure on home oxygen 2 L, from underlying COPD Supplemental oxygen -AICD -Chronic gait dysfunction uses a walker Admitted. Home medications resumed. Telemetry. Cardiology consulted. Discussed with the patient. Past Medical History Past Medical History: Coronary Artery Disease (CAD), Heart Failure, COPD, Hypertension, Respiratory Disorder Additional Past Medical History / Comment(s): Pt had recent admit to [facility] 05/26/16 with possible syncopal episode. Other HX: Chronic respiratory failure- uses 4-5L liters NC as needed, chronic CHF, cardiomyopathy, past vitamin D deficiency but ok now. recent right ankle fracture History of Any Multi-Drug Resistant Organisms: None Reported Past Surgical History: AICD, Breast Surgery, Heart Catheterization, Hysterectomy, Orthopedic Surgery Additional Past Surgical History / Comment(s): 2004 AICD, 2013 cardiac cath - treated medically, Benign R breast biopsy, colonoscopy-normal, broken R. ankle Past Anesthesia/Blood Transfusion Reactions: No Reported Reaction Type of Cardiac Device: AICD Device Placement Date:: unknown Past Psychological History: No Psychological Hx Reported Additional Psychological History / Comment(s): Pt resides alone. She has home O2 and a nebulizer. Pt has a private duty [employer] SUPERVISOR that comes to help the pt three times a week. She does not drive. Her sister or a friend takes her to [facility]. Smoking Status: Former smoker Past Alcohol Use History: None Reported Additional Past Alcohol Use History / Comment(s): started smoking at age 18. stopped smoking jun 22, 2016 Past Drug Use History: None Reported - Past Family History Mother Additional Family Medical History / Comment(s): heart problems. Mother at the age of 65 or 67 of DVT "that traveled." Father Family Medical History: Myocardial Infarction (CT) Additional Family Medical History / Comment(s): heart problems. Father of a CT at the age of 65 yrs. Medications and Allergies Home Medications Medication Instructions Recorded Confirmed Type FLUoxetine HCL [PROzac] 20 mg PO DAILY 02/26/14 04/08/21 History Folic Acid 1 mg PO DAILY 02/26/14 04/08/21 History Montelukast [Singulair] 10 mg PO HS 02/26/14 04/08/21 History Aspirin EC [Ecotrin Low Dose] 81 mg PO DAILY 07/02/16 04/08/21 History Omeprazole 20 mg PO HS 07/22/20 04/08/21 History Ipratropium-Albuterol Nebulize 3 ml INHALATION RT-QID PRN ml 09/26/20 04/08/21 Rx [Duoneb 0.5 mg-3 mg/3 ml Soln] Budesonide/Formoterol Fumarate 2 puff INHALATION RT-BID 03/16/21 04/08/21 History [Symbicort 160-4.5 Mcg Inhaler] Potassium Chloride ER [K-Dur 10] 10 meq PO TID 03/16/21 04/08/21 History lisinopriL [Zestril] 2.5 mg PO DAILY 03/16/21 04/08/21 History Furosemide [Lasix] 40 mg PO DAILY #0 03/20/21 04/08/21 Rx Metoprolol Succinate (ER) [Toprol 50 mg PO DAILY #90 tab.er.24h 03/20/21 04/08/21 Rx XL] Amiodarone [Cordarone] 200 mg PO DAILY 04/08/21 04/08/21 History Atorvastatin [Lipitor] 20 mg PO HS 04/08/21 04/08/21 History Fluticasone Propionate [Flovent 1 puff INHALATION RT-BID 04/08/21 04/08/21 History Hfa 220 mcg] Allergies Allergy/AdvReac Type Severity Reaction Status Date / Time No Known Allergies Allergy Verified 04/08/21 17:51 Physical Exam Vitals: Vital Signs Temp Pulse Pulse Resp BP BP Pulse Ox 04/09/21 07:48 54 L 19 04/09/21 07:46 98.4 F 54 L 19 96/43 94 L 04/09/21 04:00 98.0 F 62 19 96/50 100 04/09/21 02:00 66 19 04/09/21 00:00 98.1 F 66 19 95/56 97 04/08/21 20:00 98.0 F 68 18 96/55 98 04/08/21 18:25 97.4 F L 60 18 88/54 100 04/08/21 17:42 57 L 18 97/42 100 04/08/21 17:05 95/59 04/08/21 15:43 98 F 62 19 85/43 100 Intake and Output 04/08/21 04/09/21 04/09/21 22:59 06:59 14:59 Other: Voiding Method Toilet Toilet Toilet # Voids 1 1 1 # Bowel Movements 1 Weight 83.461 kg 83.6 kg Results CBC & Chem 7: 04/08/21 16:21 04/09/21 06:59 Labs: Abnormal Lab Results - Last 24 Hours (Table) 04/08/21 04/08/21 04/08/21 Range/Units 16:21 16:21 16:21 RBC 3.78 L (3.80-5.40) m/uL Plt Count 104 L (150-450) k/uL APTT 20.1 L (22.0-30.0) sec Chloride (98-107) mmol/L Carbon Dioxide (22-30) mmol/L BUN 28 H (7-17) mg/dL Creatinine 1.57 H (0.52-1.04) mg/dL Glucose 138 H (74-99) mg/dL Total Protein 5.8 L (6.3-8.2) g/dL Albumin 3.4 L (3.5-5.0) g/dL 04/09/21 Range/Units 06:59 RBC (3.80-5.40) m/uL Plt Count (150-450) k/uL APTT (22.0-30.0) sec Chloride 108 H (98-107) mmol/L Carbon Dioxide 33 H (22-30) mmol/L BUN 28 H (7-17) mg/dL Creatinine 1.42 H (0.52-1.04) mg/dL Glucose 104 H (74-99) mg/dL Total Protein (6.3-8.2) g/dL Albumin (3.5-5.0) g/dL Thrombosis Risk Factor Assmnt - Choose All That Apply Each Factor Represents 1 point: Medical pt on bed rest, Obesity (BMI >25), Swollen legs (current) Each Risk Factor Represents 2 Points: Age 61-74 years Other congenital or acquired thrombophilia - If yes, enter type in comment: No Thrombosis Risk Factor Assessment Total Risk Factor Score: 5 Thrombosis Risk Factor Assessment Level: High Risk
--- NOTE | 2021-04-09 15:28 | P.DS ---
Providers Date of admission: 04/08/21 17:04 Expected date of discharge: 04/09/21 Attending physician: Jonel Saldaña Consults: 04/08/21 17:05 Consult Physician Routine Consulting Provider: Alexi Wilkerson Consult Reason/Comments: CP Do you want consulting provider notified?: Yes Primary care physician: [facility] Course: Chief Complaint: AICD firing History of presenting complaint: This is a pleasant 66-year-old patient, follows with Dr. Ramirez. Emotionally Impaired Teacher Dr. Noemi Elliott. Chronic stable medical conditions include congestive heart failure, COPD, hypertension, hyperlipidemia, chronic hypoxic respiratory failure on home oxygen 2 L AICD. Patient lives alone. Has home health. Does have a walker. Patient is in the hospital about a month ago, with repeated episodes of V. tach. Was cardioverted. Medication adjusted. Was discharged to follow with cardiology. Patient now presents with episode of AICD firing. 1. It feels like a sharp pain. Otherwise no chest pain or shortness of breath. No change edema. Patient came to get it checked out. No fever no chills. AICD was interrogated. Cleared by cardiology for discharge Consultation: Dr. Valera from cardiology Past medical history to include: Coronary artery disease, CHF, COPD, hyperlipidemia, hypertension, home oxygen, cardiomyopathy, AICD. Social history: Lives alone. 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 Patient smoked for about 37 years, 1 pack a day stopped about 20 years ago. No alcohol. Physical examination: VITAL SIGNS: 97.4, 60, 18, 88 x 54, 100% room air GENERAL: BMI 34.8, laying and recliner, awake, but tired EYES: Pupils equal. Conjunctiva normal. HEENT: External appearance of nose and ears normal, oral cavity grossly normal. NECK: JVD not raised; masses not palpable. HEART: First and second heart sounds are normal; no edema. LUNGS: Respiratory rate increased; decreased breath sounds. ABDOMEN: Soft, nontender, liver spleen not palpable, no masses palpable. PSYCH: Alert and oriented x3; mood and affect. Anxiousl. MUSCULAR skeletal: Evidence of OA INVESTIGATIONS, reviewed in the clinical context: WBC 5.8 hemoglobin 12.3 platelets 104 potassium 4.1 BUN 28 creatinine 1.57 Troponin I 3 negative EKG tracing personally reviewed by me-sinus rhythm. Assessment and plan: -AICD firing 1 On telemetry. Cardiology consulted. Continue amiodarone, Toprol-XL AICD interrogated. -Coronary artery disease On Coreg, Lipitor, aspirin -Obesity BMI 37.7 -COPD in an ex-smoker Continue DuoNeb, Symbicort -Hyperlipidemia Lipitor -Chronic hypoxic respiratory failure on home oxygen 2 L, from underlying COPD Supplemental oxygen -AICD -Chronic gait dysfunction uses a walker Disposition: Home Patient Condition at Discharge: Stable Plan - Discharge Summary Discharge Rx Participant: Yes New Discharge Prescriptions: Continue Folic Acid 1 mg PO DAILY FLUoxetine HCL [PROzac] 20 mg PO DAILY Montelukast [Singulair] 10 mg PO HS Aspirin EC [Ecotrin Low Dose] 81 mg PO DAILY Omeprazole 20 mg PO HS Ipratropium-Albuterol Nebulize [Duoneb 0.5 mg-3 mg/3 ml Soln] 3 ml INHALATION RT-QID PRN ml PRN Reason: Shortness Of Breath Or Wheezing lisinopriL [Zestril] 2.5 mg PO DAILY Budesonide/Formoterol Fumarate [Symbicort 160-4.5 Mcg Inhaler] 2 puff INHALATION RT-BID Metoprolol Succinate (ER) [Toprol XL] 50 mg PO DAILY #90 tab.er.24h Furosemide [Lasix] 40 mg PO DAILY #0 Atorvastatin [Lipitor] 20 mg PO HS Potassium Chloride ER [K-Dur 10] 10 meq PO TID Fluticasone Propionate [Flovent Hfa 220 mcg] 1 puff INHALATION RT-BID Amiodarone [Cordarone] 200 mg PO DAILY Discharge Medication List FLUoxetine HCL [PROzac] 20 mg PO DAILY 02/26/14 [History] Folic Acid 1 mg PO DAILY 02/26/14 [History] Montelukast [Singulair] 10 mg PO HS 02/26/14 [History] Aspirin EC [Ecotrin Low Dose] 81 mg PO DAILY 07/02/16 [History] Omeprazole 20 mg PO HS 07/22/20 [History] Ipratropium-Albuterol Nebulize [Duoneb 0.5 mg-3 mg/3 ml Soln] 3 ml INHALATION RT-QID PRN ml 09/26/20 [Rx] Budesonide/Formoterol Fumarate [Symbicort 160-4.5 Mcg Inhaler] 2 puff INHALATION RT-BID 03/16/21 [History] Potassium Chloride ER [K-Dur 10] 10 meq PO TID 03/16/21 [History] lisinopriL [Zestril] 2.5 mg PO DAILY 03/16/21 [History] Furosemide [Lasix] 40 mg PO DAILY #0 03/20/21 [Rx] Metoprolol Succinate (ER) [Toprol XL] 50 mg PO DAILY #90 tab.er.24h 03/20/21 [Rx] Amiodarone [Cordarone] 200 mg PO DAILY 04/08/21 [History] Atorvastatin [Lipitor] 20 mg PO HS 04/08/21 [History] Fluticasone Propionate [Flovent Hfa 220 mcg] 1 puff INHALATION RT-BID 04/08/21 [History] Follow up Appointment(s)/Referral(s): Simone Ramirez MD [Primary Care Provider] - 04/11/21 2:30 pm [facility], [NON-STAFF] - Sushant Guerrero MD [STAFF PHYSICIAN] - 04/23/21 3:00 pm ([place] office) Patient Instructions/Handouts: Chest Pain (DC), Hypomagnesemia (DC) Discharge Disposition: TRANSFER TO SNF/ECF
== END 2021-04-09 14:55 | DRG 315 ==
LOC: EC 15:42 → 3SCARD 17:04
PROVIDERS: ADMIT Hospitalist; ATTEND Hospitalist
PROC: 4B02XTZ Measurement of Cardiac Defibrillator, External Approach (ICD-10-PCS; principal; 2021-04-08)
DX: I42.8 Other cardiomyopathies (principal); J96.11 Chronic respiratory failure with hypoxia; I11.0 Hypertensive heart disease with heart failure; E66.9 Obesity, unspecified; E78.5 Hyperlipidemia, unspecified; I25.10 Atherosclerotic heart disease of native coronary artery without angina pectoris; I50.9 Heart failure, unspecified; J44.9 Chronic obstructive pulmonary disease, unspecified; Z99.81 Dependence on supplemental oxygen; Z68.37 Body mass index [BMI] 37.0-37.9, adult; Z79.51 Long term (current) use of inhaled steroids; Z79.82 Long term (current) use of aspirin; Z79.899 Other long term (current) drug therapy; Z82.49 Family history of ischemic heart disease and other diseases of the circulatory system; Z87.891 Personal history of nicotine dependence; Z90.710 Acquired absence of both cervix and uterus; Z45.02 Encounter for adjustment and management of automatic implantable cardiac defibrillator; R26.9 Unspecified abnormalities of gait and mobility; Z60.2 Problems related to living alone
CPT/HCPCS: 36415; 80048; 80053; 83735; 84484; 85025; 85610; 85730; 93005; 94640; 99285

== ENCOUNTER 2022-10-30 13:43 | Observation (INO) | payer MEDICARE, OTHER ==
[2022-10-30] MEDS ORDERED: SODIUM CHLORIDE 0.9% 1,000 ML IV STA (13:57)
--- NOTE | 2022-10-30 14:09 | ED ---
General Adult HPI - General Chief complaint: Dizziness Stated complaint: Hypotension,Dizziness Time Seen by Provider: 10/30/22 13:50 Source: patient, EMS, RN notes reviewed, old records reviewed Mode of arrival: EMS Limitations: no limitations - History of Present Illness Initial comments: This is a 67-year-old female presents emergency Department with a past medical history significant for pacemaker and hypotension which she states is her baseline. Patient comes in today because she was feeling dizzy and lightheaded and she was post have her pacemaker battery replaced a couple of days ago but she was unable to get a ride in to get it done. Patient states she also is very nauseated last night she states she vomited a couple times last night but none today. Patient states she called EMS because of the dizziness and she assumed it was because of her pacemaker. EMS stated when they got to her pulse rate was in the 40s and her blood pressure was systolically in the 70s. Patient received 500 mL bolus of normal saline on the way in. Patient denies chest pain. Patient denies any nausea currently. Patient denies abdominal pain patient de nies diarrhea. Patient states she is not dizzy when she is lying in bed. - Related Data Home Medications Medication Instructions Recorded Confirmed FLUoxetine HCL [PROzac] 20 mg PO DAILY 02/26/14 04/08/21 Folic Acid 1 mg PO DAILY 02/26/14 04/08/21 Montelukast [Singulair] 10 mg PO HS 02/26/14 04/08/21 Aspirin EC [Ecotrin Low Dose] 81 mg PO DAILY 07/02/16 04/08/21 Omeprazole 20 mg PO HS 07/22/20 04/08/21 Budesonide/Formoterol Fumarate 2 puff INHALATION RT-BID 03/16/21 04/08/21 [Symbicort 160-4.5 Mcg Inhaler] Potassium Chloride ER [K-Dur 10] 10 meq PO TID 03/16/21 04/08/21 lisinopriL [Zestril] 2.5 mg PO DAILY 03/16/21 04/08/21 Amiodarone [Cordarone] 200 mg PO DAILY 04/08/21 04/08/21 Atorvastatin [Lipitor] 20 mg PO HS 04/08/21 04/08/21 Fluticasone Propionate [Flovent 1 puff INHALATION RT-BID 04/08/21 04/08/21 Hfa 220 mcg] Previous Rx's Medication Instructions Recorded Ipratropium-Albuterol Nebulize 3 ml INHALATION RT-QID PRN ml 09/26/20 [Duoneb 0.5 mg-3 mg/3 ml Soln] Furosemide [Lasix] 40 mg PO DAILY #0 03/20/21 Metoprolol Succinate (ER) [Toprol 50 mg PO DAILY #90 tab.er.24h 03/20/21 XL] Allergies Allergy/AdvReac Type Severity Reaction Status Date / Time No Known Allergies Allergy Verified 10/30/22 13:51 Review of Systems ROS Statement: Those systems with pertinent positive or pertinent negative responses have been documented in the HPI. ROS Other: All systems not noted in ROS Statement are negative. Past Medical History Past Medical History: Coronary Artery Disease (CAD), Heart Failure, COPD, Hypertension, Respiratory Disorder Additional Past Medical History / Comment(s): Pt had recent admit to [facility] 05/26/16 with possible syncopal episode. Other HX: Chronic respiratory failure- uses 4-5L liters NC as needed, chronic CHF, cardiomyopathy, past vitamin D deficiency but ok now. recent right ankle fracture History of Any Multi-Drug Resistant Organisms: None Reported Past Surgical History: AICD, Breast Surgery, Heart Catheterization, Hystere ctomy, Orthopedic Surgery Additional Past Surgical History / Comment(s): 2004 AICD, 2013 cardiac cath - treated medically, Benign R breast biopsy, colonoscopy-normal, broken R. ankle Past Anesthesia/Blood Transfusion Reactions: No Reported Reaction Type of Cardiac Device: AICD Device Placement Date:: unknown Past Psychological History: No Psychological Hx Reported Smoking Status: Former smoker Past Alcohol Use History: None Reported Past Drug Use History: None Reported - Past Family History Mother Additional Family Medical History / Comment(s): heart problems. Mother at the age of 65 or 67 of DVT "that traveled." Father Family Medical History: Myocardial Infarction ([place]) Additional Family Medical History / Comment(s): heart problems. Father of a [place] at the age of 65 yrs. General Exam - General Exam Comments Initial Comments: GENERAL: Patient is well-developed and well-nourished. Patient is nontoxic and well- hydrated and is in mild distress. ENT: Neck is soft and supple. No significant lymphadenopathy is noted. Oropharynx is clear. Moist mucous membranes. Neck has full range of motion without eliciting any pain. EYES: The sclera were anicteric and conjunctiva were pink and moist. Extraocular movements were intact and pupils were equal round and reactive to light. Eyelids were unremarkable. PULMONARY: Unlabored respirations. Good breath sounds bilaterally. No audible rales rhon chi or wheezing was noted. CARDIOVASCULAR: There is a regular rate and rhythm without any murmurs gallops or rubs. ABDOMEN: Soft and nontender with normal bowel sounds. SKIN: Skin is clear with no lesions or rashes and otherwise unremarkable. NEUROLOGIC: Patient is alert and oriented x3. Cranial nerves II through XII are grossly intact. Motor and sensory are also intact. Normal speech, volume and content. Symmetrical smile. MUSCULOSKELETAL: Normal extremities with adequate strength and full range of motion. No lower extremity swelling or edema. No calf tenderness. LYMPHATICS: No significant lymphadenopathy is noted PSYCHIATRIC: Normal psychiatric evaluation. Limitations: no limitations Course Vital Signs 10/30/22 10/30/22 10/30/22 13:44 14:15 15:30 Temperature 97.9 F Pulse Rate 95 86 89 Respiratory 20 21 20 Rate Blood Pressure 85/62 121/43 114/50 O2 Sat by Pulse 98 100 Oximetry 10/30/22 16:00 Temperature Pulse Rate 89 Respiratory 20 Rate Blood Pressure 100/52 O2 Sat by Pulse 100 Oximetry Medical Decision Making - Medical Decision Making EKG is interpreted by myself shows a sinus rhythm at 92 bpm IA interval 170 QRS is 123 QT interval 11/25/1989 QTC is 418. Patient's EKG shows no ST segment elevation or depression Was pt. sent in by a medical professional or institution (, PA, PUBLIC HEALTH DIETITIAN, urgent care, hospital, or residential...) When possible be specific @ -No Did you speak to anyone other than the patient for history (EMS, parent, family, police, friend...)? What history was obtained from this source @ -No Did you review nursing and triage notes (agree or disagree)? Why? @ -I reviewed and agree with nursing and triage notes Were old charts reviewed (outside hosp., previous admission, EMS record, old EKG, old radiological studies, urgent care reports/EKG's, residential records)? Report findings @ -I reviewed prior lab work and radiological studies Differential Diagnosis (chest pain, altered mental status, abdominal pain women, abdominal pain men, vaginal bleeding, weakness, fever, dyspnea, syncope, headache, dizziness, GI bleed, back pain, seizure, CVA, palpatations, mental health, musculoskeletal)? @ -Differential Dizziness: Benign paroxysmal positional Vertigo, Menieres disease, otitis media, acoustic neuroma, vertebrobasilar insufficiency, cerebellar stroke, encephalitis, hypovolemic, arrhythmia, coronary artery syndrome, anemia, this is not meant to be an all-inclusive list EKG interpreted by me (3pts min.). @ -As above X-rays interpreted by me (1pt min.). @ -Chest x-ray was interpreted by myself is in no acute abnormality. CT interpreted by me (1pt min.). @ -None done U/S interpreted by me (1pt. min.). @ -None done What testing was considered but not performed or refused? (CT, X-rays, U/S, labs)? Why? @ -None What meds were considered but not given or refused? Why? @ -None Did you discuss the management of the patient with other professionals (professionals i.e. , PA, PUBLIC HEALTH DIETITIAN, lab, RT, psych nurse, social service assistant, material handling equipment stevedore, teacher, chief security and safety officer, hospice case manager)? Give summary @ -No Was smoking cessation discussed for >3mins.? @ -No Was critical care preformed (if so, how long)? @ -No Were there social determinants of health that impacted care today? How? (Homelessness, low income, unemployed, alcoholism, drug addiction, transportation, low edu. Level, literacy, decrease access to med. care, [place] [facility], rehab)? @ -No Was there de-escalation of care discussed even if they declined (Discuss DNR or withdrawal of care, Hospice)? DNR status @ -No What co-morbidities impacted this encounter? (DM, HTN, Smoking, COPD, CAD, Cancer, CVA, ARF, Chemo, Hep., AIDS, mental health diagnosis, sleep apnea, morbid obesity)? @ -None Was patient admitted / discharged? Hospital course, mention meds given and route, prescriptions, significant lab abnormalities, going to OR and other pertinent info. @ -Patient was initially bradycardic and hypotensive when she arrived however her heart rate came up nicely and her pressure came up nicely with a little bit of fluid. I spoke with Dr. Saldaña he agreed to admit the patient admitted the patient I consulted cardiology Undiagnosed new problem with uncertain prognosis? @ -No Drug Therapy requiring intensive monitoring for toxicity (Heparin, Nitro, Insulin, Cardizem)? @ -No Were any procedures done? @ -No Diagnosis/symptom? @ -Bradycardia Acute, or Chronic, or Acute on Chronic? @ -Acute Uncomplicated (without systemic symptoms) or Complicated (systemic symptoms)? @ -default Side effects of treatment? @ -No Exacerbation, Progression, or Severe Exacerbation? @ -No Poses a threat to life or bodily function? How? (Chest pain, [place], [place], pneumonia, PE, COPD, DKA, ARF, appy, cholecystitis, CVA, Diverticulitis, Homicidal, Suicidal, threat to staff... and all critical care pts) @ -Yes. He becomes more bradycardic perfusion can decrease in the complaint and/or dysfunction Diagnosis/symptom? @ -Hypotension Acute, or Chronic, or Acute on Chronic? @ -Acute Uncomplicated (without systemic symptoms) or Complicated (systemic symptoms)? @ -default Side effects of treatment? @ -none Exacerbation, Progression, or Severe Exacerbation] @ -no Poses a threat to life or bodily function? @ -no Diagnosis/symptom? @ -Hypomagnesemia Acute, or Chronic, or Acute on Chronic? @ -Acute Uncomplicated (without systemic symptoms) or Complicated (systemic symptoms)? @ -default Side effects of treatment? @ -none Exacerbation, Progression, or Severe Exacerbation] @ -no Poses a threat to life or bodily function? @ -no - Lab Data Result diagrams: 10/30/22 14:06 10/30/22 14:06 Lab Results 10/30/22 10/30/22 10/30/22 Range/Units 14:06 14:06 14:06 WBC 5.3 (3.8-10.6) k/uL RBC 3.90 (3.80-5.40) m/uL Hgb 12.2 (11.4-16.0) gm/dL Hct 37.2 (34.0-46.0) % MCV 95.5 (80.0-100.0) fL MCH 31.4 (25.0-35.0) pg MCHC 32.8 (31.0-37.0) g/dL RDW 16.3 H (11.5-15.5) % Plt Count 112 L (150-450) k/uL MPV 8.2 Neutrophils % 65 % Lymphocytes % 26 % Monocytes % 6 % Eosinophils % 2 % Basophils % 0 % Neutrophils # 3.4 (1.3-7.7) k/uL Lymphocytes # 1.4 (1.0-4.8) k/uL Monocytes # 0.3 (0-1.0) k/uL Eosinophils # 0.1 (0-0.7) k/uL Basophils # 0.0 (0-0.2) k/uL Anisocytosis Slight PT 10.5 (9.0-12.0) sec INR 1.0 (<1.2) APTT 21.8 L (22.0-30.0) sec Sodium (137-145) mmol/L Potassium (3.5-5.1) mmol/L Chloride (98-107) mmol/L Carbon Dioxide (22-30) mmol/L Anion Gap mmol/L BUN (7-17) mg/dL Creatinine (0.52-1.04) mg/dL Est GFR (CKD-EPI)AfAm (>60 ml/min/1.73 sqM) Est GFR (CKD-EPI)NonAf (>60 ml/min/1.73 sqM) Glucose (74-99) mg/dL Calcium (8.4-10.2) mg/dL Magnesium (1.6-2.3) mg/dL Total Bilirubin (0.2-1.3) mg/dL AST (14-36) U/L ALT (4-34) U/L Alkaline Phosphatase (38-126) U/L Troponin I (0.000-0.034) ng/mL NT-Pro-B Natriuret Pep pg/mL Total Protein (6.3-8.2) g/dL Albumin (3.5-5.0) g/dL TSH (0.465-4.680) mIU/L Urine Color Yellow Urine Appearance Clear (Clear) Urine pH 6.0 (5.0-8.0) Ur Specific [place] 1.021 (1.001-1.035) Urine Protein Trace H (Negative) Urine Glucose (UA) 3+ H (Negative) Urine Ketones 1+ H (Negative) Urine Blood Negative (Negative) Urine Nitrite Negative (Negative) Urine Bilirubin Negative (Negative) Urine Urobilinogen <2.0 (<2.0) mg/dL Ur Leukocyte Esterase Moderate H (Negative) Urine RBC 1 (0-5) /hpf Urine WBC 5 (0-5) /hpf Ur Squamous Epith Cells 6 H (0-4) /hpf Urine Bacteria Rare H (None) /hpf Urine Mucus Rare H (None) /hpf 10/30/22 10/30/22 10/30/22 Range/Units 14:06 14:06 14:06 WBC (3.8-10.6) k/uL RBC (3.80-5.40) m/uL Hgb (11.4-16.0) gm/dL Hct (34.0-46.0) % MCV (80.0-100.0) fL MCH (25.0-35.0) pg MCHC (31.0-37.0) g/dL RDW (11.5-15.5) % Plt Count (150-450) k/uL MPV Neutrophils % % Lymphocytes % % Monocytes % % Eosinophils % % Basophils % % Neutrophils # (1.3-7.7) k/uL Lymphocytes # (1.0-4.8) k/uL Monocytes # (0-1.0) k/uL Eosinophils # (0-0.7) k/uL Basophils # (0-0.2) k/uL Anisocytosis PT (9.0-12.0) sec INR (<1.2) APTT (22.0-30.0) sec Sodium 140 (137-145) mmol/L Potassium 3.6 (3.5-5.1) mmol/L Chloride 105 (98-107) mmol/L Carbon Dioxide 30 (22-30) mmol/L Anion Gap 5 mmol/L BUN 10 (7-17) mg/dL Creatinine 1.26 H (0.52-1.04) mg/dL Est GFR (CKD-EPI)AfAm 50 (>60 ml/min/1.73 sqM) Est GFR (CKD-EPI)NonAf 44 (>60 ml/min/1.73 sqM) Glucose 78 (74-99) mg/dL Calcium 8.5 (8.4-10.2) mg/dL Magnesium 1.4 L (1.6-2.3) mg/dL Total Bilirubin 1.1 (0.2-1.3) mg/dL AST 31 (14-36) U/L ALT 19 (4-34) U/L Alkaline Phosphatase 107 (38-126) U/L Troponin I 0.017 (0.000-0.034) ng/mL NT-Pro-B Natriuret Pep 1440 pg/mL Total Protein 5.6 L (6.3-8.2) g/dL Albumin 3.1 L (3.5-5.0) g/dL TSH 2.880 (0.465-4.680) mIU/L Urine Color Urine Appearance (Clear) Urine pH (5.0-8.0) Ur Specific [place] (1.001-1.035) Urine Protein (Negative) Urine Glucose (UA) (Negative) Urine Ketones (Negative) Urine Blood (Negative) Urine Nitrite (Negative) Urine Bilirubin (Negative) Urine Urobilinogen (<2.0) mg/dL Ur Leukocyte Esterase (Negative) Urine RBC (0-5) /hpf Urine WBC (0-5) /hpf Ur Squamous Epith Cells (0-4) /hpf Urine Bacteria (None) /hpf Urine Mucus (None) /hpf Disposition Clinical Impression: Bradycardia, Hypotension, Hypomagnesemia Disposition: ADMITTED IP TO THIS HOSP Referrals: Simone Ramirez MD [Primary Care Provider] - 1-2 days Time of Disposition: 16:01
[2022-10-30 14:21] LABS: Anisocytosis Slight; Basophils % (A) 0 %; Eosinophils # (A) 0.1 k/uL (0-0.7); Eosinophils % (A) 2 %; HCT 37.2 % (34.0-46.0); HGB 12.2 gm/dL (11.4-16.0); Lymphocytes # (A) 1.4 k/uL (1.0-4.8); Lymphocytes % (A) 26 %; MCH 31.4 pg (25.0-35.0); MCHC 32.8 g/dL (31.0-37.0); MCV 95.5 fL (80.0-100.0); Mean Platelet Volume 8.2; Monocytes # (A) 0.3 k/uL (0-1.0); Monocytes % (A) 6 %; Neutrophils # (A) 3.4 k/uL (1.3-7.7); Neutrophils % (A) 65 %; Platelet Count 112 k/uL (150-450); RDW 16.3 % (11.5-15.5); WBC 5.3 k/uL (3.8-10.6)
--- NOTE | 2022-10-30 14:22 | XR ---
EXAMINATION TYPE: XR chest 2V DATE OF EXAM: 10/30/2022 COMPARISON: 03/20/2021 INDICATION: Dysrhythmia short of breath TECHNIQUE: Frontal and lateral views of the chest are obtained. FINDINGS: The heart size is mildly prominent. The pulmonary vasculature is normal. Minimal plate atelectasis remaining at the left costophrenic angle. 2-lead pacemaker overlies the lef t chest. IMPRESSION: 1. Mild cardiomegaly. 2. Plate atelectasis left costophrenic angle.
[2022-10-30 14:32] LABS: Albumin 3.1 g/dL (3.5-5.0); Calcium 8.5 mg/dL (8.4-10.2); Magnesium 1.4 mg/dL (1.6-2.3); Potassium 3.6 mmol/L (3.5-5.1); Total Bilirubin 1.1 mg/dL (0.2-1.3); Total Protein 5.6 g/dL (6.3-8.2)
[2022-10-30 14:45] LABS: Prothrombin Time 10.5 sec (9.0-12.0)
[2022-10-30 15:10] LABS: Appearance,Urine Clear (Clear); Bacteria,Urine Rare /hpf; Bilirubin,Urine Negative (Negative); Blood,Urine Negative (Negative); Color,Urine Yellow; Glucose,Urine (UA) 3+ (Negative); Ketones,Urine 1+ (Negative); Leukocyte Esterase,Urine Moderate (Negative); Mucus,Urine Rare /hpf; Nitrite,Urine Negative (Negative); Partial Thromboplastin Time 21.8 sec (22.0-30.0); Protein,Urine Trace (Negative); RBC,Urine 1 /hpf (0-5); Specific Gravity,Urine 1.021 (1.001-1.035); Squamous Epithelial Cell,Urine 6 /hpf (0-4); Urobilinogen,Urine <2.0 mg/dL (<2.0); WBC,Urine 5 /hpf (0-5)
[2022-10-30] MEDS: MAGNESIUM SULFATE-D5W PMX 1 GM in DEXTROSE/WATER 1 100ML.BAG IVPB SCH ×2 (15:58→16:58)
[2022-10-30] MEDS ORDERED: NITROGLYCERIN SL TABS 0.4 MG TAB SUBLINGUAL PRN (16:01)
[2022-10-30] MEDS ORDERED: MONTELUKAST 10 MG TAB PO SCH (21:00)
[2022-10-30] MEDS: SYMBICORT 160-4.5 MCG INHALER INHALATION SCH (21:29)
--- NOTE | 2022-10-30 21:41 | P.HPIM ---
History of Present Illness H&P Date: 10/30/22 Chief Complaint: Nausea This is a pleasant 67-year-old patient, follows with Dr. Ramirez. Foster Parent Dr. Noemi Guerrero. Chronic stable medical conditions include congestive heart failure, COPD, hypertension, hyperlipidemia, chronic hypoxic respiratory failure on home oxygen 2 L AICD. lives alone. Has home help. Uses walker. Patient is due to have a battery change for a generator. Supposed to see Dr. Elliott yesterday. Was unable to make it because of transport. Last night had a bolKadienta sandwich that she bought from the store. Started getting nauseated. Did vomit once. Became dizzy lightheaded. Given to the ER. Was initially hypotensive. Given IV fluids. Was decided to admit the patient for cardiology evaluation. No fever no chills. Patient feeling better after IV fluids. Review of systems: GEN.: Tired EYES: None HEENT: None NECK: None RESPIRATORY: None CARDIOVASCULAR: As above GASTROINTESTINAL: As above GENITOURINARY: None MUSCULOSKELETAL: Joint pains LYMPHATICS: None HEMATOLOGICAL: None PSYCHIATRY: None NEUROLOGICAL: Uses a walker Past medical history to include: Coronary artery disease, CHF, COPD, hyperlipidemia, hypertension, home oxygen, c ardiomyopathy, AICD. Social history: Lives alone. 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 Comes 3 times a week. smoked for about 37 years, 1 pack a day stopped about 20 years ago. No alcohol. Physical examination: VITAL SIGNS: 97.9, 95, 20, 85/62, 98% on 3 l, upon presentation GENERAL: BMI 29.7, awake, tired EYES: Pupils equal. Conjunctiva normal. HEENT: External appearance of nose and ears normal, oral cavity grossly normal. NECK: JVD not raised; masses not palpable. HEART: First and second heart sounds are normal; no edema. LUNGS: Respiratory rate increased; decreased breath sounds. ABDOMEN: Soft, nontender, liver spleen not palpable, no masses palpable. PSYCH: Alert and oriented x3; mood and affect. Anxiousl. MUSCULAR skeletal: Significant OA NEUROLOGICAL: Cranial nerves grossly intact; no facial asymmetry, power and sensation grossly intact. LYMPHATICS: No lymph nodes palpable in the axilla and neck INVESTIGATIONS, reviewed in the clinical context: White count 5.3 hemoglobin 12.2 platelets 112 potassium 3.6 creatinine 1.26 Troponin I: 0.017, 0.017, 0.016 TSH 2.8 EKG tracing personally reviewed by me-normal sinus rhythm. Poor LV progression. Chest x-ray film personally reviewed by me-chelly millan. AICD. Assessment and plan: -Episode of dizziness lightheadedness. Could be from underlying malfunction of AICD Telemetry. Consult cardiology. -Possible episode of mild gastroenteritis. Self-limiting. -Coronary artery disease On Coreg, Lipitor, aspirin -Chronic kidney disease likely nephrosclerosis Baseline creatinine 1.18 March 2021 -Chronic congestive heart failure from systolic dysfunction EF 30-35%. -Chronic secondary pulmonary hypertension -COPD in an ex-smoker Symbicort -Chronic hypoxic respiratory failure on home oxygen 2 L, from underlying COPD Supplemental oxygen -AICD Due for battery replacement -Chronic gait dysfunction uses a walker Telemetry. Resume home medications. Cardiology consulted. Discussed with patient. Past Medical History Past Medical History: Coronary Artery Disease (CAD), Heart Failure, COPD, Hypertension, Respiratory Disorder Additional Past Medical History / Comment(s): Pt had recent admit to [facility] 05/26/16 with possible syncopal episode. Other HX: Chronic respiratory failure- uses 4-5L liters NC as needed, chronic CHF, cardiomyopathy, past vitamin D deficiency but ok now. recent right ankle fracture History of Any Multi-Drug Resistant Organisms: None Reported Past Surgical History: AICD, Breast Surgery, Heart Catheterization, Hysterectomy, Orthopedic Surgery Additional Past Surgical History / Comment(s): 2004 AICD, 2013 cardiac cath - treated medically, Benign R breast biopsy, colonoscopy-normal, broken R. ankle Past Anesthesia/Blood Transfusion Reactions: No Reported Reaction Type of Cardiac Device: AICD Device Placement Date:: unknown Past Psychological History: No Psychological Hx Reported Smoking Status: Former smoker Past Alcohol Use History: None Reported Past Drug Use History: None Reported - Past Family History Mother Additional Family Medical History / Comment(s): heart problems. Mother at the age of 65 or 67 of DVT "that traveled." Father Family Medical History: Myocardial Infarction ([place]) Additional Family Medical History / Comment(s): heart problems. Father of a MA at the age of 65 yrs. Medications and Allergies Home Medications Medication Instructions Recorded Confirmed Type FLUoxetine HCL [PROzac] 20 mg PO DAILY 02/26/14 10/30/22 History Folic Acid 1 mg PO DAILY 02/26/14 10/30/22 History Montelukast [Singulair] 10 mg PO HS 02/26/14 10/30/22 History Omeprazole 20 mg PO DAILY 07/22/20 10/30/22 History Budesonide/Formoterol Fumarate 2 puff INHALATION RT-BID 03/16/21 10/30/22 History [Symbicort 160-4.5 Mcg Inhaler] Potassium Chloride ER [K-Dur 10] 10 meq PO TID 03/16/21 10/30/22 History Empagliflozin [Jardiance] 10 mg PO DAILY 10/30/22 10/30/22 History Furosemide [Lasix] 20 mg PO DAILY 10/30/22 10/30/22 History Midodrine [ProAmatine] 5 mg PO DAILY 10/30/22 10/30/22 History Allergies Allergy/AdvReac Type Severity Reaction Status Date / Time No Known Allergies Allergy Verified 10/30/22 13:51 Physical Exam Vitals: Vital Signs Temp Pulse Resp BP Pulse Ox 10/30/22 16:00 89 20 100/52 100 10/30/22 15:30 89 20 114/50 10/30/22 14:15 86 21 121/43 100 10/30/22 13:44 97.9 F 95 20 85/62 98 Intake and Output 10/30/22 10/30/22 10/30/22 06:59 14:59 22:59 Other: Weight 71.214 kg Results CBC & Chem 7: 10/30/22 14:06 10/30/22 14:06 Labs: Abnormal Lab Results - Last 24 Hours (Table) 10/30/22 10/30/22 10/30/22 Range/Units 14:06 14:06 14:06 RDW 16.3 H (11.5-15.5) % Plt Count 112 L (150-450) k/uL APTT 21.8 L (22.0-30.0) sec Creatinine (0.52-1.04) mg/dL Magnesium (1.6-2.3) mg/dL Total Protein (6.3-8.2) g/dL Albumin (3.5-5.0) g/dL Urine Protein Trace H (Negative) Urine Glucose (UA) 3+ H (Negative) Urine Ketones 1+ H (Negative) Ur Leukocyte Esterase Moderate H (Negative) Ur Squamous Epith Cells 6 H (0-4) /hpf Urine Bacteria Rare H (None) /hpf Urine Mucus Rare H (None) /hpf 10/30/22 Range/Units 14:06 RDW (11.5-15.5) % Plt Count (150-450) k/uL APTT (22.0-30.0) sec Creatinine 1.26 H (0.52-1.04) mg/dL Magnesium 1.4 L (1.6-2.3) mg/dL Total Protein 5.6 L (6.3-8.2) g/dL Albumin 3.1 L (3.5-5.0) g/dL Urine Protein (Negative) Urine Glucose (UA) (Negative) Urine Ketones (Negative) Ur Leukocyte Esterase (Negative) Ur Squamous Epith Cells (0-4) /hpf Urine Bacteria (None) /hpf Urine Mucus (None) /hpf
[2022-10-30] MEDS: POTASSIUM CHLORIDE ER 10 MEQ TAB.ER.PRT PO SCH (22:03)
[2022-10-31] MEDS ORDERED: PANTOPRAZOLE 40 MG TABLET PO SCH (07:30)
[2022-10-31] MEDS: SYMBICORT 160-4.5 MCG INHALER INHALATION SCH (08:51)
[2022-10-31] MEDS ORDERED: FUROSEMIDE 20 MG TAB PO SCH (09:00)
[2022-10-31] MEDS ORDERED: FOLIC ACID 1 MG TAB PO SCH (09:00)
[2022-10-31] MEDS ORDERED: ASPIRIN 325 MG TAB PO SCH (09:00)
[2022-10-31] MEDS ORDERED: FLUoxetine HCL 20 MG CAP PO SCH (09:00)
[2022-10-31] MEDS ORDERED: MIDODRINE 5 MG TAB PO SCH (09:00)
[2022-10-31] MEDS ORDERED: DAPAGLIFLOZIN PROPANEDIOL 5 MG TABLET PO SCH (09:00)
[2022-10-31] MEDS: POTASSIUM CHLORIDE ER 10 MEQ TAB.ER.PRT PO SCH (09:04)
[2022-10-31 10:11] LABS: Chol/HDL Ratio 2.35 Ratio; LDL Cholesterol,Calculated 55.9 mg/dL (0.0-131.0)
--- NOTE | 2022-10-31 11:27 | P.CRDCN ---
History of Present Illness History of present illness: HISTORY OF PRESENT ILLNESS: This is a 67-year-old female with a past medical history significant for mild three-vessel coronary artery disease, nonischemic cardiomyopathy with previous AICD implantation, ventricular tachycardia, COPD on home oxygen, hypertension, and hyperlipidemia. Patient follows in the office with Dr. Guerrero. We have been asked to see the patient in consultation for bradycardia, hypotension, and questionable pacemaker malfunction. Patient examined at the bedside. patient states she has been feeling unwell for the past 2 days. She reports multiple episodes of nausea and vomiting. She called EMS and was brought to the hospital for further evaluation. Apparently the patient was bradycardic with a heart rate in the 40s and hypotensive with a systolic blood pressure in the 70s. She received IV fluid resuscitation in the emergency room with resolution of her hypotension. Heart rate is currently running in the 80s. She denies any chest pain or pressure. She denies shortness of breath. Patient's nausea and vomiting have resolved. Patient's device was interrogated. Patient still has a battery life of greater than 3 months. Patient's low limit of her heart rate is set at 40. There was no malfunction of her device noted. * EKG reveals sinus mechanism with no signs of acute ischemia * Chest xray mild cardiomegaly * Laboratory data: WBC 5.3. Hemoglobin 12.2. Platelet count 112. Sodium 140. Potassium 3.6. BUN 10. Creatinine 1.26.troponin negative 3. ProBNP 1440. * Current home cardiac medications include lasix 20mg daily * Most recent echocardiogram obtained in 2019 revealed ejection fraction 30-35%, mild MR, mild TR, moderate pulmonary hypertension * Cardiac catheterization history: September 2020 revealing [id number] nonobstructive coronary artery disease. Medical management was recommended. REVIEW OF SYSTEMS: At the time of my exam: CONSTITUTIONAL: Denies fever or chills. HEENT: Denies blurred vision, vision changes, or eye pain. Denies hemoptysis CARDIOVASCULAR: Denies chest pain. Denies orthopnea. Denies PND. Denies palpitations RESPIRATORY: Denies shortness of breath. GASTROINTESTINAL: Denies abdominal pain. Denies nausea or vomiting. HEMATOLOGIC: Denies bleeding disorders. GENITOURINARY: Denies any blood in urine. SKIN: Denies pruitis. Denies rash. PHYSICAL EXAM: VITAL SIGNS: Reviewed. GENERAL: Well-developed in no acute distress. HEENT: Head is normocephalic. Pupils are equal, round. Sclerae anicteric. Mucous membranes of the mouth are moist. Neck supple. No JVD or thyromegaly LUNGS: Respirations even and unlabored. Lungs essentially clear to auscultation bilaterally. HEART: Regular rate and rhythm. S1 and S2 heard. ABDOMEN: Soft. Nondistended. Nontender. EXTREMITIES: Normal range of motion. No clubbing or cyanosis. Peripheral pulses intact. No lower extremity edema NEUROLOGIC: Awake and alert. Oriented x 3. ASSESSMENT: Nausea and vomiting, possible gastroenteritis Hypotension, likely secondary to dehydration, resolved with IV fluid hydration Loak-us-xizbspdb nonobstructive coronary artery disease, per cardiac catheterization in 2020 Nonischemic cardiomyopathy, ejection fraction 30-35% History of ventricular tachycardia History of AICD implantation COPD on home oxygen Hypertension Hyperlipidemia PLAN: Patient's device was interrogated. Patient still has a battery life of greater than 3 months. Patient's low limit of her heart rate is set at 40. There was no malfunction of her device noted. She may be discharged home today from a cardiac standpoint and follow up on an outpatient basis Nurse practitioner note has been reviewed by physician. Signing provider agrees with the documented findings, assessment, and plan of care. Past Medical History Past Medical History: Coronary Artery Disease (CAD), Heart Failure, COPD, Hypertension, Respiratory Disorder Additional Past Medical History / Comment(s): Pt had recent admit to [facility] 05/26/16 with possible syncopal episode. Other HX: Chronic respiratory failure- uses 4-5L liters NC as needed, chronic CHF, cardiomyopathy, past vitamin D deficiency but ok now. recent right ankle fracture History of Any Multi-Drug Resistant Organisms: None Reported Past Surgical History: AICD, Breast Surgery, Heart Catheterization, Hysterectomy, Orthopedic Surgery Additional Past Surgical History / Comment(s): 2004 AICD, 2014 cardiac cath - treated medically, Benign R breast biopsy, colonoscopy-normal, broken R. ankle Past Anesthesia/Blood Transfusion Reactions: No Reported Reaction Type of Cardiac Device: AICD Device Placement Date:: unknown Smoking Status: Never smoker - Past Family History Mother Additional Family Medical History / Comment(s): heart problems. Mother at the age of 65 or 67 of DVT "that traveled." Father Family Medical History: Myocardial Infarction ([place]) Additional Family Medical History / Comment(s): heart problems. Father of a [place] at the age of 65 yrs. Medications and Allergies Home Medications Medication Instructions Recorded Confirmed Type FLUoxetine HCL [PROzac] 20 mg PO DAILY 02/26/14 10/30/22 History Folic Acid 1 mg PO DAILY 02/26/14 10/30/22 History Montelukast [Singulair] 10 mg PO HS 02/26/14 10/30/22 History Omeprazole 20 mg PO DAILY 07/22/20 10/30/22 History Budesonide/Formoterol Fumarate 2 puff INHALATION RT-BID 03/16/21 10/30/22 History [Symbicort 160-4.5 Mcg Inhaler] Potassium Chloride ER [K-Dur 10] 10 meq PO TID 03/16/21 10/30/22 History Empagliflozin [Jardiance] 10 mg PO DAILY 10/30/22 10/30/22 History Furosemide [Lasix] 20 mg PO DAILY 10/30/22 10/30/22 History Midodrine [ProAmatine] 5 mg PO DAILY 10/30/22 10/30/22 History Allergies Allergy/AdvReac Type Severity Reaction Status Date / Time No Known Allergies Allergy Verified 10/30/22 13:51 Physical Exam Vitals: Vital Signs Temp Pulse Pulse Resp BP BP Pulse Ox 10/31/22 05:00 97.0 F L 83 15 121/59 99 10/31/22 00:45 97.7 F 82 16 120/58 100 10/30/22 22:39 85 10/30/22 21:46 98.0 F 85 14 121/59 98 10/30/22 21:30 97 10/30/22 20:46 82 16 104/57 100 10/30/22 18:30 86 20 95/43 100 10/30/22 17:00 84 20 103/44 100 10/30/22 16:00 89 20 100/52 100 10/30/22 15:30 89 20 114/50 10/30/22 14:15 86 21 121/43 100 10/30/22 13:44 97.9 F 95 20 85/62 98 Intake and Output 10/30/22 10/31/22 10/31/22 22:59 06:59 14:59 Intake Total 500 Balance 500 Intake: Oral 500 Other: Voiding Method Bedpan Bedpan Weight 71.214 kg Results 10/30/22 14:06 10/30/22 14:06 Cardiac Enzymes 10/30/22 10/30/22 10/30/22 Range/Units 14:06 14:06 17:06 AST 31 (14-36) U/L Troponin I 0.017 0.017 (0.000-0.034) ng/mL 10/30/22 Range/Units 20:07 AST (14-36) U/L Troponin I 0.016 (0.000-0.034) ng/mL Coagulation 10/30/22 Range/Units 14:06 PT 10.5 (9.0-12.0) sec APTT 21.8 L (22.0-30.0) sec CBC 10/30/22 Range/Units 14:06 WBC 5.3 (3.8-10.6) k/uL RBC 3.90 (3.80-5.40) m/uL Hgb 12.2 (11.4-16.0) gm/dL Hct 37.2 (34.0-46.0) % Plt Count 112 L (150-450) k/uL Comprehensive Metabolic Panel 10/30/22 Range/Units 14:06 Sodium 140 (137-145) mmol/L Potassium 3.6 (3.5-5.1) mmol/L Chloride 105 (98-107) mmol/L Carbon Dioxide 30 (22-30) mmol/L BUN 10 (7-17) mg/dL Creatinine 1.26 H (0.52-1.04) mg/dL Glucose 78 (74-99) mg/dL Calcium 8.5 (8.4-10.2) mg/dL AST 31 (14-36) U/L ALT 19 (4-34) U/L Alkaline Phosphatase 107 (38-126) U/L Total Protein 5.6 L (6.3-8.2) g/dL Albumin 3.1 L (3.5-5.0) g/dL Current Medications Generic Name Dose Route Start Last Admin Trade Name Freq PRN Reason Stop Dose Admin Aspirin 325 mg 10/31/22 09:00 Aspirin 325 Mg Tab PO DAILY GERALD Budesonide/Formoterol Fumarate 2 puff 10/30/22 20:26 10/30/22 21:29 Symbicort 160-4.5 Mcg Inhaler INHALATION 2 puff RT-BID GERALD Administration Dapagliflozin 5 mg 10/31/22 09:00 Dapagliflozin Propanediol 5 Mg Tablet PO DAILY [facility] Fluoxetine HCl 20 mg 10/31/22 09:00 Fluoxetine Hcl 20 Mg Cap PO DAILY [facility] Folic Acid 1 mg 10/31/22 09:00 Folic Acid 1 Mg Tab PO DAILY [facility] Furosemide 20 mg 10/31/22 09:00 Furosemide 20 Mg Tab PO DAILY [facility] Midodrine 5 mg 10/31/22 09:00 Midodrine 5 Mg Tab PO DAILY [facility] Montelukast Sodium 10 mg 10/30/22 21:00 10/30/22 22:03 Montelukast 10 Mg Tab PO 10 mg HS GERALD Administration Nitroglycerin 0.4 mg 10/30/22 16:01 Nitroglycerin Sl Tabs 0.4 Mg Tab SUBLINGUAL Q5M PRN Chest Pain Pantoprazole Sodium 40 mg 10/31/22 07:30 10/31/22 06:35 Pantoprazole 40 Mg Tablet PO 40 mg DAILY@0730 [facility] Administration Potassium Chloride 10 meq 10/30/22 22:00 10/30/22 22:03 Potassium Chloride Er 10 Meq Tab.Er.Prt PO 10 meq TID GERALD Administration Intake and Output 10/30/22 10/31/22 10/31/22 22:59 06:59 14:59 Intake Total 500 Balance 500 Intake: Oral 500 Other: Voiding Method Bedpan Bedpan Weight 71.214 kg 10/30/22 14:06 10/30/22 14:06
--- NOTE | 2022-10-31 13:35 | CDI ---
Documentation Clarification Form Date: 10/31/2022 1:19:38 PM From: Leslee Lopez RN, CCDS Admit Date: 10/30/2022 4:01:00 PM Patient Name: Gladys Powell Visit Number: [id number] Discharge Date: ATTENTION: The Clinical Documentation Specialists (CDI) and [facility] Coding Staff appreciate your assistance in clarifying documentation. Please respond to the clarification below the line at the bottom and electronically sign. The CDI & [facility] Coding staff will review the response and follow-up if needed. Please note: Queries are made part of the Legal Health Record. If you have any questions, please contact the author of this message via ITS. Dr. Jonel Saldaña Unspecified CKD is documented in the H/P. Additional clarification regarding the stage of CKD is requested. History/Risk Factors: CAD, CKD, CHF, Chronic respiratory failure, COPD, Former smoker Patients Historical Baseline Creatinine: 1.18 March 2021 (per H/P) Clinical Indicators: 67-year-old female had not been feeling well for best 2 days. She reports multiple episodes of nausea and vomiting. She received IV fluid resuscitation in the emergency room with resolution of her hypotension. Chronic kidney disease likely nephrosclerosis in documented in the H/P. 10/30 Vital signs: 85/62 95 20 97.9 98 % 3/L NC 10/30 BUN 10 CR 1.26 GFR: 44 Treatment: .9 NS 1,000 IV Bolus x1 Please clarify the stage of the CKD, if known: [ ] CKD Stage 2 (GFR 60-89) [ ] CKD Stage 3 (GFR 30-59) [ ] CKD Stage 3a (GFR 45-59) [ ] CKD Stage 3b (GFR 30-44) [ ] CKD Stage 4 (GFR 15-29) [ ] Other, please specify [ ] Unable to determine (Template Last revised: October 2020) CK D stage IIIa MTDD
[2022-10-31 13:55] VITALS: BP 105/64; PULSE 84; RESP 16; TEMP 97.5
--- NOTE | 2022-10-31 16:59 | P.DS ---
Providers Date of admission: 10/30/22 16:01 Expected date of discharge: 10/31/22 Attending physician: Jonel Saldaña Consults: 10/30/22 16:01 Consult Physician Urgent Consulting Provider: [facility] Consult Reason/Comments: Bradycardia, hypotension, questionable pacemaker battery issue Do you want consulting provider notified?: Yes Primary care physician: [facility] Course: Chief Complaint: Nausea This is a pleasant 67-year-old patient, follows with Dr. Ramirez. Certified Public Accountant Dr. Noemi Guerrero. Chronic stable medical conditions include congestive heart failure, COPD, hypertension, hyperlipidemia, chronic hypoxic respiratory failure on home oxygen 2 L AICD. lives alone. Has home help. Uses walker. Patient is due to have a battery change for a generator. Supposed to see Dr. Elliott yesterday. Was unable to make it because of transport. Last night had a bologna sandwich that she bought from the store. Started getting nauseated. Did vomit once. Became dizzy lightheaded. Given to the ER. Was initially hypotensive. Given IV fluids. Was decided to admit the patient for cardiology evaluation. No fever no chills. Patient feeling better after IV fluids. 10/31/2022: Patient seen by cardiology. AICD has at least 3 months of battery. Patient's symptoms felt to be vasovagal from short course of acute gastroenteritis. Self-limiting. Patient feeling well. He'll follow-up with cartilage outpatient. Past medical history to include: Coronary artery disease, CHF, COPD, hyperlipidemia, hypertension, home oxygen, c ardiomyopathy, AICD. Social history: Lives alone. 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 Comes 3 times a week. smoked for about 37 years, 1 pack a day stopped about 20 years ago. No alcohol. Physical examination: VITAL SIGNS: 97.5, 84, 16, 105/64, 96% on 3 L GENERAL: BMI 29.7, awake, tired EYES: Pupils equal. Conjunctiva normal. HEENT: External appearance of nose and ears normal, oral cavity grossly normal. NECK: JVD not raised; masses not palpable. HEART: First and second heart sounds are normal; no edema. LUNGS: Respiratory rate increased; decreased breath sounds. ABDOMEN: Soft, nontender, liver spleen not palpable, no masses palpable. PSYCH: Alert and oriented x3; mood and affect. Anxiousl. MUSCULAR skeletal: Significant OA NEUROLOGICAL: Cranial nerves grossly intact; no facial asymmetry, power and sensation grossly intact. INVESTIGATIONS, reviewed in the clinical context: White count 5.3 hemoglobin 12.2 platelets 112 potassium 3.6 creatinine 1.26 Troponin I: 0.017, 0.017, 0.016 TSH 2.8 EKG tracing personally reviewed by me-normal sinus rhythm. Poor LV progression. Chest x-ray film personally reviewed by me-chelly millan. AICD. Assessment and plan: -Episode of dizziness lightheadedness. From dehydration from gastroenteritis -Possible episode of mild gastroenteritis. Self-limiting. -Coronary artery disease On Coreg, Lipitor, aspirin -Chronic kidney disease likely nephrosclerosis Baseline creatinine 1.18 March 2021 -Chronic congestive heart failure from systolic dysfunction EF 30-35%. -Chronic secondary pulmonary hypertension -COPD in an ex-smoker Symbicort -Chronic hypoxic respiratory failure on home oxygen 2 L, from underlying COPD Supplemental oxygen -AICD Follow-up with cardiology. Has about 3 months of battery -Chronic gait dysfunction uses a walker Disposition: Home Plan - Discharge Summary Discharge Rx Participant: No New Discharge Prescriptions: Continue Folic Acid 1 mg PO DAILY FLUoxetine HCL [PROzac] 20 mg PO DAILY Montelukast [Singulair] 10 mg PO HS Omeprazole 20 mg PO DAILY Budesonide/Formoterol Fumarate [Symbicort 160-4.5 Mcg Inhaler] 2 puff INHALATION RT-BID Empagliflozin [Jardiance] 10 mg PO DAILY Midodrine [ProAmatine] 5 mg PO DAILY Potassium Chloride ER [K-Dur 10] 10 meq PO TID Furosemide [Lasix] 20 mg PO DAILY Discharge Medication List FLUoxetine HCL [PROzac] 20 mg PO DAILY 02/26/14 [History] Folic Acid 1 mg PO DAILY 02/26/14 [History] Montelukast [Singulair] 10 mg PO HS 02/26/14 [History] Omeprazole 20 mg PO DAILY 07/22/20 [History] Budesonide/Formoterol Fumarate [Symbicort 160-4.5 Mcg Inhaler] 2 puff INHALATION RT-BID 03/16/21 [History] Potassium Chloride ER [K-Dur 10] 10 meq PO TID 03/16/21 [History] Empagliflozin [Jardiance] 10 mg PO DAILY 10/30/22 [History] Furosemide [Lasix] 20 mg PO DAILY 10/30/22 [History] Midodrine [ProAmatine] 5 mg PO DAILY 10/30/22 [History] Follow up Appointment(s)/Referral(s): Simone Ramirez MD [Primary Care Provider] - 1-2 days Sushant Guerrero MD [STAFF PHYSICIAN] - 11/12/22 3:30 pm (Appoitment time has changed from a morning appoitment to afternoon appoitment. ) Patient Instructions/Handouts: Bradycardia (IP), Pacemaker (GEN) Discharge Disposition: HOME SELF-CARE
== END 2022-10-31 14:04 | disposition home or self-care (01) ==
LOC: EC 13:43 → 3SCARD 16:01 → INTOOBSV 16:01 → 3SCARD 17:12 → UNDODISIN 10-31 14:04
PROVIDERS: ADMIT Hospitalist; ATTEND Hospitalist
DX: R42 Dizziness and giddiness (principal); I13.0 Hypertensive heart and chronic kidney disease with heart failure and stage 1 through stage 4 chronic kidney disease, or unspecified chronic kidney disease; I50.22 Chronic systolic (congestive) heart failure; J96.10 Chronic respiratory failure, unspecified whether with hypoxia or hypercapnia; I42.8 Other cardiomyopathies; R11.2 Nausea with vomiting, unspecified; R00.1 Bradycardia, unspecified; I95.9 Hypotension, unspecified; E83.42 Hypomagnesemia; I25.10 Atherosclerotic heart disease of native coronary artery without angina pectoris; N18.9 Chronic kidney disease, unspecified; J44.9 Chronic obstructive pulmonary disease, unspecified; E78.5 Hyperlipidemia, unspecified; I27.20 Pulmonary hypertension, unspecified; R26.9 Unspecified abnormalities of gait and mobility; Z95.810 Presence of automatic (implantable) cardiac defibrillator; Z99.81 Dependence on supplemental oxygen; Z87.891 Personal history of nicotine dependence; Z79.51 Long term (current) use of inhaled steroids; Z79.82 Long term (current) use of aspirin; Z79.899 Other long term (current) drug therapy
CPT/HCPCS: 96361; 96365; 96366; 99285; 36415; 94640 ×3; 94760 ×2; 93005; 83880; 80061; 80053; 83735; 84443; 84484; 85025; 85610; 85730; 81001; 71046; G0378 ×2; J3475

== ENCOUNTER → 2022-12-23 | Day surgery (SDC) | payer MEDICARE, OTHER ==
[2022-12-20 08:55] VITALS: BMI 29.6
[~2022-12-23] MED LIST: ACETAMINOPHEN IV (For NPO) 1,000 MG in EMPTY BAG 1 BAG IVPB ONE; ACETAMINOPHEN TAB 325 MG TAB PO PRN; HYDROmorphone 0.5 MG/0.5 ML SYRINGE IVP PRN; LACTATED RINGERS 1,000 ML IV SCH; LIDOCAINE 1% INJ 10MG/ML (20 ML MDV) ONE; LIDOCAINE 1% INJ 10MG/ML (20 ML MDV) SQ ONE; MIDAZOLAM 2 MG/2 ML VIAL IV PRN; MIDAZOLAM 2 MG/2 ML VIAL ONE; SODIUM CHLORIDE 0.9% 1,000 ML IV SCH; ceFAZolin 1 GM in SODIUM CHLORIDE 0.9% IRRIG BTL 250 ML IRRIGATION PRN; fentaNYL (PF) 50 MCG/ML 2 ML AMP ONE
[2022-12-23 10:45] VITALS: RESP 18; TEMP 97.8
[2022-12-23 10:48] LABS: Glucose,Whole Blood 81 mg/dL (70-110)
--- NOTE | 2022-12-23 13:15 | P.EPPROC ---
- EP Procedure Note Electrophysiology Procedure Note: Diagnosis Cardiomyopathy, chronic, ischemic etiology Old PR Congestive heart failure, systolic class 2-3 On guideline directed medical treatment guideline directed Intolerant of higher doses of beta blockers and luis inhibitors On mexiletine for recurrent sustained VT Procedure: Single ICD implantation for management of risk of sudden cardiac /secondary prevention Manager Configuration: Dr. Hu Result: Single chamber ICD implantation, RV ICD lead: R waves 20 mV, pacing impedance 627 ohms, high-voltage impedance 64 ohms and pacing threshold 1 V at 0.4 ms ICD generator [id number] [id number] XT VR MRI Procedure details: Patient was brought to the EP lab in a fasting state. [facility] informed consent was obtained prior to the procedure. The left pectoral area was prepped and draped as a protocol. IV antibiotics administered 1% lidocaine was used for local anesthesia. A 4 cm incision was made parallel to the deltopectoral groove, about 1.5 cm medial to it. The incision was carried down to the level of the pectoralis muscle and the subfascial pocket was made. Hemostasis was assured. Chronic ICD lead implanted in the right ventricle ICD lead tested for threshold, sensing, impedances and tested Lead secured to the underlying transverse muscle after removing sheaths . Pocket irrigated with antibiotic solution Leads connected to the single-chamber ICD generator. Wound closed in 3 layers and dressed per protocol Single-chamber ICD interrogated and programmed. Appropriate pacing parameters, antitachycardia therapies with antitachycardia pacing cardioversion defibrillations programmed. DFT deferred. Maximum output shocks Patient tolerated the procedure well without any acute complications. See scanned device report in EMR for lead details
[2022-12-23 16:07] VITALS: BP 94/51; PULSE 82
== END | disposition home or self-care (01) ==
LOC: CATHEP 10:16
PROVIDERS: ATTEND Internal Medicine Clinical Cardiac Electrophysiology
DX: I42.9 Cardiomyopathy, unspecified (principal); I11.0 Hypertensive heart disease with heart failure; I50.20 Unspecified systolic (congestive) heart failure; I25.2 Old myocardial infarction; E78.5 Hyperlipidemia, unspecified; J44.9 Chronic obstructive pulmonary disease, unspecified; F17.210 Nicotine dependence, cigarettes, uncomplicated; Z79.82 Long term (current) use of aspirin; Z79.899 Other long term (current) drug therapy
CPT/HCPCS: 33262; C1722; J2250; J0690; J2001; J3010

== ENCOUNTER 2023-07-15 16:35 | Inpatient (IN) | payer MEDICARE, OTHER ==
[2023-07-15] MEDS: NOREPINEPHRINE 8 MG in SODIUM CHLORIDE 0.9% 250 ML IV SCH (16:35)
[2023-07-15] MEDS ORDERED: IPRATROPIUM-ALBUTEROL 3 ML NEB INHALATION STA (16:57)
[2023-07-15] MEDS ORDERED: methylPREDNISolone SOD SUCCI 125 MG/2 ML VIAL IV STA (16:57)
--- NOTE | 2023-07-15 17:04 | ED ---
General Adult HPI - General Chief complaint: Shortness of Breath Stated complaint: Dyspnea Time Seen by Provider: 07/15/23 16:48 Source: patient, EMS, old records reviewed (Review of previous blood pressures and note from [facility]. Also reviewed previous EKG) Mode of arrival: EMS Limitations: no limitations - History of Present Illness Initial comments: Patient is a pleasant 68-year-old female presenting is a transfer from [facility]. Patient original complaint was source of breath. Patient was found not using her oxygen. Patient does admit to history of COPD. Patient states she feels fine at this time and has no complaints. Patient denies ever having chest discomfort. Patient was transferred secondary to concerns for EKG. Patient states her blood pressure normally is around 70 systolic and states she always has a low blood pressure.patient is on the Levophed drip as well as heparin drip. - Related Data Home Medications Medication Instructions Recorded Confirmed FLUoxetine HCL [PROzac] 20 mg PO DAILY 02/26/14 12/23/22 Folic Acid 1 mg PO DAILY 02/26/14 12/23/22 Omeprazole 20 mg PO DAILY 07/22/20 12/23/22 Budesonide/Formoterol Fumarate 2 puff INHALATION RT-BID 03/16/21 12/23/22 [Symbicort 160-4.5 Mcg Inhaler] Potassium Chloride ER [K-Dur 10] 10 meq PO TID 03/16/21 12/23/22 Empagliflozin [Jardiance] 10 mg PO DAILY 10/30/22 12/23/22 Midodrine [ProAmatine] 5 mg PO DAILY 10/30/22 12/23/22 Acetaminophen [Tylenol] 325 mg PO Q4H PRN 12/20/22 12/23/22 Aspirin [Adult Low Dose Aspirin EC] 81 mg PO DAILY 12/20/22 12/23/22 Atorvastatin [Lipitor] 20 mg PO HS 12/20/22 12/23/22 Cholecalciferol [Vitamin D3 (25 25 mcg PO DAILY 12/20/22 12/23/22 Mcg = 1000 Iu)] Ipratropium-Albuterol Nebulize 3 ml INHALATION TID 12/20/22 12/23/22 [Duoneb 0.5 mg-3 mg/3 ml Soln] Magnesium Oxide [Mag-Ox] 250 mg PO BID 12/20/22 12/23/22 Mexiletine HCl 150 mg PO BID 12/20/22 12/23/22 Nitroglycerin Sl Tabs [Nitrostat] 0.4 mg SUBLINGUAL Q5M PRN 12/20/22 12/23/22 Nystatin [Nystatin Oral Susp] 1 dose PO BID 12/20/22 12/23/22 Previous Rx's Medication Instructions Recorded Metoprolol Succinate [Metoprolol 12.5 mg PO DAILY #90 tab 12/23/22 Succinate ER] lisinopriL [Zestril] 2.5 mg PO DAILY #90 tablet 12/23/22 Allergies Allergy/AdvReac Type Severity Reaction Status Date / Time No Known Allergies Allergy Verified 07/15/23 20:27 Review of Systems ROS Statement: Those systems with pertinent positive or pertinent negative responses have been documented in the HPI. ROS Other: All systems not noted in ROS Statement are negative. Constitutional: Denies: fever Eyes: Denies: eye pain ENT: Denies: ear pain Respiratory: Reports: as per HPI, dyspnea Cardiovascular: Denies: chest pain Endocrine: Denies: fatigue Gastrointestinal: Denies: abdominal pain Genitourinary: Denies: dysuria Past Medical History Past Medical History: Coronary Artery Disease (CAD), Heart Failure, COPD, Diabetes Mellitus, GERD/Reflux, Hyperlipidemia, Hypertension, Respiratory Disorder Additional Past Medical History / Comment(s): Chronic respiratory failure- oxygen at 2L., cardiomyopathy., pt states right ankle fracture 4-5 weeks ago., See Cardiology H & P. History of Any Multi-Drug Resistant Organisms: None Reported Past Surgical History: AICD, Breast Surgery, Heart Catheterization, Hysterectomy, Orthopedic Surgery Additional Past Surgical History / Comment(s): 2004 AICD, heart cath 09/2020, Benign R breast biopsy, colonoscopy, broken R. ankle Past Anesthesia/Blood Transfusion Reactions: No Reported Reaction Type of Cardiac Device: AICD Device Placement Date:: unknown Past Psychological History: No Psychological Hx Reported Smoking Status: Former smoker Past Alcohol Use History: None Reported Past Drug Use History: None Reported - Past Family History Mother Additional Family Medical History / Comment(s): heart problems. Mother at the age of 65 or 67 of DVT "that traveled." Father Family Medical History: Myocardial Infarction (ND) Additional Family Medical History / Comment(s): heart problems. Father of a ND at the age of 65 yrs. General Exam Limitations: no limitations General appearance: alert, in no apparent distress Head exam: Present: normocephalic Eye exam: Present: normal appearance Neck exam: Present: normal inspection Respiratory exam: Present: wheezes. Absent: respiratory distress Cardiovascular Exam: Present: regular rate, normal rhythm Expanded Peripheral pulses: 2+: Radial (R), Radial (L), Dorsalis Pedis (R), Dorsalis Pedis (L) GI/Abdominal exam: Present: soft. Absent: tenderness Extremities exam: Present: normal inspection. Absent: pedal edema, calf tenderness Neurological exam: Present: alert Psychiatric exam: Present: normal affect, normal mood Skin exam: Present: normal color Course Vital Signs 07/15/23 07/15/23 07/15/23 16:38 17:05 17:17 Temperature 98.7 F Pulse Rate 104 H 100 107 H Respiratory 18 Rate Blood Pressure 73/38 O2 Sat by Pulse 93 L Oximetry 07/15/23 07/15/23 07/15/23 17:49 18:00 19:19 Temperature 98.1 F 98.1 F Pulse Rate 114 H 104 H 109 H Respiratory 19 18 18 Rate Blood Pressure 137/65 136/62 116/56 O2 Sat by Pulse 95 94 L 96 Oximetry - Reevaluation(s) Reevaluation #1: 07/15/23 17:06 Dr. Fermin was made aware of patient and EKG. 07/15/23 20:06 Case was also discussed with Dr. Saldaña. EKG Findings - EKG Results: EKG: interpreted by ERMD (Septal Q waves with some ST elevation. Previous EKG dated October 31 with similarities.), sinus rhythm, normal axis EKG shows: tachycardia Procedures - Central Line Placement Right Femoral Consent Obtained: verbal consent, emergent situation Patient Placed on Monitor/Pulse Ox: Yes MD Prep: mask, gown, gloves Central Line Prep: Chlorhexidine scrub Local Anesthesia Used: Lidocaine 1% Amount of Anesthesia Used (mls): 2 Ultrasound Used for Placement: No Central Line Lumen Inserted: triple Central Line Position: good blood return, all ports aspirated, flushed, capped, sutured in place with 3-0 nylon Dressing Applied: Tegaderm Patient Tolerated Procedure: well Complications: none - Sepsis Sepsis Focused Exam #1 Time Sepsis Criteria Met: 19:47 Sepsis Focused Exam Date: 07/15/23 Sepsis Focused Exam Time: 20:28 Sepsis Focused Exam Complete: Yes Vital Signs & RN Notes Reviewed: Yes Capillary Refill: < 2 Seconds: Fingers, Toes Peripheral Pulses: Normal: Radial (R), Radial (L) Skin Color: Normal for Patient Respiratory Exam: wheezes Cardiovascular Exam: regular rate, normal rhythm Medical Decision Making - Medical Decision Making There is potential for sepsis diagnosed at 1947. Blood culture and lactic acid and IV antibiotics have all been ordered. Patient does present with COPD and hypertension. Patient has chronic hypotension. Central line was placed and pressors were started. Fluid bolus limited at this time secondary to CHF concerns. Was pt. sent in by a medical professional or institution (, PA, SUGAR MILL WORKER, urgent care, hospital, or fpc...) When possible be specific @ -Patient was sent from [facility]. Did you speak to anyone other than the patient for history (EMS, parent, family, police, friend...)? What history was obtained from this source @ -No Did you review nursing and triage notes (agree or disagree)? Why? @ -I reviewed and agree with nursing and triage notes Were old charts reviewed (outside hosp., previous admission, EMS record, old EKG, old radiological studies, urgent care reports/EKG's, fpc records)? Report findings @ -Chart was reviewed from [facility]. Differential Diagnosis (chest pain, altered mental status, abdominal pain women, abdominal pain men, vaginal bleeding, weakness, fever, dyspnea, syncope, headache, dizziness, GI bleed, back pain, seizure, CVA, palpatations, mental health, musculoskeletal)? @ -Differential Dyspnea: Coronary syndrome, arrhythmia, tamponade, asthma, COPD, pulmonary embolism, pneumonia, pneumothorax, pulmonary effusion, anaphylaxis, diabetic ketoacidosis, flailed chest, pulmonary contusion, diaphragmatic rupture, anemia, neuromuscular, this is not meant to be an all-inclusive list. EKG interpreted by me (3pts min.). @ -As above X-rays interpreted by me (1pt min.). @ -Chest x-ray shows low lung volumes. Possible atelectasis versus CHF. CT interpreted by me (1pt min.). @ -None done U/S interpreted by me (1pt. min.). @ -None done What testing was considered but not performed or refused? (CT, X-rays, U/S, labs)? Why? @ -Considered angiogram of the chest however patient has poor renal function What meds were considered but not given or refused? Why? @ -None Did you discuss the management of the patient with other professionals (professionals i.e. Dr., PA, SUGAR MILL WORKER, lab, RT, psych nurse, social work instructor, supplemental manager, teacher, budget officer, behavioral health case manager)? Give summary @ -Case was earlier discussed with Dr. Fermin who did review EKGs and is aware patient. Case also discussed with Dr. Serna who did agree with central line and just recommended heparin be held for 1 hour prior to this. Case was also discussed with Dr. Saldaña, who will admit, Dr. Ramirez. he recommends adding heparinization again if d-dimer is elevated. Patient cannot receive computed tomography scan secondary to renal function. VQ scan will be ordered. Was smoking cessation discussed for >3mins.? @ -No Was critical care preformed (if so, how long)? @ -33 minutes of critical care time Were there social determinants of health that impacted care today? How? (Homelessness, low income, unemployed, alcoholism, drug addiction, transportation, low edu. Level, literacy, decrease access to med. care, long term, rehab)? @ -No Was there de-escalation of care discussed even if they declined (Discuss DNR or withdrawal of care, Hospice)? DNR status @ -No What co-morbidities impacted this encounter? (DM, HTN, Smoking, COPD, CAD, Cancer, CVA, ARF, Chemo, Hep., AIDS, mental health diagnosis, sleep apnea, morbid obesity)? @ -Dyspnea with history of COPD and hypoxia. Patient was found without her oxygen. Patient also has history of chronic hypotension complicating the case. Was patient admitted / discharged? Hospital course, mention meds given and route, prescriptions, significant lab abnormalities, going to OR and other pertinent info. @ -Patient reevaluated. Secondary to persistent hypotension Central line was placed. Patient does have concerns for COPD. With this sepsis cannot be ruled out. Blood culture and IV antibiotics started. A shoulder given fluids however limited secondary to concerns for possible CHF. Cardiology and pulmonary will be placed on consult. Patient is again reevaluated and resting comfortably in bed, symptom-free. Blood pressure stable at this time. Admission orders written. Undiagnosed new problem with uncertain prognosis? @ -No Drug Therapy requiring intensive monitoring for toxicity (Heparin, Nitro, Insulin, Cardizem)? @ -No Were any procedures done? @ - Central line, see above Diagnosis/symptom? @ -COPD, hypotension Acute, or Chronic, or Acute on Chronic? @ -Acute on chronic, acute Uncomplicated (without systemic symptoms) or Complicated (systemic symptoms)? @ -default Side effects of treatment? @ -No Exacerbation, Progression, or Severe Exacerbation? @ -No Poses a threat to life or bodily function? How? (Chest pain, USA, ND, pneumonia, PE, COPD, DKA, ARF, appy, cholecystitis, CVA, Diverticulitis, Homicidal, Suicidal, threat to staff... and all critical care pts) @ - Hypotension and COPD both to represent threat to life and bodily function. - Lab Data Result diagrams: 07/15/23 17:02 07/15/23 17:02 Lab Results 07/15/23 07/15/23 07/15/23 Range/Units 17:02 17:02 17:02 WBC 10.7 H (3.8-10.6) k/uL RBC 4.19 (3.80-5.40) m/uL Hgb 12.8 (11.4-16.0) gm/dL Hct 39.3 (34.0-46.0) % MCV 93.8 (80.0-100.0) fL MCH 30.6 (25.0-35.0) pg MCHC 32.6 (31.0-37.0) g/dL RDW 14.4 (11.5-15.5) % Plt Count 180 (150-450) k/uL MPV 9.0 Neutrophils % 91 % Lymphocytes % 6 % Monocytes % 2 % Eosinophils % 0 % Basophils % 0 % Neutrophils # 9.8 H (1.3-7.7) k/uL Lymphocytes # 0.6 L (1.0-4.8) k/uL Monocytes # 0.2 (0-1.0) k/uL Eosinophils # 0.0 (0-0.7) k/uL Basophils # 0.0 (0-0.2) k/uL PT 11.2 (10.0-12.5) sec INR 1.0 (<1.2) APTT 38.6 H (22.0-30.0) sec D-Dimer (<0.60) mg/L FEU Sodium 133 L (137-145) mmol/L Potassium 4.1 (3.5-5.1) mmol/L Chloride 103 (98-107) mmol/L Carbon Dioxide 18 L (22-30) mmol/L Anion Gap 12 mmol/L BUN 38 H (7-17) mg/dL Creatinine 1.76 H (0.52-1.04) mg/dL Est GFR (CKD-EPI)AfAm 33 (>60 ml/min/1.73 sqM) Est GFR (CKD-EPI)NonAf 29 (>60 ml/min/1.73 sqM) Glucose 191 H (74-99) mg/dL Lactic Ac Sepsis Rflx Plasma Lactic Acid Sravan (0.7-2.0) mmol/L Calcium 9.1 (8.4-10.2) mg/dL Magnesium 1.9 (1.6-2.3) mg/dL Total Bilirubin 1.0 (0.2-1.3) mg/dL AST 35 (14-36) U/L ALT 20 (4-34) U/L Alkaline Phosphatase 120 (38-126) U/L Troponin I (0.000-0.034) ng/mL NT-Pro-B Natriuret Pep 2020 pg/mL Total Protein 5.8 L (6.3-8.2) g/dL Albumin 3.3 L (3.5-5.0) g/dL 07/15/23 07/15/23 07/15/23 Range/Units 17:02 17:02 17:02 WBC (3.8-10.6) k/uL RBC (3.80-5.40) m/uL Hgb (11.4-16.0) gm/dL Hct (34.0-46.0) % MCV (80.0-100.0) fL MCH (25.0-35.0) pg MCHC (31.0-37.0) g/dL RDW (11.5-15.5) % Plt Count (150-450) k/uL MPV Neutrophils % % Lymphocytes % % Monocytes % % Eosinophils % % Basophils % % Neutrophils # (1.3-7.7) k/uL Lymphocytes # (1.0-4.8) k/uL Monocytes # (0-1.0) k/uL Eosinophils # (0-0.7) k/uL Basophils # (0-0.2) k/uL PT (10.0-12.5) sec INR (<1.2) APTT (22.0-30.0) sec D-Dimer 3.02 H (<0.60) mg/L FEU Sodium (137-145) mmol/L Potassium (3.5-5.1) mmol/L Chloride (98-107) mmol/L Carbon Dioxide (22-30) mmol/L Anion Gap mmol/L BUN (7-17) mg/dL Creatinine (0.52-1.04) mg/dL Est GFR (CKD-EPI)AfAm (>60 ml/min/1.73 sqM) Est GFR (CKD-EPI)NonAf (>60 ml/min/1.73 sqM) Glucose (74-99) mg/dL Lactic Ac Sepsis Rflx Plasma Lactic Acid Sravan 2.2 H* (0.7-2.0) mmol/L Calcium (8.4-10.2) mg/dL Magnesium (1.6-2.3) mg/dL Total Bilirubin (0.2-1.3) mg/dL AST (14-36) U/L ALT (4-34) U/L Alkaline Phosphatase (38-126) U/L Troponin I 0.019 (0.000-0.034) ng/mL NT-Pro-B Natriuret Pep pg/mL Total Protein (6.3-8.2) g/dL Albumin (3.5-5.0) g/dL 07/15/23 Range/Units 18:25 WBC (3.8-10.6) k/uL RBC (3.80-5.40) m/uL Hgb (11.4-16.0) gm/dL Hct (34.0-46.0) % MCV (80.0-100.0) fL MCH (25.0-35.0) pg MCHC (31.0-37.0) g/dL RDW (11.5-15.5) % Plt Count (150-450) k/uL MPV Neutrophils % % Lymphocytes % % Monocytes % % Eosinophils % % Basophils % % Neutrophils # (1.3-7.7) k/uL Lymphocytes # (1.0-4.8) k/uL Monocytes # (0-1.0) k/uL Eosinophils # (0-0.7) k/uL Basophils # (0-0.2) k/uL PT (10.0-12.5) sec INR (<1.2) APTT (22.0-30.0) sec D-Dimer (<0.60) mg/L FEU Sodium (137-145) mmol/L Potassium (3.5-5.1) mmol/L Chloride (98-107) mmol/L Carbon Dioxide (22-30) mmol/L Anion Gap mmol/L BUN (7-17) mg/dL Creatinine (0.52-1.04) mg/dL Est GFR (CKD-EPI)AfAm (>60 ml/min/1.73 sqM) Est GFR (CKD-EPI)NonAf (>60 ml/min/1.73 sqM) Glucose (74-99) mg/dL Lactic Ac Sepsis Rflx Y Plasma Lactic Acid Sravan (0.7-2.0) mmol/L Calcium (8.4-10.2) mg/dL Magnesium (1.6-2.3) mg/dL Total Bilirubin (0.2-1.3) mg/dL AST (14-36) U/L ALT (4-34) U/L Alkaline Phosphatase (38-126) U/L Troponin I (0.000-0.034) ng/mL NT-Pro-B Natriuret Pep pg/mL Total Protein (6.3-8.2) g/dL Albumin (3.5-5.0) g/dL Critical Care Time Critical Care Time: Yes Total Critical Care Time: 33 Disposition Clinical Impression: Hypotension, Acute exacerbation of chronic obstructive pulmonary disease Disposition: ADMITTED IP TO THIS [facility] Condition: Critical Is patient prescribed a controlled substance at d/c from ED?: No Time of Disposition: 19:52
[2023-07-15 17:47] LABS: Basophils % (A) 0 %; Eosinophils % (A) 0 %; HCT 39.3 % (34.0-46.0); HGB 12.8 gm/dL (11.4-16.0); Lymphocytes # (A) 0.6 k/uL (1.0-4.8); Lymphocytes % (A) 6 %; MCH 30.6 pg (25.0-35.0); MCHC 32.6 g/dL (31.0-37.0); MCV 93.8 fL (80.0-100.0); Monocytes # (A) 0.2 k/uL (0-1.0); Monocytes % (A) 2 %; Neutrophils # (A) 9.8 k/uL (1.3-7.7); Neutrophils % (A) 91 %; Platelet Count 180 k/uL (150-450); RBC 4.19 m/uL (3.80-5.40); RDW 14.4 % (11.5-15.5); WBC 10.7 k/uL (3.8-10.6)
[2023-07-15 17:58] LABS: Partial Thromboplastin Time 38.6 sec (22.0-30.0); Prothrombin Time 11.2 sec (10.0-12.5)
--- NOTE | 2023-07-15 18:24 | XR ---
EXAMINATION TYPE: XR chest 2V DATE OF EXAM: 07/15/2023 5:50 PM CLINICAL INDICATION:Female, 68 years old with history of difficulty breathing; COMPARISON: Chest radiographs from 2022 TECHNIQUE: XR chest 2V Frontal and lateral views of the chest. FINDINGS: Lungs/Pleura: There is no evidence of pleural effusion, focal consolidation, or pneumothorax. Pulmonary vascularity: Pulmonary vascular congestion. Heart/mediastinum: Cardiomediastinal silhouette is enlarged and stable. Two lead cardiac conduction d evice overlying the left hemithorax with lead tips projecting over the right ventricle and right atri um. Musculoskeletal: No acute osseous pathology. IMPRESSION: Low lung volumes with a generalized hazy appearance which could represent atelectasis versus pulmonar y edema correlate with serum BNP.
[2023-07-15 18:27] LABS: ALT 20 U/L (4-34); AST 35 U/L (14-36); African American GFR (CKD) 33 (>60 ml/min/1.73 sqM); Albumin 3.3 g/dL (3.5-5.0); Alkaline Phosphatase 120 U/L (38-126); Anion Gap 12 mmol/L; Blood Urea Nitrogen 38 mg/dL (7-17); Calcium 9.1 mg/dL (8.4-10.2); Carbon Dioxide 18 mmol/L (22-30); Chloride 103 mmol/L (98-107); Glucose 191 mg/dL (74-99); Magnesium 1.9 mg/dL (1.6-2.3); Non-African American GFR(CKD) 29 (>60 ml/min/1.73 sqM); Potassium 4.1 mmol/L (3.5-5.1); Sodium 133 mmol/L (137-145); Total Protein 5.8 g/dL (6.3-8.2)
[2023-07-15 18:29] LABS: NT-Pro-B-Type Natriuretic Pept 2020 pg/mL
[2023-07-15] MEDS ORDERED: SODIUM CHLORIDE 0.9% 1,000 ML IV STA (19:43)
[2023-07-15] MEDS ORDERED: IPRATROPIUM-ALBUTEROL 3 ML NEB INHALATION PRN (19:52)
[2023-07-15] MEDS ORDERED: NALOXONE 0.4 MG/ML 1 ML VIAL IVP PRN (19:52)
[2023-07-15] MEDS ORDERED: HEPARIN SOD,PORK IN 0.45% NACL 25,000 UNIT in 0.45% NACL 1 250ML.BAG IV SCH (20:30)
[2023-07-15] MEDS ORDERED: HEPARIN SODIUM 1,000 UN/ML (10ML VL) IV PRN (20:30)
[2023-07-15] MEDS ORDERED: MAGNESIUM HYDROXIDE 2,400 MG/30 ML CUP PO PRN (20:58)
--- NOTE | 2023-07-15 21:04 | US ---
EXAMINATION TYPE: US venous doppler duplex LE DATE OF EXAM: 07/15/2023 8:02 PM COMPARISON: NONE CLINICAL INDICATION: Female, 68 years old with history of Evaluate for thrombus; No hx of DVT. On blo od thinners SIDE PERFORMED: Bilateral TECHNIQUE: The lower extremity deep venous system is examined utilizing real time linear array sonog jose with graded compression, doppler sonography and color-flow sonography. VESSELS IMAGED: Common Femoral Vein Deep Femoral Vein Greater Saphenous Vein * Femoral Vein Popliteal Vein Small Saphenous Vein * Proximal Calf Veins (* superficial vessels) Right Leg: No evidence for DVT in vessels seen. Groin limited due to PICC line in groin Left Leg: No evidence for DVT IMPRESSION: Grayscale, color doppler, spectral doppler imaging performed of the deep veins of the lo wer extremities. There is normal flow, compressibility, vascular waveforms.
[2023-07-15] MEDS: IPRATROPIUM-ALBUTEROL 3 ML NEB INHALATION SCH (21:14)
[2023-07-15 21:45] LABS: Glucose,Whole Blood 168 mg/dL (70-110)
[2023-07-15] MEDS: ATORVASTATIN 20 MG TAB PO SCH (22:04)
[2023-07-15] MEDS: MEXILETINE 150 MG CAP PO SCH (22:04)
[2023-07-15] MEDS: MAGNESIUM OXIDE 400 MG TAB PO SCH (22:04)
[2023-07-15] MEDS: POTASSIUM CHLORIDE ER 10 MEQ TAB.ER.PRT PO SCH (22:05)
[2023-07-15 23:25] LABS: African American GFR (CKD) 33 (>60 ml/min/1.73 sqM); Anion Gap 11 mmol/L; Blood Urea Nitrogen 38 mg/dL (7-17); Calcium 9.4 mg/dL (8.4-10.2); Carbon Dioxide 17 mmol/L (22-30); Chloride 106 mmol/L (98-107); Glucose 160 mg/dL (74-99); Magnesium 1.9 mg/dL (1.6-2.3); Non-African American GFR(CKD) 28 (>60 ml/min/1.73 sqM); Potassium 4.2 mmol/L (3.5-5.1); Sodium 134 mmol/L (137-145)
[2023-07-16 00:42] LABS: Basophils % (A) 0 %; Eosinophils % (A) 0 %; HCT 41.1 % (34.0-46.0); Lymphocytes # (A) 0.5 k/uL (1.0-4.8); Lymphocytes % (A) 6 %; MCH 29.8 pg (25.0-35.0); MCHC 31.6 g/dL (31.0-37.0); Mean Platelet Volume 9.4; Monocytes # (A) 0.2 k/uL (0-1.0); Monocytes % (A) 2 %; Neutrophils # (A) 8.1 k/uL (1.3-7.7); Neutrophils % (A) 92 %; Platelet Count 207 k/uL (150-450); RBC 4.37 m/uL (3.80-5.40); RDW 14.7 % (11.5-15.5); WBC 8.9 k/uL (3.8-10.6)
[2023-07-16] MEDS: methylPREDNISolone SOD SUCCI 125 MG/2 ML VIAL IV SCH ×2 (01:12→06:06)
[2023-07-16 03:15] LABS: Basophils % (A) 0 %; Eosinophils % (A) 0 %; HCT 39.5 % (34.0-46.0); HGB 12.8 gm/dL (11.4-16.0); Lymphocytes # (A) 0.7 k/uL (1.0-4.8); Lymphocytes % (A) 8 %; MCH 30.2 pg (25.0-35.0); MCHC 32.3 g/dL (31.0-37.0); MCV 93.4 fL (80.0-100.0); Mean Platelet Volume 8.3; Monocytes # (A) 0.2 k/uL (0-1.0); Monocytes % (A) 2 %; Neutrophils # (A) 8.3 k/uL (1.3-7.7); Neutrophils % (A) 89 %; Platelet Count 216 k/uL (150-450); RBC 4.23 m/uL (3.80-5.40); RDW 14.9 % (11.5-15.5); WBC 9.4 k/uL (3.8-10.6)
--- NOTE | 2023-07-16 03:29 | P.CNPUL ---
History of Present Illness Consult date: 07/16/23 Requesting physician: Kyrie Driver Reason for consult: other (ICU management) Chief complaint: Shortness of breath and chest pain History of present illness: I am seeing this patient in new consultation today 07/16/2023 after she was transferred from [facility] yesterday evening with concerns shortness of breath and chest pain. Patient apparently had some questionable EKG changes at outside facility, and was started on heparin infusion. She was also noted to be hypotensive, and norepinephrine infusion was initiated. Patient is a 68-year-old white female with past medical history significant for nonischemic cardiomyopathy status post AICD implantation, previous ventricular tachycardia, coronary artery disease, hypertension, hyperlipidemia, COPD with home oxygen use, obstructive sleep apnea with home CPAP. Patient is currently sitting up in bed, on 2 L/m nasal cannula, in no acute distress. She remains hypotensive, and norepinephrine is currently infusing at 0.06 mcg/kg/m. Heparin is infusing per protocol. Normal saline is infusing at 130 ML's per hour. Heart rhythm appears sinus tachycardia bedside monitor the rate of 120 bpm. She is tachypneic. She does admit persistent nonradiating substernal chest pain that started on . She is also having shortness of breath especially on exertion and a nonproductive cough. Denies heart palpitations, lightheadedness, syncopal, increased lower extremity edema, orthopnea. She denies any infectious symptoms such as fever, productive cough, hemoptysis. Denies any sick contacts. Denies any urinary complaints such as frequency, dysuria, urgency. Denies any abdominal pain, nausea or vomiting, diarrhea. Chest x-ray on arrival showed low lung volumes and generalized hazy appearance possibly atelectasis versus pulmo nary edema. NT proBNP was elevated at 2020. Troponins were not elevated. EKG on arrival showed normal sinus rhythm with ST elevation in V1 and V2. Appears chronic. Most recent echocardiogram available to me is from 2020, which shows moderately severe impaired left ventricular ejection fraction of 30-35% and moderate concentric LVH. CBC on arrival showed some mild leukocytosis with a WBC count of 10.7, hemoglobin 12.8, hematocrit 39.3, platelets 180. BMP on arrival shows sodium 133, potassium 4.1, chloride 103, serum bicarb 18, BUN 38, creatinine 1.76, glucose 191. Lactic acid level was 2.2 on arrival. Patient was empirically started on Rocephin. D-dimer was elevated at 3. Venous Doppler bilateral lower extremity negative for DVT. VQ scan pending. Patient will be monitored in the intensive care unit. Review of Systems REVIEW OF SYSTEMS: CONSTITUTIONAL: Denies any recent significant weight loss or weight gain. EYES: Denies change in vision. EARS, NOSE, MOUTH, THROAT: Denies headaches, denies sore throat. CARDIOVASCULAR: See HPI RESPIRATORY: See HPI GASTROINTESTINAL: Denies change in appetite, abdominal pain, nausea and vomit ing, or diarrhea GENITOURINARY: Denies hematuria, denies infections. MUSKULOSKELETAL: Denies pain, denies swelling. INTEGUMENTARY: Denies rash, denies eczema. NEUROLOGICAL: Denies recent memory loss, no recent seizure activity. PSYCHIATRIC: Denies anxiety, denies depression. HEMATOLOGIC/LYMPHATIC: Denies anemia, denies enlarged lymph node Past Medical History Past Medical History: Coronary Artery Disease (CAD), Heart Failure, COPD, Diabetes Mellitus, GERD/Reflux, Hyperlipidemia, Hypertension, Respiratory Disorder Additional Past Medical History / Comment(s): Chronic respiratory failure- oxygen at 2L., cardiomyopathy., pt states right ankle fracture 4-5 weeks ago., See Cardiology [facility] & [facility]. History of Any Multi-Drug Resistant Organisms: None Reported Past Surgical History: AICD, Breast Surgery, Heart Catheterization, Hysterectomy, Orthopedic Surgery Additional Past Surgical History / Comment(s): 2004 AICD, heart cath 09/2020, Benign R breast biopsy, colonoscopy, broken R. ankle Past Anesthesia/Blood Transfusion Reactions: No Reported Reaction Type of Cardiac Device: AICD Device Placement Date:: unknown Past Psychological History: No Psychological Hx Reported Smoking Status: Former smoker Past Alcohol Use History: None Reported Past Drug Use History: None Reported - Past Family History Mother Additional Family Medical History / Comment(s): heart problems. Mother at the age of 65 or 67 of DVT "that traveled." Father Family Medical History: Myocardial Infarction (MA) Additional Family Medical History / Comment(s): heart problems. Father of a MA at the age of 65 yrs. Medications and Allergies Home Medications Medication Instructions Recorded Confirmed Type FLUoxetine HCL [PROzac] 20 mg PO DAILY 02/26/14 07/15/23 History Folic Acid 1 mg PO DAILY 02/26/14 07/15/23 History Omeprazole 20 mg PO DAILY 07/22/20 07/15/23 History Budesonide/Formoterol Fumarate 2 puff INHALATION RT-BID 03/16/21 07/15/23 History [Symbicort 160-4.5 Mcg Inhaler] Potassium Chloride ER [K-Dur 10] 10 meq PO TID 03/16/21 07/15/23 History Empagliflozin [Jardiance] 10 mg PO DAILY 10/30/22 07/15/23 History Midodrine [ProAmatine] 5 mg PO DAILY 10/30/22 07/15/23 History Acetaminophen [Tylenol] 325 mg PO Q4H PRN 12/20/22 07/15/23 History Aspirin [Adult Low Dose Aspirin EC] 81 mg PO DAILY 12/20/22 07/15/23 History Atorvastatin [Lipitor] 20 mg PO HS 12/20/22 07/15/23 History Cholecalciferol [Vitamin D3 (25 25 mcg PO DAILY 12/20/22 07/15/23 History Mcg = 1000 Iu)] Ipratropium-Albuterol Nebulize 3 ml INHALATION RT-TID 12/20/22 07/15/23 History [Duoneb 0.5 mg-3 mg/3 ml Soln] Magnesium Oxide [Mag-Ox] 250 mg PO BID 12/20/22 07/15/23 History Mexiletine HCl 150 mg PO BID 12/20/22 07/15/23 History Nitroglycerin Sl Tabs [Nitrostat] 0.4 mg SUBLINGUAL Q5M PRN 12/20/22 07/15/23 History Metoprolol Succinate [Metoprolol 12.5 mg PO DAILY #90 tab 12/23/22 07/15/23 Rx Succinate ER] lisinopriL [Zestril] 2.5 mg PO DAILY #90 tablet 12/23/22 07/15/23 Rx Furosemide [Lasix] 20 mg PO DAILY 07/15/23 07/15/23 History Magnesium Hydroxide [Milk of 400 mg PO Q48H PRN 07/15/23 07/15/23 History Magnesia] Montelukast [Singulair] 10 mg PO DAILY 07/15/23 07/15/23 History Simethicone [Simethicone Chew] 80 mg PO BID PRN 07/15/23 07/15/23 History Allergies Allergy/AdvReac Type Severity Reaction Status Date / Time No Known Allergies Allergy Verified 07/15/23 20:27 Physical Exam Vitals: Vital Signs Temp Pulse Resp BP Pulse Ox 07/16/23 00:00 99.2 F 120 H 24 79/50 93 L 07/15/23 23:00 118 H 25 H 92/56 91 L 07/15/23 22:00 98.1 F 118 H 19 85/50 93 L 07/15/23 21:29 116 H 07/15/23 21:16 109 H 07/15/23 21:00 108 H 0 L 101/54 99 07/15/23 20:30 108 H 20 120/56 95 07/15/23 20:00 109 H 20 103/55 94 L 07/15/23 19:30 109 H 20 113/47 95 07/15/23 19:19 109 H 18 116/56 96 07/15/23 18:00 98.1 F 104 H 18 136/62 94 L 07/15/23 17:49 98.1 F 114 H 19 137/65 95 07/15/23 17:17 107 H 07/15/23 17:05 100 07/15/23 16:38 98.7 F 104 H 18 73/38 93 L Intake and Output 07/15/23 07/15/23 07/16/23 14:59 22:59 06:59 Intake Total 166.061 50 Balance 166.061 50 Intake: IV 130 50 Sodium Chloride 0.9% 1, 130 50 000 ml @ 50 mls/hr IV . Q20H [facility] Rx#:[id number] Intake, IV Titration 36.061 Amount Norepinephrine 8 mg In 36.061 Sodium Chloride 0.9% 250 ml @ 0.03 MCG/KG/MIN 3. 871 mls/hr IV .Q24H [facility] Rx#:[id number] Other: Voiding Method Bedpan External Catheter # Voids 0 0 # Bowel Movements 0 0 Weight 70.2 kg GENERAL EXAM: Alert, 68-year-old white female , comfortable in no apparent distress. HEAD: Normocephalic and atraumatic EYES: Normal reaction of pupils, equal size. NOSE: Clear with pink turbinates. THROAT: No erythema or exudates. NECK: No masses, no JVD. CHEST: No chest wall deformity. LUNGS: Equal air entry with bibasilar inspiratory crackles. No wheeze, rhonchi or dullness. On 2 L/m nasal cannula. No conversational dyspnea or accessory muscle use.. CVS: S1 and S2 normal with no audible murmur, regular rhythm. No extra heart sounds ABDOMEN: No hepatosplenomegaly, active bowel sounds, no guarding or rigidity. SPINE: No scoliosis or deformity SKIN: No rashes CENTRAL NERVOUS SYSTEM: No focal deficits, tone is normal in all 4 extremities. EXTREMITIES: There is mild nonpitting bilateral lower extremity edema. No clubbing, or cyanosis. Peripheral pulses are intact. Results - Laboratory Findings CBC and BMP: 07/16/23 02:22 07/16/23 02:22 PT/INR, D-dimer PT 11.2 sec (10.0-12.5) 07/15/23 17:02 INR 1.0 (<1.2) 07/15/23 17:02 D-Dimer 3.02 mg/L FEU (<0.60) H 07/15/23 17:02 Abnormal lab findings: Abnormal Labs 07/15/23 07/15/23 07/15/23 17:02 17:02 17:02 WBC 10.7 H Neutrophils # 9.8 H Lymphocytes # 0.6 L APTT 38.6 H D-Dimer Sodium 133 L Carbon Dioxide 18 L BUN 38 H Creatinine 1.76 H Glucose 191 H POC Glucose (mg/dL) Plasma Lactic Acid Sravan Total Protein 5.8 L Albumin 3.3 L 07/15/23 07/15/23 07/15/23 17:02 17:02 21:44 WBC Neutrophils # Lymphocytes # APTT D-Dimer 3.02 H Sodium Carbon Dioxide BUN Creatinine Glucose POC Glucose (mg/dL) 168 H Plasma Lactic Acid Sravan 2.2 H* Total Protein Albumin 07/15/23 07/15/23 22:49 22:49 WBC Neutrophils # 8.1 H Lymphocytes # 0.5 L APTT D-Dimer Sodium 134 L Carbon Dioxide 17 L BUN 38 H Creatinine 1.79 H Glucose 160 H POC Glucose (mg/dL) Plasma Lactic Acid Sravan Total Protein Albumin - Diagnostic Findings Chest x-ray: image reviewed Assessment and Plan Assessment: Acute on chronic hypoxemic respiratory failure, currently on 2 L per minute nasal cannula, possibly secondary to acute COPD exacerbation and suspected exacerbation of systolic congestive heart failure. Chest x-ray on arrival showed low lung volumes and generalized hazy appearance possibly atelectasis versus pulmonary edema. Hypotension and shock, requiring vasopressors in the form of norepinephrine. Patient is being evaluated for possible sepsis. Metabolic non-anion gap acidosis Acute on chronic kidney disease, as the patient has chronic stage III kidney disease Atypical chest pain Elevated d-dimer, patient did not receive chest CTA due to nephropathy. Patient is currently already on heparin infusion. VQ scan is pending. History of nonischemic cardiomyopathy status post AICD implantation History of ventricular tachycardia History of coronary artery disease Hyperlipidemia Chronic hypoxemic respiratory failure, normally maintained on 2 L per nasal cannula Obstructive sleep apnea, with home CPAP device Plan: Patient's medications, labs, chest x-ray reviewed Continues on norepinephrine infusion for hypotension. D-dimer was elevated, and she did not undergo chest CTA due to nephropathy. Heparin is infusing per protocol. VQ scan is pending. Venous Doppler lower extremities was negative. Serial troponins non-elevated Echocardiogram is pending for the morning Home Lasix dose has been restarted Currently on 2 L/m nasal cannula Patient continues on treatment for COPD including DuoNeb's, Symbicort inhaler, and IV Solu-Medrol CPAP at bedtime Empirically on Rocephin Urinalysis is pending. Blood cultures pending. Patient is a DO NOT RESUSCITATE. Patient will be monitored in the intensive care unit. I have personally seen and examined the patient, performed the documentation and the assessment and plan as written. Number of minutes spent on the visit:20 Joint evaluation that was done along with a nurse practitioner. This evaluation was done in more than 30 minutes. The patient was seen and evaluated. The patient presented with back and chest pain. She was also hypotensive with chronic EKG changes that indicated some ST segment elevation. Nevertheless, her troponins are negative. And previous EKGs have shown similar ST segment elevation over the anterior leads. Her EKG has been chronically abnormal. The patient was started on IV heparin. The patient was also started on norepinephrine for borderline hypotension. The patient's norepinephrine is currently running at 0.05 mcg/kg/m. Troponins are negative. ProBNP level is 2020. She doesn't a component of melena negative metabolic acidosis on her blood work with a serum bicarb of 18 and a BUN of 36 and a creatinine of 1.7. echoes nonelevated. Oxygen requirements are unchanged and the patient remains on 2 L of oxygen by nasal cannula. Along with IV heparin, the patient is currently on normal saline at rate of 50 mL an hour. Midrin has been started for chronic hypotension 5 mg by mouth daily which is her home dose. I'm going to switch her IV fluids to bicarbonate infusion at the rate of 100 mL an hour. Continue with midodrine. Hold beta blockers for now. Hold Lasix for now. Cardiology evaluation. May need to repeat echocardiogram. Very low clinical suspicion for pulmonary embolism. Discontinue the IV Solu-Medrol. We'll continue to follow. Time with Patient: Greater than 30
[2023-07-16 03:30] LABS: African American GFR (CKD) 33 (>60 ml/min/1.73 sqM); Anion Gap 12 mmol/L; Blood Urea Nitrogen 36 mg/dL (7-17); Calcium 9.3 mg/dL (8.4-10.2); Carbon Dioxide 18 mmol/L (22-30); Chloride 105 mmol/L (98-107); Glucose 155 mg/dL (74-99); Non-African American GFR(CKD) 29 (>60 ml/min/1.73 sqM); Potassium 4.1 mmol/L (3.5-5.1); Sodium 135 mmol/L (137-145)
[2023-07-16 03:47] LABS: Prothrombin Time 10.5 sec (10.0-12.5)
[2023-07-16] MEDS: PANTOPRAZOLE 40 MG TABLET PO SCH (06:06)
[2023-07-16] MEDS: IPRATROPIUM-ALBUTEROL 3 ML NEB INHALATION SCH ×4 (07:29→19:55)
[2023-07-16] MEDS: SYMBICORT 160-4.5 MCG INHALER INHALATION SCH ×2 (07:29→19:55)
[2023-07-16] MEDS ORDERED: FUROSEMIDE 20 MG TAB PO SCH (09:00)
[2023-07-16] MEDS ORDERED: METOPROLOL SUCCINATE (ER) 25 MG TAB.ER.24H PO SCH (09:00)
[2023-07-16] MEDS: MAGNESIUM OXIDE 400 MG TAB PO SCH ×2 (09:43→20:55)
[2023-07-16] MEDS: MIDODRINE 5 MG TAB PO SCH (09:43)
[2023-07-16] MEDS: DEXTROSE 5% IN WATER 1,000 ML with SODIUM BICARB (1 MEQ/ML) 150 ML IV SCH ×2 (09:43→20:55)
[2023-07-16] MEDS: POTASSIUM CHLORIDE ER 10 MEQ TAB.ER.PRT PO SCH ×3 (09:43→22:15)
[2023-07-16] MEDS: CHOLECALCIFEROL 25 MCG (1000 IU) TABLET PO SCH (09:44)
[2023-07-16] MEDS ORDERED: DEXTROSE 50% SYRINGE 50 ML IVP PRN ×2 (09:44)
[2023-07-16] MEDS: MONTELUKAST 10 MG TAB PO SCH (09:44)
[2023-07-16] MEDS: DAPAGLIFLOZIN PROPANEDIOL 5 MG TABLET PO SCH (09:44)
[2023-07-16] MEDS: FOLIC ACID 1 MG TAB PO SCH (09:44)
[2023-07-16] MEDS: FLUoxetine HCL 20 MG CAP PO SCH (09:44)
[2023-07-16] MEDS: MEXILETINE 150 MG CAP PO SCH ×2 (09:44→20:55)
--- NOTE | 2023-07-16 11:08 | CA ---
Transthoracic Echo Report Name: Gladys Powell Age: 68 Gender: F : 1955 Exam Date: 07/16/2023 08:54 Exam Location: [place] [facility] Ht (in): 64 Wt (lb): 147 Ordering Physician: Kyrie Driver DO Attending/Referring Phys: Track Surfacing Machine Operator Oleg Dubose Procedure CPT: Indications: dyspnea Cardiac Hx: Technical Quality: Technically difficult study Contrast 1: Lumason Total Dose (mL): 5 Contrast 2: Total Dose (mL): MEASUREMENTS (Male / Female) Normal Values 2D ECHO LV Diastolic Diameter PLAX 4.2 cm 4.2 - 5.9 / 3.9 - 5.3 cm LV Systolic Diameter PLAX 3.0 cm IVS Diastolic Thickness 1.2 cm 0.6 - 1.0 / 0.6 - 0.9 cm LVPW Diastolic Thickness 1.0 cm 0.6 - 1.0 / 0.6 - 0.9 cm LV Relative Wall Thickness 0.5 RV Internal Dim ED PLAX 1.8 cm LVOT Diameter 2.5 cm Aortic Root Diameter 2.9 cm LV Diastolic Volume MOD BP 44.0 cm??? 67 - 155 / 56 - 104 cm??? LV Systolic Volume MOD BP 28.3 cm??? 22 - 58 / 19 - 49 cm??? LV Ejection Fraction MOD BP 35.8 % >= 55 % LV Cardiac Index MOD BP 1019.6 cm???/min???m??? LV Diastolic Volume MOD 4C 47.2 cm??? LV Systolic Volume MOD 4C 30.7 cm??? LV Ejection Fraction MOD 4C 35.0 % LV Cardiac Index MOD 4C 1067.9 cm???/min???m??? LV Diastolic Length 4C 7.3 cm LV Systolic Length 4C 6.8 cm LV Diastolic Volume MOD 2C 37.7 cm??? LV Systolic Volume MOD 2C 25.5 cm??? LV Ejection Fraction MOD 2C 32.4 % LV Cardiac Index MOD 2C 791.8 cm???/min???m??? LV Diastolic Length 2C 6.7 cm LV Systolic Length 2C 7.0 cm LA Volume 33.5 cm??? 18 - 58 / 22 - 52 cm??? LA Volume Index 19.2 cm???/m??? 16 - 28 cm???/m??? DOPPLER AV Peak Velocity 123.3 cm/s AV Peak Gradient 6.1 mmHg AV Mean Velocity 63.6 cm/s AV Mean Gradient 1.9 mmHg AV Velocity Time Integral 19.7 cm MV Peak Velocity 174.9 cm/s MV Peak Gradient 12.2 mmHg MV Mean Velocity 73.6 cm/s MV Mean Gradient 3.2 mmHg MV Velocity Time Integral 37.4 cm MV E' Velocity 7.6 cm/s TR Peak Velocity 221.0 cm/s TR Peak Gradient 19.5 mmHg PV Peak Velocity 156.4 cm/s PV Peak Gradient 9.8 mmHg FINDINGS Left Ventricle Normal LV size. Mild concentric LVH. Mid to distal anterior, anteroapical and apical wall hypokinesia. Left ventricular ejection fraction is estimated at 30- 35 %. Severe LV systolic dysfunction Right Ventricle Normal right ventricular size. Right Atrium Normal right atrial size. Left Atrium Normal left atrial size. LA volume index= 19.5ml/m2 Mitral Valve Moderate Posterior MAC.no mitral stenosis. No mitral regurgitation. Aortic Valve Trileaflet aortic valve. No aortic valve stenosis or regurgitation. Tricuspid Valve Structurally normal tricuspid valve. Mild TR. Pulmonic Valve Pulmonic valve not well visualized. No pulmonic regurgitation. Pericardium No pericardial effusion Aorta Normal size aortic root. CONCLUSIONS Severe LV systolic dysfunction. Mild concentric LVH Left ventricular ejection fraction is estimated at 30-35 %. Mid to distal anterior, anteroapical and apical wall hypokinesia. No obvious valvular pathology No pericardial effusion Previewed by: Dr Shilo Miranda (Electronically Signed) Final Date: 16 July 2023 11:07
--- NOTE | 2023-07-16 11:15 | P.CRDCN ---
History of Present Illness History of present illness: HISTORY OF PRESENTING ILLNESS Patient is pleasant 68-year-old female with history of mild CAD, nonischemic cardio myopathy, AICD implant, ventricular tachycardia, COPD on home oxygen, hypertension, hyperlipidemia, COPD. Patient follows in the office with Dr. Guerrero. She has had issues with hypotension in the past and has been on Midrin. Additionally she has been taking lisinopril as well as low-dose metoprolol. She denies any actual lightheadedness however has been found to be hypotensive with blood pressures in the 70s over 40s from the blood pressure cuff in the brachial position on both sides. She actually presented to the hospital secondary to chest pain and back pain. She denies any inciting events or recent traumas. She states pain has somewhat subsided. EKG showing poor R-wave progression with minimal ST elevation in lead V2 appearing similar to prior EKGs. There was concern about STEMI however did not meet STEMI criteria. Troponins 0.019, 0.02, 0.03, proBNP 2020, creatinine 1.7, bicarbonate 18, white blood cell count 10.7. She denies any recent fevers, chills. She was transferred to ICU and placed on low-dose or epinephrine with blood pressures mostly in the 80s over 50s/90s over 60s. REVIEW OF SYSTEMS At the time of my exam: CONSTITUTIONAL: Denies fever or chills. CARDIOVASCULAR: +chest pain, no shortness of breath, orthopnea, PND or palpitations. RESPIRATORY: Denies cough. GASTROINTESTINAL: Denies abdominal pain, diarrhea, constipation, nausea or vomiting. MUSCULOSKELETAL: Denies myalgias. NEUROLOGIC: Denies numbness, tingling or weakness. ENDOCRINE: Denies fatigue, weight change, polydipsia or polyurina. GENITOURINARY: Denies burning, hematuria or urgency with micturation. HEMATOLOGIC: Denies history of anemia or bleeding. PHYSICAL EXAMINATION Vital signs reviewed. CONSTITUTIONAL: No apparent distress. HEENT: Head is normocephalic. Pupils are equal, round. Sclerae anicteric. Mucous membranes of the mouth are moist. No JVD. No carotid bruit. CHEST EXAMINATION: Lungs are clear to auscultation. No chest wall tenderness is noted on palpation or with deep breathing. HEART EXAMINATION: Regular rate and rhythm. S1, S2 heard. No murmurs, gallops or rub. ABDOMEN: Soft, nontender. Positive bowel sounds. EXTREMITIES: 2+ peripheral pulses, no lower extremity edema and no calf tenderness. NEUROLOGIC EXAMINATION: Patient is awake, alert and oriented x3. ASSESSMENT 1. Atypical chest pain 2. Abnormal EKG with minimal ST elevation in V2, not meeting criteria for STEMI, do not suspect acute coronary syndrome 3. Mild CAD by prior heart catheterization 4. History of nonischemic cardiomyopathy status post AICD 5. Hypotension, rule out sepsis versus medication effect. Holding lisinopril metoprolol 6. Chronic kidney disease PLAN Patient mainly presented with chest pain and has not been having any actual lightheadedness. Always a consideration of possible miss measurement with the brachial cuff however appears to be correlating and previously had more blood pressures in the 90s over 60s while the office. Continue with Midrin and hold lisinopril, metoprolol. Check 2-D echo to rule out any structural etiology of her hypotension. Evaluate for any infection. Symptoms do not appear consistent with acute coronary syndrome. Stop heparin drip. Check cortisol for completeness sake. Further recommendations to follow. Past Medical History Past Medical History: Coronary Artery Disease (CAD), Heart Failure, COPD, Diabetes Mellitus, GERD/Reflux, Hyperlipidemia, Hypertension, Respiratory Disorder Additional Past Medical History / Comment(s): Chronic respiratory failure- oxygen at 2L., cardiomyopathy., pt states right ankle fracture 4-5 weeks ago., See [facility] History of Any Multi-Drug Resistant Organisms: None Reported Past Surgical History: AICD, Breast Surgery, Heart Catheterization, Hysterectomy, Orthopedic Surgery Additional Past Surgical History / Comment(s): 2004 AICD, heart cath 09/2020, Benign R breast biopsy, colonoscopy, broken R. ankle Past Anesthesia/Blood Transfusion Reactions: No Reported Reaction Type of Cardiac Device: AICD Device Placement Date:: unknown Past Psychological History: No Psychological Hx Reported Smoking Status: Former smoker Past Alcohol Use History: None Reported Past Drug Use History: None Reported - Past Family History Mother Additional Family Medical History / Comment(s): heart problems. Mother at the age of 65 or 67 of DVT "that traveled." Father Family Medical History: Myocardial Infarction ([place]) Additional Family Medical History / Comment(s): heart problems. Father of a [place] at the age of 65 yrs. Medications and Allergies Home Medications Medication Instructions Recorded Confirmed Type FLUoxetine HCL [PROzac] 20 mg PO DAILY 02/26/14 07/15/23 History Folic Acid 1 mg PO DAILY 02/26/14 07/15/23 History Omeprazole 20 mg PO DAILY 07/22/20 07/15/23 History Budesonide/Formoterol Fumarate 2 puff INHALATION RT-BID 03/16/21 07/15/23 History [Symbicort 160-4.5 Mcg Inhaler] Potassium Chloride ER [K-Dur 10] 10 meq PO TID 03/16/21 07/15/23 History Empagliflozin [Jardiance] 10 mg PO DAILY 10/30/22 07/15/23 History Midodrine [ProAmatine] 5 mg PO DAILY 10/30/22 07/15/23 History Acetaminophen [Tylenol] 325 mg PO Q4H PRN 12/20/22 07/15/23 History Aspirin [Adult Low Dose Aspirin EC] 81 mg PO DAILY 12/20/22 07/15/23 History Atorvastatin [Lipitor] 20 mg PO HS 12/20/22 07/15/23 History Cholecalciferol [Vitamin D3 (25 25 mcg PO DAILY 12/20/22 07/15/23 History Mcg = 1000 Iu)] Ipratropium-Albuterol Nebulize 3 ml INHALATION RT-TID 12/20/22 07/15/23 History [Duoneb 0.5 mg-3 mg/3 ml Soln] Magnesium Oxide [Mag-Ox] 250 mg PO BID 12/20/22 07/15/23 History Mexiletine HCl 150 mg PO BID 12/20/22 07/15/23 History Nitroglycerin Sl Tabs [Nitrostat] 0.4 mg SUBLINGUAL Q5M PRN 12/20/22 07/15/23 History Metoprolol Succinate [Metoprolol 12.5 mg PO DAILY #90 tab 12/23/22 07/15/23 Rx Succinate ER] lisinopriL [Zestril] 2.5 mg PO DAILY #90 tablet 12/23/22 07/15/23 Rx Furosemide [Lasix] 20 mg PO DAILY 07/15/23 07/15/23 History Magnesium Hydroxide [Milk of 400 mg PO Q48H PRN 07/15/23 07/15/23 History Magnesia] Montelukast [Singulair] 10 mg PO DAILY 07/15/23 07/15/23 History Simethicone [Simethicone Chew] 80 mg PO BID PRN 07/15/23 07/15/23 History Allergies Allergy/AdvReac Type Severity Reaction Status Date / Time No Known Allergies Allergy Verified 07/15/23 20:27 Physical Exam Vitals: Vital Signs Temp Pulse Resp BP Pulse Ox 07/16/23 10:53 101 H 07/16/23 10:00 112 H 32 H 87/76 92 L 07/16/23 09:45 121 H 28 H 94/51 93 L 07/16/23 09:30 109 H 25 H 89/76 93 L 07/16/23 09:15 107 H 17 100/49 94 L 07/16/23 09:00 112 H 10 L 109/46 91 L 07/16/23 08:45 109 H 26 H 82/51 93 L 07/16/23 08:30 110 H 10 L 77/37 95 07/16/23 08:15 108 H 25 H 91/48 91 L 07/16/23 08:00 98.5 F 108 H 24 104/50 93 L 07/16/23 07:45 111 H 22 93/77 85 L 07/16/23 07:41 102 H 07/16/23 07:31 102 H 07/16/23 07:30 101 H 16 109/57 91 L 07/16/23 07:15 96 19 110/59 93 L 07/16/23 07:00 102 H 21 110/57 96 07/16/23 06:00 100 22 138/60 95 07/16/23 05:00 105 H 25 H 128/56 90 L 07/16/23 04:00 98.8 F 106 H 21 111/58 92 L 07/16/23 03:00 112 H 17 98/57 93 L 07/16/23 02:00 115 H 12 103/54 92 L 07/16/23 01:00 116 H 26 H 99/68 94 L 07/16/23 00:00 99.2 F 120 H 24 79/50 93 L 07/15/23 23:00 118 H 25 H 92/56 91 L 07/15/23 22:00 98.1 F 118 H 19 85/50 93 L 07/15/23 21:29 116 H 07/15/23 21:16 109 H 07/15/23 21:00 108 H 0 L 101/54 99 07/15/23 20:30 108 H 20 120/56 95 07/15/23 20:00 109 H 20 103/55 94 L 07/15/23 19:30 109 H 20 113/47 95 07/15/23 19:19 109 H 18 116/56 96 07/15/23 18:00 98.1 F 104 H 18 136/62 94 L 07/15/23 17:49 98.1 F 114 H 19 137/65 95 07/15/23 17:17 107 H 07/15/23 17:05 100 07/15/23 16:38 98.7 F 104 H 18 73/38 93 L Intake and Output 07/15/23 07/16/23 07/16/23 22:59 06:59 14:59 Intake Total 166.061 519.395 428.761 Balance 166.061 519.395 428.761 Intake: IV 130 450 105 Sodium Chloride 0.9% 1, 130 450 105 000 ml @ 50 mls/hr IV . Q20H STA Rx#:[id number] Intake, IV Titration 36.061 69.395 123.761 Amount Dextrose 5% in Water 1, 100 000 ml @ 100 mls/hr IV . [id number] GERALD with Sodium Bicarb (1 Meq/ml) 150 ml Rx#:[id number] Norepinephrine 8 mg In 36.061 69.395 23.761 Sodium Chloride 0.9% 250 ml @ 0.03 MCG/KG/MIN 3. 871 mls/hr IV .Q24H GERALD Rx#:[id number] Oral 200 Other: Voiding Method Bedpan Bedpan External Catheter External Catheter # Voids 0 0 # Bowel Movements 0 0 Weight 70.2 kg 70.2 kg Results 07/16/23 02:22 07/16/23 02:22 Cardiac Enzymes 07/15/23 07/15/23 07/15/23 Range/Units 17:02 17:02 20:49 AST 35 (14-36) U/L Troponin I 0.019 0.028 (0.000-0.034) ng/mL 07/15/23 Range/Units 22:49 AST (14-36) U/L Troponin I 0.033 (0.000-0.034) ng/mL Coagulation 07/15/23 07/16/23 07/16/23 Range/Units 17:02 02:22 02:22 PT 11.2 10.5 (10.0-12.5) sec APTT 38.6 H 50.9 H (22.0-30.0) sec CBC 07/15/23 07/15/23 07/16/23 Range/Units 17:02 22:49 02:22 WBC 10.7 H 8.9 9.4 (3.8-10.6) k/uL RBC 4.19 4.37 4.23 (3.80-5.40) m/uL Hgb 12.8 13.0 12.8 (11.4-16.0) gm/dL Hct 39.3 41.1 39.5 (34.0-46.0) % Plt Count 180 207 216 (150-450) k/uL Comprehensive Metabolic Panel 07/15/23 07/15/23 07/16/23 Range/Units 17:02 22:49 02:22 Sodium 133 L 134 L 135 L (137-145) mmol/L Potassium 4.1 4.2 4.1 (3.5-5.1) mmol/L Chloride 103 106 105 (98-107) mmol/L Carbon Dioxide 18 L 17 L 18 L (22-30) mmol/L BUN 38 H 38 H 36 H (7-17) mg/dL Creatinine 1.76 H 1.79 H 1.78 H (0.52-1.04) mg/dL Glucose 191 H 160 H 155 H (74-99) mg/dL Calcium 9.1 9.4 9.3 (8.4-10.2) mg/dL AST 35 (14-36) U/L ALT 20 (4-34) U/L Alkaline Phosphatase 120 (38-126) U/L Total Protein 5.8 L (6.3-8.2) g/dL Albumin 3.3 L (3.5-5.0) g/dL Current Medications Generic Name Dose Route Start Last Admin Trade Name Freq PRN Reason Stop Dose Admin Acetaminophen 650 mg 07/15/23 19:52 Acetaminophen Tab 325 Mg Tab PO Q4HR PRN Mild Pain or Fever > 100.5 Albuterol/Ipratropium 3 ml 07/15/23 20:00 07/16/23 10:53 Ipratropium-Albuterol 3 Ml Neb INHALATION 3 ml RT-QID GERALD Administration Albuterol/Ipratropium 3 ml 07/15/23 19:52 Ipratropium-Albuterol 3 Ml Neb INHALATION RT-Q2H PRN Shortness Of Breath Or Wheezing Atorvastatin Calcium 20 mg 07/15/23 21:15 07/15/23 22:04 Atorvastatin 20 Mg Tab PO 20 mg HS GERALD Administration Budesonide/Formoterol Fumarate 2 puff 07/16/23 08:00 07/16/23 07:29 Symbicort 160-4.5 Mcg Inhaler INHALATION 2 puff RT-BID GERALD Administration Cholecalciferol 25 mcg 07/16/23 09:00 07/16/23 09:44 Cholecalciferol 25 Mcg (1000 Iu) Tablet PO 25 mcg DAILY GERALD Administration Dapagliflozin 5 mg 07/16/23 09:00 07/16/23 09:44 Dapagliflozin Propanediol 5 Mg Tablet PO 5 mg DAILY GERALD Administration Dextrose/Water 25 ml 07/16/23 09:44 Dextrose 50% Syringe 50 Ml IVP PER PROTOCOL PRN Hypoglycemia Protocol Dextrose/Water 50 ml 07/16/23 09:44 Dextrose 50% Syringe 50 Ml IVP PER PROTOCOL PRN Hypoglycemia Protocol Fluoxetine HCl 20 mg 07/16/23 09:00 07/16/23 09:44 Fluoxetine Hcl 20 Mg Cap PO 20 mg DAILY GERALD Administration Folic Acid 1 mg 07/16/23 09:00 07/16/23 09:44 Folic Acid 1 Mg Tab PO 1 mg DAILY GERALD Administration Heparin Sodium (Porcine) 0 unit 07/15/23 20:30 Heparin Sodium 1,000 Un/Ml (10ml Vl) IV PER PROTOCOL PRN Low PTT Protocol Norepinephrine Bitartrate 8 mg 258 mls @ 3.871 mls/hr 07/15/23 16:24 07/16/23 09:52 / Sodium Chloride IV 0.04 mcg/kg/min .Q24H GERALD 5.161 mls/hr Titration Protocol 0.03 MCG/KG/MIN Sodium Chloride 1,000 mls @ 50 mls/hr 07/15/23 19:43 07/15/23 20:02 Saline 0.9% IV 07/16/23 15:42 130 mls/hr .Q20H STA Administration Ceftriaxone Sodium 2 gm/ 50 mls @ 100 mls/hr 07/17/23 09:00 Sodium Chloride IVPB Q24HR GERALD Protocol Heparin Sodium/Sodium Chloride 250 mls @ 8.001 mls/hr 07/15/23 20:30 07/15/23 21:32 25,000 unit/ Sodium Chloride IV 12 units/kg/hr .Q24H GERALD 8.001 mls/hr Administration Protocol 12 UNITS/KG/HR Sodium Bicarbonate 150 ml/ 1,150 mls @ 100 mls/hr 07/16/23 09:00 07/16/23 09:43 Dextrose/Water IV 100 mls/hr .[id number] GERALD Administration Insulin Aspart 0 unit 07/16/23 12:30 Insulin Aspart (Novolog) 100 Unit/Ml Vial SQ ACHS [facility] Protocol Magnesium Hydroxide 400 mg 07/15/23 20:58 Magnesium Hydroxide 2,400 Mg/30 Ml Cup PO Q48H PRN Constipation Magnesium Oxide 400 mg 07/15/23 21:00 07/16/23 09:43 Magnesium Oxide 400 Mg Tab PO 400 mg BID GERALD Administration Mexiletine HCl 150 mg 07/15/23 21:30 07/16/23 09:44 Mexiletine 150 Mg Cap PO 150 mg BID GERALD Administration Midodrine 5 mg 07/16/23 09:00 07/16/23 09:43 Midodrine 5 Mg Tab PO 5 mg DAILY GERALD Administration Montelukast Sodium 10 mg 07/16/23 09:00 07/16/23 09:44 Montelukast 10 Mg Tab PO 10 mg DAILY GERALD Administration Naloxone HCl 0.2 mg 07/15/23 19:52 Naloxone 0.4 Mg/Ml 1 Ml Vial IVP Q2M PRN Opioid Reversal Pantoprazole Sodium 40 mg 07/16/23 07:30 07/16/23 06:06 Pantoprazole 40 Mg Tablet PO 40 mg [id number] GERALD Administration Potassium Chloride 10 meq 07/15/23 22:00 07/16/23 09:43 Potassium Chloride Er 10 Meq Tab.Er.Prt PO 10 meq TID GERALD Administration Intake and Output 07/15/23 07/16/23 07/16/23 22:59 06:59 14:59 Intake Total 166.061 519.395 428.761 Balance 166.061 519.395 428.761 Intake: IV 130 450 105 Sodium Chloride 0.9% 1, 130 450 105 000 ml @ 50 mls/hr IV . Q20H STA Rx#:[id number] Intake, IV Titration 36.061 69.395 123.761 Amount Dextrose 5% in Water 1, 100 000 ml @ 100 mls/hr IV . [id number] GERALD with Sodium Bicarb (1 Meq/ml) 150 ml Rx#:[id number] Norepinephrine 8 mg In 36.061 69.395 23.761 Sodium Chloride 0.9% 250 ml @ 0.03 MCG/KG/MIN 3. 871 mls/hr IV .Q24H GERALD Rx#:[id number] Oral 200 Other: Voiding Method Bedpan Bedpan External Catheter External Catheter # Voids 0 0 # Bowel Movements 0 0 Weight 70.2 kg 70.2 kg 07/16/23 02:22 07/16/23 02:22
[2023-07-16] MEDS: INSULIN ASPART (NovoLOG) 100 UNIT/ML VIAL SQ SCH ×3 (13:51→20:55)
[2023-07-16 16:16] LABS: Glucose,Whole Blood 176 mg/dL (70-110)
[2023-07-16] MEDS: HEPARIN SODIUM,PORCINE 5,000 UNIT/ML 1 ML VIAL SQ SCH ×2 (16:58→23:25)
[2023-07-16 17:46] LABS: Appearance,Urine Cloudy (Clear); Bilirubin,Urine Negative (Negative); Blood,Urine Small (Negative); Color,Urine Yellow; Glucose,Urine (UA) 4+ (Negative); Ketones,Urine Trace (Negative); PH, Urine 5.5 (5.0-8.0); Protein,Urine Negative (Negative)
[2023-07-16 17:47] LABS: Leukocyte Esterase,Urine Large (Negative); Nitrite,Urine Negative (Negative); Urobilinogen,Urine <2.0 mg/dL (<2.0)
[2023-07-16 17:55] LABS: Bacteria,Urine Rare /hpf; RBC,Urine 3 /hpf (0-5); Squamous Epithelial Cell,Urine 1 /hpf (0-4); WBC,Urine 4 /hpf (0-5)
--- NOTE | 2023-07-16 18:16 | P.HPIM ---
History of Present Illness H&P Date: 07/16/23 Chief Complaint: Back pain This is a pleasant 68-year-old patient, follows with Dr. Ramirez. 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 Chronic stable medical conditions include congestive heart failure, COPD, hypertension, hyperlipidemia, chronic hypoxic respiratory failure on home oxygen 2 L AICD. lives alone. Has home help. Uses walker. Patient was transferred here from [facility]. By the ER notes patient was transferred because of shortness of breath. When she arrived she did not complain any shortness of breath. Did also changes on the EKG. Also blood pressure was reported to be 70 from the transferring hospital. She is put on levo fed drip and IV heparin drip. Patient is in the ICU. She tells me that she had pain in the spine. Sharp pain. Only some pain in the front. Sclerae slight shortness of breath. No fever no chills. No cough. Appetite is fair. No problem bowel movements. Denies any lightheadedness. Patient's son decided to send her to the hospital. Review of systems: GEN.: Tired EYES: None HEENT: None NECK: None RESPIRATORY: None CARDIOVASCULAR: As above GASTROINTESTINAL: As above GENITOURINARY: None MUSCULOSKELETAL: Joint pains, mid spine back pain LYMPHATICS: None HEMATOLOGICAL: None PSYCHIATRY: None NEUROLOGICAL: Uses a walker Past medical history to include: Coronary artery disease, CHF, COPD, hyperlipidemia, hypertension, home oxygen, cardiomyopathy, AICD. Social history: Lives alone. Has a private duty CALL TAKER. Comes 3 times a week. smoked for about 37 years, 1 pack a day stopped about 20 years ago. No alcohol. Physical examination: VITAL SIGNS: 98.7, 104, 18, 137/65, 95% on 2 L upon presentation GENERAL: BMI 26.6, declining but awake slightly tired EYES: Pupils equal. Conjunctiva normal. HEENT: External appearance of nose and ears normal, oral cavity grossly normal. NECK: JVD not raised; masses not palpable. HEART: First and second heart sounds are normal; no edema. LUNGS: Respiratory rate increased; decreased breath sounds. ABDOMEN: Soft, nontender, liver spleen not palpable, no masses palpable. PSYCH: Alert and oriented x3; mood and affect. Anxiousl. MUSCULAR skeletal: Significant OA NEUROLOGICAL: Cranial nerves grossly intact; no facial asymmetry, power and sensation grossly intact. LYMPHATICS: No lymph nodes palpable in the axilla and neck INVESTIGATIONS, reviewed in the clinical context: 2-D echocardiogram: Mid to distal anterior anteroapical and apical wall hypokinesia. EF 30-35%. Severe LV systolic dysfunction. July 16: White count 9.4 hemoglobin 12.8 platelets 216 sodium 135 potassium 4.1 BUN 36 creatinine 1.78 Procalcitonin 0.12 cortisol 41 Troponin I 0.033 EKG tracing personally reviewed by me-some ST elevation in V1 to V3. Otherwise nonspecific T-wave changes. Chest x-ray film personally reviewed by me-low lung volumes. Nonspecific questionable venous prominence Venous Doppler right and left leg: No DVT Previous labs: Creatinine 1.26 on October 2022 Assessment and plan: -Patient had mixed symptoms. Complained of spine back pain. anterior chest fall pain. Some shortness of breath was reported. Low blood pressure. EKG changes of ST segment and some T wave changes. Troponin negative. Cardiogenic consulted -Chronic congestive heart failure from systolic dysfunction EF 30-35%. Ischemic cardiomyopathy -Hypotensive shock, reported. Low blood pressure. IV levo fed. -Coronary artery disease, prior stent On Coreg, Lipitor, aspirin -Chronic kidney disease likely nephrosclerosis Baseline creatinine 1.18 March 2021 -Metabolic acidosis from chronic kidney disease Sodium bicarbonate drip. -Chronic congestive heart failure from systolic dysfunction EF 30-35%. -Chronic secondary pulmonary hypertension -Chronic kidney disease stage III likely nephrosclerosis Follow renal function -Primary osteoarthritis multiple joints Tylenol as needed -COPD in an ex-smoker DuoNeb. Symbicort -Chronic hypoxic respiratory failure on home oxygen 2 L, from underlying COPD Supplemental oxygen -AICD -Chronic gait dysfunction uses a walker -DO NOT RESUSCITATE on IV levo fed IV heparin, the latter of which was discontinued this afterno on.. Being followed by cardiology. No obvious evidence of infection/pneumonia. Stop ceftriaxone. Past Medical History Past Medical History: Coronary Artery Disease (CAD), Heart Failure, COPD, Diabetes Mellitus, GERD/Reflux, Hyperlipidemia, Hypertension, Respiratory Disorder Additional Past Medical History / Comment(s): Chronic respiratory failure- oxygen at 2L., cardiomyopathy., pt states right ankle fracture 4-5 weeks ago., See Cardiology H & P. History of Any Multi-Drug Resistant Organisms: None Reported Past Surgical History: AICD, Breast Surgery, Heart Catheterization, Hy sterectomy, Orthopedic Surgery Additional Past Surgical History / Comment(s): 2004 AICD, heart cath 09/2020, Benign R breast biopsy, colonoscopy, broken R. ankle Past Anesthesia/Blood Transfusion Reactions: No Reported Reaction Type of Cardiac Device: AICD Device Placement Date:: unknown Past Psychological History: No Psychological Hx Reported Smoking Status: Former smoker Past Alcohol Use History: None Reported Past Drug Use History: None Reported - Past Family History Mother Additional Family Medical History / Comment(s): heart problems. Mother at the age of 65 or 67 of DVT "that traveled." Father Family Medical History: Myocardial Infarction (ME) Additional Family Medical History / Comment(s): heart problems. Father of a ME at the age of 65 yrs. Medications and Allergies Home Medications Medication Instructions Recorded Confirmed Type FLUoxetine HCL [PROzac] 20 mg PO DAILY 02/26/14 07/15/23 History Folic Acid 1 mg PO DAILY 02/26/14 07/15/23 History Omeprazole 20 mg PO DAILY 07/22/20 07/15/23 History Budesonide/Formoterol Fumarate 2 puff INHALATION RT-BID 03/16/21 07/15/23 History [Symbicort 160-4.5 Mcg Inhaler] Potassium Chloride ER [K-Dur 10] 10 meq PO TID 03/16/21 07/15/23 History Empagliflozin [Jardiance] 10 mg PO DAILY 10/30/22 07/15/23 History Midodrine [ProAmatine] 5 mg PO DAILY 10/30/22 07/15/23 History Acetaminophen [Tylenol] 325 mg PO Q4H PRN 12/20/22 07/15/23 History Aspirin [Adult Low Dose Aspirin EC] 81 mg PO DAILY 12/20/22 07/15/23 History Atorvastatin [Lipitor] 20 mg PO HS 12/20/22 07/15/23 History Cholecalciferol [Vitamin D3 (25 25 mcg PO DAILY 12/20/22 07/15/23 History Mcg = 1000 Iu)] Ipratropium-Albuterol Nebulize 3 ml INHALATION RT-TID 12/20/22 07/15/23 History [Duoneb 0.5 mg-3 mg/3 ml Soln] Magnesium Oxide [Mag-Ox] 250 mg PO BID 12/20/22 07/15/23 History Mexiletine HCl 150 mg PO BID 12/20/22 07/15/23 History Nitroglycerin Sl Tabs [Nitrostat] 0.4 mg SUBLINGUAL Q5M PRN 12/20/22 07/15/23 History Metoprolol Succinate [Metoprolol 12.5 mg PO DAILY #90 tab 12/23/22 07/15/23 Rx Succinate ER] lisinopriL [Zestril] 2.5 mg PO DAILY #90 tablet 12/23/22 07/15/23 Rx Furosemide [Lasix] 20 mg PO DAILY 07/15/23 07/15/23 History Magnesium Hydroxide [Milk of 400 mg PO Q48H PRN 07/15/23 07/15/23 History Magnesia] Montelukast [Singulair] 10 mg PO DAILY 07/15/23 07/15/23 History Simethicone [Simethicone Chew] 80 mg PO BID PRN 07/15/23 07/15/23 History Allergies Allergy/AdvReac Type Severity Reaction Status Date / Time No Known Allergies Allergy Verified 07/15/23 20:27 Physical Exam Vitals: Vital Signs Temp Pulse Resp BP Pulse Ox 07/16/23 10:00 112 H 32 H 87/76 92 L 07/16/23 09:45 121 H 28 H 94/51 93 L 07/16/23 09:30 109 H 25 H 89/76 93 L 07/16/23 09:15 107 H 17 100/49 94 L 07/16/23 09:00 112 H 10 L 109/46 91 L 07/16/23 08:45 109 H 26 H 82/51 93 L 07/16/23 08:30 110 H 10 L 77/37 95 07/16/23 08:15 108 H 25 H 91/48 91 L 07/16/23 08:00 98.5 F 108 H 24 104/50 93 L 07/16/23 07:45 111 H 22 93/77 85 L 07/16/23 07:41 102 H 07/16/23 07:31 102 H 07/16/23 07:30 101 H 16 109/57 91 L 07/16/23 07:15 96 19 110/59 93 L 07/16/23 07:00 102 H 21 110/57 96 07/16/23 06:00 100 22 138/60 95 10/25/23 05:00 105 H 25 H 128/56 90 L 07/16/23 04:00 98.8 F 106 H 21 111/58 92 L 07/16/23 03:00 112 H 17 98/57 93 L 07/16/23 02:00 115 H 12 103/54 92 L 07/16/23 01:00 116 H 26 H 99/68 94 L 07/16/23 00:00 99.2 F 120 H 24 79/50 93 L 07/15/23 23:00 118 H 25 H 92/56 91 L 07/15/23 22:00 98.1 F 118 H 19 85/50 93 L 07/15/23 21:29 116 H 07/15/23 21:16 109 H 07/15/23 21:00 108 H 0 L 101/54 99 07/15/23 20:30 108 H 20 120/56 95 07/15/23 20:00 109 H 20 103/55 94 L 07/15/23 19:30 109 H 20 113/47 95 07/15/23 19:19 109 H 18 116/56 96 07/15/23 18:00 98.1 F 104 H 18 136/62 94 L 07/15/23 17:49 98.1 F 114 H 19 137/65 95 07/15/23 17:17 107 H 07/15/23 17:05 100 07/15/23 16:38 98.7 F 104 H 18 73/38 93 L Intake and Output 07/15/23 07/16/23 07/16/23 22:59 06:59 14:59 Intake Total 166.061 519.395 428.761 Balance 166.061 519.395 428.761 Intake: IV 130 450 105 Sodium Chloride 0.9% 1, 130 450 105 000 ml @ 50 mls/hr IV . Q20H [facility] Rx#:[id number] Intake, IV Titration 36.061 69.395 123.761 Amount Dextrose 5% in Water 1, 100 000 ml @ 100 mls/hr IV . [id number] [facility] with Sodium Bicarb (1 Meq/ml) 150 ml Rx#:[id number] Norepinephrine 8 mg In 36.061 69.395 23.761 Sodium Chloride 0.9% 250 ml @ 0.03 MCG/KG/MIN 3. 871 mls/hr IV .Q24H [facility] Rx#:[id number] Oral 200 Other: Voiding Method Bedpan Bedpan External Catheter External Catheter # Voids 0 0 # Bowel Movements 0 0 Weight 70.2 kg 70.2 kg Results CBC & Chem 7: 07/16/23 02:22 07/16/23 02:22 Labs: Abnormal Lab Results - Last 24 Hours (Table) 07/15/23 07/15/23 07/15/23 Range/Units 17:02 17:02 17:02 WBC 10.7 H (3.8-10.6) k/uL Neutrophils # 9.8 H (1.3-7.7) k/uL Lymphocytes # 0.6 L (1.0-4.8) k/uL APTT 38.6 H (22.0-30.0) sec D-Dimer (<0.60) mg/L FEU Sodium 133 L (137-145) mmol/L Carbon Dioxide 18 L (22-30) mmol/L BUN 38 H (7-17) mg/dL Creatinine 1.76 H (0.52-1.04) mg/dL Glucose 191 H (74-99) mg/dL POC Glucose (mg/dL) (70-110) mg/dL Plasma Lactic Acid Sravan (0.7-2.0) mmol/L Total Protein 5.8 L (6.3-8.2) g/dL Albumin 3.3 L (3.5-5.0) g/dL 07/15/23 07/15/23 07/15/23 Range/Units 17:02 17:02 21:44 WBC (3.8-10.6) k/uL Neutrophils # (1.3-7.7) k/uL Lymphocytes # (1.0-4.8) k/uL APTT (22.0-30.0) sec D-Dimer 3.02 H (<0.60) mg/L FEU Sodium (137-145) mmol/L Carbon Dioxide (22-30) mmol/L BUN (7-17) mg/dL Creatinine (0.52-1.04) mg/dL Glucose (74-99) mg/dL POC Glucose (mg/dL) 168 H (70-110) mg/dL Plasma Lactic Acid Sravan 2.2 H* (0.7-2.0) mmol/L Total Protein (6.3-8.2) g/dL Albumin (3.5-5.0) g/dL 07/15/23 07/15/23 07/16/23 Range/Units 22:49 22:49 02:22 WBC (3.8-10.6) k/uL Neutrophils # 8.1 H (1.3-7.7) k/uL Lymphocytes # 0.5 L (1.0-4.8) k/uL APTT 50.9 H (22.0-30.0) sec D-Dimer (<0.60) mg/L FEU Sodium 134 L (137-145) mmol/L Carbon Dioxide 17 L (22-30) mmol/L BUN 38 H (7-17) mg/dL Creatinine 1.79 H (0.52-1.04) mg/dL Glucose 160 H (74-99) mg/dL POC Glucose (mg/dL) (70-110) mg/dL Plasma Lactic Acid Sravan (0.7-2.0) mmol/L Total Protein (6.3-8.2) g/dL Albumin (3.5-5.0) g/dL 07/16/23 07/16/23 Range/Units 02:22 02:22 WBC (3.8-10.6) k/uL Neutrophils # 8.3 H (1.3-7.7) k/uL Lymphocytes # 0.7 L (1.0-4.8) k/uL APTT (22.0-30.0) sec D-Dimer (<0.60) mg/L FEU Sodium 135 L (137-145) mmol/L Carbon Dioxide 18 L (22-30) mmol/L BUN 36 H (7-17) mg/dL Creatinine 1.78 H (0.52-1.04) mg/dL Glucose 155 H (74-99) mg/dL POC Glucose (mg/dL) (70-110) mg/dL Plasma Lactic Acid Sravan (0.7-2.0) mmol/L Total Protein (6.3-8.2) g/dL Albumin (3.5-5.0) g/dL Thrombosis Risk Factor Assmnt - Choose All That Apply Each Factor Represents 1 point: Abnormal pulmonary function (COPD), Heart failure (<1month) Each Risk Factor Represents 2 Points: Age 61-74 years, Central venous access, Patient confined to bed Each Risk Factor Represents 3 Points: Family history of DVT/PE Thrombosis Risk Factor Assessment Total Risk Factor Score: 11 Thrombosis Risk Factor Assessment Level: High Risk
[2023-07-16] MEDS: ASPIRIN 81 MG PO SCH (18:48)
[2023-07-16] MEDS: NOREPINEPHRINE 8 MG in SODIUM CHLORIDE 0.9% 250 ML IV SCH (18:49)
[2023-07-16 20:52] LABS: Glucose,Whole Blood 188 mg/dL (70-110)
[2023-07-16] MEDS: ATORVASTATIN 20 MG TAB PO SCH (20:55)
[2023-07-17 05:44] LABS: Basophils % (A) 0 %; Eosinophils % (A) 0 %; HCT 37.7 % (34.0-46.0); HGB 12.4 gm/dL (11.4-16.0); Lymphocytes % (A) 9 %; MCH 30.4 pg (25.0-35.0); MCHC 32.9 g/dL (31.0-37.0); MCV 92.3 fL (80.0-100.0); Mean Platelet Volume 8.3; Monocytes # (A) 0.7 k/uL (0-1.0); Monocytes % (A) 6 %; Neutrophils # (A) 9.6 k/uL (1.3-7.7); Neutrophils % (A) 84 %; Platelet Count 127 k/uL (150-450); RBC 4.08 m/uL (3.80-5.40); RDW 15.3 % (11.5-15.5); WBC 11.5 k/uL (3.8-10.6)
[2023-07-17 06:04] LABS: African American GFR (CKD) 38 (>60 ml/min/1.73 sqM); Anion Gap 6 mmol/L; Blood Urea Nitrogen 36 mg/dL (7-17); Carbon Dioxide 29 mmol/L (22-30); Chloride 98 mmol/L (98-107); Glucose 162 mg/dL (74-99); Non-African American GFR(CKD) 33 (>60 ml/min/1.73 sqM); Potassium 4.1 mmol/L (3.5-5.1); Sodium 133 mmol/L (137-145)
[2023-07-17 06:44] LABS: Glucose,Whole Blood 158 mg/dL (70-110)
[2023-07-17] MEDS: INSULIN ASPART (NovoLOG) 100 UNIT/ML VIAL SQ SCH ×4 (06:48→20:14)
[2023-07-17] MEDS: PANTOPRAZOLE 40 MG TABLET PO SCH (06:48)
[2023-07-17] MEDS: SYMBICORT 160-4.5 MCG INHALER INHALATION SCH ×2 (07:41→19:48)
[2023-07-17] MEDS: IPRATROPIUM-ALBUTEROL 3 ML NEB INHALATION SCH ×4 (07:41→19:48)
--- NOTE | 2023-07-17 08:41 | P.PN ---
Subjective Progress Note Date: 07/17/23 I am seeing this patient in new consultation today 07/16/2023 after she was transferred from [facility] yesterday evening with concerns shortness of breath and chest pain. Patient apparently had some questionable EKG changes at outside facility, and was started on heparin infusion. She was also noted to be hypotensive, and norepinephrine infusion was initiated. Patient is a 68-year-old white female with past medical history significant for nonischemic cardiomyopathy status post AICD implantation, previous ventricular tachycardia, coronary artery disease, hypertension, hyperlipidemia, COPD with home oxygen use, obstructive sleep apnea with home CPAP. Patient is currently sitting up in bed, on 2 L/m nasal cannula, in no acute distress. She remains hypotensive, and norepinephrine is currently infusing at 0.06 mcg/kg/m. Heparin is infusing per protocol. Normal saline is infusing at 130 ML's per hour. Heart rhythm appears sinus tachycardia bedside monitor the rate of 120 bpm. She is tachypneic. She does admit persistent nonradiating substernal chest pain that started on . She is also having shortness of breath especially on exertion and a nonproductive cough. Denies heart palpitations, lightheadedness, syncopal, increased lower extremity edema, orthopnea. She denies any infectious symptoms such as fever, productive cough, hemoptysis. Denies any sick contacts. Denies any urinary complaints such as frequency, dysuria, urgency. Denies any abdominal pain, nausea or vomiting, diarrhea. Chest x-ray on arrival showed low lung volumes and generalized hazy appearance possibly atelectasis versus pulmonary edema. NT proBNP was elevated at 2020. Troponins were not elevated. EKG on arrival showed normal sinus rhythm with ST elevation in V1 and V2. Appears chronic. Most recent echocardiogram available to me is from 2020, which shows moderately severe impaired left ventricular ejection fraction of 30-35% and moderate concentric LVH. CBC on arrival showed some mild leukocytosis with a WBC count of 10.7, hemoglobin 12.8, hematocrit 39.3, platelets 180. BMP on a rrival shows sodium 133, potassium 4.1, chloride 103, serum bicarb 18, BUN 38, creatinine 1.76, glucose 191. Lactic acid level was 2.2 on arrival. Patient was empirically started on Rocephin. D-dimer was elevated at 3. Venous Doppler bilateral lower extremity negative for DVT. VQ scan pending. Patient will be monitored in the intensive care unit. 07/17/2023, the patient is calm and comfortable on oxygen at 4 L. No respiratory distress. Cardiac rhythm is sinus. Blood pressures remain soft and the patient remains on norepinephrine which is running at 0.03 mcg/kg/m. No chest pain. No cardiac arrhythmias. No fever. Her serum cortisol came back at 41. Troponins were 0.12. She is on a bicarbonate infusion and the bicarb deficit has been corrected. Serum bicarbs of 229. The BUN is at 36 with a creatinine of 1.57. The white cell count is currently at 11.5 with a hemoglobin of 12.4. She remains on aspirin. She remains on midodrine 5 mg by mouth daily. She remains on mexiletine 150 mg by mouth twice a day. She also far cc. IV heparin has been discontinued yesterday. Objective - Vital Signs Vital signs: Vital Signs Temp 98.1 F 07/17/23 04:00 Pulse 93 07/17/23 07:53 Resp 21 07/17/23 07:00 BP 108/59 07/17/23 07:00 Pulse Ox 97 07/17/23 07:00 FiO2 Intake & Output 07/16/23 07/17/23 07/17/23 18:59 06:59 18:59 Intake Total 3013.002 7679.213 Output Total 101 300 Balance 0268.340 7754.213 Weight 70 kg Intake: IV 100 Sodium Chloride 0.9% 1, 100 000 ml @ 50 mls/hr IV . Q20H [facility] Rx#:[id number] Intake, IV Titration 763.361 5477.213 Amount Dextrose 5% in Water 1, 900 1300 000 ml @ 100 mls/hr IV . [id number] [facility] with Sodium Bicarb (1 Meq/ml) 150 ml Rx#:[id number] Norepinephrine 8 mg In 59.306 8.213 Sodium Chloride 0.9% 250 ml @ 0.03 MCG/KG/MIN 3. 871 mls/hr IV .Q24H [facility] Rx#:[id number] Oral 400 200 Output: Urine 100 300 Stool 1 Other: Voiding Method Bedpan Bedpan External Catheter External Catheter # Voids 1 - Exam GENERAL EXAM: Alert, 68-year-old white female , comfortable in no apparent distress. HEAD: Normocephalic and atraumatic EYES: Normal reaction of pupils, equal size. NOSE: Clear with pink turbinates. THROAT: No erythema or exudates. NECK: No masses, no JVD. CHEST: No chest wall deformity. LUNGS: Equal air entry with bibasilar inspiratory crackles. No wheeze, rhonchi or dullness. On 2 L/m nasal cannula. No conversational dyspnea or accessory muscle use.. CVS: S1 and S2 normal with no audible murmur, regular rhythm. No extra heart winnie nds ABDOMEN: No hepatosplenomegaly, active bowel sounds, no guarding or rigidity. SPINE: No scoliosis or deformity SKIN: No rashes CENTRAL NERVOUS SYSTEM: No focal deficits, tone is normal in all 4 extremities. EXTREMITIES: There is mild nonpitting bilateral lower extremity edema. No clubbing, or cyanosis. Peripheral pulses are intact. - Labs CBC & Chem 7: 07/17/23 05:26 07/17/23 05:26 Labs: Abnormal Lab Results - Last 24 Hours (Table) 07/16/23 07/16/23 07/16/23 Range/Units 07:31 16:14 17:09 WBC (3.8-10.6) k/uL Plt Count (150-450) k/uL Neutrophils # (1.3-7.7) k/uL Sodium (137-145) mmol/L BUN (7-17) mg/dL Creatinine (0.52-1.04) mg/dL Glucose (74-99) mg/dL POC Glucose (mg/dL) 176 H (70-110) mg/dL Procalcitonin 0.12 H (0.02-0.09) ng/mL Urine Appearance Cloudy H (Clear) Urine Bacteria Rare H (None) /hpf 07/16/23 07/17/23 07/17/23 Range/Units 20:50 05:26 05:26 WBC 11.5 H (3.8-10.6) k/uL Plt Count 127 L (150-450) k/uL Neutrophils # 9.6 H (1.3-7.7) k/uL Sodium 133 L (137-145) mmol/L BUN 36 H (7-17) mg/dL Creatinine 1.57 H (0.52-1.04) mg/dL Glucose 162 H (74-99) mg/dL POC Glucose (mg/dL) 188 H (70-110) mg/dL Procalcitonin (0.02-0.09) ng/mL Urine Appearance (Clear) Urine Bacteria (None) /hpf 07/17/23 Range/Units 06:43 WBC (3.8-10.6) k/uL Plt Count (150-450) k/uL Neutrophils # (1.3-7.7) k/uL Sodium (137-145) mmol/L BUN (7-17) mg/dL Creatinine (0.52-1.04) mg/dL Glucose (74-99) mg/dL POC Glucose (mg/dL) 158 H (70-110) mg/dL Procalcitonin (0.02-0.09) ng/mL Urine Appearance (Clear) Urine Bacteria (None) /hpf Microbiology - Last 24 Hours (Table) 07/15/23 19:44 Blood Culture - Preliminary Blood 07/15/23 19:59 Blood Culture - Preliminary Blood Assessment and Plan Assessment: Acute on chronic hypoxemic respiratory failure, currently on 4 L per minute nasal cannula, possibly secondary to acute COPD exacerbation and suspected exacerbation of systolic congestive heart failure. Chest x-ray on arrival showed low lung volumes and generalized hazy appearance possibly atelectasis versus pulmonary edema. Ischemic cardiomyopathy with an ejection fraction of 30-35% with anterior and anteroapical wall hypokinesis. No significant valvular regurgitation. Hypotension and shock, requiring vasopressors in the form of norepinephrine. Patient is being evaluated for possible sepsis. No clear indication for underlying infection at this point in time. She is afebrile. No significant leukocytosis Metabolic non-anion gap acidosis, improved Acute on chronic kidney disease, as the patient has chronic stage III kidney disease, improving Atypical chest pain, currently free of any chest pain Elevated d-dimer, patient did not receive chest CTA due to nephropathy. Patient is currently already on heparin infusion. VQ scan is pending. History of nonischemic cardiomyopathy status post AICD implantation History of ventricular tachycardia, the patient is on mexiletine and she has an AICD in place History of coronary artery disease Hyperlipidemia Chronic hypoxemic respiratory failure, normally maintained on 2 L per nasal cannula Obstructive sleep apnea, with home CPAP device Plan: Wean off pressors Discontinue the bicarb infusion May need an arterial line insertion for elective blood pressure reading Echocardiogram was noted and the patient is an ejection fraction of 35% with segmental wall motion abnormalities Cortisol level is adequate We'll continue to follow and the patient will be kept in the ICU for ongoing issues with hypotension. Urinalysis is pending. Blood cultures pending. Patient is a DO NOT RESUSCITATE. Patient will be monitored in the intensive care unit.
[2023-07-17] MEDS: ASPIRIN 81 MG PO SCH (09:30)
[2023-07-17] MEDS: DAPAGLIFLOZIN PROPANEDIOL 5 MG TABLET PO SCH (09:30)
[2023-07-17] MEDS: MEXILETINE 150 MG CAP PO SCH ×2 (09:30→20:43)
[2023-07-17] MEDS: MIDODRINE 5 MG TAB PO SCH (09:30)
[2023-07-17] MEDS: HEPARIN SODIUM,PORCINE 5,000 UNIT/ML 1 ML VIAL SQ SCH ×2 (09:31→15:45)
[2023-07-17] MEDS: CHOLECALCIFEROL 25 MCG (1000 IU) TABLET PO SCH (09:32)
[2023-07-17] MEDS: FLUoxetine HCL 20 MG CAP PO SCH (09:32)
[2023-07-17] MEDS: MONTELUKAST 10 MG TAB PO SCH (09:32)
[2023-07-17] MEDS: MAGNESIUM OXIDE 400 MG TAB PO SCH ×2 (09:36→20:14)
[2023-07-17] MEDS: FOLIC ACID 1 MG TAB PO SCH (09:36)
--- NOTE | 2023-07-17 09:45 | P.PN ---
Subjective HISTORY OF PRESENTING ILLNESS Patient is pleasant 68-year-old female with history of mild CAD, nonischemic cardio myopathy, AICD implant, ventricular tachycardia, COPD on home oxygen, hypertension, hyperlipidemia, COPD. Patient follows in the office with Dr. Guerrero. She has had issues with hypotension in the past and has been on Midrin. Additionally she has been taking lisinopril as well as low-dose metoprolol. She denies any actual lightheadedness however has been found to be hypotensive with blood pressures in the 70s over 40s from the blood pressure cuff in the brachial position on both sides. She actually presented to the hospital secondary to chest pain and back pain. She denies any inciting events or recent traumas. She states pain has somewhat subsided. EKG showing poor R-wave progression with minimal ST elevation in lead V2 appearing similar to prior EKGs. There was concern about STEMI however did not meet STEMI criteria. Troponins 0.019, 0.02, 0.03, proBNP 2020, creatinine 1.7, bicarbonate 18, white blood cell count 10.7. She denies any recent fevers, chills. She was transferred to ICU and placed on low-dose or epinephrine with blood pressures mostly in the 80s over 50s/90s over 60s. 07/17 Patient seen and examined. Echo shows mild LVH, EF 30-35% with apical hypokinesis similar to prior echo from 3 years ago, no significant valvular disease. Still remains on norepinephrine with heart rates in the low 100s in sinus rhythm with additional blood pressures low 100s over 50-60s PHYSICAL EXAMINATION Vital signs reviewed. CONSTITUTIONAL: No apparent distress. HEENT: Head is normocephalic. Pupils are equal, round. Sclerae anicteric. Mucous membranes of the mouth are moist. No JVD. No carotid bruit. CHEST EXAMINATION: Lungs are clear to auscultation. No chest wall tenderness is noted on palpation or with deep breathing. HEART EXAMINATION: Regular rate and rhythm. S1, S2 heard. No murmurs, gallops or rub. ABDOMEN: Soft, nontender. Positive bowel sounds. EXTREMITIES: 2+ peripheral pulses, no lower extremity edema and no calf tenderness. NEUROLOGIC EXAMINATION: Patient is awake, alert and oriented x3. ASSESSMENT 1. Atypical chest pain 2. Abnormal EKG with minimal ST elevation in V2, not meeting criteria for STEMI, do not suspect acute coronary syndrome 3. Mild CAD by prior heart catheterization 4. History of nonischemic cardiomyopathy status post AICD 5. Hypotension, rule out sepsis versus medication effect. Holding lisinopril metoprolol 6. Chronic kidney disease PLAN Pulmonology assessing for possible arterial line to better assess blood pressures. Creatinine mildly improved today Continue with norepinephrine as tolerated as well as Midrin and continue to hold lisinopril metoprolol Echo shows continued cardiomyopathy similar to before I do not suspect cardiac etiology of her hypotension. If still ambiguous May consider right heart catheterization. Cortisol level noted to be normal. Further recommendations to follow. Objective - Vital Signs Vital signs: Vital Signs Temp 98.1 F 07/17/23 04:00 Pulse 93 07/17/23 07:53 Resp 21 07/17/23 07:00 BP 108/59 07/17/23 07:00 Pulse Ox 97 07/17/23 07:00 FiO2 Intake & Output 07/16/23 07/17/23 07/17/23 18:59 06:59 18:59 Intake Total 8790.686 3632.213 Output Total 101 300 Balance 7758.072 3648.213 Weight 70 kg Intake: IV 100 Sodium Chloride 0.9% 1, 100 000 ml @ 50 mls/hr IV . Q20H STA Rx#:[id number] Intake, IV Titration 092.649 0493.213 Amount Dextrose 5% in Water 1, 900 1300 000 ml @ 100 mls/hr IV . [id number] GERALD with Sodium Bicarb (1 Meq/ml) 150 ml Rx#:[id number] Norepinephrine 8 mg In 59.306 8.213 Sodium Chloride 0.9% 250 ml @ 0.03 MCG/KG/MIN 3. 871 mls/hr IV .Q24H GERALD Rx#:[id number] Oral 400 200 Output: Urine 100 300 Stool 1 Other: Voiding Method Bedpan Bedpan External Catheter External Catheter # Voids 1 - Labs CBC & Chem 7: 07/17/23 05:26 07/17/23 05:26 Labs: Abnormal Lab Results - Last 24 Hours (Table) 07/16/23 07/16/23 07/16/23 Range/Units 07:31 16:14 17:09 WBC (3.8-10.6) k/uL Plt Count (150-450) k/uL Neutrophils # (1.3-7.7) k/uL Sodium (137-145) mmol/L BUN (7-17) mg/dL Creatinine (0.52-1.04) mg/dL Glucose (74-99) mg/dL POC Glucose (mg/dL) 176 H (70-110) mg/dL Procalcitonin 0.12 H (0.02-0.09) ng/mL Urine Appearance Cloudy H (Clear) Urine Bacteria Rare H (None) /hpf 07/16/23 07/17/23 07/17/23 Range/Units 20:50 05:26 05:26 WBC 11.5 H (3.8-10.6) k/uL Plt Count 127 L (150-450) k/uL Neutrophils # 9.6 H (1.3-7.7) k/uL Sodium 133 L (137-145) mmol/L BUN 36 H (7-17) mg/dL Creatinine 1.57 H (0.52-1.04) mg/dL Glucose 162 H (74-99) mg/dL POC Glucose (mg/dL) 188 H (70-110) mg/dL Procalcitonin (0.02-0.09) ng/mL Urine Appearance (Clear) Urine Bacteria (None) /hpf 07/17/23 Range/Units 06:43 WBC (3.8-10.6) k/uL Plt Count (150-450) k/uL Neutrophils # (1.3-7.7) k/uL Sodium (137-145) mmol/L BUN (7-17) mg/dL Creatinine (0.52-1.04) mg/dL Glucose (74-99) mg/dL POC Glucose (mg/dL) 158 H (70-110) mg/dL Procalcitonin (0.02-0.09) ng/mL Urine Appearance (Clear) Urine Bacteria (None) /hpf Microbiology - Last 24 Hours (Table) 07/15/23 19:44 Blood Culture - Preliminary Blood 07/15/23 19:59 Blood Culture - Preliminary Blood
[2023-07-17] MEDS: DEXTROSE 5% IN WATER 1,000 ML with SODIUM BICARB (1 MEQ/ML) 150 ML IV SCH (12:27)
[2023-07-17] MEDS: POTASSIUM CHLORIDE ER 10 MEQ TAB.ER.PRT PO SCH ×3 (12:27→23:25)
[2023-07-17 12:50] LABS: Glucose,Whole Blood 118 mg/dL (70-110)
[2023-07-17] MEDS: methylPREDNISolone SOD SUCCI 125 MG/2 ML VIAL IV SCH ×2 (12:52→17:58)
[2023-07-17 16:51] LABS: Glucose,Whole Blood 148 mg/dL (70-110)
--- NOTE | 2023-07-17 17:08 | CT ---
EXAMINATION TYPE: CT brain wo con CT DLP: 1159.4 mGycm, Automated exposure control for dose reduction was used. DATE OF EXAM: 07/17/2023 4:44 PM COMPARISON: 07/02/2016. CLINICAL INDICATION:Female, 68 years old with history of stroke??, Possible stone TECHNIQUE: Brain: Axial CT images of the brain were obtained with coronal and sagittal reformats created and rev iewed. Contrast used: None. Oral contrast used: None. FINDINGS: Brain: Extra-axial spaces: No abnormal extra-axial fluid collections. Ventricular system: Dilatation in proportion to cerebral atrophy. Cerebral parenchyma: Cerebral atrophy. No acute intraparenchymal hemorrhage or mass effect. The caban -white junction is well differentiated. Scattered hypoattenuating areas are seen within the white mat ter. Cerebellum: Unremarkable. Mass effect: No evidence of midline shift. Intracranial vasculature: Atherosclerotic calcifications of the intracranial vessels. Soft tissues: Normal. Calvarium/osseous structures: No depressed skull fracture. Paranasal sinuses and mastoid air cells: Mild scattered paranasal sinus disease. Visualized orbits: Orbital contents are intact. IMPRESSION: 1. No acute intracranial process. 2. Nonspecific white matter changes, likely secondary to chronic small vessel ischemic disease.
[2023-07-17 19:56] LABS: Glucose,Whole Blood 188 mg/dL (70-110)
[2023-07-17] MEDS: ATORVASTATIN 20 MG TAB PO SCH (20:14)
[2023-07-18] MEDS: methylPREDNISolone SOD SUCCI 125 MG/2 ML VIAL IV SCH ×2 (00:11→06:41)
[2023-07-18] MEDS: HEPARIN SODIUM,PORCINE 5,000 UNIT/ML 1 ML VIAL SQ SCH ×4 (00:11→23:56)
--- NOTE | 2023-07-18 01:29 | PN ---
PROGRESS NOTE SUBJECTIVE: This is a 68-year-old woman who was admitted with COPD acute exacerbation with acute on chronic hypoxic respiratory failure, is being monitored in ICU at this time. The patient has also ischemic cardiomyopathy. The patient is hypotensive also. Multiple consultants are following the patient closely including Cardiology and Pulmonology. The patient is rather drowsy at this time. The patient is on pressor support. PAST MEDICAL HISTORY: Reviewed. REVIEW OF SYSTEMS: A 14-point review of systems could not be taken because the patient is confused. CURRENT MEDICATIONS: Reviewed include Symbicort. PHYSICAL EXAMINATION: VITAL SIGNS: Pulse is 109, blood pressure 180/51, respirations . HEENT: Conjunctivae normal. CARDIOVASCULAR: S1, S2. RESPIRATIONS: Diminished at the bases, scattered rhonchi and crackles. ABDOMEN: Soft, nontender. LEGS: No edema, no swelling. NERVOUS SYSTEM: No focal deficit. LABORATORY DATA: Creatinine 1.57. Otherwise, the chest x-ray which was done at the time of admission showed possible CHF acute exacerbation. ASSESSMENT: 1. Acute hypoxic respiratory failure with possible COPD acute exacerbation and CHF acute exacerbation. 2. Hypotension and shock with possible sepsis. 3. Ischemic cardiomyopathy. 4. Non-anion gap metabolic acidosis. 5. Elevated WBC. 6. Hyponatremia. 7. Chronic kidney disease, stage III. 8. Multiple complex medical issues. RECOMMENDATIONS: This 68-year-old woman presented with multiple complex medical issues, we will monitor the patient closely. Recommend to continue the current management and continue symptomatic treatment. I would also recommend CT of the brain once the patient is stabilized. Otherwise, add IV steroids and monitor blood sugars closely. Prognosis guarded because of multiple complex medical conditions. See orders for details. MMODL / IJN: [id number] /
[2023-07-18] MEDS ORDERED: NITROGLYCERIN SL TABS 0.4 MG TAB SUBLINGUAL ONE (01:42)
[2023-07-18] MEDS: ACETAMINOPHEN TAB 325 MG TAB PO PRN (01:58)
[2023-07-18 06:07] LABS: Basophils % (A) 0 %; Eosinophils % (A) 0 %; HCT 39.9 % (34.0-46.0); HGB 13.3 gm/dL (11.4-16.0); Lymphocytes # (A) 1.1 k/uL (1.0-4.8); Lymphocytes % (A) 12 %; MCH 31.1 pg (25.0-35.0); MCHC 33.4 g/dL (31.0-37.0); MCV 93.1 fL (80.0-100.0); Mean Platelet Volume 8.1; Monocytes # (A) 0.4 k/uL (0-1.0); Monocytes % (A) 5 %; Neutrophils # (A) 7.7 k/uL (1.3-7.7); Neutrophils % (A) 82 %; Platelet Count 127 k/uL (150-450); RBC 4.29 m/uL (3.80-5.40); RDW 14.8 % (11.5-15.5); WBC 9.4 k/uL (3.8-10.6)
[2023-07-18 06:18] LABS: African American GFR (CKD) 36 (>60 ml/min/1.73 sqM); Anion Gap 6 mmol/L; Blood Urea Nitrogen 34 mg/dL (7-17); Calcium 9.1 mg/dL (8.4-10.2); Carbon Dioxide 29 mmol/L (22-30); Chloride 97 mmol/L (98-107); Glucose 154 mg/dL (74-99); Non-African American GFR(CKD) 32 (>60 ml/min/1.73 sqM); Potassium 4.7 mmol/L (3.5-5.1); Sodium 132 mmol/L (137-145)
[2023-07-18 06:32] LABS: Glucose,Whole Blood 153 mg/dL (70-110)
[2023-07-18] MEDS: PANTOPRAZOLE 40 MG TABLET PO SCH (06:41)
[2023-07-18] MEDS: MIDODRINE 5 MG TAB PO SCH ×3 (06:41→18:17)
[2023-07-18] MEDS: INSULIN ASPART (NovoLOG) 100 UNIT/ML VIAL SQ SCH ×4 (06:42→20:56)
--- NOTE | 2023-07-18 07:07 | XR ---
EXAMINATION TYPE: XR chest 1V portable DATE OF EXAM: 07/18/2023 5:39 AM COMPARISON: Chest radiographs from 07/15/2023 TECHNIQUE: XR chest 1V portable Portable AP radiograph of the chest. CLINICAL INDICATION:Female, 68 years old with history of chf; FINDINGS: Lungs/Pleura: Low lung volumes are present. There is no evidence of pleural effusion, focal consolida tion, or pneumothorax. Chronic senescent parenchymal change. Pulmonary vascularity: Unremarkable. Heart/mediastinum: Cardiomediastinal silhouette is enlarged and stable. Two lead cardiac conduction d evice overlying the left hemithorax with lead tips projecting over the right ventricle and right atri um. Musculoskeletal: No acute osseous pathology. IMPRESSION: Low lung volumes without evidence for acute process.
[2023-07-18] MEDS: IPRATROPIUM-ALBUTEROL 3 ML NEB INHALATION SCH ×4 (07:55→20:28)
[2023-07-18] MEDS: SYMBICORT 160-4.5 MCG INHALER INHALATION SCH ×2 (07:55→20:28)
--- NOTE | 2023-07-18 08:59 | P.PN ---
Subjective Progress Note Date: 07/18/23 I am seeing this patient in new consultation today 07/16/2023 after she was transferred from [facility] yesterday evening with concerns shortness of breath and chest pain. Patient apparently had some questionable EKG changes at outside facility, and was started on heparin infusion. She was also noted to be hypotensive, and norepinephrine infusion was initiated. Patient is a 68-year-old white female with past medical history significant for nonischemic cardiomyopathy status post AICD implantation, previous ventricular tachycardia, coronary artery disease, hypertension, hyperlipidemia, COPD with home oxygen use, obstructive sleep apnea with home CPAP. Patient is currently sitting up in bed, on 2 L/m nasal cannula, in no acute distress. She remains hypotensive, and norepinephrine is currently infusing at 0.06 mcg/kg/m. Heparin is infusing per protocol. Normal saline is infusing at 130 ML's per hour. Heart rhythm appears sinus tachycardia bedside monitor the rate of 120 bpm. She is tachypneic. She does admit persistent nonradiating substernal chest pain that started on . She is also having shortness of breath especially on exertion and a nonproductive cough. Denies heart palpitations, lightheadedness, syncopal, increased lower extremity edema, orthopnea. She denies any infectious symptoms such as fever, productive cough, hemoptysis. Denies any sick contacts. Denies any urinary complaints such as frequency, dysuria, urgency. Denies any abdominal pain, nausea or vomiting, diarrhea. Chest x-ray on arrival showed low lung volumes and generalized hazy appearance possibly atelectasis versus pulmonary edema. NT proBNP was elevated at 2020. Troponins were not elevated. EKG on arrival showed normal sinus rhythm with ST elevation in V1 and V2. Appears chronic. Most recent echocardiogram available to me is from 2020, which shows moderately severe impaired left ventricular ejection fraction of 30-35% and moderate concentric LVH. CBC on arrival showed some mild leukocytosis with a WBC count of 10.7, hemoglobin 12.8, hematocrit 39.3, platelets 180. BMP on a rrival shows sodium 133, potassium 4.1, chloride 103, serum bicarb 18, BUN 38, creatinine 1.76, glucose 191. Lactic acid level was 2.2 on arrival. Patient was empirically started on Rocephin. D-dimer was elevated at 3. Venous Doppler bilateral lower extremity negative for DVT. VQ scan pending. Patient will be monitored in the intensive care unit. 07/17/2023, the patient is calm and comfortable on oxygen at 4 L. No respiratory distress. Cardiac rhythm is sinus. Blood pressures remain soft and the patient remains on norepinephrine which is running at 0.03 mcg/kg/m. No chest pain. No cardiac arrhythmias. No fever. Her serum cortisol came back at 41. Troponins were 0.12. She is on a bicarbonate infusion and the bicarb deficit has been corrected. Serum bicarbs of 229. The BUN is at 36 with a creatinine of 1.57. The white cell count is currently at 11.5 with a hemoglobin of 12.4. She remains on aspirin. She remains on midodrine 5 mg by mouth daily. She remains on mexiletine 150 mg by mouth twice a day. She also far cc. IV heparin has been discontinued yesterday. 2022, the patient is comfortable. She had an episode of chest pain last night which subsequently recovered. The patient was given Tylenol and nitroglycerin. The pain was reproducible. No significant EKG changes. Meanwhile, she is off the norepinephrine infusion today. Her venous pressure is 154. Her BP is 8142. She is on midodrine. IV fluids are currently at KVO. She is resting comfortably in bed. No significant leukocytosis. White cycles at 9.4. Hemoglobin 13.3. BUN is at 34 with a creatinine of 1.6. Sodium level is at 132. She remains on aspirin. She remains on Mexitil 250 mg by mouth twice a day. IV heparin has been discontinued. The patient is also on 4 L of oxygen by nasal cannula. She has chronic hypoxic respiratory failure regarding her COPD and she has 2 L at home. She has nonischemic myopathy and the patient is an AICD in place. The patient has had no cardiac arrhythmias. She has history of hyperlipidemia, COPD and obstructive sleep apnea maintained on a home CPAP unit. Objective - Vital Signs Vital signs: Vital Signs Temp 98.3 F 07/18/23 04:00 Pulse 101 H 07/18/23 08:30 Resp 24 07/18/23 08:30 BP 85/51 07/18/23 08:30 Pulse Ox 96 07/18/23 08:30 FiO2 Intake & Output 07/17/23 07/18/23 07/18/23 18:59 06:59 18:59 Intake Total 330.296 322.493 40 Output Total 500 1480 Balance -169.704 -1157.507 40 Weight 72.5 kg Intake: IV 130 240 40 .9NS 130 240 40 Intake, IV Titration 200.296 32.493 Amount Dextrose 5% in Water 1, 100 000 ml @ 100 mls/hr IV . [id number] GERALD with Sodium Bicarb (1 Meq/ml) 150 ml Rx#:[id number] Norepinephrine 8 mg In 100.296 32.493 Sodium Chloride 0.9% 250 ml @ 0.03 MCG/KG/MIN 3. 871 mls/hr IV .Q24H GERALD Rx#:[id number] Oral 50 Output: Urine 500 575 Post Void Residual 905 Other: Voiding Method External Catheter External Catheter - Exam GENERAL EXAM: Alert, 68-year-old white female , comfortable in no apparent distress. HEAD: Normocephalic and atraumatic EYES: Normal reaction of pupils, equal size. NOSE: Clear with pink turbinates. THROAT: No erythema or exudates. NECK: No masses, no JVD. CHEST: No chest wall deformity. LUNGS: Equal air entry with bibasilar inspiratory crackles. No wheeze, rhonchi or dullness. On 2 L/m nasal cannula. No conversational dyspnea or accessory muscle use.. CVS: S1 and S2 normal with no audible murmur, regular rhythm. No extra heart sounds ABDOMEN: No hepatosplenomegaly, active bowel sounds, no guarding or rigidity. SPINE: No scoliosis or deformity SKIN: No rashes CENTRAL NERVOUS SYSTEM: No focal deficits, tone is normal in all 4 extremities. EXTREMITIES: There is mild nonpitting bilateral lower extremity edema. No clubbing, or cyanosis. Peripheral pulses are intact. - Labs CBC & Chem 7: 07/18/23 05:47 07/18/23 05:47 Labs: Abnormal Lab Results - Last 24 Hours (Table) 07/17/23 07/17/23 07/17/23 Range/Units 12:48 16:50 19:54 Plt Count (150-450) k/uL Sodium (137-145) mmol/L Chloride (98-107) mmol/L BUN (7-17) mg/dL Creatinine (0.52-1.04) mg/dL Glucose (74-99) mg/dL POC Glucose (mg/dL) 118 H 148 H 188 H (70-110) mg/dL 07/18/23 07/18/23 07/18/23 Range/Units 05:47 05:47 06:31 Plt Count 127 L (150-450) k/uL Sodium 132 L (137-145) mmol/L Chloride 97 L (98-107) mmol/L BUN 34 H (7-17) mg/dL Creatinine 1.64 H (0.52-1.04) mg/dL Glucose 154 H (74-99) mg/dL POC Glucose (mg/dL) 153 H (70-110) mg/dL Microbiology - Last 24 Hours (Table) 07/15/23 19:44 Blood Culture - Preliminary Blood 07/15/23 19:59 Blood Culture - Preliminary Blood Assessment and Plan Assessment: Acute on chronic hypoxemic respiratory failure, currently on 4 L per minute nasal cannula, possibly secondary to acute COPD exacerbation and suspected exacerbation of systolic congestive heart failure. Chest x-ray on arrival showed low lung volumes and generalized hazy appearance possibly atelectasis versus pulmonary edema. A repeat chest x-ray was done today. Findings of essentially unchanged. She does have cardiomegaly. Mild interstitial markings bilaterally. No airspace disease. No consolidation. Her oxygenation is adequate and the patient should be able to wean off to 3 L and her baseline is also at 2 L Ischemic cardiomyopathy with an ejection fraction of 30-35% with anterior and anteroapical wall hypokinesis. No significant valvular regurgitation. Hypotension and shock, requiring vasopressors in the form of norepinephrine. Patient is being evaluated for possible sepsis. No clear indication for underlying infection at this point in time. She is afebrile. No significant leukocytosis, and the patient was taken off the norepinephrine and currently she is on midregion. She typically runs a lower blood pressure. Urine output is a dequate for now. Metabolic non-anion gap acidosis, improved Acute on chronic kidney disease, as the patient has chronic stage III kidney disease, stable compared to yesterday Atypical chest pain, currently free of any chest pain Elevated d-dimer, patient did not receive chest CTA due to nephropathy. Patient is off IV heparin History of nonischemic cardiomyopathy status post AICD implantation History of ventricular tachycardia, the patient is on mexiletine and she has an AICD in place History of coronary artery disease Hyperlipidemia Chronic hypoxemic respiratory failure, normally maintained on 2 L per nasal cannula Obstructive sleep apnea, with home CPAP device Plan: The patient is currently off pressors Increase the midodrine up to 10 mg TID Patient is currently off IV heparin Echocardiogram was noted and the patient is an ejection fraction of 35% with segmental wall motion abnormalities Cortisol level is adequate Discontinue the IV Solu-Medrol Wean down FiO2 to 3 L and possibly down to 2 L Chest x-ray findings are stable Cultures have been negative thus far Patient is a DO NOT RESUSCITATE. Patient may be able to transfer out of the intensive care unit at the later stage today
[2023-07-18] MEDS: ASPIRIN 81 MG PO SCH (10:07)
[2023-07-18] MEDS: MEXILETINE 150 MG CAP PO SCH ×2 (10:07→20:56)
[2023-07-18] MEDS: CHOLECALCIFEROL 25 MCG (1000 IU) TABLET PO SCH (10:07)
[2023-07-18] MEDS: FOLIC ACID 1 MG TAB PO SCH (10:07)
[2023-07-18] MEDS: FLUoxetine HCL 20 MG CAP PO SCH (10:07)
[2023-07-18] MEDS: MONTELUKAST 10 MG TAB PO SCH (10:07)
[2023-07-18] MEDS: DAPAGLIFLOZIN PROPANEDIOL 5 MG TABLET PO SCH (10:07)
[2023-07-18] MEDS: MAGNESIUM OXIDE 400 MG TAB PO SCH ×2 (10:07→20:55)
[2023-07-18 11:29] LABS: Glucose,Whole Blood 160 mg/dL (70-110)
[2023-07-18] MEDS: NOREPINEPHRINE 8 MG in SODIUM CHLORIDE 0.9% 250 ML IV SCH (15:26)
[2023-07-18] MEDS ORDERED: SODIUM CHLORIDE 0.9% 500 ML 500 ML IV ONE (16:16)
--- NOTE | 2023-07-18 16:22 | P.PN ---
Subjective HISTORY OF PRESENTING ILLNESS Patient is pleasant 68-year-old female with history of mild CAD, nonischemic cardio myopathy, AICD implant, ventricular tachycardia, COPD on home oxygen, hypertension, hyperlipidemia, COPD. Patient follows in the office with Dr. Guerrero. She has had issues with hypotension in the past and has been on Midrin. Additionally she has been taking lisinopril as well as low-dose metoprolol. She denies any actual lightheadedness however has been found to be hypotensive with blood pressures in the 70s over 40s from the blood pressure cuff in the brachial position on both sides. She actually presented to the hospital secondary to chest pain and back pain. She denies any inciting events or recent traumas. She states pain has somewhat subsided. EKG showing poor R-wave progression with minimal ST elevation in lead V2 appearing similar to prior EKGs. There was concern about STEMI however did not meet STEMI criteria. Troponins 0.019, 0.02, 0.03, proBNP 2020, creatinine 1.7, bicarbonate 18, white blood cell count 10.7. She denies any recent fevers, chills. She was transferred to ICU and placed on low-dose or epinephrine with blood pressures mostly in the 80s over 50s/90s over 60s. 07/17 Patient seen and examined. Echo shows mild LVH, EF 30-35% with apical hypokinesis similar to prior echo from 3 years ago, no significant valvular disease. Still remains on norepinephrine with heart rates in the low 100s in sinus rhythm with additional blood pressures low 100s over 50-60s 07/18 Patient seen and examined. Patient had an atypical episode of chest pain which was reproducible for approximately an hour which improved with Tylenol was also given nitro. Denies any significant shortness breath. Denies any significant lower extremity edema. Lasix has been on hold. She has not been knee drinking much per patient. Some decreased urine output however not entirely accurate with no Kulkarni however blood pressures still borderline and remains on low-dose norepinephrine. Bandaging was increased from 5-10. PHYSICAL EXAMINATION Vital signs reviewed. CONSTITUTIONAL: No apparent distress. HEENT: Head is normocephalic. Pupils are equal, round. Sclerae anicteric. Mucous membranes of the mouth are moist. No JVD. No carotid bruit. CHEST EXAMINATION: Lungs are clear to auscultation. No chest wall tenderness is noted on palpation or with deep breathing. HEART EXAMINATION: Regular rate and rhythm. S1, S2 heard. No murmurs, gallops or rub. ABDOMEN: Soft, nontender. Positive bowel sounds. EXTREMITIES: 2+ peripheral pulses, no lower extremity edema and no calf tenderness. NEUROLOGIC EXAMINATION: Patient is awake, alert and oriented x3. ASSESSMENT 1. Atypical chest pain 2. Abnormal EKG with minimal ST elevation in V2, not meeting criteria for STEMI, do not suspect acute coronary syndrome 3. Mild CAD by prior heart catheterization 4. History of nonischemic cardiomyopathy status post AICD 5. Hypotension, rule out sepsis versus medication effect. Holding lisinopril metoprolol 6. Chronic kidney disease PLAN Patient still with hypotension of unclear etiology. Some of this may still be related to component of dehydration and we will give 500 mL IV fluid bolus and monitor response. Continue with norepinephrine as needed however hopefully wean. Agree with increasing Midrin. Chest pain atypical and would not pursue heart catheterization unless more significant abnormalities given her kidney function. If blood pressure stabilizes likely discharge home. Objective - Vital Signs Vital signs: Vital Signs Temp 98.7 F 07/18/23 15:30 Pulse 96 07/18/23 15:30 Resp 16 07/18/23 15:30 BP 114/59 07/18/23 15:30 Pulse Ox 95 07/18/23 15:30 FiO2 Intake & Output 07/17/23 07/18/23 07/18/23 18:59 06:59 18:59 Intake Total 330.296 322.493 182.795 Output Total 500 1480 Balance -169.704 -1157.507 182.795 Weight 72.5 kg Intake: IV 130 240 180 .9NS 130 240 180 Intake, IV Titration 200.296 32.493 2.795 Amount Dextrose 5% in Water 1, 100 000 ml @ 100 mls/hr IV . [id number] GERALD with Sodium Bicarb (1 Meq/ml) 150 ml Rx#:[id number] Norepinephrine 8 mg In 100.296 32.493 2.795 Sodium Chloride 0.9% 250 ml @ 0.03 MCG/KG/MIN 3. 871 mls/hr IV .Q24H GERALD Rx#:[id number] Oral 50 Output: Urine 500 575 Post Void Residual 905 Other: Voiding Method External Catheter External Catheter External Catheter - Labs CBC & Chem 7: 07/18/23 05:47 07/18/23 05:47 Labs: Abnormal Lab Results - Last 24 Hours (Table) 07/17/23 07/17/23 07/18/23 Range/Units 16:50 19:54 05:47 Plt Count 127 L (150-450) k/uL Sodium (137-145) mmol/L Chloride (98-107) mmol/L BUN (7-17) mg/dL Creatinine (0.52-1.04) mg/dL Glucose (74-99) mg/dL POC Glucose (mg/dL) 148 H 188 H (70-110) mg/dL 07/18/23 07/18/23 07/18/23 Range/Units 05:47 06:31 11:26 Plt Count (150-450) k/uL Sodium 132 L (137-145) mmol/L Chloride 97 L (98-107) mmol/L BUN 34 H (7-17) mg/dL Creatinine 1.64 H (0.52-1.04) mg/dL Glucose 154 H (74-99) mg/dL POC Glucose (mg/dL) 153 H 160 H (70-110) mg/dL Microbiology - Last 24 Hours (Table) 07/15/23 19:44 Blood Culture - Preliminary Blood 07/15/23 19:59 Blood Culture - Preliminary Blood
[2023-07-18 16:51] LABS: Glucose,Whole Blood 139 mg/dL (70-110)
[2023-07-18 20:34] LABS: Glucose,Whole Blood 222 mg/dL (70-110)
[2023-07-18] MEDS: ATORVASTATIN 20 MG TAB PO SCH (20:55)
--- NOTE | 2023-07-18 22:22 | P.PN ---
Subjective This is a pleasant 68-year-old patient, follows with Dr. Ramirez. Back Tender Dr. Noemi Guerrero. Chronic stable medical conditions include congestive heart failure, COPD, hypertension, hyperlipidemia, chronic hypoxic respiratory failure on home oxygen 2 L AICD. lives alone. Has home help. Uses walker. Patient was transferred here from [facility]. By the ER notes patient was transferred because of shortness of breath. When she arrived she did not complain any shortness of breath. Did also changes on the EKG. Also blood pressure was reported to be 70 from the transferring hospital. She is put on levo fed drip and IV heparin drip. Patient is in the ICU. She tells me that she had pain in the spine. Sharp pain. Only some pain in the front. Sclerae slight shortness of breath. No fever no chills. No cough. Appetite is fair. No problem bowel movements. Denies any lightheadedness. Patient's son decided to send her to the hospital. 07/19/2023 From [facility] for weakness and cough and suspicion of none STEMI for patient had chest pain Patient currently remains in the ICU possibly for acute COPD exacerbation over steroids has been stopped. She's been having hypotension and required low dose of pressors off levophed at 0.0202 0.04. She has adequate urine output and creatinine trending down to 1.7 down to 1.6. Patient had patient has evidence of chronic kidney disease with baseline creatinine 1.2-1.5. Looks like patient and off dehydrated and she received bolus of normal saline, her blood pressure is better no more pressors and she was started on midodrine. Urine output. Objective - Vital Signs Vital signs: Vital Signs Temp 97.9 F 07/18/23 20:00 Pulse 107 H 07/18/23 20:42 Resp 25 H 07/18/23 20:00 BP 114/46 07/18/23 20:00 Pulse Ox 93 L 07/18/23 20:00 FiO2 Intake & Output 07/18/23 07/18/23 07/19/23 06:59 18:59 06:59 Intake Total 322.493 722.795 40 Output Total 1480 Balance -1157.507 722.795 40 Weight 72.5 kg Intake: IV 240 220 40 .9NS 240 220 40 Intake, IV Titration 32.493 502.795 Amount Norepinephrine 8 mg In 32.493 2.795 Sodium Chloride 0.9% 250 ml @ 0.03 MCG/KG/MIN 3. 871 mls/hr IV .Q24H [facility] Rx#:[id number] Sodium Chloride 0.9% 500 500 ml 500 ml @ 999 mls/hr IV .Q31M [facility] Rx#:[id number] Oral 50 Output: Urine 575 Post Void Residual 905 Other: Voiding Method External Catheter External Catheter - Exam GENERAL: The patient is alert and oriented , not in any acute distress. Well developed, well nourished. HEENT: Pupils are round and equally reacting to light. EOMI. No scleral icterus. No conjunctival pallor. Normocephalic, atraumatic. No pharyngeal erythema. No thyromegaly. CARDIOVASCULAR: S1 and S2 present. No murmurs, rubs, or gallops. PULMONARY: Chest is clear to auscultation, no wheezing , no crackles. ABDOMEN: Soft, nontender, nondistended, normoactive bowel sounds. No palpable organomegaly. MUSCULOSKELETAL: No joint swelling or deformity. EXTREMITIES: No cyanosis, clubbing, or pedal edema. NEUROLOGICAL: Gross neurological examination did not reveal any focal deficits. SKIN: No rashes. no petechiae. - Labs CBC & Chem 7: 07/18/23 05:47 07/18/23 05:47 Labs: Abnormal Lab Results - Last 24 Hours (Table) 07/18/23 07/18/23 07/18/23 Range/Units 05:47 05:47 06:31 Plt Count 127 L (150-450) k/uL Sodium 132 L (137-145) mmol/L Chloride 97 L (98-107) mmol/L BUN 34 H (7-17) mg/dL Creatinine 1.64 H (0.52-1.04) mg/dL Glucose 154 H (74-99) mg/dL POC Glucose (mg/dL) 153 H (70-110) mg/dL 07/18/23 07/18/23 07/18/23 Range/Units 11:26 16:50 20:32 Plt Count (150-450) k/uL Sodium (137-145) mmol/L Chloride (98-107) mmol/L BUN (7-17) mg/dL Creatinine (0.52-1.04) mg/dL Glucose (74-99) mg/dL POC Glucose (mg/dL) 160 H 139 H 222 H (70-110) mg/dL Microbiology - Last 24 Hours (Table) 07/15/23 19:44 Blood Culture - Preliminary Blood 07/15/23 19:59 Blood Culture - Preliminary Blood Assessment and Plan Assessment: Hypotension and shock multifactorial related to heart failure and dehydration Chronic systolic CHF with ejection fraction of 30-35% status post AICD. Metabolic acidosis, improving Acute kidney injury on chronic kidney disease stage III COPD with acute exacerbation and improved. Plan: Continue with midodrine Follow-up blood pressure Monitor heart rate and creatinine. Patient states currently followed by pulmonary and cardiology team Labs and medication were reviewed.. Continue same treatment. Continue with symptomatic treatment. Resume home medication. Monitor labs and vitals. DVT and GI prophylaxis. Further recommendations as per clinical course of the patient DVT prophylaxis: Subcutaneous heparin GI Prophylaxis: Ppi Prognosis is guarded
[2023-07-19 03:58] LABS: Basophils % (A) 0 %; Eosinophils % (A) 0 %; HCT 35.1 % (34.0-46.0); HGB 11.6 gm/dL (11.4-16.0); Lymphocytes # (A) 0.9 k/uL (1.0-4.8); Lymphocytes % (A) 10 %; MCH 31.3 pg (25.0-35.0); MCHC 33.2 g/dL (31.0-37.0); MCV 94.2 fL (80.0-100.0); Mean Platelet Volume 9.1; Monocytes # (A) 0.5 k/uL (0-1.0); Monocytes % (A) 5 %; Neutrophils # (A) 7.6 k/uL (1.3-7.7); Neutrophils % (A) 84 %; RBC 3.72 m/uL (3.80-5.40); RDW 15.3 % (11.5-15.5); WBC 9.2 k/uL (3.8-10.6)
[2023-07-19 04:36] LABS: Platelet Count 74 k/uL (150-450)
[2023-07-19 05:02] LABS: African American GFR (CKD) 38 (>60 ml/min/1.73 sqM); Anion Gap 1 mmol/L; Blood Urea Nitrogen 36 mg/dL (7-17); Carbon Dioxide 33 mmol/L (22-30); Chloride 100 mmol/L (98-107); Glucose 119 mg/dL (74-99); Non-African American GFR(CKD) 33 (>60 ml/min/1.73 sqM); Potassium 4.7 mmol/L (3.5-5.1); Sodium 134 mmol/L (137-145)
[2023-07-19 06:37] LABS: Glucose,Whole Blood 145 mg/dL (70-110)
[2023-07-19] MEDS: INSULIN ASPART (NovoLOG) 100 UNIT/ML VIAL SQ SCH ×4 (06:41→20:55)
[2023-07-19] MEDS: NOREPINEPHRINE 8 MG in SODIUM CHLORIDE 0.9% 250 ML IV SCH ×2 (06:41→17:01)
[2023-07-19] MEDS: MIDODRINE 5 MG TAB PO SCH ×3 (06:55→16:59)
[2023-07-19] MEDS: PANTOPRAZOLE 40 MG TABLET PO SCH (06:55)
--- NOTE | 2023-07-19 07:39 | P.PN ---
Subjective Progress Note Date: 07/19/23 I am seeing this patient in new consultation today 07/16/2023 after she was transferred from [facility] yesterday evening with concerns shortness of breath and chest pain. Patient apparently had some questionable EKG changes at outside facility, and was started on heparin infusion. She was also noted to be hypotensive, and norepinephrine infusion was initiated. Patient is a 68-year-old white female with past medical history significant for nonischemic cardiomyopathy status post AICD implantation, previous ventricular tachycardia, coronary artery disease, hypertension, hyperlipidemia, COPD with home oxygen use, obstructive sleep apnea with home CPAP. Patient is currently sitting up in bed, on 2 L/m nasal cannula, in no acute distress. She remains hypotensive, and norepinephrine is currently infusing at 0.06 mcg/kg/m. Heparin is infusing per protocol. Normal saline is infusing at 130 ML's per hour. Heart rhythm appears sinus tachycardia bedside monitor the rate of 120 bpm. She is tachypneic. She does admit persistent nonradiating substernal chest pain that started on . She is also having shortness of breath especially on exertion and a nonproductive cough. Denies heart palpitations, lightheadedness, syncopal, increased lower extremity edema, orthopnea. She denies any infectious symptoms such as fever, productive cough, hemoptysis. Denies any sick contacts. Denies any urinary complaints such as frequency, dysuria, urgency. Denies any abdominal pain, nausea or vomiting, diarrhea. Chest x-ray on arrival showed low lung volumes and generalized hazy appearance possibly atelectasis versus pulmonary edema. NT proBNP was elevated at 2020. Troponins were not elevated. EKG on arrival showed normal sinus rhythm with ST elevation in V1 and V2. Appears chronic. Most recent echocardiogram available to me is from 2020, which shows moderately severe impaired left ventricular ejection fraction of 30-35% and moderate concentric LVH. CBC on arrival showed some mild leukocytosis with a WBC count of 10.7, hemoglobin 12.8, hematocrit 39.3, platelets 180. BMP on a rrival shows sodium 133, potassium 4.1, chloride 103, serum bicarb 18, BUN 38, creatinine 1.76, glucose 191. Lactic acid level was 2.2 on arrival. Patient was empirically started on Rocephin. D-dimer was elevated at 3. Venous Doppler bilateral lower extremity negative for DVT. VQ scan pending. Patient will be monitored in the intensive care unit. 07/17/2023, the patient is calm and comfortable on oxygen at 4 L. No respiratory distress. Cardiac rhythm is sinus. Blood pressures remain soft and the patient remains on norepinephrine which is running at 0.03 mcg/kg/m. No chest pain. No cardiac arrhythmias. No fever. Her serum cortisol came back at 41. Troponins were 0.12. She is on a bicarbonate infusion and the bicarb deficit has been corrected. Serum bicarbs of 229. The BUN is at 36 with a creatinine of 1.57. The white cell count is currently at 11.5 with a hemoglobin of 12.4. She remains on aspirin. She remains on midodrine 5 mg by mouth daily. She remains on mexiletine 150 mg by mouth twice a day. She also far cc. IV heparin has been discontinued yesterday. 2022, the patient is comfortable. She had an episode of chest pain last night which subsequently recovered. The patient was given Tylenol and nitroglycerin. The pain was reproducible. No significant EKG changes. Meanwhile, she is off the norepinephrine infusion today. Her venous pressure is 154. Her BP is 8142. She is on midodrine. IV fluids are currently at KVO. She is resting comfortably in bed. No significant leukocytosis. White cycles at 9.4. Hemoglobin 13.3. BUN is at 34 with a creatinine of 1.6. Sodium level is at 132. She remains on aspirin. She remains on Mexitil 250 mg by mouth twice a day. IV heparin has been discontinued. The patient is also on 4 L of oxygen by nasal cannula. She has chronic hypoxic respiratory failure regarding her COPD and she has 2 L at home. She has nonischemic myopathy and the patient is an AICD in place. The patient has had no cardiac arrhythmias. She has history of hyperlipidemia, COPD and obstructive sleep apnea maintained on a home CPAP unit. On 07/18/2023, the patient remains in intensive care unit. She is still having issues with hypotension, this is likely chronic hypotension. She is on low-dose norepinephrine is O- 0.01 mcg/kg/m. She is also on midregion 10 mg by mouth 3 times a day. No chest pain. He was KVO. She is afebrile. Urine output is adequate for now and the patient has produced approximately 1.9 L for the past 24 hours. Her BUN is at 36 with a creatinine of 1.5. Sodium levels of 134, the white suppositive 9.2 with a hemoglobin 11.6. Cultures are negative. Telemetry function is impaired and the patient has chronic systolic heart failure with an ejection fraction of 35%. She remains on oxygen at 4 L. Chest x-ray shows cardiomegaly with mild pulmonary vascular congestion. No consolidation. No airspace disease. No respiratory distress at this point in time. She is chronic hypoxic and she has home O2. Cardiac rhythm is sinus. Objective - Vital Signs Vital signs: Vital Signs Temp 97.7 F 07/19/23 04:00 Pulse 97 07/19/23 07:00 Resp 15 07/19/23 07:00 BP 124/46 07/19/23 07:00 Pulse Ox 96 07/19/23 06:30 FiO2 Intake & Output 07/18/23 07/19/23 07/19/23 18:59 06:59 18:59 Intake Total 722.795 240 20 Output Total 150 Balance 722.795 90 20 Weight 74.9 kg Intake: IV 220 240 20 .9NS 220 240 20 Intake, IV Titration 502.795 Amount Norepinephrine 8 mg In 2.795 Sodium Chloride 0.9% 250 ml @ 0.03 MCG/KG/MIN 3. 871 mls/hr IV .Q24H [facility] Rx#:[id number] Sodium Chloride 0.9% 500 500 ml 500 ml @ 999 mls/hr IV .Q31M [facility] Rx#:[id number] Output: Urine 150 Other: Voiding Method External Catheter External Catheter - Exam GENERAL EXAM: Alert, 68-year-old white female , comfortable in no apparent distress. HEAD: Normocephalic and atraumatic EYES: Normal reaction of pupils, equal size. NOSE: Clear with pink turbinates. THROAT: No erythema or exudates. NECK: No masses, no JVD. CHEST: No chest wall deformity. LUNGS: Equal air entry with bibasilar inspiratory crackles. No wheeze, rhonchi or dullness. On 2 L/m nasal cannula. No conversational dyspnea or accessory muscle use.. CVS: S1 and S2 normal with no audible murmur, regular rhythm. No extra heart sounds ABDOMEN: No hepatosplenomegaly, active bowel sounds, no guarding or rigidity. SPINE: No scoliosis or deformity SKIN: No rashes CENTRAL NERVOUS SYSTEM: No focal deficits, tone is normal in all 4 extremities. EXTREMITIES: There is mild nonpitting bilateral lower extremity edema. No clubbing, or cyanosis. Peripheral pulses are intact. - Labs CBC & Chem 7: 07/19/23 03:22 07/19/23 03:22 Labs: Abnormal Lab Results - Last 24 Hours (Table) 07/18/23 07/18/23 07/18/23 Range/Units 11:26 16:50 20:32 RBC (3.80-5.40) m/uL Plt Count (150-450) k/uL Lymphocytes # (1.0-4.8) k/uL Sodium (137-145) mmol/L Carbon Dioxide (22-30) mmol/L BUN (7-17) mg/dL Creatinine (0.52-1.04) mg/dL Glucose (74-99) mg/dL POC Glucose (mg/dL) 160 H 139 H 222 H (70-110) mg/dL 07/19/23 07/19/23 07/19/23 Range/Units 03:22 03:22 06:35 RBC 3.72 L (3.80-5.40) m/uL Plt Count 74 L (150-450) k/uL Lymphocytes # 0.9 L (1.0-4.8) k/uL Sodium 134 L (137-145) mmol/L Carbon Dioxide 33 H (22-30) mmol/L BUN 36 H (7-17) mg/dL Creatinine 1.59 H (0.52-1.04) mg/dL Glucose 119 H (74-99) mg/dL POC Glucose (mg/dL) 145 H (70-110) mg/dL Microbiology - Last 24 Hours (Table) 07/15/23 19:44 Blood Culture - Preliminary Blood 07/15/23 19:59 Blood Culture - Preliminary Blood Assessment and Plan Assessment: Acute on chronic hypoxemic respiratory failure, currently on 4 L per minute nasal cannula, possibly secondary to acute COPD exacerbation and suspected exacerbation of systolic congestive heart failure. Chest x-ray on arrival showed low lung volumes and generalized hazy appearance possibly atelectasis versus pulmonary edema. A repeat chest x-ray was done today. Findings of essentially unchanged. She does have cardiomegaly. Mild interstitial markings bilaterally. No airspace disease. No consolidation. Her oxygenation is adequate and the patient should be able to wean off to 3 L and her baseline is also at 2 L Ischemic cardiomyopathy with an ejection fraction of 30-35% with anterior and anteroapical wall hypokinesis. No significant valvular regurgitation. Hypotension and shock, requiring vasopressors in the form of norepinephrine. Patient is being evaluated for possible sepsis. No clear indication for underlying infection at this point in time. She is afebrile. No significant leukocytosis, and the patient was taken off the norepinephrine and currently she is on midregion. She typically runs a lower blood pressure. Urine output is adequate for now. Metabolic non-anion gap acidosis, improved Acute on chronic kidney disease, as the patient has chronic stage III kidney disease, stable compared to yesterday Atypical chest pain, currently free of any chest pain Elevated d-dimer, patient did not receive chest CTA due to nephropathy. Patient is off IV heparin History of nonischemic cardiomyopathy status post AICD implantation History of ventricular tachycardia, the patient is on mexiletine and she has an AICD in place History of coronary artery disease Hyperlipidemia Chronic hypoxemic respiratory failure, normally maintained on 2 L per nasal cannula Obstructive sleep apnea, with home CPAP device Plan: Clinically stable and essentially no change in his condition. No new events since yesterday. Still running a low-dose norepinephrine which will be discontinued today The patient is currently off pressors Continue the midodrine up to 10 mg TID Patient is currently off IV heparin, currently on heparin subcu 5000 units every 8 hours Echocardiogram was noted and the patient is an ejection fraction of 35% with segmental wall motion abnormalities Cortisol level is adequate Wean down FiO2 to 3 L and possibly down to 2 L Chest x-ray findings are stable Cultures have been negative thus far Patient is a DO NOT RESUSCITATE. Patient may be able to transfer out of the intensive care unit at the later stage today
[2023-07-19] MEDS: SYMBICORT 160-4.5 MCG INHALER INHALATION SCH ×2 (07:42→19:39)
[2023-07-19] MEDS: IPRATROPIUM-ALBUTEROL 3 ML NEB INHALATION SCH ×4 (07:42→19:40)
--- NOTE | 2023-07-19 09:09 | P.PN ---
Subjective This is a pleasant 68-year-old patient, follows with Dr. Ramirez. Metallographer Dr. Noemi Guerrero. Chronic stable medical conditions include congestive heart failure, COPD, hypertension, hyperlipidemia, chronic hypoxic respiratory failure on home oxygen 2 L AICD. lives alone. Has home help. Uses walker. Patient was transferred here from [facility]. By the ER notes patient was transferred because of shortness of breath. When she arrived she did not complain any shortness of breath. Did also changes on the EKG. Also blood pressure was reported to be 70 from the transferring hospital. She is put on levo fed drip and IV heparin drip. Patient is in the ICU. She tells me that she had pain in the spine. Sharp pain. Only some pain in the front. Sclerae slight shortness of breath. No fever no chills. No cough. Appetite is fair. No problem bowel movements. Denies any lightheadedness. Patient's son decided to send her to the hospital. 07/18/2023 From [facility] for weakness and cough and suspicion of none STEMI for patient had chest pain Patient currently remains in the ICU possibly for acute COPD exacerbation over steroids has been stopped. She's been having hypotension and required low dose of pressors off levophed at 0.0202 0.04. She has adequate urine output and creatinine trending down to 1.7 down to 1.6. Patient had patient has evidence of chronic kidney disease with baseline creatinine 1.2-1.5. Looks like patient and off dehydrated and she received bolus of normal saline, her blood pressure is better no more pressors and she was started on midodrine. Urine output. 07/19/2023 pt is awake and alert , lying in bed comfortable with no chest pain or dyspnea . pt bp is better today 115/54 no dizziness while in bed she is on small dose of levophed which is planeed to be stopped today by the cr itical care team i agree with normal saline boluses and pt is counseled to eat and drink more and she is agreeable creatinine is slightly trending down to 1.59 today she is on midodrine 10 mg tid , Objective - Vital Signs Vital signs: Vital Signs Temp 97.7 F 07/19/23 04:00 Pulse 95 07/19/23 07:52 Resp 15 07/19/23 07:00 BP 124/46 10/28/23 07:00 Pulse Ox 96 07/19/23 06:30 FiO2 Intake & Output 07/18/23 07/19/23 07/19/23 18:59 06:59 18:59 Intake Total 722.795 240 20 Output Total 150 Balance 722.795 90 20 Weight 74.9 kg Intake: IV 220 240 20 .9NS 220 240 20 Intake, IV Titration 502.795 Amount Norepinephrine 8 mg In 2.795 Sodium Chloride 0.9% 250 ml @ 0.03 MCG/KG/MIN 3. 871 mls/hr IV .Q24H [facility] Rx#:[id number] Sodium Chloride 0.9% 500 500 ml 500 ml @ 999 mls/hr IV .Q31M [facility] Rx#:[id number] Output: Urine 150 Other: Voiding Method External Catheter External Catheter - Exam GENERAL: The patient is alert and oriented , not in any acute distress. Well developed, well nourished. HEENT: Pupils are round and equally reacting to light. EOMI. No scleral icterus. No conjunctival pallor. Normocephalic, atraumatic. No pharyngeal erythema. No thyromegaly. CARDIOVASCULAR: S1 and S2 present. No murmurs, rubs, or gallops. PULMONARY: Chest is clear to auscultation, no wheezing , no crackles. ABDOMEN: Soft, nontender, nondistended, normoactive bowel sounds. No palpable organomegaly. MUSCULOSKELETAL: No joint swelling or deformity. EXTREMITIES: No cyanosis, clubbing, or pedal edema. NEUROLOGICAL: Gross neurological examination did not reveal any focal deficits. SKIN: No rashes. no petechiae. - Labs CBC & Chem 7: 07/19/23 03:22 07/19/23 03:22 Labs: Abnormal Lab Results - Last 24 Hours (Table) 07/18/23 07/18/23 07/18/23 Range/Units 11:26 16:50 20:32 RBC (3.80-5.40) m/uL Plt Count (150-450) k/uL Lymphocytes # (1.0-4.8) k/uL Sodium (137-145) mmol/L Carbon Dioxide (22-30) mmol/L BUN (7-17) mg/dL Creatinine (0.52-1.04) mg/dL Glucose (74-99) mg/dL POC Glucose (mg/dL) 160 H 139 H 222 H (70-110) mg/dL 07/19/23 07/19/23 07/19/23 Range/Units 03:22 03:22 06:35 RBC 3.72 L (3.80-5.40) m/uL Plt Count 74 L (150-450) k/uL Lymphocytes # 0.9 L (1.0-4.8) k/uL Sodium 134 L (137-145) mmol/L Carbon Dioxide 33 H (22-30) mmol/L BUN 36 H (7-17) mg/dL Creatinine 1.59 H (0.52-1.04) mg/dL Glucose 119 H (74-99) mg/dL POC Glucose (mg/dL) 145 H (70-110) mg/dL Microbiology - Last 24 Hours (Table) 07/15/23 19:44 Blood Culture - Preliminary Blood 07/15/23 19:59 Blood Culture - Preliminary Blood Assessment and Plan Assessment: Hypotension and shock multifactorial related to heart failure and dehydration Chronic systolic CHF with ejection fraction of 30-35% status post AICD. Metabolic acidosis, improving Acute kidney injury on chronic kidney disease stage III COPD with acute exacerbation and improved. Plan: Continue with midodrine Follow-up blood pressure Monitor heart rate and creatinine. Patient states currently followed by pulmonary and cardiology team Labs and medication were reviewed.. Continue same treatment. Continue with symptomatic treatment. Resume home medication. Monitor labs and vitals. DVT and GI prophylaxis. Further recommendations as per clinical course of the patient DVT prophylaxis: Subcutaneous heparin GI Prophylaxis: Ppi Prognosis is guarded
[2023-07-19] MEDS: CHOLECALCIFEROL 25 MCG (1000 IU) TABLET PO SCH (09:33)
[2023-07-19] MEDS: FOLIC ACID 1 MG TAB PO SCH (09:33)
[2023-07-19] MEDS: MEXILETINE 150 MG CAP PO SCH ×2 (09:33→21:01)
[2023-07-19] MEDS: FLUoxetine HCL 20 MG CAP PO SCH (09:33)
[2023-07-19] MEDS: HEPARIN SODIUM,PORCINE 5,000 UNIT/ML 1 ML VIAL SQ SCH ×3 (09:33→23:51)
[2023-07-19] MEDS: ASPIRIN 81 MG PO SCH (09:33)
[2023-07-19] MEDS: DAPAGLIFLOZIN PROPANEDIOL 5 MG TABLET PO SCH (09:33)
[2023-07-19] MEDS: MAGNESIUM OXIDE 400 MG TAB PO SCH ×2 (09:33→21:01)
[2023-07-19] MEDS: MONTELUKAST 10 MG TAB PO SCH (09:33)
[2023-07-19] MEDS: POTASSIUM CHLORIDE ER 10 MEQ TAB.ER.PRT PO SCH (09:53)
[2023-07-19 11:13] LABS: Glucose,Whole Blood 127 mg/dL (70-110)
--- NOTE | 2023-07-19 15:55 | P.PN ---
Subjective HISTORY OF PRESENTING ILLNESS Patient is pleasant 68-year-old female with history of mild CAD, nonischemic cardio myopathy, AICD implant, ventricular tachycardia, COPD on home oxygen, hypertension, hyperlipidemia, COPD. Patient follows in the office with Dr. Guerrero. She has had issues with hypotension in the past and has been on Midrin. Additionally she has been taking lisinopril as well as low-dose metoprolol. She denies any actual lightheadedness however has been found to be hypotensive with blood pressures in the 70s over 40s from the blood pressure cuff in the brachial position on both sides. She actually presented to the hospital secondary to chest pain and back pain. She denies any inciting events or recent traumas. She states pain has somewhat subsided. EKG showing poor R-wave progression with minimal ST elevation in lead V2 appearing similar to prior EKGs. There was concern about STEMI however did not meet STEMI criteria. Troponins 0.019, 0.02, 0.03, proBNP 2020, creatinine 1.7, bicarbonate 18, white blood cell count 10.7. She denies any recent fevers, chills. She was transferred to ICU and placed on low-dose or epinephrine with blood pressures mostly in the 80s over 50s/90s over 60s. 07/17 Patient seen and examined. Echo shows mild LVH, EF 30-35% with apical hypokinesis similar to prior echo from 3 years ago, no significant valvular disease. Still remains on norepinephrine with heart rates in the low 100s in sinus rhythm with additional blood pressures low 100s over 50-60s 07/18 Patient seen and examined. Patient had an atypical episode of chest pain which was reproducible for approximately an hour which improved with Tylenol was also given nitro. Denies any significant shortness breath. Denies any significant lower extremity edema. Lasix has been on hold. She has not been knee drinking much per patient. Some decreased urine output however not entirely accurate with no Kulkarni however blood pressures still borderline and remains on low-dose norepinephrine. Midodrine was increased from 5-10. 07/19 Patient seen and examined. Patient denies any chest pain or pressure. She states she had some difficulty with eating her food previously. Denies any shortness of breath. She was given 500 mL fluid bolus yesterday and blood pressures currently better in the 120/60 range on the Midodrine 10mg. has been weaned off of norepinephrine. PHYSICAL EXAMINATION Vital signs reviewed. CONSTITUTIONAL: No apparent distress. HEENT: Head is normocephalic. Pupils are equal, round. Sclerae anicteric. Mucous membranes of the mouth are moist. No JVD. No carotid bruit. CHEST EXAMINATION: Lungs are clear to auscultation. No chest wall tenderness is noted on palpation or with deep breathing. HEART EXAMINATION: Regular rate and rhythm. S1, S2 heard. No murmurs, gallops or rub. ABDOMEN: Soft, nontender. Positive bowel sounds. EXTREMITIES: 2+ peripheral pulses, no lower extremity edema and no calf tenderness. NEUROLOGIC EXAMINATION: Patient is awake, alert and oriented x3. ASSESSMENT 1. Atypical chest pain 2. Abnormal EKG with minimal ST elevation in V2, not meeting criteria for [place], do not suspect acute coronary syndrome 3. Mild CAD by prior heart catheterization 4. History of nonischemic cardiomyopathy status post AICD 5. Hypotension, rule out sepsis versus medication effect. Holding lisinopril metoprolol 6. Chronic kidney disease PLAN Patient with IV fluid bolus yesterday and Midodrine and blood pressure appears more stable. Creatinine also remained stable. Continue to hold lisinopril and metoprolol. Would monitor for another 24 hours and likely discharge home if blood pressures remain stable. Objective - Vital Signs Vital signs: Vital Signs Temp 98.2 F 07/19/23 12:00 Pulse 89 07/19/23 14:00 Resp 21 07/19/23 14:00 BP 131/85 07/19/23 14:00 Pulse Ox 98 07/19/23 14:00 FiO2 Intake & Output 07/18/23 07/19/23 07/19/23 18:59 06:59 18:59 Intake Total 722.795 240 270 Output Total 150 400 Balance 722.795 90 -130 Weight 74.9 kg Intake: IV 220 240 20 .9NS 220 240 20 Intake, IV Titration 502.795 Amount Norepinephrine 8 mg In 2.795 Sodium Chloride 0.9% 250 ml @ 0.03 MCG/KG/MIN 3. 871 mls/hr IV .Q24H [facility] Rx#:[id number] Sodium Chloride 0.9% 500 500 ml 500 ml @ 999 mls/hr IV .Q31M [facility] Rx#:[id number] Oral 250 Output: Urine 150 400 Other: Voiding Method External Catheter External Catheter External Catheter - Labs CBC & Chem 7: 07/19/23 03:22 07/19/23 03:22 Labs: Abnormal Lab Results - Last 24 Hours (Table) 07/18/23 07/18/23 07/19/23 Range/Units 16:50 20:32 03:22 RBC 3.72 L (3.80-5.40) m/uL Plt Count 74 L (150-450) k/uL Lymphocytes # 0.9 L (1.0-4.8) k/uL Sodium (137-145) mmol/L Carbon Dioxide (22-30) mmol/L BUN (7-17) mg/dL Creatinine (0.52-1.04) mg/dL Glucose (74-99) mg/dL POC Glucose (mg/dL) 139 H 222 H (70-110) mg/dL 07/19/23 07/19/23 07/19/23 Range/Units 03:22 06:35 11:12 RBC (3.80-5.40) m/uL Plt Count (150-450) k/uL Lymphocytes # (1.0-4.8) k/uL Sodium 134 L (137-145) mmol/L Carbon Dioxide 33 H (22-30) mmol/L BUN 36 H (7-17) mg/dL Creatinine 1.59 H (0.52-1.04) mg/dL Glucose 119 H (74-99) mg/dL POC Glucose (mg/dL) 145 H 127 H (70-110) mg/dL Microbiology - Last 24 Hours (Table) 07/15/23 19:44 Blood Culture - Preliminary Blood 07/15/23 19:59 Blood Culture - Preliminary Blood
[2023-07-19 16:14] LABS: Glucose,Whole Blood 138 mg/dL (70-110)
[2023-07-19 20:56] LABS: Glucose,Whole Blood 130 mg/dL (70-110)
[2023-07-19] MEDS: ATORVASTATIN 20 MG TAB PO SCH (21:01)
[2023-07-20 04:58] LABS: Basophils % (A) 0 %; Eosinophils # (A) 0.1 k/uL (0-0.7); Eosinophils % (A) 1 %; HCT 36.1 % (34.0-46.0); HGB 12.1 gm/dL (11.4-16.0); Lymphocytes # (A) 1.4 k/uL (1.0-4.8); Lymphocytes % (A) 18 %; MCH 31.7 pg (25.0-35.0); MCHC 33.4 g/dL (31.0-37.0); MCV 95.1 fL (80.0-100.0); Mean Platelet Volume 8.8; Monocytes # (A) 0.6 k/uL (0-1.0); Monocytes % (A) 7 %; Neutrophils # (A) 5.8 k/uL (1.3-7.7); Neutrophils % (A) 73 %; RDW 15.1 % (11.5-15.5); WBC 7.9 k/uL (3.8-10.6)
[2023-07-20 05:07] LABS: African American GFR (CKD) 36 (>60 ml/min/1.73 sqM); Anion Gap -1 mmol/L; Blood Urea Nitrogen 36 mg/dL (7-17); Calcium 9.3 mg/dL (8.4-10.2); Carbon Dioxide 35 mmol/L (22-30); Chloride 101 mmol/L (98-107); Glucose 82 mg/dL (74-99); Non-African American GFR(CKD) 32 (>60 ml/min/1.73 sqM); Potassium 4.8 mmol/L (3.5-5.1); Sodium 135 mmol/L (137-145)
[2023-07-20 05:37] LABS: Platelet Count 61 k/uL (150-450)
[2023-07-20 06:36] LABS: Glucose,Whole Blood 86 mg/dL (70-110)
[2023-07-20] MEDS: PANTOPRAZOLE 40 MG TABLET PO SCH (06:38)
[2023-07-20] MEDS: INSULIN ASPART (NovoLOG) 100 UNIT/ML VIAL SQ SCH ×4 (06:38→20:53)
[2023-07-20] MEDS: MIDODRINE 5 MG TAB PO SCH ×3 (06:38→17:57)
[2023-07-20] MEDS: SYMBICORT 160-4.5 MCG INHALER INHALATION SCH ×2 (07:40→20:52)
[2023-07-20] MEDS: IPRATROPIUM-ALBUTEROL 3 ML NEB INHALATION SCH ×4 (07:40→20:52)
[2023-07-20] MEDS: MEXILETINE 150 MG CAP PO SCH ×2 (08:28→21:15)
[2023-07-20] MEDS: ASPIRIN 81 MG PO SCH (08:29)
[2023-07-20] MEDS: MAGNESIUM OXIDE 400 MG TAB PO SCH ×2 (08:29→21:15)
[2023-07-20] MEDS: CHOLECALCIFEROL 25 MCG (1000 IU) TABLET PO SCH (08:29)
[2023-07-20] MEDS: DAPAGLIFLOZIN PROPANEDIOL 5 MG TABLET PO SCH (08:29)
[2023-07-20] MEDS: FOLIC ACID 1 MG TAB PO SCH (08:29)
[2023-07-20] MEDS: MONTELUKAST 10 MG TAB PO SCH (08:29)
--- NOTE | 2023-07-20 08:33 | P.PN ---
Subjective Progress Note Date: 07/20/23 I am seeing this patient in new consultation today 07/16/2023 after she was transferred from [facility] yesterday evening with concerns shortness of breath and chest pain. Patient apparently had some questionable EKG changes at outside facility, and was started on heparin infusion. She was also noted to be hypotensive, and norepinephrine infusion was initiated. Patient is a 68-year-old white female with past medical history significant for nonischemic cardiomyopathy status post AICD implantation, previous ventricular tachycardia, coronary artery disease, hypertension, hyperlipidemia, COPD with home oxygen use, obstructive sleep apnea with home CPAP. Patient is currently sitting up in bed, on 2 L/m nasal cannula, in no acute distress. She remains hypotensive, and norepinephrine is currently infusing at 0.06 mcg/kg/m. Heparin is infusing per protocol. Normal saline is infusing at 130 ML's per hour. Heart rhythm appears sinus tachycardia bedside monitor the rate of 120 bpm. She is tachypneic. She does admit persistent nonradiating substernal chest pain that started on . She is also having shortness of breath especially on exertion and a nonproductive cough. Denies heart palpitations, lightheadedness, syncopal, increased lower extremity edema, orthopnea. She denies any infectious symptoms such as fever, productive cough, hemoptysis. Denies any sick contacts. Denies any urinary complaints such as frequency, dysuria, urgency. Denies any abdominal pain, nausea or vomiting, diarrhea. Chest x-ray on arrival showed low lung volumes and generalized hazy appearance possibly atelectasis versus pulmonary edema. NT proBNP was elevated at 2020. Troponins were not elevated. EKG on arrival showed normal sinus rhythm with ST elevation in V1 and V2. Appears chronic. Most recent echocardiogram available to me is from 2020, which shows moderately severe impaired left ventricular ejection fraction of 30-35% and moderate concentric LVH. CBC on arrival showed some mild leukocytosis with a WBC count of 10.7, hemoglobin 12.8, hematocrit 39.3, platelets 180. BMP on a rrival shows sodium 133, potassium 4.1, chloride 103, serum bicarb 18, BUN 38, creatinine 1.76, glucose 191. Lactic acid level was 2.2 on arrival. Patient was empirically started on Rocephin. D-dimer was elevated at 3. Venous Doppler bilateral lower extremity negative for DVT. VQ scan pending. Patient will be monitored in the intensive care unit. 07/17/2023, the patient is calm and comfortable on oxygen at 4 L. No respiratory distress. Cardiac rhythm is sinus. Blood pressures remain soft and the patient remains on norepinephrine which is running at 0.03 mcg/kg/m. No chest pain. No cardiac arrhythmias. No fever. Her serum cortisol came back at 41. Troponins were 0.12. She is on a bicarbonate infusion and the bicarb deficit has been corrected. Serum bicarbs of 229. The BUN is at 36 with a creatinine of 1.57. The white cell count is currently at 11.5 with a hemoglobin of 12.4. She remains on aspirin. She remains on midodrine 5 mg by mouth daily. She remains on mexiletine 150 mg by mouth twice a day. She also far cc. IV heparin has been discontinued yesterday. 2022, the patient is comfortable. She had an episode of chest pain last night which subsequently recovered. The patient was given Tylenol and nitroglycerin. The pain was reproducible. No significant EKG changes. Meanwhile, she is off the norepinephrine infusion today. Her venous pressure is 154. Her BP is 8142. She is on midodrine. IV fluids are currently at KVO. She is resting comfortably in bed. No significant leukocytosis. White cycles at 9.4. Hemoglobin 13.3. BUN is at 34 with a creatinine of 1.6. Sodium level is at 132. She remains on aspirin. She remains on Mexitil 250 mg by mouth twice a day. IV heparin has been discontinued. The patient is also on 4 L of oxygen by nasal cannula. She has chronic hypoxic respiratory failure regarding her COPD and she has 2 L at home. She has nonischemic myopathy and the patient is an AICD in place. The patient has had no cardiac arrhythmias. She has history of hyperlipidemia, COPD and obstructive sleep apnea maintained on a home CPAP unit. On 07/18/2023, the patient remains in intensive care unit. She is still having issues with hypotension, this is likely chronic hypotension. She is on low-dose norepinephrine is O- 0.01 mcg/kg/m. She is also on midregion 10 mg by mouth 3 times a day. No chest pain. He was KVO. She is afebrile. Urine output is adequate for now and the patient has produced approximately 1.9 L for the past 24 hours. Her BUN is at 36 with a creatinine of 1.5. Sodium levels of 134, the white suppositive 9.2 with a hemoglobin 11.6. Cultures are negative. Telemetry function is impaired and the patient has chronic systolic heart failure with an ejection fraction of 35%. She remains on oxygen at 4 L. Chest x-ray shows cardiomegaly with mild pulmonary vascular congestion. No consolidation. No airspace disease. No respiratory distress at this point in time. She is chronic hypoxic and she has home O2. Cardiac rhythm is sinus. 07/19/2023, the patient has been off pressors for the past 24 hours. The patient was taken off the norepinephrine drip and the patient is currently on mi dodrine 10 mg by mouth 3 times a day. Most recent blood pressure 143 with a mean of 63. Adequate urine output. Creatinine stable at 1.6 with a BUN of 34. Platelet counts are down to 61 as the patient's platelet count of the study dropping. The white cell count at 7.9 with a hemoglobin 12.1. She remains on oxygen at 4 L per minute nasal cannula. She has home O2 at 2 L. No fever. No chills. Her cardiac rhythm is sinus. Blood cultures are negative. No other significant events overnight. Objective - Vital Signs Vital signs: Vital Signs Temp 98.0 F 07/20/23 08:00 Pulse 86 07/20/23 08:00 Resp 21 07/20/23 08:00 BP 103/43 07/20/23 08:00 Pulse Ox 96 07/20/23 08:00 FiO2 Intake & Output 07/19/23 07/20/23 07/20/23 18:59 06:59 18:59 Intake Total 415.425 240 Output Total 550 100 Balance -134.575 -100 240 Weight 73.7 kg Intake: IV 20 .9NS 20 Intake, IV Titration 20.425 Amount Norepinephrine 8 mg In 20.425 Sodium Chloride 0.9% 250 ml @ 0.03 MCG/KG/MIN 3. 871 mls/hr IV .Q24H [facility] Rx#:[id number] Oral 375 240 Output: Urine 550 100 Other: Voiding Method External Catheter External Catheter - Exam GENERAL EXAM: Alert, 68-year-old white female , comfortable in no apparent distress. Currently on 4 L of oxygen nasal cannula HEAD: Normocephalic and atraumatic EYES: Normal reaction of pupils, equal size. NOSE: Clear with pink turbinates. THROAT: No erythema or exudates. NECK: No masses, no JVD. CHEST: No chest wall deformity. LUNGS: Equal air entry with bibasilar inspiratory crackles. No wheeze, rhonchi or dullness. No conversational dyspnea or accessory muscle use.. CVS: S1 and S2 normal with no audible murmur, regular rhythm. No extra heart sounds ABDOMEN: No hepatosplenomegaly, active bowel sounds, no guarding or rigidity. SPINE: No scoliosis or deformity SKIN: No rashes CENTRAL NERVOUS SYSTEM: No focal deficits, tone is normal in all 4 extremities. EXTREMITIES: There is mild nonpitting bilateral lower extremity edema. No clubbing, or cyanosis. Peripheral pulses are intact. - Labs CBC & Chem 7: 07/20/23 04:27 07/20/23 04:27 Labs: Abnormal Lab Results - Last 24 Hours (Table) 07/19/23 07/19/23 07/19/23 Range/Units 11:12 16:12 20:54 Plt Count (150-450) k/uL Sodium (137-145) mmol/L Carbon Dioxide (22-30) mmol/L BUN (7-17) mg/dL Creatinine (0.52-1.04) mg/dL POC Glucose (mg/dL) 127 H 138 H 130 H (70-110) mg/dL 07/20/23 07/20/23 Range/Units 04:27 04:27 Plt Count 61 L (150-450) k/uL Sodium 135 L (137-145) mmol/L Carbon Dioxide 35 H (22-30) mmol/L BUN 36 H (7-17) mg/dL Creatinine 1.64 H (0.52-1.04) mg/dL POC Glucose (mg/dL) (70-110) mg/dL Microbiology - Last 24 Hours (Table) 07/15/23 19:44 Blood Culture - Preliminary Blood 07/15/23 19:59 Blood Culture - Preliminary Blood Assessment and Plan Assessment: Acute on chronic hypoxemic respiratory failure, currently on 4 L per minute nasal cannula, possibly secondary to acute COPD exacerbation and suspected exacerbation of systolic congestive heart failure. Chest x-ray on arrival showed low lung volumes and generalized hazy appearance possibly atelectasis versus pulmonary edema. A repeat chest x-ray was done today. Findings of essentially unchanged. She does have cardiomegaly. Mild interstitial markings bilaterally. No airspace disease. No consolidation. Her oxygenation is adequate and the patient should be able to wean off to 3 L and her baseline is also at 2 L Ischemic cardiomyopathy with an ejection fraction of 30-35% with anterior and anteroapical wall hypokinesis. No significant valvular regurgitation. Hypotension and shock, requiring vasopressors in the form of norepinephrine. Patient is being evaluated for possible sepsis. No clear indication for underlying infection at this point in time. She is afebrile. No significant leukocytosis, and the patient was taken off the norepinephrine and she is on midodrine for now the dose of 10 mg by mouth 3 times a day. She typically runs a lower blood pressure. Urine output is adequate for now. Metabolic non-anion gap acidosis, improved Acute on chronic kidney disease, as the patient has chronic stage III kidney disease, the creatinine is stable at 1.5 Atypical chest pain, currently free of any chest pain Elevated d-dimer, patient did not receive chest CTA due to nephropathy. Patient is off IV heparin History of nonischemic cardiomyopathy status post AICD implantation History of ventricular tachycardia, the patient is on mexiletine and she has an AICD in place History of coronary artery disease Hyperlipidemia Chronic hypoxemic respiratory failure, normally maintained on 2 L per nasal cannula Obstructive sleep apnea, with home CPAP device Thrombocytopenia, could be heparin-induced Plan: Start subcu heparin Check HIT antibodies Clinically stable and essentially no change in his condition. No new events since yesterday. Off pressors for the past 24 hours Continue the midodrine up to 10 mg TID Echocardiogram was noted and the patient is an ejection fraction of 35% with segmental wall motion abnormalities Wean down FiO2 Chest x-ray findings are stable Cultures have been negative thus far Patient is a DO NOT RESUSCITATE. Transferred to medical floor Tolerating diet Increase mobility
[2023-07-20] MEDS: FLUoxetine HCL 20 MG CAP PO SCH (08:45)
[2023-07-20 11:19] LABS: Glucose,Whole Blood 112 mg/dL (70-110)
--- NOTE | 2023-07-20 12:12 | P.PN ---
Subjective HISTORY OF PRESENTING ILLNESS Patient is pleasant 68-year-old female with history of mild CAD, nonischemic cardio myopathy, AICD implant, ventricular tachycardia, COPD on home oxygen, hypertension, hyperlipidemia, COPD. Patient follows in the office with Dr. Guerrreo. She has had issues with hypotension in the past and has been on Midrin. Additionally she has been taking lisinopril as well as low-dose metoprolol. She denies any actual lightheadedness however has been found to be hypotensive with blood pressures in the 70s over 40s from the blood pressure cuff in the brachial position on both sides. She actually presented to the hospital secondary to chest pain and back pain. She denies any inciting events or recent traumas. She states pain has somewhat subsided. EKG showing poor R-wave progression with minimal ST elevation in lead V2 appearing similar to prior EKGs. There was concern about STEMI however did not meet STEMI criteria. Troponins 0.019, 0.02, 0.03, proBNP 2020, creatinine 1.7, bicarbonate 18, white blood cell count 10.7. She denies any recent fevers, chills. She was transferred to ICU and placed on low-dose or epinephrine with blood pressures mostly in the 80s over 50s/90s over 60s. 07/17 Patient seen and examined. Echo shows mild LVH, EF 30-35% with apical hypokinesis similar to prior echo from 3 years ago, no significant valvular disease. Still remains on norepinephrine with heart rates in the low 100s in sinus rhythm with additional blood pressures low 100s over 50-60s 07/18 Patient seen and examined. Patient had an atypical episode of chest pain which was reproducible for approximately an hour which improved with Tylenol was also given nitro. Denies any significant shortness breath. Denies any significant lower extremity edema. Lasix has been on hold. She has not been knee drinking much per patient. Some decreased urine output however not entirely accurate with no Kulkarni however blood pressures still borderline and remains on low-dose norepinephrine. Midodrine was increased from 5-10. 07/19 Patient seen and examined. Patient denies any chest pain or pressure. She states she had some difficulty with eating her food previously. Denies any shortness of breath. She was given 500 mL fluid bolus yesterday and blood pressures currently better in the 120/60 range on the Midodrine 10mg. has been weaned off of norepinephrine. 07/20 Patient seen and examined. Has not required any further vasopressors. Blood pressures mainly in the 100s over 50s to 60s. Denies any lightheadedness. Platelets down to 61 today. Creatinine fairly stable at 1.6 similar to yeste rday. PHYSICAL EXAMINATION Vital signs reviewed. CONSTITUTIONAL: No apparent distress. HEENT: Head is normocephalic. Pupils are equal, round. Sclerae anicteric. Mucous membranes of the mouth are moist. No JVD. No carotid bruit. CHEST EXAMINATION: Lungs are clear to auscultation. No chest wall tenderness is noted on palpation or with deep breathing. HEART EXAMINATION: Regular rate and rhythm. S1, S2 heard. No murmurs, gallops or rub. ABDOMEN: Soft, nontender. Positive bowel sounds. EXTREMITIES: 2+ peripheral pulses, no lower extremity edema and no calf tenderness. NEUROLOGIC EXAMINATION: Patient is awake, alert and oriented x3. ASSESSMENT 1. Atypical chest pain 2. Abnormal EKG with minimal ST elevation in V2, not meeting criteria for STEMI, do not suspect acute coronary syndrome 3. Mild CAD by prior heart catheterization 4. History of nonischemic cardiomyopathy status post AICD 5. Hypotension, rule out sepsis versus medication effect. Holding lisinopril metoprolol 6. Chronic kidney disease 7. Thrombocytopenia PLAN Blood pressures overall appear fairly stable. Similar cardiomyopathy as before status post AICD. Hold lisinopril metoprolol. Appears stable for discharge home from a cardiac standpoint. HIT panel sent out for thrombocytopenia. Objective - Vital Signs Vital signs: Vital Signs Temp 98.1 F 07/20/23 12:00 Pulse 93 07/20/23 12:00 Resp 24 07/20/23 12:00 BP 108/66 07/20/23 12:00 Pulse Ox 94 L 07/20/23 12:00 FiO2 Intake & Output 07/19/23 07/20/23 07/20/23 18:59 06:59 18:59 Intake Total 415.425 240 Output Total 550 100 Balance -134.575 -100 240 Weight 73.7 kg Intake: IV 20 .9NS 20 Intake, IV Titration 20.425 Amount Norepinephrine 8 mg In 20.425 Sodium Chloride 0.9% 250 ml @ 0.03 MCG/KG/MIN 3. 871 mls/hr IV .Q24H [facility] Rx#:[id number] Oral 375 240 Output: Urine 550 100 Other: Voiding Method External Catheter External Catheter External Catheter - Labs CBC & Chem 7: 07/20/23 04:27 07/20/23 04:27 Labs: Abnormal Lab Results - Last 24 Hours (Table) 07/19/23 07/19/23 07/20/23 Range/Units 16:12 20:54 04:27 Plt Count 61 L (150-450) k/uL Sodium (137-145) mmol/L Carbon Dioxide (22-30) mmol/L BUN (7-17) mg/dL Creatinine (0.52-1.04) mg/dL POC Glucose (mg/dL) 138 H 130 H (70-110) mg/dL 07/20/23 07/20/23 Range/Units 04:27 11:17 Plt Count (150-450) k/uL Sodium 135 L (137-145) mmol/L Carbon Dioxide 35 H (22-30) mmol/L BUN 36 H (7-17) mg/dL Creatinine 1.64 H (0.52-1.04) mg/dL POC Glucose (mg/dL) 112 H (70-110) mg/dL
--- NOTE | 2023-07-20 14:20 | P.PN ---
Subjective This is a pleasant 68-year-old patient, follows with Dr. Ramirez. Retail Special [employer] Associate Dr. Noemi Guerrero. Chronic stable medical conditions include congestive heart failure, COPD, hypertension, hyperlipidemia, chronic hypoxic respiratory failure on home oxygen 2 L AICD. lives alone. Has home help. Uses walker. Patient was transferred here from [facility]. By the ER notes patient was transferred because of shortness of breath. When she arrived she did not complain any shortness of breath. Did also changes on the EKG. Also blood pressure was reported to be 70 from the transferring hospital. She is put on levo fed drip and IV heparin drip. Patient is in the ICU. She tells me that she had pain in the spine. Sharp pain. Only some pain in the front. Sclerae slight shortness of breath. No fever no chills. No cough. Appetite is fair. No problem bowel movements. Denies any lightheadedness. Patient's son decided to send her to the hospital. 07/18/2023 From [facility] for weakness and cough and suspicion of none STEMI for patient had chest pain Patient currently remains in the ICU possibly for acute COPD exacerbation over steroids has been stopped. She's been having hypotension and required low dose of pressors off levophed at 0.0202 0.04. She has adequate urine output and creatinine trending down to 1.7 down to 1.6. Patient had patient has evidence of chronic kidney disease with baseline creatinine 1.2-1.5. Looks like patient and off dehydrated and she received bolus of normal saline, her blood pressure is better no more pressors and she was started on midodrine. Urine output. 07/19/2023 pt is awake and alert , lying in bed comfortable with no chest pain or dyspnea . pt bp is better today 115/54 no dizziness while in bed she is on small dose of levophed which is planeed to be stopped today by the cr itical care team i agree with normal saline boluses and pt is counseled to eat and drink more and she is agreeable creatinine is slightly trending down to 1.59 today she is on midodrine 10 mg tid , 07/20/2023 Patient looks improved, awake alert and comfortable and denies chest pain or dyspnea. Patient states she is eating very well and she is encouraged to eat and drink more. She is hemodynamically stable and blood pressure improved, currently 108/66, this tachycardia with heart rate around 93. He is slightly tachypneic and saturating 94% on 4 L oxygen via nasal cannula her thrombocytopenia with platelets 60 1K, weight test was requested. Creatinine is stable at 1.6. She is currently kept on midodrine 10 mg and aspirin 81 mg She is been moving to the general medical floor today Objective - Vital Signs Vital signs: Vital Signs Temp 98.0 F 07/20/23 08:00 Pulse 86 07/20/23 08:00 Resp 21 07/20/23 08:00 BP 103/43 07/20/23 08:00 Pulse Ox 96 07/20/23 08:00 FiO2 Intake & Output 07/19/23 07/20/23 07/20/23 18:59 06:59 18:59 Intake Total 415.425 240 Output Total 550 100 Balance -134.575 -100 240 Weight 73.7 kg Intake: IV 20 .9NS 20 Intake, IV Titration 20.425 Amount Norepinephrine 8 mg In 20.425 Sodium Chloride 0.9% 250 ml @ 0.03 MCG/KG/MIN 3. 871 mls/hr IV .Q24H [facility] Rx#:[id number] Oral 375 240 Output: Urine 550 100 Other: Voiding Method External Catheter External Catheter External Catheter - Exam GENERAL: The patient is alert and oriented , not in any acute distress. Well developed, well nourished. HEENT: Pupils are round and equally reacting to light. EOMI. No scleral icterus. No conjunctival pallor. Normocephalic, atraumatic. No pharyngeal erythema. No thyromegaly. CARDIOVASCULAR: S1 and S2 present. No murmurs, rubs, or gallops. PULMONARY: Chest is clear to auscultation, no wheezing , no crackles. ABDOMEN: Soft, nontender, nondistended, normoactive bowel sounds. No palpable organomegaly. MUSCULOSKELETAL: No joint swelling or deformity. EXTREMITIES: No cyanosis, clubbing, or pedal edema. NEUROLOGICAL: Gross neurological examination did not reveal any focal deficits. SKIN: No rashes. no petechiae. - Labs CBC & Chem 7: 07/20/23 04:27 07/20/23 04:27 Labs: Abnormal Lab Results - Last 24 Hours (Table) 07/19/23 07/19/23 07/19/23 Range/Units 11:12 16:12 20:54 Plt Count (150-450) k/uL Sodium (137-145) mmol/L Carbon Dioxide (22-30) mmol/L BUN (7-17) mg/dL Creatinine (0.52-1.04) mg/dL POC Glucose (mg/dL) 127 H 138 H 130 H (70-110) mg/dL 07/20/23 07/20/23 Range/Units 04:27 04:27 Plt Count 61 L (150-450) k/uL Sodium 135 L (137-145) mmol/L Carbon Dioxide 35 H (22-30) mmol/L BUN 36 H (7-17) mg/dL Creatinine 1.64 H (0.52-1.04) mg/dL POC Glucose (mg/dL) (70-110) mg/dL Assessment and Plan Assessment: Hypotension and shock multifactorial related to heart failure and dehydration Chronic systolic CHF with ejection fraction of 30-35% status post AICD. Metabolic acidosis, improving Acute kidney injury on chronic kidney disease stage III COPD with acute exacerbation and improved. Thrombocytopenia Plan: Continue with midodrine Follow-up blood pressure Monitor heart rate and creatinine. Patient states currently followed by pulmonary and cardiology team Follow-up HIT Labs and medication were reviewed.. Continue same treatment. Continue with symptomatic treatment. Resume home medication. Monitor labs and vitals. DVT and GI prophylaxis. Further recommendations as per clinical course of the patient DVT prophylaxis: Subcutaneous heparin GI Prophylaxis: Ppi Prognosis is guarded
[2023-07-20 16:17] LABS: Glucose,Whole Blood 115 mg/dL (70-110)
[2023-07-20 16:40] LABS: Glucose,Whole Blood 117 mg/dL (70-110)
[2023-07-20] MEDS: NOREPINEPHRINE 8 MG in SODIUM CHLORIDE 0.9% 250 ML IV SCH (17:11)
[2023-07-20 20:24] LABS: Glucose,Whole Blood 105 mg/dL (70-110)
[2023-07-20] MEDS: ATORVASTATIN 20 MG TAB PO SCH (21:15)
[2023-07-21] MEDS: IPRATROPIUM-ALBUTEROL 3 ML NEB INHALATION SCH ×4 (07:41→19:36)
[2023-07-21] MEDS: SYMBICORT 160-4.5 MCG INHALER INHALATION SCH ×2 (07:41→19:36)
[2023-07-21] MEDS: INSULIN ASPART (NovoLOG) 100 UNIT/ML VIAL SQ SCH ×4 (07:58→20:30)
[2023-07-21 07:59] LABS: Basophils % (A) 0 %; Eosinophils # (A) 0.2 k/uL (0-0.7); Eosinophils % (A) 3 %; HCT 35.3 % (34.0-46.0); HGB 11.6 gm/dL (11.4-16.0); Lymphocytes # (A) 1.2 k/uL (1.0-4.8); Lymphocytes % (A) 17 %; MCH 31.4 pg (25.0-35.0); MCHC 32.8 g/dL (31.0-37.0); MCV 95.9 fL (80.0-100.0); Mean Platelet Volume 8.9; Monocytes # (A) 0.4 k/uL (0-1.0); Monocytes % (A) 6 %; Neutrophils # (A) 4.9 k/uL (1.3-7.7); Neutrophils % (A) 72 %; RBC 3.68 m/uL (3.80-5.40); RDW 15.2 % (11.5-15.5); WBC 6.8 k/uL (3.8-10.6)
[2023-07-21 08:04] LABS: Platelet Count 50 k/uL (150-450)
[2023-07-21 08:11] LABS: Glucose,Whole Blood 85 mg/dL (70-110)
[2023-07-21 08:49] LABS: African American GFR (CKD) 44 (>60 ml/min/1.73 sqM); Anion Gap 2 mmol/L; Blood Urea Nitrogen 33 mg/dL (7-17); Calcium 8.9 mg/dL (8.4-10.2); Carbon Dioxide 33 mmol/L (22-30); Chloride 100 mmol/L (98-107); Glucose 84 mg/dL (74-99); Non-African American GFR(CKD) 38 (>60 ml/min/1.73 sqM); Potassium 4.6 mmol/L (3.5-5.1); Sodium 135 mmol/L (137-145)
[2023-07-21] MEDS: PANTOPRAZOLE 40 MG TABLET PO SCH (09:05)
[2023-07-21] MEDS: MIDODRINE 5 MG TAB PO SCH ×3 (09:05→17:22)
[2023-07-21] MEDS: CHOLECALCIFEROL 25 MCG (1000 IU) TABLET PO SCH (09:06)
[2023-07-21] MEDS: MONTELUKAST 10 MG TAB PO SCH (09:06)
[2023-07-21] MEDS: FLUoxetine HCL 20 MG CAP PO SCH (09:06)
[2023-07-21] MEDS: DAPAGLIFLOZIN PROPANEDIOL 5 MG TABLET PO SCH (09:06)
[2023-07-21] MEDS: FOLIC ACID 1 MG TAB PO SCH (09:07)
[2023-07-21] MEDS: MEXILETINE 150 MG CAP PO SCH ×2 (09:07→21:47)
[2023-07-21] MEDS: MAGNESIUM OXIDE 400 MG TAB PO SCH ×2 (09:07→21:47)
[2023-07-21] MEDS: ASPIRIN 81 MG PO SCH (09:09)
--- NOTE | 2023-07-21 11:02 | PN ---
PROGRESS NOTE SUBJECTIVE: This lady has a nonischemic cardiomyopathy, equivocal troponin elevation, came into the hospital with a question of ST-elevation MA, which was not evident. She has nonischemic cardiomyopathy with ICD and takes a small dose of Zestril and beta matilda as well as mexiletine. However, she became hypotensive requiring some pressors. All pressors are off. Her midodrine was increased from 5 mg t.i.d. to 10 mg t.i.d. She feels better. I am recommending that we can increase activity and if she has no further symptoms, can be discharged and see Dr. Guerrero as an outpatient in 1 week. OBJECTIVE: VITAL SIGNS: Stable. Blood pressure is 106/60, pulse rate is about 80 per minute. NECK: JVD of 1 cm. No carotid bruit. S1 and S2 heard normally. HEART: No significant murmurs. LUNGS: Clear. ABDOMEN: Soft, nontender. MUSCULOSKELETAL: Lower extremities reveal normal pulses. CENTRAL NERVOUS SYSTEM: Normal. IMPRESSION: 1. Hypotension of unclear etiology has resolved. Sepsis has been entertained, but no clear-cut evidence. 2. History of nonischemic cardiomyopathy. RECOMMENDATIONS: Plan is to increase activity. She has no further symptoms. She can be discharged. MMODL / IJN: [id number] /
[2023-07-21 11:39] LABS: Glucose,Whole Blood 119 mg/dL (70-110)
--- NOTE | 2023-07-21 13:03 | P.PN ---
Subjective Progress Note Date: 07/21/23 Principal diagnosis: Acute on chronic hypoxic respiratory failure secondary to acute exacerbation of COPD and acute on chronic systolic congestive heart failure I am seeing this patient in new consultation today 07/16/2023 after she was transferred from [facility] yesterday evening with concerns shortness of breath and chest pain. Patient apparently had some questionable EKG changes at outside facility, and was started on heparin infusion. She was also noted to be hypotensive, and norepinephrine infusion was initiated. Patient is a 68-year-old white female with past medical history significant for nonischemic cardiomyopathy status post AICD implantation, previous ventricular tachycardia, coronary artery disease, hypertension, hyperlipidemia, COPD with home oxygen use, obstructive sleep apnea with home CPAP. Patient is currently sitting up in bed, on 2 L/m nasal cannula, in no acute distress. She remains hypotensive, and norepinephrine is currently infusing at 0.06 mcg/kg/m. Heparin is infusing per protocol. Normal saline is infusing at 130 ML's per hour. Heart rhythm appears sinus tachycardia bedside monitor the rate of 120 bpm. She is tachypneic. She does admit persistent nonradiating substernal chest pain that started on . She is also having shortness of breath especially on exertion and a nonproductive cough. Denies heart palpitations, lightheadedness, syncopal, increased lower extremity edema, orthopnea. She denies any infectious symptoms such as fever, productive cough, hemoptysis. Denies any sick contacts. Denies any urinary complaints such as frequency, dysuria, urgency. Denies any abdominal pain, nausea or vomiting, diarrhea. Chest x-ray on arrival showed low lung volumes and generalized hazy appearance possibly atelectasis versus pulmonary edema. NT proBNP was elevated at 2020. Troponins were not elevated. EKG on arrival showed normal sinus rhythm with ST elevation in V1 and V2. Appears chronic. Most recent echocardiogram available to me is from 2020, which shows moderately severe impaired left ventricular ejection fraction of 30-35% and moderate concentric LVH. CBC on arrival showed some mild leukocytosis with a WBC count of 10.7, hemoglobin 12.8, hematocrit 39.3, platelets 180. BMP on arrival shows sodium 133, potassium 4.1, chloride 103, serum bicarb 18, BUN 38, creatinine 1.76, glucose 191. Lactic acid level was 2.2 on arrival. Patient was empirically started on Rocephin. D-dimer was elevated at 3. Venous Doppler bilateral lower extremity negative for DVT. VQ scan pending. Patient will be monitored in the intensive care unit. 07/19/2023, the patient has been off pressors for the past 24 hours. The patient was taken off the norepinephrine drip and the patient is currently on midodrine 10 mg by mouth 3 times a day. Most recent blood pressure 143 with a mean of 63. Adequate urine output. Creatinine stable at 1.6 with a BUN of 34. Platelet counts are down to 61 as the patient's platelet count of the study dropping. The white cell count at 7.9 with a hemoglobin 12.1. She remains on oxygen at 4 L per minute nasal cannula. She has home O2 at 2 L. No fever. No chills. Her cardiac rhythm is sinus. Blood cultures are negative. No other significant events overnight. Patient was reevaluated today on 07/21/2023, remains in the ICU as an overflow, she is on 3 L nasal cannula, patient is on oxygen at home, patient has been on CPAP overnight, being transferred to a regular medical floor sometime later today. Patient is presently on overflow in the ICU. She is not requiring any pressors, she is on midodrine 10 mg 3 times a day, she has adequate urine output, platelets are down to 50,000, hence no more heparin for this patient. WBC count is 6.8 electrolytes are normal BUN is 33 creatinine 1.40 Objective - Vital Signs Vital signs: Vital Signs Temp 98.4 F 07/21/23 08:17 Pulse 88 07/21/23 11:10 Resp 18 07/21/23 11:10 BP 103/34 07/21/23 08:17 Pulse Ox 96 07/21/23 08:17 FiO2 Intake & Output 07/20/23 07/21/23 07/21/23 18:59 06:59 18:59 Intake Total 848 100 Output Total 150 350 Balance 698 -250 Weight 73 kg Intake: Oral 848 100 Output: Urine 150 350 Other: Voiding Method External Catheter External Catheter External Catheter # Voids 1 - Exam Physical Exam: Revealed a 68-year-old female on 3 L nasal cannula, not in distress Head: Atraumatic, normocephalic. HEENT:[Neck is supple.] [No neck masses.] [No thyromegaly.] [No JVD.] Chest: [Clear throughout, no crackles, no rhonchi, no wheezes.] Cardiac Exam: [Normal S1 and S2, no S3 gallop, no murmur.] Abdomen: [Soft, nontender, no megaly, no rebound, no guarding, normal bowel sounds.] Extremities: [No clubbing, trace of bipedal edema, no cyanosis.] Neurological Exam: [No focal neurologic deficit.] Alert oriented 3. Psychiatric: Normal mood affect and normal mental status examination. Skin: No rashes. - Labs CBC & Chem 7: 07/21/23 07:48 07/21/23 07:48 Labs: Abnormal Lab Results - Last 24 Hours (Table) 07/20/23 07/20/23 07/21/23 Range/Units 16:16 16:39 07:48 RBC 3.68 L (3.80-5.40) m/uL Plt Count 50 L (150-450) k/uL Sodium (137-145) mmol/L Carbon Dioxide (22-30) mmol/L BUN (7-17) mg/dL Creatinine (0.52-1.04) mg/dL POC Glucose (mg/dL) 115 H 117 H (70-110) mg/dL 07/21/23 07/21/23 Range/Units 07:48 11:37 RBC (3.80-5.40) m/uL Plt Count (150-450) k/uL Sodium 135 L (137-145) mmol/L Carbon Dioxide 33 H (22-30) mmol/L BUN 33 H (7-17) mg/dL Creatinine 1.40 H (0.52-1.04) mg/dL POC Glucose (mg/dL) 119 H (70-110) mg/dL Microbiology - Last 24 Hours (Table) 07/15/23 19:44 Blood Culture - Final Blood 07/15/23 19:59 Blood Culture - Final Blood Assessment and Plan Assessment: Impression: Acute on chronic hypoxic respiratory failure Acute exacerbation of COPD Acute on chronic systolic congestive heart failure Ischemic cardiomyopathy with ejection fraction of 30-35% Hypovolemic hypotension/secondary to hypovolemia Atypical chest pain Acute on chronic kidney disease Ischemic cardiomyopathy and LV dysfunction with previous AICD implantation History of ventricular tachycardia Dyslipidemia Obstructive sleep apnea syndrome Acute thrombocytopenia, off heparin for now, H IT panel is pending Recommendation: Agree with transfer out of the ICU to a cardiac floor Continue to hold heparin and monitor platelets Continue midodrine for low blood pressure Wean down FiO2 however patient is on home oxygen Continue with diet as tolerated Continue to monitor daily labs Ambulate We'll continue to follow Time with Patient: Less than 30
[2023-07-21 16:13] LABS: Glucose,Whole Blood 165 mg/dL (70-110)
[2023-07-21] MEDS: NOREPINEPHRINE 8 MG in SODIUM CHLORIDE 0.9% 250 ML IV SCH (16:55)
--- NOTE | 2023-07-21 18:57 | P.PN ---
Progress Note - Text Progress Note Date: 07/21/23 Chief Complaint: Back pain This is a pleasant 68-year-old patient, follows with Dr. Ramirez. 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 Chronic stable medical conditions include congestive heart failure, COPD, hypertension, hyperlipidemia, chronic hypoxic respiratory failure on home oxygen 2 L AICD. lives alone. Has home help. Uses walker. Patient was transferred here from [facility]. By the ER notes patient was transferred because of shortness of breath. When she arrived she did not complain any shortness of breath. Did also changes on the EKG. Also blood pressure was reported to be 70 from the transferring hospital. She is put on levo fed drip and IV heparin drip. Patient is in the ICU. She tells me that she had pain in the spine. Sharp pain. Only some pain in the front. Sclerae slight shortness of breath. No fever no chills. No cough. Appetite is fair. No problem bowel movements. Denies any lightheadedness. Patient's son decided to send her to the hospital. 07/18/2023 From [facility] for weakness and cough and suspicion of none STEMI for patient had chest pain Patient currently remains in the ICU possibly for acute COPD exacerbation over steroids has been stopped. She's been having hypotension and required low dose of pressors off levophed at 0.0202 0.04. She has adequate urine output and creatinine trending down to 1.7 down to 1.6. Patient had patient has evidence of chronic kidney disease with baseline creatinine 1.2-1.5. Looks like patient and off dehydrated and she received bolus of normal saline, her blood pressure is better no more pressors and she was started on midodrine. Urine output. 07/19/2023 pt is awake and alert , lying in bed comfortable with no chest pain or dyspnea . pt bp is better today 115/54 no dizziness while in bed she is on small dose of levophed which is planeed to be stopped today by the critical care team i agree with normal saline boluses and pt is counseled to eat and drink more and she is agreeable creatinine is slightly trending down to 1.59 today she is on midodrine 10 mg tid , 07/20/2023 Patient looks improved, awake alert and comfortable and denies chest pain or dyspnea. Patient states she is eating very well and she is encouraged to eat and drink more. She is hemodynamically stable and blood pressure improved, currently 108/66, this tachycardia with heart rate around 93. He is slightly tachypneic and saturating 94% on 4 L oxygen via nasal cannula her thrombocytopenia with platelets 60 1K, weight test was requested. Creatinine is stable at 1.6. She is currently kept on midodrine 10 mg and aspirin 81 mg She is been moving to the general medical floor today July 21: ICU medical floor overflow. To sit up in a recliner. Eating about 25%. Blood pressure stabilizes midodrine. Breathing stable. Active Medications Acetaminophen (Acetaminophen Tab 325 Mg Tab) 650 mg PO Q4HR PRN PRN Reason: Mild Pain or Fever > 100.5 Last Admin: 07/18/23 01:58 Dose: 650 mg Albuterol/Ipratropium (Ipratropium-Albuterol 3 Ml Neb) 3 ml INHALATION RT-QID [facility] Last Admin: 07/21/23 15:24 Dose: 3 ml Albuterol/Ipratropium (Ipratropium-Albuterol 3 Ml Neb) 3 ml INHALATION RT-Q2H PRN PRN Reason: Shortness Of Breath Or Wheezing Aspirin (Aspirin 81 Mg) 81 mg PO DAILY [facility] Last Admin: 07/21/23 09:09 Dose: 81 mg Atorvastatin Calcium (Atorvastatin 20 Mg Tab) 20 mg PO HS [facility] Last Admin: 07/20/23 21:15 Dose: 20 mg Budesonide/Formoterol Fumarate (Symbicort 160-4.5 Mcg Inhaler) 2 puff INHALATION RT-BID [facility] Last Admin: 07/21/23 07:41 Dose: 2 puff Cholecalciferol (Cholecalciferol 25 Mcg (1000 Iu) Tablet) 25 mcg PO DAILY [facility] Last Admin: 07/21/23 09:06 Dose: 25 mcg Dapagliflozin (Dapagliflozin Propanediol 5 Mg Tablet) 5 mg PO DAILY [facility] Last Admin: 07/21/23 09:06 Dose: 5 mg Dextrose/Water (Dextrose 50% Syringe 50 Ml) 25 ml IVP PER PROTOCOL PRN; Protocol PRN Reason: Hypoglycemia Dextrose/Water (Dextrose 50% Syringe 50 Ml) 50 ml IVP PER PROTOCOL PRN; Protocol PRN Reason: Hypoglycemia Fluoxetine HCl (Fluoxetine Hcl 20 Mg Cap) 20 mg PO DAILY [facility] Last Admin: 07/21/23 09:06 Dose: 20 mg Folic Acid (Folic Acid 1 Mg Tab) 1 mg PO DAILY [facility] Last Admin: 07/21/23 09:07 Dose: 1 mg Norepinephrine Bitartrate 8 mg (/ Sodium Chloride) 258 mls @ 3.871 mls/hr IV .Q24H [facility]; Protocol Last Admin: 07/21/23 16:55 Dose: Not Given Insulin Aspart (Insulin Aspart (Novolog) 100 Unit/Ml Vial) 0 unit SQ ACHS [facility]; Protocol Last Admin: 07/21/23 17:22 Dose: 1 unit Magnesium Hydroxide (Magnesium Hydroxide 2,400 Mg/30 Ml Cup) 400 mg PO Q48H PRN PRN Reason: Constipation Magnesium Oxide (Magnesium Oxide 400 Mg Tab) 400 mg PO BID [facility] Last Admin: 07/21/23 09:07 Dose: 400 mg Mexiletine HCl (Mexiletine 150 Mg Cap) 150 mg PO BID [facility] Last Admin: 07/21/23 09:07 Dose: 150 mg Midodrine (Midodrine 5 Mg Tab) 10 mg PO AC-TID [facility] Last Admin: 07/21/23 17:22 Dose: 10 mg Montelukast Sodium (Montelukast 10 Mg Tab) 10 mg PO DAILY [facility] Last Admin: 07/21/23 09:06 Dose: 10 mg Naloxone HCl (Naloxone 0.4 Mg/Ml 1 Ml Vial) 0.2 mg IVP Q2M PRN PRN Reason: Opioid Reversal Pantoprazole Sodium (Pantoprazole 40 Mg Tablet) 40 mg PO AC-BRKFST [facility] Last Admin: 07/21/23 09:05 Dose: 40 mg Past medical history to include: Coronary artery disease, CHF, COPD, hyperlipidemia, hypertension, home oxygen, cardiomyopathy, AICD. Social history: Lives alone. 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 smoked for about 37 years, 1 pack a day stopped about 20 years ago. No alcohol. Physical examination: VITAL SIGNS: 97.9, 86, 18, 1 33 x 6 9, 96% on 3 L GENERAL: Declining bed, not in distress EYES: Pupils equal. Conjunctiva normal. HEENT: External appearance of nose and ears normal, oral cavity grossly normal. NECK: JVD not raised; masses not palpable. HEART: First and second heart sounds are normal; no edema. LUNGS: Respiratory rate increased; decreased breath sounds. ABDOMEN: Soft, nontender, liver spleen not palpable, no masses palpable. PSYCH: Alert and oriented x3; mood and affect. Anxiousl. MUSCULAR skeletal: Significant OA INVESTIGATIONS, reviewed in the clinical context: July 21: White count 6.8 hemoglobin 11.6 platelets 50 sodium 135 potassium 4.6 BUN 33 creatinine 1.40 2-D echocardiogram: Mid to distal anterior anteroapical and apical wall hypokinesia. EF 30-35%. Severe LV systolic dysfunction. July 16: White count 9.4 hemoglobin 12.8 platelets 216 sodium 135 potassium 4.1 BUN 36 creatinine 1.78 Procalcitonin 0.12 cortisol 41 Troponin I 0.033 EKG tracing personally reviewed by me-some ST elevation in V1 to V3. Otherwise nonspecific T-wave changes. Chest x-ray film personally reviewed by me-low lung volumes. Nonspecific questionable venous prominence Venous Doppler right and left leg: No DVT Previous labs: Creatinine 1.26 on October 2022 Assessment and plan: -Hypotensive shock, : Improved IV levo fed discontinued. -Posterior middle back pain felt to be noncardiac. -Chronic congestive heart failure from systolic dysfunction EF 30-35%. Nonischemic cardiomyopathy -Coronary artery disease, : Mild [Previous cardiac catheterization showing mild disease]. This presentation was not felt to be acute coronary syndrome. On Coreg, Lipitor, aspirin -Chronic kidney disease likely nephrosclerosis Baseline creatinine 1.18 March 2021 -Metabolic acidosis from chronic kidney disease: Improved Sodium bicarbonate drip. -Chronic secondary pulmonary hypertension -Primary osteoarthritis multiple joints Tylenol as needed -COPD in an ex-smoker RudolphoNedidi. Symbicort -Chronic hypoxic respiratory failure on home oxygen 2 L, from underlying COPD Supplemental oxygen -AICD -Chronic gait dysfunction uses a walker -DO NOT RESUSCITATE Discussed with patient. Pending rehab authorization. Other medications to continue.
[2023-07-21 20:01] LABS: Glucose,Whole Blood 102 mg/dL (70-110)
[2023-07-21] MEDS: ATORVASTATIN 20 MG TAB PO SCH (21:47)
[2023-07-22 05:38] LABS: Basophils % (A) 0 %; Eosinophils # (A) 0.2 k/uL (0-0.7); Eosinophils % (A) 3 %; HCT 32.7 % (34.0-46.0); HGB 10.8 gm/dL (11.4-16.0); Lymphocytes # (A) 1.2 k/uL (1.0-4.8); Lymphocytes % (A) 17 %; MCH 31.7 pg (25.0-35.0); MCV 95.8 fL (80.0-100.0); Mean Platelet Volume 8.7; Monocytes # (A) 0.5 k/uL (0-1.0); Monocytes % (A) 7 %; Neutrophils # (A) 5.2 k/uL (1.3-7.7); Neutrophils % (A) 72 %; RBC 3.42 m/uL (3.80-5.40); RDW 15.5 % (11.5-15.5); WBC 7.2 k/uL (3.8-10.6)
[2023-07-22 05:49] LABS: African American GFR (CKD) 44 (>60 ml/min/1.73 sqM); Anion Gap 1 mmol/L; Blood Urea Nitrogen 28 mg/dL (7-17); Calcium 8.8 mg/dL (8.4-10.2); Carbon Dioxide 34 mmol/L (22-30); Chloride 99 mmol/L (98-107); Glucose 93 mg/dL (74-99); Non-African American GFR(CKD) 38 (>60 ml/min/1.73 sqM); Potassium 4.2 mmol/L (3.5-5.1); Sodium 134 mmol/L (137-145)
[2023-07-22 05:57] LABS: Platelet Count 45 k/uL (150-450)
[2023-07-22 06:44] LABS: Glucose,Whole Blood 96 mg/dL (70-110)
[2023-07-22] MEDS: INSULIN ASPART (NovoLOG) 100 UNIT/ML VIAL SQ SCH ×2 (07:08→13:00)
[2023-07-22] MEDS: ASPIRIN 81 MG PO SCH ×2 (07:35→08:02)
[2023-07-22] MEDS: IPRATROPIUM-ALBUTEROL 3 ML NEB INHALATION SCH ×2 (07:45→11:36)
[2023-07-22] MEDS: SYMBICORT 160-4.5 MCG INHALER INHALATION SCH (07:45)
[2023-07-22] MEDS: PANTOPRAZOLE 40 MG TABLET PO SCH (07:48)
[2023-07-22] MEDS: MIDODRINE 5 MG TAB PO SCH ×2 (07:48→11:54)
[2023-07-22] MEDS: MAGNESIUM OXIDE 400 MG TAB PO SCH (08:01)
[2023-07-22] MEDS: MONTELUKAST 10 MG TAB PO SCH (08:01)
[2023-07-22] MEDS: DAPAGLIFLOZIN PROPANEDIOL 5 MG TABLET PO SCH (08:01)
[2023-07-22] MEDS: FOLIC ACID 1 MG TAB PO SCH (08:01)
[2023-07-22] MEDS: MEXILETINE 150 MG CAP PO SCH (08:02)
[2023-07-22] MEDS: CHOLECALCIFEROL 25 MCG (1000 IU) TABLET PO SCH (08:02)
[2023-07-22] MEDS: FLUoxetine HCL 20 MG CAP PO SCH (08:02)
--- NOTE | 2023-07-22 08:14 | PN ---
PROGRESS NOTE SUBJECTIVE: Mrs. Powell feels better. Blood pressure is in the 130 systolic range. I will reduce midodrine to 5 mg t.i.d. She can be discharged and I would recommend that she follows up with Dr. Guerrero in 1-2 weeks. OBJECTIVE: VITALS: Stable. HEART: S1-S2 heard normally. LUNGS: Revealed decent air entry. ABDOMEN: Unchanged. EXTREMITIES: Lower extremities unchanged. MMODL / IJN: [id number] /
--- NOTE | 2023-07-22 11:03 | P.PN ---
Subjective Progress Note Date: 07/22/23 Principal diagnosis: Acute on chronic hypoxic respiratory failure secondary to acute exacerbation of COPD and acute on chronic systolic congestive heart failure I am seeing this patient in new consultation today 07/16/2023 after she was transferred from [facility] yesterday evening with concerns shortness of breath and chest pain. Patient apparently had some questionable EKG changes at outside facility, and was started on heparin infusion. She was also noted to be hypotensive, and norepinephrine infusion was initiated. Patient is a 68-year-old white female with past medical history significant for nonischemic cardiomyopathy status post AICD implantation, previous ventricular tachycardia, coronary artery disease, hypertension, hyperlipidemia, COPD with home oxygen use, obstructive sleep apnea with home CPAP. Patient is currently sitting up in bed, on 2 L/m nasal cannula, in no acute distress. She remains hypotensive, and norepinephrine is currently infusing at 0.06 mcg/kg/m. Heparin is infusing per protocol. Normal saline is infusing at 130 ML's per hour. Heart rhythm appears sinus tachycardia bedside monitor the rate of 120 bpm. She is tachypneic. She does admit persistent nonradiating substernal chest pain that started on . She is also having shortness of breath especially on exertion and a nonproductive cough. Denies heart palpitations, lightheadedness, syncopal, increased lower extremity edema, orthopnea. She denies any infectious symptoms such as fever, productive cough, hemoptysis. Denies any sick contacts. Denies any urinary complaints such as frequency, dysuria, urgency. Denies any abdominal pain, nausea or vomiting, diarrhea. Chest x-ray on arrival showed low lung volumes and generalized hazy appearance possibly atelectasis versus pulmonary edema. NT proBNP was elevated at 2020. Troponins were not elevated. EKG on arrival showed normal sinus rhythm with ST elevation in V1 and V2. Appears chronic. Most recent echocardiogram available to me is from 2020, which shows moderately severe impaired left ventricular ejection fraction of 30-35% and moderate concentric LVH. CBC on arrival showed some mild leukocytosis with a WBC count of 10.7, hemoglobin 12.8, hematocrit 39.3, platelets 180. BMP on arrival shows sodium 133, potassium 4.1, chloride 103, serum bicarb 18, BUN 38, creatinine 1.76, glucose 191. Lactic acid level was 2.2 on arrival. Patient was empirically started on Rocephin. D-dimer was elevated at 3. Venous Doppler bilateral lower extremity negative for DVT. VQ scan pending. Patient will be monitored in the intensive care unit. 07/19/2023, the patient has been off pressors for the past 24 hours. The patient was taken off the norepinephrine drip and the patient is currently on midodrine 10 mg by mouth 3 times a day. Most recent blood pressure 143 with a mean of 63. Adequate urine output. Creatinine stable at 1.6 with a BUN of 34. Platelet counts are down to 61 as the patient's platelet count of the study dropping. The white cell count at 7.9 with a hemoglobin 12.1. She remains on oxygen at 4 L per minute nasal cannula. She has home O2 at 2 L. No fever. No chills. Her cardiac rhythm is sinus. Blood cultures are negative. No other significant events overnight. Patient was reevaluated today on 07/21/2023, remains in the ICU as an overflow, she is on 3 L nasal cannula, patient is on oxygen at home, patient has been on CPAP overnight, being transferred to a regular medical floor sometime later today. Patient is presently on overflow in the ICU. She is not requiring any pressors, she is on midodrine 10 mg 3 times a day, she has adequate urine output, platelets are down to 50,000, hence no more heparin for this patient. WBC count is 6.8 electrolytes are normal BUN is 33 creatinine 1.40 Patient was reevaluated today on 07/22/23, patient remains in the ICU as an overflow. Remains on 2 L nasal cannula. No major issues overnight. Patient is being considered for discharge to [facility] today. Overnight the patient uses CPAP. Her midodrine dose was cut down to 5 mg 3 times a day by cardiology. Remains hemodynamically stable . CBC is relatively normal basic metabolic profile is normal BUN is 28 creatinine 1.4 , improved compared to the last 1 week. Steadily improving. Objective - Vital Signs Vital signs: Vital Signs Temp 98.7 F 07/22/23 08:05 Pulse 85 07/22/23 08:05 Resp 16 07/22/23 08:05 BP 134/53 07/22/23 08:05 Pulse Ox 95 07/22/23 08:05 FiO2 Intake & Output 07/21/23 07/22/23 07/22/23 18:59 06:59 18:59 Intake Total 500 Output Total 200 Balance 500 -200 Weight 75.2 kg Intake: Oral 500 Output: Urine 200 Other: Voiding Method External Catheter External Catheter External Catheter # Voids 1 1 - Exam Physical Exam: Revealed a 68-year-old female on 2 L nasal cannula, not in distress Head: Atraumatic, normocephalic. HEENT:[Neck is supple.] [No neck masses.] [No thyromegaly.] [No JVD.] Chest: [Clear throughout, no crackles, no rhonchi, no wheezes.] Cardiac Exam: [Normal S1 and S2, no S3 gallop, no murmur.] Abdomen: [Soft, nontender, no megaly, no rebound, no guarding, normal bowel sounds.] Extremities: [No clubbing, trace of bipedal edema, no cyanosis.] Neurological Exam: [No focal neurologic deficit.] Alert oriented 3. Psychiatric: Normal mood affect and normal mental status examination. Skin: No rashes. - Labs CBC & Chem 7: 07/22/23 05:20 07/22/23 05:20 Labs: Abnormal Lab Results - Last 24 Hours (Table) 07/21/23 07/21/23 07/22/23 Range/Units 11:37 16:11 05:20 RBC 3.42 L (3.80-5.40) m/uL Hgb 10.8 L (11.4-16.0) gm/dL Hct 32.7 L (34.0-46.0) % Plt Count 45 L (150-450) k/uL Sodium (137-145) mmol/L Carbon Dioxide (22-30) mmol/L BUN (7-17) mg/dL Creatinine (0.52-1.04) mg/dL POC Glucose (mg/dL) 119 H 165 H (70-110) mg/dL 07/22/23 Range/Units 05:20 RBC (3.80-5.40) m/uL Hgb (11.4-16.0) gm/dL Hct (34.0-46.0) % Plt Count (150-450) k/uL Sodium 134 L (137-145) mmol/L Carbon Dioxide 34 H (22-30) mmol/L BUN 28 H (7-17) mg/dL Creatinine 1.41 H (0.52-1.04) mg/dL POC Glucose (mg/dL) (70-110) mg/dL Assessment and Plan Assessment: Impression: Acute on chronic hypoxic respiratory failure, resolved Acute exacerbation of COPD, significantly improved Acute on chronic systolic congestive heart failure Ischemic cardiomyopathy with ejection fraction of 30-35% Hypovolemic hypotension/secondary to hypovolemia Atypical chest pain Acute on chronic kidney disease Ischemic cardiomyopathy and LV dysfunction with previous AICD implantation History of ventricular tachycardia Dyslipidemia Obstructive sleep apnea syndrome Acute thrombocytopenia, off heparin for now, H IT panel is pending Recommendation: Agree with cutting down on midodrine to 5 mg 3 times a day Continue to hold heparin, platelets remained low at 45,000 should be monitored on outpatient basis Continue oxygen and titrated accordingly patient is normally on home O2 Continue with diet as tolerated Agree with discharge planning and the patient is cleared by other consultants. Continue to ambulate We'll continue to follow, while inpatient Time with Patient: Less than 30
[2023-07-22 11:33] LABS: Glucose,Whole Blood 96 mg/dL (70-110)
[2023-07-22] MEDS: ACETAMINOPHEN TAB 325 MG TAB PO PRN (11:54)
--- NOTE | 2023-07-22 14:03 | P.DS ---
Providers Date of admission: 07/15/23 19:52 Expected date of discharge: 07/22/23 Attending physician: Jonel Saldaña Consults: 07/15/23 19:53 Consult Physician Stat Consulting Provider: Khushi Serna Consult Reason/Comments: critical care Do you want consulting provider notified?: Already Contacted Consult Physician Urgent Consulting Provider: Larry Fermin Consult Reason/Comments: EKG changes, evaluate for CHF as well as Do you want consulting provider notified?: Already Contacted Primary care physician: [facility] Course: Chief Complaint: Back pain This is a pleasant 68-year-old patient, follows with Dr. Ramirez. [employer] Dr. Noemi Guerrero. Chronic stable medical conditions include congestive heart failure, COPD, hypertension, hyperlipidemia, chronic hypoxic respiratory failure on home oxygen 2 L AICD. lives alone. Has home help. Uses walker. Patient was transferred here from [facility]. By the ER notes patient was transferred because of shortness of breath. When she arrived she did not complain any shortness of breath. Did also changes on the EKG. Also blood pressure was reported to be 70 from the transferring hospital. She is put on levo fed drip and IV heparin drip. Patient is in the ICU. She tells me that she had pain in the spine. Sharp pain. Only some pain in the front. Sclerae slight shortness of breath. No fever no chills. No cough. Appetite is fair. No problem bowel movements. Denies any lightheadedness. Patient's son decided to send her to the hospital. 07/18/2023 From [facility] for weakness and cough and suspicion of none STEMI for patient had chest pain Patient currently remains in the ICU possibly for acute COPD exacerbation over steroids has been stopped. She's been having hypotension and required low dose of pressors off levophed at 0.0202 0.04. She has adequate urine output and creatinine trending down to 1.7 down to 1.6. Patient had patient has evidence of chronic kidney disease with baseline creatinine 1.2-1.5. Looks like patient and off dehydrated and she received bolus of normal saline, her blood pressure is better no more pressors and she was started on midodrine. Urine output. 07/19/2023 pt is awake and alert , lying in bed comfortable with no chest pain or dyspnea . pt bp is better today 115/54 no dizziness while in bed she is on small dose of levophed which is planeed to be stopped today by the critical care team i agree with normal saline boluses and pt is counseled to eat and drink more and she is agreeable creatinine is slightly trending down to 1.59 today she is on midodrine 10 mg tid , 07/20/2023 Patient looks improved, awake alert and comfortable and denies chest pain or dyspnea. Patient states she is eating very well and she is encouraged to eat and drink more. She is hemodynamically stable and blood pressure improved, currently 108/66, this tachycardia with heart rate around 93. He is slightly tachypneic and saturating 94% on 4 L oxygen via nasal cannula her thrombocytopenia with platelets 60 1K, weight test was requested. Creatinine is stable at 1.6. She is currently kept on midodrine 10 mg and aspirin 81 mg She is been moving to the general medical floor today July 21: ICU medical floor overflow. To sit up in a recliner. Eating about 25%. Blood pressure stabilizes midodrine. Breathing stable. July 22: Comfortable. Oral intake good. Blood pressure well controlled. Cutback midodrine to 2.5 mg 3 times a day. According to rehab. OBRAl completed. Discussed with patient. Questions answered. Hold aspirin-repeat CBC in 2 days. Resume when platelets above 50.. Discussion and discharge planning more than 35 minutes Past medical history to include: Coronary artery disease, CHF, COPD, hyperlipidemia, hypertension, home oxygen, cardiomyopathy, AICD. Social history: Lives alone. Has a private duty ASSOCIATE DENTIST. Comes 3 times a week. smoked for about 37 years, 1 pack a day stopped about 20 years ago. No alcohol. Physical examination: VITAL SIGNS: 98.7, 78, 22, 135/53, 97% on 2 L GENERAL: In a recliner, comfortable EYES: Pupils equal. Conjunctiva normal. HEENT: External appearance of nose and ears normal, oral cavity grossly normal. NECK: JVD not raised; masses not palpable. HEART: First and second heart sounds are normal; no edema. LUNGS: Respiratory rate normal; decreased breath sounds. ABDOMEN: Soft, nontender, liver spleen not palpable, no masses palpable. PSYCH: Alert and oriented x3; mood and affect. Anxiousl. MUSCULAR skeletal: Significant OA INVESTIGATIONS, reviewed in the clinical context: July 22: White count 7.2 hemoglobin 10.8 platelets 45 potassium 4.2 creatinine 1.41 July 21: White count 6.8 hemoglobin 11.6 platelets 50 sodium 135 potassium 4.6 BUN 33 creatinine 1.40 2-D echocardiogram: Mid to distal anterior anteroapical and apical wall hypokinesia. EF 30-35%. Severe LV systolic dysfunction. July 16: White count 9.4 hemoglobin 12.8 platelets 216 sodium 135 potassium 4.1 BUN 36 creatinine 1.78 Procalcitonin 0.12 cortisol 41 Troponin I 0.033 EKG tracing personally reviewed by me-some ST elevation in V1 to V3. Otherwise nonspecific T-wave changes. Chest x-ray film personally reviewed by me-low lung volumes. Nonspecific questionable venous prominence Venous Doppler right and left leg: No DVT Previous labs: Creatinine 1.26 on October 2022 Assessment and plan: -Hypotensive shock, : Improved IV levo fed discontinued. -Posterior middle back pain felt to be noncardiac. -Chronic congestive heart failure from systolic dysfunction EF 30-35%. Nonischemic cardiomyopathy -Coronary artery disease, : Mild [Previous cardiac catheterization showing mild disease]. This presentation was not felt to be acute coronary syndrome. On Coreg, Lipitor, aspirin -Chronic kidney disease likely nephrosclerosis Baseline creatinine 1.18 March 2021 -Metabolic acidosis from chronic kidney disease: Improved Sodium bicarbonate drip. -Chronic secondary pulmonary hypertension -Primary osteoarthritis multiple joints Tylenol as needed -COPD in an ex-smoker DuoNeb. Symbicort -Chronic hypoxic respiratory failure on home oxygen 2 L, from underlying COPD Supplemental oxygen -AICD -Chronic gait dysfunction uses a walker -DO NOT RESUSCITATE Disposition: Rehab at [facility] Labs: CBC: BMP: 2 days Hold aspirin for now. Resume aspirin when platelets above 50 Plan - Discharge Summary Discharge Rx Participant: Yes New Discharge Prescriptions: New INSULIN ASPART (NovoLOG) [NovoLOG (formulary)] 0 unit SQ ACHS each Continue Folic Acid 1 mg PO DAILY FLUoxetine HCL [PROzac] 20 mg PO DAILY Omeprazole 20 mg PO DAILY Budesonide/Formoterol Fumarate [Symbicort 160-4.5 Mcg Inhaler] 2 puff INHALATION RT-BID Empagliflozin [Jardiance] 10 mg PO DAILY Aspirin [Adult Low Dose Aspirin EC] 81 mg PO DAILY Mexiletine HCl 150 mg PO BID Ipratropium-Albuterol Nebulize [Duoneb 0.5 mg-3 mg/3 ml Soln] 3 ml INHALATION RT-TID Montelukast [Singulair] 10 mg PO DAILY Magnesium Oxide [Mag-Ox] 250 mg PO BID Cholecalciferol [Vitamin D3 (25 Mcg = 1000 Iu)] 25 mcg PO DAILY Nitroglycerin Sl Tabs [Nitrostat] 0.4 mg SUBLINGUAL Q5M PRN PRN Reason: Chest Pain Acetaminophen [Tylenol] 325 mg PO Q4H PRN PRN Reason: Pain Atorvastatin [Lipitor] 20 mg PO HS Simethicone [Simethicone Chew] 80 mg PO BID PRN PRN Reason: Gi Upset Magnesium Hydroxide [Milk of Magnesia] 400 mg PO Q48H PRN PRN Reason: Constipation Changed Midodrine [ProAmatine] 2.5 mg PO TID #0 Discontinued Furosemide [Lasix] 20 mg PO DAILY Potassium Chloride ER [K-Dur 10] 10 meq PO TID Metoprolol Succinate [Metoprolol Succinate ER] 12.5 mg PO DAILY #90 tab lisinopriL [Zestril] 2.5 mg PO DAILY #90 tablet Discharge Medication List FLUoxetine HCL [PROzac] 20 mg PO DAILY 02/26/14 [History] Folic Acid 1 mg PO DAILY 02/26/14 [History] Omeprazole 20 mg PO DAILY 07/22/20 [History] Budesonide/Formoterol Fumarate [Symbicort 160-4.5 Mcg Inhaler] 2 puff INHALATION RT-BID 03/16/21 [History] Empagliflozin [Jardiance] 10 mg PO DAILY 10/30/22 [History] Acetaminophen [Tylenol] 325 mg PO Q4H PRN 12/20/22 [History] Aspirin [Adult Low Dose Aspirin EC] 81 mg PO DAILY 12/20/22 [History] Atorvastatin [Lipitor] 20 mg PO HS 12/20/22 [History] Cholecalciferol [Vitamin D3 (25 Mcg = 1000 Iu)] 25 mcg PO DAILY 12/20/22 [History] Ipratropium-Albuterol Nebulize [Duoneb 0.5 mg-3 mg/3 ml Soln] 3 ml INHALATION RT-TID 12/20/22 [History] Magnesium Oxide [Mag-Ox] 250 mg PO BID 12/20/22 [History] Mexiletine HCl 150 mg PO BID 12/20/22 [History] Nitroglycerin Sl Tabs [Nitrostat] 0.4 mg SUBLINGUAL Q5M PRN 12/20/22 [History] Magnesium Hydroxide [Milk of Magnesia] 400 mg PO Q48H PRN 07/15/23 [History] Montelukast [Singulair] 10 mg PO DAILY 07/15/23 [History] Simethicone [Simethicone Chew] 80 mg PO BID PRN 07/15/23 [History] INSULIN ASPART (NovoLOG) [NovoLOG (formulary)] 0 unit SQ ACHS each 07/22/23 [Rx] Midodrine [ProAmatine] 2.5 mg PO TID #0 07/22/23 [Rx] Follow up Appointment(s)/Referral(s): Larry Fermin DO [STAFF PHYSICIAN] - 2 Weeks Simone Ramirez MD [Primary Care Provider] - 1-2 days Khushi Serna MD [STAFF PHYSICIAN] - 08/01/23 2:30 pm
[2023-07-22 16:01] VITALS: BP 124/45; PULSE 81; RESP 17; TEMP 98.6
--- NOTE | 2023-07-29 12:46 | CDI ---
Documentation Clarification Form Date: 07/29/2023 12:14:51 PM From: Delmi Duff Admit Date: 07/15/2023 07:52:00 PM Patient Name: Gladys Powell Visit Number: [id number] Discharge Date: 07/22/2023 04:00:00 PM ATTENTION: The Clinical Documentation Specialists (CDI) and [facility] Coding Staff appreciate your assistance in clarifying documentation. Please respond to the clarification below the line at the bottom and electronically sign. The CDI & [facility] Coding staff will review the response and follow-up if needed. Please note: Queries are made part of the Legal Health Record. If you have any questions, please contact the author of this message via ITS. Dr. Jonel Saldaña Possible Sepsis is documented in ED note 07/15, Consult note 07/16 and progress notes 07/17 through 07/21, but was not confirmed. Clarification is requested. History/Risk Factors: patient is a 68 year old female who has a history of CAD, CHF, COPD, DM, GERD, HLD, HTN, and Chronic Respiratory Failure on home O2 2L, cardiomyopathy status post AICD implantation. Clinical Indicators: patient was transferred from [facility] with shortness of breath, and chest pain, was found not using her oxygen. There was concerns for her EKG. Blood pressure was low and patient was placed on levophed drip and a heparin drip. Vitals: Temp 98.7, Pulse 104, 114, 120, RR 18, 25, 22, BP 73/38, O2 93L room air, 85L 2L NC Labs: WBC: 10.7, APTT 38.6, D-Dimer 3.02, Sodium 133, CO2 18, BUN 38, Creat 1.76, glucose 191, lactic acid 2.2 Chest x-ray: low lung volumes with a generalized hazy appearance, could represent atelectasis vs pulmonary edema ED note Dr Driver 07/15/23: "patient met sepsis criteria. there is a potential for sepsis diagnosed at 1947, blood culture and lactic acid and IV antibiotics have been ordered. Patient has COPD and HTN. Patient has chronic hypotension. Central line was placed and pressors were started Subsequent Consult and Progress notes: hypotension and shock, rule out sepsis versus medication effect and sepsis has been entertained, but no clear- cut evidence Treatment: started empirically on IV antibiotic Rocephin, Levophed drip, heparin drip, normal saline IV, Please clarify if the Sepsis is: [ ] Sepsis confirmed, remains under treatment [ ] Sepsis confirmed, resolved [ + ] Sepsis ruled out [ ] Other condition, please specify [ ] Unable to determine MTDD
== END 2023-07-22 16:00 | DRG 640 ==
LOC: EC 16:35 → 2SICU 19:52
PROVIDERS: ADMIT Hospitalist; ATTEND Hospitalist
PROC: 06HY33Z Insertion of Infusion Device into Lower Vein, Percutaneous Approach (ICD-10-PCS; principal; 2023-07-15)
PROC: 3E043XZ Introduction of Vasopressor into Central Vein, Percutaneous Approach (ICD-10-PCS; principal; 2023-07-15)
DX: E86.0 Dehydration (principal); I50.23 Acute on chronic systolic (congestive) heart failure; R57.1 Hypovolemic shock; J96.21 Acute and chronic respiratory failure with hypoxia; J44.1 Chronic obstructive pulmonary disease with (acute) exacerbation; N17.9 Acute kidney failure, unspecified; I13.0 Hypertensive heart and chronic kidney disease with heart failure and stage 1 through stage 4 chronic kidney disease, or unspecified chronic kidney disease; I42.8 Other cardiomyopathies; E87.20 Acidosis, unspecified; E87.1 Hypo-osmolality and hyponatremia; R07.89 Other chest pain; I25.10 Atherosclerotic heart disease of native coronary artery without angina pectoris; D69.6 Thrombocytopenia, unspecified; K21.9 Gastro-esophageal reflux disease without esophagitis; E11.22 Type 2 diabetes mellitus with diabetic chronic kidney disease; E78.5 Hyperlipidemia, unspecified; G47.33 Obstructive sleep apnea (adult) (pediatric); Z66 Do not resuscitate; N18.30 Chronic kidney disease, stage 3 unspecified; R26.9 Unspecified abnormalities of gait and mobility; I27.29 Other secondary pulmonary hypertension; M54.89 Other dorsalgia; M15.9 Polyosteoarthritis, unspecified; S82.891D Other fracture of right lower leg, subsequent encounter for closed fracture with routine healing; Z87.891 Personal history of nicotine dependence; Z99.81 Dependence on supplemental oxygen; Z95.810 Presence of automatic (implantable) cardiac defibrillator; Z79.899 Other long term (current) drug therapy; Z79.84 Long term (current) use of oral hypoglycemic drugs; Z79.82 Long term (current) use of aspirin; Z79.51 Long term (current) use of inhaled steroids
CPT/HCPCS: 36415; 36556; 70450; 71045; 71046; 80048; 80053; 81001; 82533; 83605; 83735; 83880; 84145; 84484; 85025; 85379; 85610; 85730; 86022; 87040; 93005; 93306; 93970; 94640; 94660; 96365; 96375; 99291